=== PATIENT | male | born 1955 | race Caucasian/White ===

== ENCOUNTER → 2017-09-13 08:55 | Outpatient (CLI) | payer OTHER, SELFPAY ==
[2017-09-13 10:54] LABS: Absolute Lymphocyte Count 0.95 X10^3/ul (0.83-4.51); Absolute Neutrophil Count 5.3 X10^3/uL (2.0-7.7); Basophil# 0.06 X10^3/uL; Basophil% 0.8 % (0-1); Eosinophils% 5.2 % (0-5); Hematocrit 47.4 % (40-54); Hemoglobin 15.8 g/dl (13.0-16.5); Lymphocyte # 0.95 X10^3/ul (4.0); Lymphocyte % 12.4 % (19-41); Mean Corp Hgb Conc 33.3 g/gl (32-36); Mean Corpuscular Hgb 30.7 pg (27.0-32.0); Mean Platelet Vol. 11.2 fl (6.2-12.0); Neutrophil # 5.26 X10^3/uL (2.7-7.7); Neutrophil % 68.3 % (47-70); Platelet Count 168 K/mm3 (150-450); RBC Distribution Width CV 14.5 % (11.6-14.6); RBC Distribution Width SD 49.3 fl (35.1-43.9); Red Blood Count 5.15 M/mm3 (4.6-6.2); White Blood Count 7.7 K/mm3 (4.4-11.0)
[2017-09-13 10:56] LABS: POSITIVE COUNT NO; POSITIVE DIFFERENTIAL NO; POSITIVE MORPHOLOGY NO
[2017-09-13 11:13] LABS: ALB/GLOB Ratio 1.2 RATIO (0.9-2.4); AST(SGOT) 23 U/L (15-37); Alanine Aminotransfer ALT/SGPT 43 U/L (16-61); Alkaline Phosphatase 88 U/L (45-117); Anion Gap 7 (5-15); BUN 26 mg/dL (7-18); BUN/Creat Ratio 18.4 RATIO (10-20); Calcium,Total 8.7 mg/dL (8.5-10.1); Chloride 110 mmol/L (98-107); Creatinine, Serum 1.41 mg/dL (0.70-1.30); EST Glomerular Filtration Rate 54 mL/min (>60); Est Glom Filt Rate - Afr Amer 66 mL/min (>60); Globulin 3.3 g/dL (2.2-4.2); Glucose 110 mg/dL (74-106); Protein, Total 7.3 g/dL (6.4-8.2); Sodium Level 140 mmol/L (136-145); Uric Acid 7.2 mg/dL (3.5-7.2)
== END ==
PROVIDERS: Family Provider Family Medicine; PCP Family Medicine; Visit Provider Internal Medicine Rheumatology
DX: M06.4 Inflammatory polyarthropathy (principal); M35.00 Sjogren syndrome, unspecified; M10.00 Idiopathic gout, unspecified site; J45.909 Unspecified asthma, uncomplicated; G47.33 Obstructive sleep apnea (adult) (pediatric); E03.9 Hypothyroidism, unspecified; E78.5 Hyperlipidemia, unspecified
CPT/HCPCS: 36415; 80053; 84550; 85025

== ENCOUNTER 2017-10-19 19:12 | Observation (INO) | payer OTHER, SELFPAY ==
[2017-10-19] VITALS (9 sets, daily range): BP systolic 98–157; BP diastolic 59–99; PULSE 74–88; RESP 16–22; TEMP 36.8–37.1; O2SAT 95–100; BMI 35.2; BMI 35.1
--- NOTE | 2017-10-19 19:45 | EKG12_ITS ---
Test Reason : CP Blood Pressure : / mmHG Vent. Rate : 077 BPM Atrial Rate : 077 BPM P-R Int : 140 ms QRS Dur : 094 ms QT Int : 410 ms P-R-T Axes : 063 056 071 degrees QTc Int : 463 ms Normal sinus rhythm Normal ECG Confirmed by DANA LANDON, SANCHO ([id number]), publishing editor OLIVIER WAITE ([id number]) on 10/22/2017 2:17:56 PM Referred By: DONA Confirmed By:SANCHO CORTEZ MD
[2017-10-19] MEDS: Aspirin 81 MG TAB.CHEW 324 MG PO (19:55)
[2017-10-19 19:58] LABS: Absolute Lymphocyte Count 0.84 X10^3/ul (0.83-4.51); Absolute Neutrophil Count 9.4 X10^3/uL (2.0-7.7); Basophil# 0.06 X10^3/uL; Basophil% 0.5 % (0-1); Eosinophil# 0.27 X10^3/uL; Eosinophils% 2.4 % (0-5); Hematocrit 47.5 % (40-54); Hemoglobin 16.5 g/dl (13.0-16.5); Lymphocyte # 0.84 X10^3/ul (4.0); Lymphocyte % 7.5 % (19-41); Mean Corp Hgb Conc 34.7 g/gl (32-36); Mean Corpuscular Hgb 31.5 pg (27.0-32.0); Mean Corpuscular Volume 90.8 fL (80-94); Mean Platelet Vol. 10.4 fl (6.2-12.0); Monocyte% 5.3 % (0-10); Neutrophil # 9.42 X10^3/uL (2.7-7.7); Neutrophil % 83.9 % (47-70); Platelet Count 182 K/mm3 (150-450); RBC Distribution Width CV 14.3 % (11.6-14.6); RBC Distribution Width SD 46.9 fl (35.1-43.9); Red Blood Count 5.23 M/mm3 (4.6-6.2); White Blood Count 11.2 K/mm3 (4.4-11.0)
[2017-10-19 19:59] LABS: POSITIVE COUNT NO; POSITIVE DIFFERENTIAL NO; POSITIVE MORPHOLOGY NO
--- NOTE | 2017-10-19 20:00 | RAD_ITS ---
STUDY: X-RAY CHEST REASON FOR EXAM: Male, 62 years old. Chest pain TECHNIQUE: Frontal view of the chest COMPARISON: 01/18/2015 FINDINGS: The lungs are clear. There are no pleural effusions. There is no pneumothorax. The heart is normal in size. The visualized osseous structures are within normal limits. RAD/Chest 1 View (Portable) IMPRESSION: No acute thoracic pathology. Electronically Signed: Gonzalez Cunningham, at 20:19 EDT Tel , Service support ,
[2017-10-19 20:16] LABS: Anion Gap 9 (5-15); BUN 18 mg/dL (7-18); BUN/Creat Ratio 15.5 RATIO (10-20); Calcium,Total 8.7 mg/dL (8.5-10.1); Chloride 105 mmol/L (98-107); Creatinine, Serum 1.16 mg/dL (0.70-1.30); EST Glomerular Filtration Rate 68 mL/min (>60); Est Glom Filt Rate - Afr Amer 82 mL/min (>60); Estimated Creatinine Clearance 66.87 ml/min; Glucose 81 mg/dL (74-106); Potassium 3.9 mmol/L (3.5-5.1); Sodium Level 141 mmol/L (136-145)
--- NOTE | 2017-10-19 22:10 | ED.DCSUM_ITS ---
- ER Visit Summary Date of Service: 10/19/17 Chief Complaint: Indigestion History of Present Illness: The patient is a 62 M with substernal indigestion radiating to the back. This is intermittent today. Nothing seemed to bring it on or make it worse. Nothing seems to make it better. Associated with chills. No history of heart disease, PE, or dissection. He did have a stress test in February 2017 which was unremarkable. He has a history of hypertension and high cholesterol. Physical Examination: Vital signs are unremarkable except for a blood pressure of 157/87. Afebrile. Appears uncomfortable but not toxic or in distress. Heart regular. Lungs clear. Abdomen soft. Pulses strong and equal. Calves soft and supple. Skin normal in color without diaphoresis or pallor. Test Results: EKG showed sinus rhythm at a rate of 77. No sign of acute ischemia or infarction pattern. White count 11.2. BMP normal. Troponin normal. Chest x-ray unremarkable. Emergency Department Course and Treatment: Patient was placed on a monitor. Treated with aspirin and nitroglycerin. He had minimal improvement. I had a discussion with the patient. Given his risk factors and symptoms, we will observe him in the hospital. I spoke with the hospitalist who will admit. Treatment Plan: As above Disposition: Admission Impression: 1. Chest pain This note was generated with [employer] dictation software. It may contain incorrect words, spelling, and punctuation that were not noted in review of the chart prior to signing ED Disposition - Plan for ED Patient: Chief Complaint: Chest Pain Referrals: Dayne Ortiz MD [Primary Care Provider] -
--- NOTE | 2017-10-19 22:50 | PCM.HP.STD ---
Problem List (1) Chest pain Status: Acute (2) History of appendectomy Status: Resolved (3) Diastolic dysfunction Status: Chronic (4) Near syncope Status: Chronic (5) Diabetes mellitus Status: Chronic (6) BRENNON (obstructive sleep apnea) Status: Chronic Comment: CPAP 12 cm water History of Present Illness Date of Admission: 10/19/17 Chief Complaint: Chest pain The patient is a 62 year old male w/ h/o lipidemia and HTN admitted for chest pain. He has epigastric pain that started early in the evening and lasted for hours. Pain is intermittent and is burning. It also radiated to the back. Nothing makes it better or worse. He has upper back chill as well. The chill makes him diaphoretic. He recently had a negative stress test in February. He has GERD before but none similar to this episode. Past Medical History Past Medical History (Chronic Problems): Chronic Problems (Last Reviewed 10/04/17 @ 07:55 by Yesenia Sarabia [employer] GRAIN FARMWORKER-C) Moderate persistent asthma not dependent on systemic steroids (Chronic) 8 mm RLL pulmonary nodule (Chronic) Diastolic dysfunction (Chronic) Near syncope (Chronic) Diabetes mellitus (Chronic) BRENNON (obstructive sleep apnea) (Chronic) CPAP 12 cm water Obesity (Chronic) JACQUE positive (Chronic) History of chronic bronchitis (Chronic) Gout (Chronic) HLD (hyperlipidemia) (Chronic) HTN (hypertension) (Chronic) Medical History: Medical History (Last Reviewed 10/04/17 @ 07:55 by Yesenia Sarabia [employer] G[employer] FARMWORKER-C) 8 mm RLL pulmonary nodule (Chronic) Diastolic dysfunction (Chronic) I51.9 Near syncope (Chronic) R55 Diabetes mellitus (Chronic) E11.9 BRENNON (obstructive sleep apnea) (Chronic) G47.33 CPAP 12 cm water Obesity (Chronic) E66.9 Dyspnea (Acute) R06.00 JACQUE positive (Chronic) R76.8 Edema (Acute) R60.9 History of chronic bronchitis (Chronic) Z87.09 Gout (Chronic) M10.9 HLD (hyperlipidemia) (Chronic) E78.5 Acute asthma exacerbation (Acute) J45.901 HTN (hypertension) (Chronic) I10 Allergies amoxicillin trihydrate [From Augmentin] Allergy (Verified 10/04/17 07:47) Unknown potassium clavulanate [From Augmentin] Allergy (Verified 10/04/17 07:47) Unknown Home Medications: Ambulatory Orders Medication Instructions Recorded Albuterol IH (ProAir) [Proair Hfa] 2 puff INHALATION Q4H PRN PRN 09/11/14 Allopurinol [Zyloprim] 300 mg PO DAILY 09/11/14 Amlodipine [Norvasc] 5 mg PO DAILY 09/11/14 Aspirin [Aspirin, Baby] 81 mg PO DAILY@0800 09/11/14 Colchicine 0.6 mg PO 4X/DAY PRN PRN 09/11/14 Montelukast [Singulair] 10 mg PO DAILY 09/11/14 Simvastatin [Zocor] 40 mg PO QHS 09/11/14 albuterol sulfate 2.5 mg/3 mL 2.5 mg INHALATION Q4H PRN ml 04/03/17 (0.083 %) solution for nebulization budesonide-formoterol HFA 160 2 inh INHALATION Q12H 04/03/17 mcg-4.5 mcg/actuation aerosol inhaler hydroxychloroquine 200 mg tablet 200 mg PO BID tab 04/03/17 tramadol 50 mg tablet 50 mg PO Q8H PRN tab 04/03/17 azelastine 137 mcg (0.1 %) nasal 1 spray INTRANASAL BID #30 ml 07/05/17 spray aerosol furosemide 20 mg tablet 20 mg PO QDAY #90 tab 07/11/17 potassium chloride ER 10 mEq 20 meq PO QDAY #180 cap 07/11/17 capsule,extended release Cetirizine HCl [Zyrtec] 10 mg PO DAILY 10/19/17 Famotidine 20 mg PO BID 10/19/17 Fluticasone Propionate [Allergy 2 sprays NS BID 10/19/17 Relief] Surgical History: Surgical History (Last Reviewed 10/04/17 @ 07:55 by RICHA Long) History of appendectomy (Resolved) Z98.890, Z90.49 Surgical History: appendectomy Psychiatric History: No pertinent psych hx Smoking Status: Never smoker Alcohol: None Drugs: None - *Family History Maternal Family History: Family History (Last Reviewed 10/04/17 @ 07:55 by RICHA Long) Father Heart disease Sister Other medical problems History Items: - - mother of COPD ( but not his biological mother) and a maternal uncle in his 50's of CAD Paternal Family History: Family History (Last Reviewed 10/04/17 @ 07:55 by RICHA Long) Father Heart disease Sister Other medical problems History Items: Heart Disease - father of an PA at 83 Sibling Family History: Family History (Last Reviewed 10/04/17 @ 07:55 by RICHA Long) Father Heart disease Sister Other medical problems History Items: - - he has a sister who of unknown causes Review of Systems Constitutional: Denies: Chills, Fever, Weight Change HEENT: Denies: Head Aches, Sinus Congestion, Sinus Drainage Cardiovascular: Reports: Chest Pain. Denies: Palpitations Respiratory: Denies: Cough, Shortness of breath at rest, Sputum production Gastrointestinal: Denies: Abdominal Pain, Nausea, Vomiting Genitourinary: Denies: Dysuria Musculoskeletal: Denies: Joint Pain, Joint Tenderness Skin: Denies: Rash, Wounds Neurological: Denies: Numbness, Tingling, Focal weakness Psychiatric: Denies: Anxiety, Depression, Homicidal Ideations, Suicidal Ideations Hematologic/ Lymphatic: Denies: Easy Bruising, Easy Bleeding VTE Information - Inpt Only VTE Present on Admission: No VTE Mechan Device Prophylaxis: SCD's VTE Pharm Prophylaxis ordered?: Yes Patient Problems: Active and Suspected Problems (Last Reviewed 10/04/17 @ 07:55 by RICHA Long) Chest pain (Acute) - Physical Exam General: Alert, Oriented x3, Cooperative HEENT: Atraumatic, PERRLA, EOMI, Normocephalic Neck: Supple, No JVD, Negative Carotid Bruits Lungs: Clear to auscultation, Normal air movement Cardiovascular: Regular rate, No murmurs Abdomen: Bowel Sounds Present, Soft, Non Tender Extremities: No edema, Capillary Refill Less than 3 Seconds Skin: No rashes, No breakdown Musculoskeletal: No Tenderness to Palpation of Joints or Extremities Neurological: Cranial nerves II-XII grossly intact Psych/Mental Status: Normal Affect, Appropriate Vital Signs Temp Pulse Resp BP Pulse Ox 98.7 F 78 16 102/68 100 10/19/17 21:02 10/19/17 22:20 10/19/17 22:20 10/19/17 22:20 10/19/17 22:20 Oxygen Flow Rate (L/min) 2 Oxygen Delivery Method Nasal Cannula Weight: 108.409 kg Body Mass Index (BMI) 35.2 Laboratory Tests Past 24 Hrs 10/19/17 10/19/17 19:50 19:50 WBC 11.2 H RBC 5.23 Hgb 16.5 Hct 47.5 MCV 90.8 MCH 31.5 MCHC 34.7 RDW 14.3 RDW Differential 46.9 H Plt Count 182 MPV 10.4 Immature Gran % (Auto) 0.400 Neut % (Auto) 83.9 H Lymph % (Auto) 7.5 L [place] % (Auto) 5.3 Eos % (Auto) 2.4 Baso % (Auto) 0.5 Absolute Neuts (auto) 9.4 H Absolute Lymphs (auto) 0.84 Total Counted Not Reportable Sodium 141 Potassium 3.9 Chloride 105 Carbon Dioxide 27.0 Anion Gap 9 BUN 18 Creatinine 1.16 Estim Creat Clear Calc 66.87 Est GFR (MDRD) Af Amer 82 Est GFR (MDRD) Non-Af 68 BUN/Creatinine Ratio 15.5 Glucose 81 Calcium 8.7 Troponin I < 0.015 Assessment/Plan All Active Problems (Last Reviewed 10/04/17 @ 07:55 by Yesenia Sarabia, [employer] G[employer] FARMWORKER-C) Chest pain (Acute) PND (post-nasal drip) (Acute) History of appendectomy (Resolved) Dyspnea (Acute) Edema (Acute) Acute asthma exacerbation (Acute) 62 year old male w/ h/o lipidemia and HTN admitted for chest pain. 1) Chest pain: Heart score 5 Trop negative. Nondiagnostic EKG. Chest xray unremarkable. Pain does not appear typical. ECHO in AM. FLP and serial trops. Cards consult to determine if cath is indicated. 2) GERD: C/w home meds. 3) HTN: SBP 120s. C/w meds. Monitor.
--- NOTE | 2017-10-19 23:17 | NURSING ---
Called ED precision instrument maker and repairer at this time to inform that PCU is ready for patient to be transferred.
--- NOTE | 2017-10-19 23:45 | EKG12_ITS ---
Test Reason : CP REPEAT Blood Pressure : / mmHG Vent. Rate : 085 BPM Atrial Rate : 085 BPM P-R Int : 138 ms QRS Dur : 104 ms QT Int : 384 ms P-R-T Axes : 064 058 069 degrees QTc Int : 456 ms Normal sinus rhythm Normal ECG Confirmed by PATRICIA LANDON, DYLAN ([id number]), newspaper editor managing OLIVIER WAITE ([id number]) on 10/25/2017 2:11:09 PM Referred By: SANIYA Confirmed By:DYLAN GOMEZ MD
[2017-10-20] MEDS: Mag Hydrox/Al Hydrox/Simeth 30 ML UDC PO (00:49)
[2017-10-20] MEDS: Fluticasone 0.05% 1 SPRAY NASAL.SRY 2 SPRAY NASAL ×2 (00:51→10:34)
[2017-10-20] MEDS: Hydroxychloroquine 200 MG Tablet PO ×2 (00:52→10:32)
[2017-10-20 03:51] VITALS: PULSE 96
[2017-10-20 05:10] VITALS: BP 120/64; PULSE 78; RESP 16; TEMP 36.7; O2SAT 96
[2017-10-20] MEDS: Heparin Injection (Vial) 5,000 UNIT/ML VIAL 5000 UNIT SC (05:54)
--- NOTE | 2017-10-20 05:55 | ECHOD_ITS ---
Reason For Study: Chest Pain Procedure This was a 2D Doppler, Color Flow transthoracic echocardiogram. Exam performed portable in patient room. Left Ventricle Normal LV size. Left ventricular systolic function is normal. The estimated ejection fraction is 60 %. Transmitral diastolic flow velocities suggest mild (stage 1) diastolic dysfunction (reversed pattern). No regional wall motion abnormalities noted. Right Ventricle Normal RV size. Normal systolic function. Atria Normal left atrium. Normal right atrium. Mitral Valve Normal mitral valve. Tricuspid Valve Normal tricuspid valve. Mild (1+) tricuspid valve insufficiency. Pulmonary artery systolic pressure is 25 mmHg. Aortic Valve Normal aortic valve. Trisinus/trileaflet aortic valve. Pulmonic Valve Normal pulmonic valve. Great Vessels Mildly dilated aortic root. The pulmonary artery is normal size. Normal inferior vena cava. Pericardium/Pleural No pericardial effusion. MMode/2D Measurements & Calculations LVIDd: 5.1 cm IVSd: 1.1 cm Ao root diam: 4.0 cm LVIDs: 3.2 cm LVPWd: 1.5 cm LA dimension: 4.0 cm FS: 37.0 % LAV(MOD-bp): 39.3 ml LA A4 area: 19.5 cm2 LAV(MOD-bp) Indexed: 17.7 ml/m2 LAV(MOD-sp2): 24.6 ml LAV(MOD-sp4): 57.0 ml Time Measurements MV dec time: 0.22 sec Doppler Measurements & Calculations MV E max lavell: 55.5 cm/sec Lat Peak E' Lavell: 9.8 cm/sec Med Peak E' Lavell: 7.9 cm/sec MV A max lavell: 92.9 cm/sec E/E' lat: 5.7 E/E' med: 7.0 MV E/A: 0.60 MV V2 max: 108.7 cm/sec MV P1/2t max lavell: 60.8 cm/sec Ao V2 max: 136.8 cm/sec MV max P.7 mmHg MV P1/2t: 83.1 msec Ao max P.5 mmHg MV V2 mean: 47.5 cm/sec MV dec slope: 214.3 cm/sec2 Ao V2 mean: 89.4 cm/sec MV mean P.1 mmHg MVA(P1/2t): 2.6 cm2 Ao mean P.6 mmHg MV V2 VTI: 23.4 cm Ao V2 VTI: 24.5 cm LV V1 max: 101.5 cm/sec PA V2 max: 87.6 cm/sec TR max lavell: 236.4 cm/sec LV V1 max P.1 mmHg TR max P.3 mmHg LV V1 mean P.8 mmHg LV V1 mean: 62.6 cm/sec LV V1 VTI: 21.3 cm Interpretation Summary Normal LV size. Left ventricular systolic function is normal. The estimated ejection fraction is 60 %. No regional wall motion abnormalities noted. Transmitral diastolic flow velocities suggest mild (stage 1) diastolic dysfunction (reversed pattern). Mild (1+) tricuspid valve insufficiency. Pulmonary artery systolic pressure is 25 mmHg. Ordering Physician: Daniel Mace Referring Physician: Erum Hayes Performed By: Willian Nichols, DENG
[2017-10-20 06:34] LABS: Hematocrit 43.1 % (40-54); Hemoglobin 14.8 g/dl (13.0-16.5); Mean Corp Hgb Conc 34.3 g/gl (32-36); Mean Corpuscular Hgb 31.2 pg (27.0-32.0); Mean Corpuscular Volume 90.7 fL (80-94); Mean Platelet Vol. 10.6 fl (6.2-12.0); Platelet Count 158 K/mm3 (150-450); RBC Distribution Width CV 14.3 % (11.6-14.6); RBC Distribution Width SD 46.9 fl (35.1-43.9); Red Blood Count 4.75 M/mm3 (4.6-6.2); White Blood Count 8.7 K/mm3 (4.4-11.0)
[2017-10-20 06:38] LABS: Scan Indicated on CBC? Y/N NO
[2017-10-20 06:55] LABS: D-Dimer Quantitative (DVT/PE) 0.72 FEU/ug/m (0.27-0.49)
[2017-10-20 06:56] VITALS: PULSE 83
--- NOTE | 2017-10-20 07:05 | CT_ITS ---
STUDY: CTA CHEST REASON FOR EXAM: Male, 62 years old. Elevated d-dimer. Chest pain. Chronic colitis, asthma, hypertension and right lung nodule. RADIATION DOSAGE (If Supplied By Facility): CTDIvol = ( 15.04 ) mGy, DLP = ( 730.57 ) mGycm TECHNIQUE: The examination was performed with the intravenous administration of 100mL ml of Isovue 370 contrast material. Post-processing of the angiographic images was performed, with multiplanar reformation and MIP reconstruction. Individualized dose optimization techniques were used for this CT. COMPARISON: 02/02/2015. FINDINGS: Normal enhancement of the main pulmonary artery and right and left pulmonary arteries. Less than optimal contrast enhancement of the bilateral peripheral pulmonary arteries. There is no demonstrated pulmonary embolism. Normal thoracic aorta and visualized great vessels. There is no demonstrated aortic dissection. Normal heart and pericardium. Normal mediastinum. Normal hilar regions. Normal visualized trachea and bronchi. Mild pulmonary hypoinflation. Follow-up horizontal linear subsegmental atelectasis in the right posterior lung base. No suspicious pulmonary nodules or mass. Normal pleura. Normal chest wall structures. No acute osseous abnormality. Mild diffuse fatty infiltration. CT/CTA Chest W/WO Contrast IMPRESSION: 1. Less than optimal contrast opacification of the peripheral pulmonary arteries. No suspicious pulmonary thromboemboli. 2. Normal thoracic aorta without thoracic aortic dissection. 3. Long horizontal linear subsegmental atelectasis in the right posterior lung base. 4. No suspicious pulmonary nodule or mass in the chest. 5. Hepatic steatosis. 6. No significant interval changes when compared to 02/02/2015. Electronically Signed: Lorenzo George MD at 10:05 EDT , Service support ,
[2017-10-20 07:16] LABS: AST(SGOT) 18 U/L (15-37); Alanine Aminotransfer ALT/SGPT 38 U/L (16-61); Albumin, Serum 3.2 g/dL (3.2-5.0); Alkaline Phosphatase 75 U/L (45-117); Anion Gap 10 (5-15); BUN 15 mg/dL (7-18); Chloride 108 mmol/L (98-107); Cholesterol 143 mg/dL (200); Creatinine, Serum 1.15 mg/dL (0.70-1.30); EST Glomerular Filtration Rate 69 mL/min (>60); Est Glom Filt Rate - Afr Amer 83 mL/min (>60); Estimated Creatinine Clearance 67.46 ml/min; Globulin 3.2 g/dL (2.2-4.2); Glucose 112 mg/dL (74-106); High Density Lipoprotein 51 mg/dL; Potassium 3.6 mmol/L (3.5-5.1); Protein, Total 6.4 g/dL (6.4-8.2); Sodium Level 142 mmol/L (136-145); Thyroid Stim Hormone (TSH) 2.06 uIU/mL (0.358-3.74); Triglycerides 207 mg/dL; Very Low Density Lipoprotein 41 mg/dL (5-40)
[2017-10-20 08:34] LABS: BNP,B-Type NATRIURETIC PEPTIDE 27.5 pg/mL (0-100)
[2017-10-20 10:20] VITALS: BP 123/84; PULSE 71; RESP 16; TEMP 36.8; O2SAT 93
[2017-10-20] MEDS: Aspirin 81 MG TAB.CHEW PO (10:32)
[2017-10-20] MEDS: Loratadine 10 MG Tablet PO (10:32)
[2017-10-20] MEDS: Montelukast 10 MG Tablet PO (10:32)
[2017-10-20] MEDS: Carvedilol 3.125 MG TABLET PO (10:32)
[2017-10-20] MEDS: Famotidine 20 MG Tablet PO (10:32)
[2017-10-20] MEDS: Furosemide 20 MG Tablet PO (10:32)
[2017-10-20] MEDS: amLODIPine 5 MG Tablet PO (10:33)
[2017-10-20] MEDS: Allopurinol 300 MG Tablet PO (10:46)
[2017-10-20 11:04] VITALS: PULSE 73
[2017-10-20 11:09] VITALS: O2SAT 93
--- NOTE | 2017-10-20 12:00 | CON.PCM_ITS ---
Problem List (1) Chest pain Status: Acute Reason for Consult Date of Consultation: 10/20/17 History of Present Illness: The patient is a 62 year old M with past medical history significant for hypertension and diastolic dysfunction. He also has a recent history of gastroesophageal reflux disease. According to the patient, he started having epigastric/chest discomfort yesterday in the afternoon. There was no radiation to the arm neck or jaw. The discomfort was intermittent lasting a few minutes at a time and relieving on its own. No relationship to activity. No exacerbation with exertion. No associated shortness of breath. Patient is confident that he was not diaphoretic. However he did have chilled back. He describes it as feeling cold in his back. Positive associated bitter taste in the mouth. Positive nausea. No emesis. Patient continued to have these feelings yesterday. Last night it was worse. However he asked for some Mylanta and after taking it, his discomfort was was improved. Per patient, he has had cardiac catheterization many years ago by Dr. Ross. He was told that he did not have any significant coronary artery disease. Last stress test was in February of last year. No inducible ischemia was noted. Patient denies any exertional chest pain. No exertional shortness of breath. [ ] Past Medical History Allergies/Adverse Reactions: Allergies amoxicillin trihydrate [From Augmentin] Allergy (Verified 10/04/17 07:47) Unknown potassium clavulanate [From Augmentin] Allergy (Verified 10/04/17 07:47) Unknown Home Medications: Ambulatory Orders Medication Instructions Recorded Albuterol IH (ProAir) [Proair Hfa] 2 puff INHALATION Q4H PRN PRN 09/11/14 Allopurinol [Zyloprim] 300 mg PO DAILY 09/11/14 Amlodipine [Norvasc] 5 mg PO DAILY 09/11/14 Aspirin [Aspirin, Baby] 81 mg PO DAILY@0800 09/11/14 Colchicine 0.6 mg PO 4X/DAY PRN PRN 09/11/14 Montelukast [Singulair] 10 mg PO DAILY 09/11/14 Simvastatin [Zocor] 40 mg PO QHS 09/11/14 albuterol sulfate 2.5 mg/3 mL 2.5 mg INHALATION Q4H PRN ml 04/03/17 (0.083 %) solution for nebulization budesonide-formoterol HFA 160 2 inh INHALATION Q12H 04/03/17 mcg-4.5 mcg/actuation aerosol inhaler hydroxychloroquine 200 mg tablet 200 mg PO BID tab 04/03/17 tramadol 50 mg tablet 50 mg PO Q8H PRN tab 04/03/17 azelastine 137 mcg (0.1 %) nasal 1 spray INTRANASAL BID #30 ml 07/05/17 spray aerosol furosemide 20 mg tablet 20 mg PO QDAY #90 tab 07/11/17 potassium chloride ER 10 mEq 20 meq PO QDAY #180 cap 07/11/17 capsule,extended release Cetirizine HCl [Zyrtec] 10 mg PO DAILY 10/19/17 Famotidine 20 mg PO BID 10/19/17 Fluticasone Propionate [Allergy 2 sprays NS BID 10/19/17 Relief] Past Medical History (Chronic Problems): Chronic Problems (Last Reviewed 10/04/17 @ 07:55 by RICHA Long) Moderate persistent asthma not dependent on systemic steroids (Chronic) 8 mm RLL pulmonary nodule (Chronic) Diastolic dysfunction (Chronic) Near syncope (Chronic) Diabetes mellitus (Chronic) BRENNON (obstructive sleep apnea) (Chronic) CPAP 12 cm water Obesity (Chronic) JACQUE positive (Chronic) History of chronic bronchitis (Chronic) Gout (Chronic) HLD (hyperlipidemia) (Chronic) HTN (hypertension) (Chronic) Surgical History: appendectomy Psychiatric History: No pertinent psych hx - *Family History Maternal Family History: Family History (Last Reviewed 10/04/17 @ 07:55 by RICHA Long) Father Heart disease Sister Other medical problems History Items: - - mother of COPD ( but not his biological mother) and a maternal uncle in his 50's of CAD Paternal Family History: Family History (Last Reviewed 10/04/17 @ 07:55 by RICHA Long) Father Heart disease Sister Other medical problems History Items: Heart Disease - father of an PR at 83 Sibling Family History: Family History (Last Reviewed 10/04/17 @ 07:55 by RICHA Long) Father Heart disease Sister Other medical problems History Items: - - he has a sister who of unknown causes Smoking Status: Never smoker Alcohol: None Drugs: None Review of Systems - Review of Systems General: Denies: Fever, Anorexia, Weight Loss HEENT: Denies: Head Aches Cardiovascular: Denies: Chest Discomfort with Exertion, Shortness of Breath with Exertion, Orthopnea, PND, Peripheral Edema Respiratory: Denies: Cough Gastrointestinal: Reports: Heart Burn, Epigastric Discomfort, Nausea. Denies: Emesis Neurological: Denies: History of TIA, History of CVA Hematologic/ Lymphatic: Denies: Easy Brusing, Easy Bleeding Subjectve: Comfortable. No apparent distress Objective: Vital Signs Temp Pulse Resp BP Pulse Ox 98.3 F 73 16 123/84 H 93 10/20/17 10:20 10/20/17 11:04 10/20/17 10:20 10/20/17 10:20 10/20/17 11:09 Oxygen Delivery Method Room Air Weight: 107.9 kg Body Mass Index (BMI) 35.1 Intake and Output for Last 24 Hours 10/18/17 10/19/17 10/20/17 23:59 23:59 23:59 Intake Total 120 / 120 Balance 120 / 120 General: Healthy Appearing, Awake, Alert, Oriented x 3, No Acute Distress HEENT: Atraumatic, Normocephalic Oral: Moist Mucosa Neck: No JVD Lungs: Clear to auscultation Cardiovascular: Regular Rhythm, Normal S1, Normal S2 Vascular: No Carotid Bruits Abdomen: Bowel Sounds Present, Soft, - - Mildly tender in epigastrium upon palpation. According to patient, this is a similar discomfort that he has been having Neurological: No Focal Motor or Sensory Deficit Psych/Mental Status: Appropriate 10/20/17 00:01: Troponin I < 0.015 10/20/17 03:06: Troponin I < 0.015 10/20/17 05:48: Sodium 142, Potassium 3.6, Chloride 108 H, Carbon Dioxide 24.0, Anion Gap 10, BUN 15, Creatinine 1.15, Est GFR (MDRD) Af Amer 83, Est GFR (MDRD ) Non-Af 69, BUN/Creatinine Ratio 13.0, Glucose 112 H, Calcium 8.0 L, Total Bilirubin 0.40, Troponin I < 0.015, Triglycerides 207 H, Cholesterol 143, LDL Cholesterol 51, VLDL Cholesterol 41 H, HDL Cholesterol 51 10/20/17 05:48: WBC 8.7, RBC 4.75, Hgb 14.8, Hct 43.1, MCV 90.7, MCH 31.2, MCHC 34.3, RDW 14.3, RDW Differential 46.9 H, Plt Count 158, MPV 10.6 10/20/17 05:48: B-Natriuretic Peptide 27.5 10/20/17 05:48: D-Dimer Quant (PE/DVT) 0.72 H* Rhythm: Normal sinus rhythm EKG: Normal sinus rhythm. Early repolarization check ECHO: Normal LV systolic function. Stage I diastolic dysfunction Stress Test: Cardiac Cath: PCI: CT Surgery: Holter monitor: EPS: PPM: CXR: Chest CT Scan: Assessment/Plan 1. Epigastric/chest discomfort with mildly tender epigastrium. Bitter taste in the mouth. Help with Mylanta. Consider gastroesophageal reflux disease/ peptic ulcer disease. Recommend GI consultation. Consider starting on proton pump inhibitor 2. Ambulate patient. See if symptoms worsen with exertion 3. History of hypertension 4. Stage I diastolic dysfunction
--- NOTE | 2017-10-20 12:56 | PCM.DC ---
- Discharge Diagnoses Current Active Problems: Current Active and Chronic Problems (Last Reviewed 10/04/17 @ 07:55 by RICHA Long) Chest pain (Acute) You will use the following diet at home:: Cardiac Call your doctor if you observe: Uncontrolled pain Allergies/Adverse Reactions: Allergies amoxicillin trihydrate [From Augmentin] Allergy (Verified 10/04/17 07:47) Unknown potassium clavulanate [From Augmentin] Allergy (Verified 10/04/17 07:47) Unknown Medications to take at Discharge Albuterol IH (ProAir) [Proair Hfa] 2 puff INHALATION Q4H PRN PRN 09/11/14 Allopurinol [Zyloprim] 300 mg PO DAILY 09/11/14 Amlodipine [Norvasc] 5 mg PO DAILY 09/11/14 Aspirin [Aspirin, Baby] 81 mg PO DAILY@0800 09/11/14 Colchicine 0.6 mg PO 4X/DAY PRN PRN 09/11/14 Montelukast [Singulair] 10 mg PO DAILY 09/11/14 Simvastatin [Zocor] 40 mg PO QHS 09/11/14 albuterol sulfate 2.5 mg/3 mL (0.083 %) solution for nebulization 2.5 mg INHALATION Q4H PRN ml 04/03/17 budesonide-formoterol HFA 160 mcg-4.5 mcg/actuation aerosol inhaler 2 inh INHALATION Q12H 04/03/17 hydroxychloroquine 200 mg tablet 200 mg PO BID tab 04/03/17 tramadol 50 mg tablet 50 mg PO Q8H PRN tab 04/03/17 azelastine 137 mcg (0.1 %) nasal spray aerosol 1 spray INTRANASAL BID #30 ml 07/05/17 furosemide 20 mg tablet 20 mg PO QDAY #90 tab 07/11/17 potassium chloride ER 10 mEq capsule,extended release 20 meq PO QDAY #180 cap 07/11/17 Cetirizine HCl [Zyrtec] 10 mg PO DAILY 10/19/17 Fluticasone Propionate [Allergy Relief] 2 sprays NS BID 10/19/17 Pantoprazole Sodium [Protonix] 40 mg PO BID #60 tab 10/20/17 The following prescriptions were given: Pantoprazole Sodium [Protonix] 40 mg PO BID #60 tab Primary Care Physician: Dayne Ortiz MD [Primary Care Provider] - Please follow up with your Primary Care Physician in: 5-10 days Test Results: Test results from this visit will be discussed in further detail at your follow-up appointment, if applicable. Proposed Discharge Date: 10/20/17
--- NOTE | 2017-10-20 12:59 | DCINST_ITS ---
- Discharge Diagnoses Current Active Problems: Current Active and Chronic Problems (Last Reviewed 10/04/17 @ 07:55 by RICHA Long) Chest pain (Acute) You will use the following diet at home:: Cardiac Call your doctor if you observe: Uncontrolled pain Allergies/Adverse Reactions: Allergies amoxicillin trihydrate [From Augmentin] Allergy (Verified 10/04/17 07:47) Unknown potassium clavulanate [From Augmentin] Allergy (Verified 10/04/17 07:47) Unknown Medications to take at Discharge Albuterol IH (ProAir) [Proair Hfa] 2 puff INHALATION Q4H PRN PRN 09/11/14 Allopurinol [Zyloprim] 300 mg PO DAILY 09/11/14 Amlodipine [Norvasc] 5 mg PO DAILY 09/11/14 Aspirin [Aspirin, Baby] 81 mg PO DAILY@0800 09/11/14 Colchicine 0.6 mg PO 4X/DAY PRN PRN 09/11/14 Montelukast [Singulair] 10 mg PO DAILY 09/11/14 Simvastatin [Zocor] 40 mg PO QHS 09/11/14 albuterol sulfate 2.5 mg/3 mL (0.083 %) solution for nebulization 2.5 mg INHALATION Q4H PRN ml 04/03/17 budesonide-formoterol HFA 160 mcg-4.5 mcg/actuation aerosol inhaler 2 inh INHALATION Q12H 04/03/17 hydroxychloroquine 200 mg tablet 200 mg PO BID tab 04/03/17 tramadol 50 mg tablet 50 mg PO Q8H PRN tab 04/03/17 azelastine 137 mcg (0.1 %) nasal spray aerosol 1 spray INTRANASAL BID #30 ml furosemide 20 mg tablet 20 mg PO QDAY #90 tab 07/11/17 potassium chloride ER 10 mEq capsule,extended release 20 meq PO QDAY #180 cap Cetirizine HCl [Zyrtec] 10 mg PO DAILY 10/19/17 Fluticasone Propionate [Allergy Relief] 2 sprays NS BID 10/19/17 Pantoprazole Sodium [Protonix] 40 mg PO BID #60 tab 10/20/17 The following prescriptions were given: Pantoprazole Sodium [Protonix] 40 mg PO BID #60 tab Primary Care Physician: Dayne Ortiz MD [Primary Care Provider] - Please follow up with your Primary Care Physician in: 5-10 days Test Results: Test results from this visit will be discussed in further detail at your follow- up appointment, if applicable. Proposed Discharge Date: 10/20/17
--- NOTE | 2017-10-20 13:00 | PCM.DC.SUM ---
Discharge Date and Diagnosis Date of Admission: 10/19/17 Date of Discharge: 10/20/17 - Primary Discharge Diagnosis Active and Suspected Problems (Last Reviewed 10/04/17 @ 07:55 by RICHA Long) Epigastric Pain Chest pain (Acute) - Secondary Discharge Diagnosis Chronic Problems (Last Reviewed 10/04/17 @ 07:55 by RICHA Long) Moderate persistent asthma not dependent on systemic steroids (Chronic) 8 mm RLL pulmonary nodule (Chronic) Diastolic dysfunction (Chronic) Near syncope (Chronic) Diabetes mellitus (Chronic) BRENNON (obstructive sleep apnea) (Chronic) CPAP 12 cm water Obesity (Chronic) JACQUE positive (Chronic) History of chronic bronchitis (Chronic) Gout (Chronic) HLD (hyperlipidemia) (Chronic) HTN (hypertension) (Chronic) Hospital Course and Treatment Imaging Results: 10/20/17 05:55 Echo Complete [ECHO] AM (NON MEDS) 10/20/17 07:05 CTA Chest W/WO Contrast [CT] Routine Cardiology Summary of Care Provided: The patient is a 62 year old male w/ h/o lipidemia and HTN admitted for chest pain. His chest pain was associated with upper back pain and chills. His EKG was nondiagnostic and chest x-ray was unremarkable. Echocardiogram and CTA of his chest was unremarkable. The patient noted an improvement in his symptoms. Patient was assessed by cardiology and it appeared that his pain is likely GI related. Indeed patient stated that his chest pain radiates into his throat. At home patient was on Pepcid. A shared decision was made to discharge patient home and to follow up with his PCP for a referral to gastroenterology. Protonix was prescribed for patient before discharge. On the day of examination patient was seen and a brief physical examination is as follows: General: Alert, Oriented x3, Cooperative HEENT: Atraumatic, PERRLA, EOMI, Normocephalic Neck: Supple, No JVD, Negative Carotid Bruits Lungs: Clear to auscultation, Normal air movement Cardiovascular: Mild tenderness of his chest. Regular rate, No murmurs Abdomen: Bowel Sounds Present, Soft, Non Tender Extremities: No edema, Capillary Refill Less than 3 Seconds Skin: No rashes, No breakdown Musculoskeletal: No Tenderness to Palpation of Joints or Extremities Neurological: Cranial nerves II-XII grossly intact Psych/Mental Status: Normal Affect, Appropriate Patient was instructed to come to the emergency department if his symptoms worsens. Call your doctor if you observe: Uncontrolled pain Home Medications: Medications to take at Discharge Albuterol IH (ProAir) [Proair Hfa] 2 puff INHALATION Q4H PRN PRN 09/11/14 Allopurinol [Zyloprim] 300 mg PO DAILY 09/11/14 Amlodipine [Norvasc] 5 mg PO DAILY 09/11/14 Aspirin [Aspirin, Baby] 81 mg PO DAILY@0800 09/11/14 Colchicine 0.6 mg PO 4X/DAY PRN PRN 09/11/14 Montelukast [Singulair] 10 mg PO DAILY 09/11/14 Simvastatin [Zocor] 40 mg PO QHS 09/11/14 albuterol sulfate 2.5 mg/3 mL (0.083 %) solution for nebulization 2.5 mg INHALATION Q4H PRN ml 04/03/17 budesonide-formoterol HFA 160 mcg-4.5 mcg/actuation aerosol inhaler 2 inh INHALATION Q12H 04/03/17 hydroxychloroquine 200 mg tablet 200 mg PO BID tab 04/03/17 tramadol 50 mg tablet 50 mg PO Q8H PRN tab 04/03/17 azelastine 137 mcg (0.1 %) nasal spray aerosol 1 spray INTRANASAL BID #30 ml 07/05/17 furosemide 20 mg tablet 20 mg PO QDAY #90 tab 07/11/17 potassium chloride ER 10 mEq capsule,extended release 20 meq PO QDAY #180 cap 07/11/17 Cetirizine HCl [Zyrtec] 10 mg PO DAILY 10/19/17 Fluticasone Propionate [Allergy Relief] 2 sprays NS BID 10/19/17 Pantoprazole Sodium [Protonix] 40 mg PO BID #60 tab 10/20/17 Following Prescrptions Were Given to Patient: Pantoprazole Sodium [Protonix] 40 mg PO BID #60 tab Primary Care Physician: Dayne Ortiz MD [Primary Care Provider] - Please follow up with your Primary Care Physician in: 5-10 days Minutes spent on discharge:: 25 Medical Necessity - Tobacco Use Smoking Status: Never smoker Meaningful Use Info Meaningful Use Diagnoses (Choose all that apply): None applicable
== END 2017-10-20 12:58 | disposition home or self-care (01) ==
LOC: ED 19:47 → PCU 23:07
PROVIDERS: Admitting Provider Internal Medicine; Emergency Provider Emergency Medicine; Family Provider Family Medicine; PCP Family Medicine; Visit Provider Hospitalist
DX: R07.89 Other chest pain (principal); R10.13 Epigastric pain; I10 Essential (primary) hypertension; G47.33 Obstructive sleep apnea (adult) (pediatric); R55 Syncope and collapse; E11.9 Type 2 diabetes mellitus without complications; K21.9 Gastro-esophageal reflux disease without esophagitis; J45.40 Moderate persistent asthma, uncomplicated; E66.9 Obesity, unspecified; Z68.35 Body mass index [BMI] 35.0-35.9, adult; Z71.3 Dietary counseling and surveillance; E78.5 Hyperlipidemia, unspecified; M10.9 Gout, unspecified; R91.1 Solitary pulmonary nodule; Z79.899 Other long term (current) drug therapy; Z79.51 Long term (current) use of inhaled steroids; Z79.82 Long term (current) use of aspirin; R06.00 Dyspnea, unspecified
CPT/HCPCS: 36415; 71045; 71275; 80048; 80053; 80061; 83880; 84443; 84484; 85025; 85027; 85379; 93005; 93306; 96372; 99218; 99283; Q9957; Q9967; A4216; G0378

== ENCOUNTER → 2017-11-09 07:53 | Outpatient (CLI) | payer OTHER, SELFPAY ==
--- NOTE | 2017-11-09 08:10 | RAD_ITS ---
STUDY: BARIUM ESOPHAGRAM REASON FOR EXAM: Male, 62 years old. Dyspepsia RADIATION DOSAGE (If Supplied By Facility): CTDIvol = ( ) mGy, DLP = ( ) mGycm. Individualized dose optimization techniques were used for this CT.? FLUOROSCOPY TIME (if supplied): (1:07) minutes/seconds TECHNIQUE: Air-contrast COMPARISON: None. FINDINGS: Swallowing was initiated normally. No nasopharyngeal reflux or aspiration. No Zenker's diverticulum noted on the lateral view. Normal peristaltic activity noted in the proximal and mid esophagus. No evidence of diverticulum or stricture. The distal esophagus however demonstrated tertiary contractions and there was some evidence of intraesophageal and GE reflux but no hiatal hernia. No mucosal irregularity noted in the esophagus. A 13 mm barium pill passed through the esophagus without difficulty. RAD/Esophagus Only IMPRESSION: Presbyesophagus with intraesophageal and GE reflux. Electronically Signed: Cash Mendez MD at 9:07 EDT , Service support ,
== END ==
PROVIDERS: Family Provider Family Medicine; PCP Family Medicine; Visit Provider Family Medicine
DX: R10.13 Epigastric pain (principal)
CPT/HCPCS: 74220

== ENCOUNTER → 2017-12-18 06:57 | Outpatient (CLI) | payer OTHER, SELFPAY ==
[2017-12-18 07:35] LABS: Absolute Lymphocyte Count 1.59 X10^3/ul (0.83-4.51); Absolute Neutrophil Count 4.8 X10^3/uL (2.0-7.7); Basophil# 0.06 X10^3/uL; Basophil% 0.8 % (0-1); Eosinophil# 0.53 X10^3/uL; Eosinophils% 6.7 % (0-5); Hematocrit 44.1 % (40-54); Hemoglobin 14.8 g/dl (13.0-16.5); Lymphocyte # 1.59 X10^3/ul (4.0); Mean Corp Hgb Conc 33.6 g/gl (32-36); Mean Corpuscular Hgb 30.6 pg (27.0-32.0); Mean Corpuscular Volume 91.1 fL (80-94); Mean Platelet Vol. 10.9 fl (6.2-12.0); Monocyte# 0.92 X10^3/uL; Monocyte% 11.6 % (0-10); Neutrophil # 4.83 X10^3/uL (2.7-7.7); Neutrophil % 60.5 % (47-70); Platelet Count 177 K/mm3 (150-450); RBC Distribution Width CV 15.1 % (11.6-14.6); RBC Distribution Width SD 49.8 fl (35.1-43.9); Red Blood Count 4.84 M/mm3 (4.6-6.2)
[2017-12-18 07:39] LABS: POSITIVE COUNT NO; POSITIVE DIFFERENTIAL NO; POSITIVE MORPHOLOGY NO
[2017-12-18 07:46] LABS: ALB/GLOB Ratio 1.2 RATIO (0.9-2.4); AST(SGOT) 25 U/L (15-37); Alanine Aminotransfer ALT/SGPT 41 U/L (16-61); Albumin, Serum 3.7 g/dL (3.2-5.0); Alkaline Phosphatase 82 U/L (45-117); Anion Gap 12 (5-15); BUN 22 mg/dL (7-18); BUN/Creat Ratio 17.3 RATIO (10-20); Calcium,Total 8.6 mg/dL (8.5-10.1); Chloride 111 mmol/L (98-107); Creatinine, Serum 1.27 mg/dL (0.70-1.30); EST Glomerular Filtration Rate 61 mL/min (>60); Est Glom Filt Rate - Afr Amer 74 mL/min (>60); Glucose 108 mg/dL (74-106); Potassium 3.8 mmol/L (3.5-5.1); Protein, Total 6.7 g/dL (6.4-8.2); Sodium Level 144 mmol/L (136-145)
== END ==
PROVIDERS: Family Provider Family Medicine; PCP Family Medicine; Visit Provider Internal Medicine Rheumatology
DX: M06.4 Inflammatory polyarthropathy (principal); M35.00 Sjogren syndrome, unspecified; M10.00 Idiopathic gout, unspecified site; J45.909 Unspecified asthma, uncomplicated; G47.33 Obstructive sleep apnea (adult) (pediatric); E03.9 Hypothyroidism, unspecified; E78.5 Hyperlipidemia, unspecified
CPT/HCPCS: 36415; 80053; 85025

== ENCOUNTER → 2018-04-19 06:30 | Outpatient (CLI) | payer OTHER, SELFPAY ==
--- NOTE | 2018-04-19 06:42 | RAD_ITS ---
STUDY: X-RAY - LEFT KNEE REASON FOR EXAM: Male, 63 years old. Inflammatory polyarthropathy TECHNIQUE: 4 view(s) of the knee. COMPARISON: None. FINDINGS: Normal visualized distal femur. Normal visualized proximal tibia and fibula. Normal proximal tibiofibular articulation. Normal medial femorotibial compartment. Normal lateral femorotibial compartment. Normal patellofemoral articulation. The soft tissue structures are unremarkable. RAD/Knee 4 or More Views IMPRESSION: Normal x-ray examination of the knee. Electronically Signed: Noam Estrada MD at 17:02 EST , Service support ,
--- NOTE | 2018-04-19 06:43 | RAD_ITS ---
STUDY: X-RAY - RIGHT KNEE REASON FOR EXAM: Male, 63 years old. Inflammatory polyarthropathy TECHNIQUE: 4 view(s) of the knee. COMPARISON: None. FINDINGS: Normal visualized distal femur. Normal visualized proximal tibia and fibula. Normal proximal tibiofibular articulation. There is mild degenerative arthrosis of the medial femorotibial compartment. Normal lateral femorotibial compartment. Normal patellofemoral articulation. The soft tissue structures are unremarkable. RAD/Knee 4 or More Views IMPRESSION: Mild arthritic changes of the medial knee compartment. Electronically Signed: Noam Estrada MD at 17:19 EST , Service support ,
[2018-04-19 07:54] LABS: Absolute Lymphocyte Count 1.61 X10^3/ul (0.83-4.51); Absolute Neutrophil Count 4.1 X10^3/uL (2.0-7.7); Basophil# 0.09 X10^3/uL; Basophil% 1.3 % (0-1); Eosinophil# 0.46 X10^3/uL; Eosinophils% 6.4 % (0-5); Hematocrit 46.9 % (40-54); Hemoglobin 15.8 g/dl (13.0-16.5); Lymphocyte # 1.61 X10^3/ul (4.0); Lymphocyte % 22.4 % (19-41); Mean Corp Hgb Conc 33.7 g/gl (32-36); Mean Corpuscular Hgb 30.4 pg (27.0-32.0); Mean Corpuscular Volume 90.4 fL (80-94); Mean Platelet Vol. 11.2 fl (6.2-12.0); Monocyte% 12.5 % (0-10); Neutrophil % 57.1 % (47-70); Platelet Count 180 K/mm3 (150-450); RBC Distribution Width CV 14.9 % (11.6-14.6); RBC Distribution Width SD 49.2 fl (35.1-43.9); Red Blood Count 5.19 M/mm3 (4.6-6.2); White Blood Count 7.2 K/mm3 (4.4-11.0)
[2018-04-19 07:57] LABS: POSITIVE COUNT NO; POSITIVE DIFFERENTIAL NO; POSITIVE MORPHOLOGY NO
[2018-04-19 08:17] LABS: ALB/GLOB Ratio 1.3 RATIO (0.9-2.4); AST(SGOT) 25 U/L (15-37); Alanine Aminotransfer ALT/SGPT 50 U/L (16-61); Albumin, Serum 3.8 g/dL (3.2-5.0); Alkaline Phosphatase 90 U/L (45-117); Anion Gap 11 (5-15); BUN 18 mg/dL (7-18); BUN/Creat Ratio 15.4 RATIO (10-20); Calcium,Total 8.8 mg/dL (8.5-10.1); Chloride 107 mmol/L (98-107); Creatinine, Serum 1.17 mg/dL (0.70-1.30); EST Glomerular Filtration Rate 67 mL/min (>60); Est Glom Filt Rate - Afr Amer 81 mL/min (>60); Glucose 106 mg/dL (74-106); Potassium 3.9 mmol/L (3.5-5.1); Protein, Total 6.8 g/dL (6.4-8.2); Sodium Level 142 mmol/L (136-145)
== END ==
PROVIDERS: Family Provider Family Medicine; PCP Family Medicine; Referring Provider Internal Medicine Rheumatology; Visit Provider Internal Medicine Rheumatology
DX: M06.4 Inflammatory polyarthropathy (principal); M35.00 Sjogren syndrome, unspecified; M10.00 Idiopathic gout, unspecified site
CPT/HCPCS: 36415; 73564; 80053; 85025

== ENCOUNTER → 2018-11-11 | Outpatient (CLI) | payer OTHER, SELFPAY ==
[2018-10-30 07:11] VITALS: BMI 35.1
[2018-11-11 07:53] LABS: Absolute Lymphocyte Count 1.44 X10^3/uL (0.83-4.51); Absolute Neutrophil Count 3.7 X10^3/uL (2.0-7.7); Basophil# 0.08 X10^3/uL; Basophil% 1.2 % (0-1); Eosinophil# 0.42 X10^3/uL; Eosinophils% 6.5 % (0-5); Hematocrit 45.4 % (40-54); Lymphocyte # 1.44 X10^3/ul (4.0); Lymphocyte % 22.1 % (19-41); Mean Corpuscular Hgb 30.2 pg (27.0-32.0); Mean Corpuscular Volume 91.5 fL (80-94); Mean Platelet Vol. 10.5 fl (6.2-12.0); Monocyte# 0.83 X10^3/uL; Monocyte% 12.7 % (0-10); NRBC Flagged by Analyzer 0 % (0-5); Neutrophil # 3.72 X10^3/uL (2.7-7.7); Neutrophil % 57.2 % (47-70); Platelet Count 168 K/mm3 (150-450); RBC Distribution Width CV 14.5 % (11.6-14.6); RBC Distribution Width SD 48.7 fl (35.1-43.9); Red Blood Count 4.96 M/mm3 (4.6-6.2); White Blood Count 6.5 K/mm3 (4.4-11.0)
[2018-11-11 08:09] LABS: ALB/GLOB Ratio 1.3 RATIO (0.9-2.4); AST(SGOT) 25 U/L (15-37); Alanine Aminotransfer ALT/SGPT 37 U/L (16-61); Albumin, Serum 3.7 g/dL (3.2-5.0); Alkaline Phosphatase 84 U/L (45-117); Anion Gap 11 (5-15); BUN 21 mg/dL (7-18); BUN/Creat Ratio 18.1 RATIO (10-20); Calcium,Total 8.5 mg/dL (8.5-10.1); Chloride 113 mmol/L (98-107); Creatinine, Serum 1.16 mg/dL (0.70-1.30); EST Glomerular Filtration Rate 68 mL/min (>60); Est Glom Filt Rate - Afr Amer 82 mL/min (>60); Globulin 2.8 g/dL (2.2-4.2); Glucose 112 mg/dL (74-106); Potassium 3.7 mmol/L (3.5-5.1); Protein, Total 6.5 g/dL (6.4-8.2); Sodium Level 144 mmol/L (136-145)
== END | disposition home or self-care (01) ==
LOC: LAB 06:52
PROVIDERS: Family Provider Family Medicine; PCP Family Medicine; Referring Provider Internal Medicine Rheumatology; Visit Provider Internal Medicine Rheumatology
DX: M06.4 Inflammatory polyarthropathy (principal); M35.00 Sjogren syndrome, unspecified; M10.00 Idiopathic gout, unspecified site; J45.909 Unspecified asthma, uncomplicated; G47.33 Obstructive sleep apnea (adult) (pediatric); E03.9 Hypothyroidism, unspecified; E78.5 Hyperlipidemia, unspecified
CPT/HCPCS: 36415; 80053; 85025

== ENCOUNTER → 2019-03-07 09:28 | Outpatient (CLI) | payer OTHER, SELFPAY ==
[2018-10-30 07:11] VITALS: BMI 35.1
[2019-03-07 09:55] LABS: Absolute Lymphocyte Count 1.14 X10^3/uL (0.83-4.51); Absolute Neutrophil Count 4.6 X10^3/uL (2.0-7.7); Basophil# 0.09 X10^3/uL; Basophil% 1.3 % (0-1); Eosinophil# 0.33 X10^3/uL; Eosinophils% 4.7 % (0-5); Hematocrit 48.9 % (40-54); Lymphocyte # 1.14 X10^3/ul (4.0); Lymphocyte % 16.3 % (19-41); Mean Corp Hgb Conc 32.7 g/dL (32-36); Mean Corpuscular Hgb 30.4 pg (27.0-32.0); Mean Corpuscular Volume 92.8 fL (80-94); Mean Platelet Vol. 10.3 fl (6.2-12.0); Monocyte# 0.76 X10^3/uL; Monocyte% 10.9 % (0-10); NRBC Flagged by Analyzer 0 % (0-5); Neutrophil # 4.63 X10^3/uL (2.7-7.7); Neutrophil % 66.2 % (47-70); Platelet Count 157 K/mm3 (150-450); RBC Distribution Width CV 14.6 % (11.6-14.6); RBC Distribution Width SD 49.7 fl (35.1-43.9); Red Blood Count 5.27 M/mm3 (4.6-6.2)
[2019-03-07 10:12] LABS: Microalbumin,Random Urine 5.8 mg/L (NO RANGE EST.); Microalbumin:Creatinine Ratio 11.7 mg/g CRE (<30 mg/g CRE)
[2019-03-07 10:23] LABS: ALB/GLOB Ratio 1.3 RATIO (0.9-2.4); AST(SGOT) 17 U/L (15-37); Alanine Aminotransfer ALT/SGPT 41 U/L (16-61); Albumin, Serum 3.9 g/dL (3.2-5.0); Alkaline Phosphatase 76 U/L (45-117); Anion Gap 6 (5-15); BUN 20 mg/dL (7-18); BUN/Creat Ratio 16.8 RATIO (10-20); Calcium,Total 9.2 mg/dL (8.5-10.1); Chloride 110 mmol/L (98-107); Cholesterol 170 mg/dL (200); Creatinine, Serum 1.19 mg/dL (0.70-1.30); EST Glomerular Filtration Rate 66 mL/min (>60); Est Glom Filt Rate - Afr Amer 79 mL/min (>60); Glucose 106 mg/dL (74-106); High Density Lipoprotein 62 mg/dL; Potassium 4.2 mmol/L (3.5-5.1); Protein, Total 6.9 g/dL (6.4-8.2); Sodium Level 145 mmol/L (136-145); Triglycerides 114 mg/dL; Very Low Density Lipoprotein 23 mg/dL (5-40)
[2019-03-07 10:27] LABS: Hemoglobin A1c 5.4 % (4.2-6.3)
== END ==
PROVIDERS: Family Provider Family Medicine; PCP Family Medicine; Referring Provider Family Medicine; Visit Provider Family Medicine
DX: E78.5 Hyperlipidemia, unspecified (principal); J45.30 Mild persistent asthma, uncomplicated; M35.00 Sjogren syndrome, unspecified; E66.9 Obesity, unspecified
CPT/HCPCS: 36415; 80053; 80061; 82043; 82570; 83036; 85025

== ENCOUNTER → 2019-03-21 07:51 | Outpatient (CLI) | payer OTHER, SELFPAY ==
[2018-10-30 07:11] VITALS: BMI 35.1
--- NOTE | 2019-03-21 07:55 | CT_ITS ---
STUDY: CT MAXILLOFACIAL SINUSES REASON FOR EXAM: Male, 63 years old. Loss of smell x 15 years. RADIATION DOSAGE (If Supplied By Facility): CTDIvol = ( 33.45 ) mGy, DLP = ( 503.71 ) mGycm TECHNIQUE: The patient was scanned in a multi detector CT scanner. High resolution axial imaging was performed without the administration of intravenous contrast material. Sagittal and coronal images were reconstructed. Individualized dose optimization techniques were used for this CT. COMPARISON: None. FINDINGS: FRONTAL SINUSES: Normal aeration, without mucosal inflammatory disease. ETHMOIDAL SINUSES: Normal aeration, without mucosal inflammatory disease. MAXILLARY SINUSES: Normal aeration, without mucosal inflammatory disease. SPHENOIDAL SINUSES: Normal aeration, without mucosal inflammatory disease. There is patency of the bilateral maxillary infundibuli with normal uncinate processes, ethmoid bullae, and hiatus semilunaris. Normal bilateral middle turbinates. Normal bilateral inferior turbinates. Normal midline nasal septum. There is patency of the bilateral nasal airways. The visualized osseous structures are normal. The visualized bilateral orbital contents are normal. CT/Sinus/Facial Bone IMPRESSION: Normal CT examination of the maxillofacial sinuses. Electronically Signed: Tal Grey MD at 21:41 EST , Service support ,
== END ==
PROVIDERS: Family Provider Family Medicine; PCP Family Medicine; Referring Provider Otolaryngology Otolaryngology/Facial Plastic Surgery; Visit Provider Otolaryngology Otolaryngology/Facial Plastic Surgery
DX: R05 Cough (principal); J32.9 Chronic sinusitis, unspecified; R09.82 Postnasal drip
CPT/HCPCS: 70486

== ENCOUNTER → 2019-05-14 06:37 | Outpatient (CLI) | payer OTHER, SELFPAY ==
[2019-04-30 06:01] VITALS: BMI 36.3
[2019-05-14 07:05] LABS: Absolute Lymphocyte Count 1.39 X10^3/uL (0.83-4.51); Absolute Neutrophil Count 2.8 X10^3/uL (2.0-7.7); Basophil# 0.04 X10^3/uL; Basophil% 0.8 % (0-1); Eosinophil# 0.42 X10^3/uL; Hematocrit 44.7 % (40-54); Lymphocyte # 1.39 X10^3/ul (4.0); Lymphocyte % 26.5 % (19-41); Mean Corp Hgb Conc 33.6 g/dL (32-36); Mean Corpuscular Hgb 30.2 pg (27.0-32.0); Mean Corpuscular Volume 89.9 fL (80-94); Monocyte# 0.59 X10^3/uL; Monocyte% 11.2 % (0-10); NRBC Flagged by Analyzer 0 % (0-5); Neutrophil # 2.79 X10^3/uL (2.7-7.7); Neutrophil % 53.1 % (47-70); Platelet Count 145 K/mm3 (150-450); RBC Distribution Width SD 46.6 fl (35.1-43.9); Red Blood Count 4.97 M/mm3 (4.6-6.2); White Blood Count 5.3 K/mm3 (4.4-11.0)
[2019-05-14 07:57] LABS: ALB/GLOB Ratio 1.1 RATIO (0.9-2.4); AST(SGOT) 23 U/L (15-37); Alanine Aminotransfer ALT/SGPT 38 U/L (16-61); Albumin, Serum 3.5 g/dL (3.2-5.0); Alkaline Phosphatase 69 U/L (45-117); Anion Gap 8 (5-15); BUN 20 mg/dL (7-18); BUN/Creat Ratio 17.1 RATIO (10-20); Calcium,Total 8.7 mg/dL (8.5-10.1); Chloride 114 mmol/L (98-107); Creatinine, Serum 1.17 mg/dL (0.70-1.30); EST Glomerular Filtration Rate 67 mL/min (>60); Est Glom Filt Rate - Afr Amer 81 mL/min (>60); Globulin 3.2 g/dL (2.2-4.2); Glucose 109 mg/dL (74-106); Potassium 3.7 mmol/L (3.5-5.1); Protein, Total 6.7 g/dL (6.4-8.2); Sodium Level 143 mmol/L (136-145)
== END ==
PROVIDERS: PCP Family Medicine; Referring Provider Internal Medicine Rheumatology; Visit Provider Internal Medicine Rheumatology
DX: M06.4 Inflammatory polyarthropathy (principal); M35.00 Sjogren syndrome, unspecified; M10.00 Idiopathic gout, unspecified site
CPT/HCPCS: 36415; 80053; 85025

== ENCOUNTER 2019-06-20 05:49 | Day surgery (SDC) | payer OTHER, SELFPAY ==
[2019-06-16 16:06] VITALS: BMI 36.3
--- NOTE | 2019-06-19 08:30 | HP_ITS ---
I have re-examined the patient. There are no clinical changes since date of exam. Intake Intake Visit Reasons: LEFT KNEE Is patient in pain?: Yes Allergies amoxicillin trihydrate [From Augmentin] Allergy (Verified 06/19/19 08:17) Unknown potassium clavulanate [From Augmentin] Allergy (Verified 06/19/19 08:17) Unknown [facility] Social History (Updated 06/19/19 @ 09:[address] Yina Bailey, ) Smoking Status: Never smoker second hand exposure: No alcohol intake: current alcohol intake frequency: 3 or more drinks per day Alcohol type: beer substance use type: does not use HPI LEFT KNEE: Surgical H&P: Yes Details: Parts of this documentation were recorded by a scribe, this documentation accurately reflects the service provided and the decisions made by me, Dr. Yina Bailey, 06/19/19 0810. Wilver SARKAR is a 64 year old M here today for a followup on his left knee. He states that he is doing well and has minimal pain as long as he has the immobilzer on. He states that his swelling has decreased. Patient is using a walker to help ambulate. Patient had an MRI which he brought with him. Denies numbness, tingling or other associated symptoms. Patient has an extension lag at rest and has increased pain without the immobilizer. ROS Musc Reports joint pain, Reports joint swelling Skin/Breast Reports system reviewed and no additional complaints, except as docu Neuro Yes system reviewed and no additional complaints, except as docu Ortho Exam Left Knee Skin/Wound: Yes CDI, Yes swelling Patellar Tilt Normal: No KNEE: quad tendon defect proximally, no calf pain, inability to extend knee No rales rhonchi wheezing, no abdominal pain, no audible bruits Assessment & Plan Problems 1. Rupture of left quadriceps tendon, subsequent encounter S76.112D Plan Reviewed the surgical procedure and post op restrictions, explained that the meniscus tears can be addressed later if needed but cant be evaluated during the quad tendon surgery due to the field being disturbed. Reviewed the pre-operative plans with the patient. Risks and benefits of the procedure were fully explained, including but not limited to infection, neurovascular injury, continued pain, arthritis, stiffness, need for further surgery, re-injury, DVT, PE, general risks of anesthesia, and loss of limb or life. The patient understands all the risks and does wish to proceed with written consent. Follow up post op or sooner if pain, swelling, numbness or associated symptoms, or concerns develop. All questions answered. Patient in agreement of plan. Coding Level of Care Code Off vis,est,level 4 Diagnoses Rupture of left quadriceps tendon, subsequent encounter S76.112D ??Encounter type: subsequent encounter 06/19/19 0902 <Electronically signed by Yina andrews DO> Date _ Yina Bailey DO
[2019-06-20] VITALS (18 sets, daily range): BP systolic 98–143; BP diastolic 61–98; PULSE 73–100; RESP 16–22; TEMP 36.3–37.1; O2SAT 89–96; BMI 35.4
[2019-06-20] MEDS: Lactated Ringers 1,000 ML 100 ML IV ×2 (07:12→08:45)
[2019-06-20] MEDS: Mupirocin Ointment 22gm Tube 1 APPLIC (09:24)
[2019-06-20] MEDS: Bupivacaine Mpf 0.5% 30 ML VIAL (09:24)
--- NOTE | 2019-06-20 09:29 | PCM.DC.ORTHO ---
Discharge Diet: No Restrictions - brace locked in extension at all times, call office for appt with rohan wayt in 4-5 days for dressing change and brace adjustment, keep dressing clean, dry and intact, anklePumps, Ice, Elevate, call with concerns Discharge Activity: May Not Drive May shower in (days): 1 Ice area for (Minutes): 20 - Every hour while awake. Weight Bearing Status: Weight bearing as tolerated Keep extremity elevated above heart level: Operative Extremity Call your doctor if your incision/area has: Continuous Slow Oozing, Sudden Increased Bleeding, Increased Pain/ Swelling, Increased Redness, Foul Smelling Discharge Call your doctor if you observe: Fever of 101 or Higher, Coldness, Increased Pain, Numbness or Tingling, Change in Color, Calf discomfort Allergies/Adverse Reactions: Allergies amoxicillin trihydrate [From Augmentin] Allergy (Verified 06/20/19 06:26) Unknown potassium clavulanate [From Augmentin] Allergy (Verified 06/20/19 06:26) Unknown Medications to take at Discharge Allopurinol [Zyloprim] 300 mg PO DAILY 09/11/14 Amlodipine [Norvasc] 5 mg PO DAILY 09/11/14 Aspirin [Aspirin, Baby] 81 mg PO DAILY@0800 09/11/14 Colchicine 0.6 mg PO 4X/DAY PRN PRN 09/11/14 Montelukast [Singulair] 10 mg PO DAILY 09/11/14 Simvastatin [Zocor] 40 mg PO QHS 09/11/14 albuterol sulfate 2.5 mg INHALATION Q4H PRN ml 04/03/17 hydroxychloroquine 200 mg tablet 200 mg PO BID tab 04/03/17 tramadol 50 mg tablet 50 mg PO Q8H PRN tab 04/03/17 potassium chloride 10 mEq capsule,extended release 20 meq PO QDAY #180 cap 07/11/18 budesonide-formoterol HFA 160 mcg-4.5 mcg/actuation aerosol inhaler 2 inh INHALATION Q12H #10.2 g 02/03/19 azelastine 137 mcg (0.1 %) nasal spray aerosol 1 spray INTRANASAL BID #30 ml 05/05/19 fluticasone propionate 50 mcg/actuation nasal spray,suspension 2 spray INTRANASAL BID #18.2 g 05/05/19 furosemide 20 mg tablet 20 mg PO DAILY #90 tab 05/08/19 Oxycodone HCl/Acetaminophen [Percocet 5/325] 1 - 2 tablet PO Q6H PRN PRN 5 Days #28 tablet 06/20/19 The following prescriptions were given: Oxycodone HCl/Acetaminophen [Percocet 5/325] 1 - 2 tablet PO Q6H PRN PRN 5 Days #28 tablet PRN Reason: Pain Transmission Status: Sent to [facility] Primary Care Physician: Dayne Ortiz MD [Primary Care Provider] - Test Results: Test results from this visit will be discussed in further detail at your follow-up appointment, if applicable. Please Follow Up With: Yina Bailey, DO - [phone]
--- NOTE | 2019-06-20 09:30 | OP.PCM_ITS ---
Report of Operation Date of Procedure: 06/20/19 Pre-Operative Diagnosis: left quadriceps tendon tear Post-Operative Diagnosis: same Surgery/Procedure Performed:: left quadriceps tendon repair, med and lat retinacular repair Type of Anesthesia:: General Anesthesiologist: Dayne Ramos Fluids Replaced: 800ml lr Description of Procedure: Preop note Patient is a {}year-old {}male who fell slipped his left knee underneath him felt immediate pain at the insertion of his quadriceps on his patella. Went to the emergency room palpated defect and then seen in our offic. On physical exam, unable to extend his left knee palpable defect at the insertion of the quad on the patella. MRI confirms left quadriceps tendon rupture/complete. Risks benefits and alternatives surgery discussed with patient. Risks including but not limited to blood loss, blood clot, infection, neurovascular, failure of procedure, loss of life and loss of limb. Patient is aware like proceed with { left} quad tendon repair, repair as indicated. Operative note Patient seen and examined preoperative holding her. { Left} leg was marked. Patient brought to the operating room placed supine on the operating table. Signed, anesthesia, antibiotics were administered. The leg was prepped and draped in usual sterile fashion with a tourniquet around his upper thigh. All bony prominences well-padded SCDs placed on his contralateral limb. We then marked out our incision extending it in flexion from about the superior pole to about 4 to 5 cm proximally. Timeout was performed. We then used a 15 blade to cut through skin dissected down tenotomies to the the quad tendon tear and the hematoma. This was evacuated and a combination of irrigation and suction and expression. We then able to visualize the superior pole of the patella we cleaned off any disease tendon as well as clean off the bed with a rongeur after boating of the soft tissue out for our bony bed for placement of our anchors. We then drilled for our 4.75 swivel lock anchors and then tapped with a 4.75 tap. We then cut off the end and of the quad tendon back to a stable repair cutting off any kind unstable pieces or degenerative looking quad tendon. We then placed 2 screws suture tapes starting medially and a locking Krak?w stitch during about 4 5 proximally and then bring it back down distally and then the same on the lateral using another suture tape laterally we had then 4 and 3 placed 2 medial and 2 lateral through 2 swivel locks respectively. We brought the knee into next into extension and then brought the quad tendon back to bone through the anchor and then see the anchor into the bone in standard technique. We then cut off the suture tendons but use the suture that was in the anchor and use this as an epitendinous repair for further stability and strength. We then took another suture take and placed a cerclage type configuration around the kneecap for again further back up to our repair. The knee was then irrigated with copious amounts of sterile saline. We repaired the lateral retinaculum with a 0 Vicryl. The skin was then closed with 2-0 Vicryl and the skin with dilan. Sterile dressings were applied the knee was placed in a brace locked in extension. Patient taught procedure well no complication transfer recovery room in stable condition. Postoperative Hospital has prescriptions Follow-up in 4-5 days with [facility] for dressing change brace adjustment Call with increased pain numbness tingling or issues arise discussed to ice, elevate, ankle pumps and watch for calf pain ie/blood clots, family aware of signs/symptoms Brace at all times locked in extension Call with concerns Discussed with family This note was generated with [employer] dictation software. It may contain incorrect words, spelling, and punctuation that were not noted in checking the note before signing. Grafts/Implants Used: arthrex quad tendon repair system with suture tape and 4.75 swivelock ancho Preop note Patient is a {64}year-old male who fell slipped his left knee underneath him felt immediate pain at the insertion of his quadriceps on his patella. Went to the emergency room palpated defect and then seen in our offic. On physical exam, unable to extend his left knee palpable defect at the insertion of the quad on the patella. MRI confirms left quadriceps tendon rupture/complete. Risks benefits and alternatives surgery discussed with patient. Risks including but not limited to blood loss, blood clot, infection, neurovascular, failure of procedure, loss of life and loss of limb. Patient is aware like proceed with { left} quad tendon repair, repair as indicated. Operative note Patient seen and examined preoperative holding her. Left leg was marked. Patient brought to the operating room placed supine on the operating table. Signed, anesthesia, antibiotics were administered. The leg was prepped and draped in usual sterile fashion with a tourniquet around his upper thigh. All bony prominences well-padded SCDs placed on his contralateral limb. We then marked out our incision extending it in flexion from about the superior pole to about 4 to 5 cm proximally. Timeout was performed. We then used a 15 blade to cut through skin dissected down tenotomies to the the quad tendon tear and the hematoma. This was evacuated and a combination of irrigation and suction and expression. We then able to visualize the superior pole of the patella we cleaned off any disease tendon as well as clean off the bed with a rongeur after boating of the soft tissue out for our bony bed for placement of our anchors. We then drilled for our 4.75 swivel lock anchors and then tapped with a 4.75 tap. We then cut off the end and of the quad tendon back to a stable repair cutting off any kind unstable pieces or degenerative looking quad tendon. We then placed 2 screws suture tapes starting medially and a locking Krak?w stitch during about 4 5 proximally and then bring it back down distally and then the same on the lateral using another suture tape laterally we had then 4 and 3 placed 2 medial and 2 lateral through 2 swivel locks respectively. We brought the knee into next into extension and then brought the quad tendon back to bone through the anchor and then see the anchor into the bone in standard technique. We then cut off the suture tendons but use the suture that was in the anchor and use this as an epitendinous/paratenon repair for further stability and strength. We then repaired the medial and lateral retinaculum with the suture from the anchor as well as 0 vicryl medially as was more extensive tearing medially of retinaculum. The knee was irrigated with copious amounts of sterile saline throughout the case. The subcuticular layer was then closed with 2-0 Vicryl and the skin with dilan. Sterile dressings were applied the knee was placed in a brace locked in extension. Patient tolerated the procedure well no complication transfer recovery room in stable condition. Postoperative Hospital has prescriptions Follow-up in 4-5 days with [facility] for dressing change brace adjustment Call with increased pain numbness tingling or issues arise discussed to ice, elevate, ankle pumps and watch for calf pain ie/blood clots, family aware of signs/symptoms Brace at all times locked in extension Call with concerns Discussed with family This note was generated with [employer] dictation software. It may contain incorrect words, spelling, and punctuation that were not noted in checking the note before signing. Grafts/Implants Used: arthrex quad tendon repair system with suture tape and 4.75 swivelock ancho Grafts/Implants Used: arthrex quad tendon repair kit 4.75 anchors
[2019-06-20] MEDS: Ipratropium/Albuterol Sulfate 3 ML AMPUL.NEB INHALATION (10:50)
== END 2019-06-20 14:15 | disposition home or self-care (01) ==
LOC: SDC 05:50 → AC 05:51
PROVIDERS: PCP Family Medicine; Referring Provider Orthopaedic Surgery; Visit Provider Orthopaedic Surgery
PROC: (CPT 27664; principal; 2019-06-20 07:15)
DX: S76.112A Strain of left quadriceps muscle, fascia and tendon, initial encounter (principal); E78.00 Pure hypercholesterolemia, unspecified; I10 Essential (primary) hypertension; J45.909 Unspecified asthma, uncomplicated; G47.33 Obstructive sleep apnea (adult) (pediatric); Z79.82 Long term (current) use of aspirin; Z79.51 Long term (current) use of inhaled steroids; Z79.891 Long term (current) use of opiate analgesic; Z79.899 Other long term (current) drug therapy; W01.0XXA Fall on same level from slipping, tripping and stumbling without subsequent striking against object, initial encounter; Y93.89 Activity, other specified; Y92.89 Other specified places as the place of occurrence of the external cause; Y99.8 Other external cause status
CPT/HCPCS: 01470; 27664; 94640; C1713; J7120; J2405

== ENCOUNTER 2019-06-20 17:10 | Emergency (ER) | payer OTHER, SELFPAY ==
[2019-06-20 06:28] VITALS: BMI 35.4
[2019-06-20 17:10] VITALS: BP 136/71; PULSE 99; RESP 24; TEMP 36.9; O2SAT 92; BMI 35.4
--- NOTE | 2019-06-20 18:09 | EKG12_ITS ---
Test Reason : SOB Blood Pressure : / mmHG Vent. Rate : 090 BPM Atrial Rate : 090 BPM P-R Int : 142 ms QRS Dur : 106 ms QT Int : 374 ms P-R-T Axes : 063 059 071 degrees QTc Int : 457 ms Sinus rhythm with occasional Premature ventricular complexes Otherwise normal ECG Confirmed by DANA LANDON, SANCHO ([id number]), desk editor OLIVIER WAITE ([id number]) on 06/23/2019 3:32:01 PM Referred By: JENNIFER Confirmed By:SANCHO CORTEZ MD
--- NOTE | 2019-06-20 18:10 | CT_ITS ---
STUDY: CTA CHEST REASON FOR EXAM: Male, 64 years old. HYPOXIA. O2 83%. RECENT SURGERY AND TRAVEL TO CHAMPLAIN RADIATION DOSAGE (If Supplied By Facility): CTDIvol = ( 15.04 ) mGy, DLP = ( 537.38 ) mGycm TECHNIQUE: The examination was performed with the intravenous administration of Isovue 300 100ml. Post-processing of the angiographic images was performed, with multiplanar reformation and 3D reconstruction. Individualized dose optimization techniques were used for this CT. COMPARISON: 10/20/2017. FINDINGS: Normal enhancement of the main pulmonary artery and right and left pulmonary arteries. Normal enhancement of the bilateral peripheral pulmonary arteries. There is no demonstrated pulmonary embolism. Normal thoracic aorta and visualized great vessels. There is no demonstrated aortic dissection. There is borderline cardiac cardiomegaly. Normal mediastinum. Normal hilar regions. Normal visualized trachea and bronchi. The lungs are under expanded. Airspace disease seen in both lung bases, most consistent with subsegmental atelectasis, right worse than left. Normal pleura. There are no pleural effusions. Normal chest wall structures. Normal osseous structures. Normal visualized upper abdomen. CT/CTA Chest W/WO Contrast IMPRESSION: Normal CTA chest examination, without a demonstrated pulmonary embolism or arterial dissection. Subsegmental atelectasis in both lower lobes. Electronically Signed: Tal Grey MD at 20:26 EST , Service support ,
[2019-06-20] MEDS: Ipratropium/Albuterol Sulfate 3 ML AMPUL.NEB INHALATION (18:39)
[2019-06-20 18:40] VITALS: PULSE 92; RESP 18
[2019-06-20 18:42] LABS: Absolute Lymphocyte Count 0.83 X10^3/uL (0.83-4.51); Absolute Neutrophil Count 9.8 X10^3/uL (2.0-7.7); Basophil# 0.06 X10^3/uL; Basophil% 0.5 % (0-1); Eosinophil# 0.06 X10^3/uL; Eosinophils% 0.5 % (0-5); Hematocrit 43.2 % (40-54); Hemoglobin 14.3 g/dL (13.0-16.5); Lymphocyte # 0.83 X10^3/ul (4.0); Lymphocyte % 6.7 % (19-41); Mean Corp Hgb Conc 33.1 g/dL (32-36); Mean Corpuscular Hgb 30.6 pg (27.0-32.0); Mean Corpuscular Volume 92.5 fL (80-94); Mean Platelet Vol. 10.1 fl (6.2-12.0); Monocyte% 12.9 % (0-10); NRBC Flagged by Analyzer 0 % (0-5); Neutrophil # 9.78 X10^3/uL (2.7-7.7); Neutrophil % 79.1 % (47-70); POSITIVE DIFFERENTIAL YES; Platelet Count 180 K/mm3 (150-450); RBC Distribution Width CV 14.6 % (11.6-14.6); RBC Distribution Width SD 49.1 fl (35.1-43.9); Red Blood Count 4.67 M/mm3 (4.6-6.2); White Blood Count 12.4 K/mm3 (4.4-11.0)
[2019-06-20 18:45] VITALS: O2SAT 95
[2019-06-20 18:45] LABS: Differential Indicated SCAN CRITERIA MET
[2019-06-20 18:48] VITALS: O2SAT 95
[2019-06-20 18:59] LABS: ALB/GLOB Ratio 1.1 RATIO (0.9-2.4); AST(SGOT) 21 U/L (15-37); Alanine Aminotransfer ALT/SGPT 34 U/L (16-61); Albumin, Serum 3.5 g/dL (3.2-5.0); Alkaline Phosphatase 70 U/L (45-117); Anion Gap 3 (5-15); BUN 21 mg/dL (7-18); BUN/Creat Ratio 16.2 RATIO (10-20); Calcium,Total 8.7 mg/dL (8.5-10.1); Chloride 108 mmol/L (98-107); EST Glomerular Filtration Rate 59 mL/min (>60); Est Glom Filt Rate - Afr Amer 72 mL/min (>60); Estimated Creatinine Clearance 58.16 ml/min; Globulin 3.2 g/dL (2.2-4.2); Glucose 116 mg/dL (74-106); Potassium 4.1 mmol/L (3.5-5.1); Protein, Total 6.7 g/dL (6.4-8.2); Sodium Level 141 mmol/L (136-145)
[2019-06-20 19:06] LABS: Anisocytosis RARE; Macrocytosis RARE; Platelet Estimate ADEQUATE (ADEQ); Red Cell Morphology N CHROM NORMAL (NORM C&C)
[2019-06-20] MEDS: Mag Hydrox/Al Hydrox/Simeth 30 ML UDC PO (20:34)
[2019-06-20 20:35] VITALS: BP 150/78; PULSE 103; RESP 25; O2SAT 90
[2019-06-20] MEDS: 0.9% Normal Saline 1,000 ML 1000 ML IV (21:00)
--- NOTE | 2019-06-20 21:09 | ED.VISSUMM ---
- ER Visit Summary Date of Service: 06/20/19 Chief Complaint: Shortness of breath History of Present Illness: The patient is a 64 M who presents with shortness of breath that began today. Patient had surgery today to repair a tendon in his knee. Patient states that after the surgery they had difficulty getting his oxygen level up to a normal range. Patient states that it got up to 94 and he was discharged home. Patient states that when he was at home he checked it and it was 85. Patient came to the emergency department after that. Patient denies any chest pain. Patient admits to a slight cough but thinks that is irritation from the endotracheal tube that was placed today during his surgery. Patient denies any nausea or vomiting. Patient denies any fevers or chills. Physical Examination: Vital signs are stable. Patient is afebrile. Patient is in no acute distress. Oral mucosa is pink and moist. Neck is supple. Trachea is midline. There is no JVD. Heart was regular rate and rhythm. Lungs showed some scattered wheezes. There is good respiratory effort noted. Abdomen is soft. Bowel sounds are normal. There is no tenderness. Cranial nerves II through XII are intact. There are no focal motor or sensory deficits noted. Test Results: EKG showed normal sinus rhythm with a rate of 90. There are occasional PVCs noted. There are no acute ST or T wave changes. CBC showed a mild leukocytosis of 12.4. Comprehensive metabolic profile and troponin were within normal limits. CTA of the chest was obtained. There is no evidence of pulmonary embolism or aortic dissection. This was interpreted by the radiologist and reviewed by myself. Emergency Department Course and Treatment: Patient was placed on oxygen here. Patient was given a DuoNeb aerosol. Patient was feeling better on reevaluation. Patient states he wants to go home. Patient states he will feel better if he lays in his own bed and uses his CPAP machine as needed. Patient was instructed to follow-up with his primary care physician in 5 to 7 days. Patient was instructed return if worse in any way. Patient understood and was agreeable with the plan. All questions were answered. Disposition: Discharge home Impression: Dyspnea This note was generated with [employer] dictation software. It may contain incorrect words, spelling, and punctuation that were not noted in review of the chart prior to signing ED Disposition - Plan for ED Patient: Disposition: Home or Assisted Living Diagnosis: Dyspnea Instructions: ED Dyspnea Referrals: Dayne Ortiz MD [Primary Care Provider] -
[2019-06-20 21:46] VITALS: BP 154/90; PULSE 90; RESP 16; O2SAT 94
[2019-06-24 10:09] LABS: Pathologist Review Reviewed
== END 2019-06-20 21:49 | disposition home or self-care (01) ==
PROVIDERS: Emergency Provider Emergency Medicine; PCP Family Medicine
DX: R06.00 Dyspnea, unspecified (principal); Z98.890 Other specified postprocedural states; I11.0 Hypertensive heart disease with heart failure; I50.9 Heart failure, unspecified; J45.909 Unspecified asthma, uncomplicated; Z79.51 Long term (current) use of inhaled steroids; Z79.82 Long term (current) use of aspirin; Z79.891 Long term (current) use of opiate analgesic; Z79.899 Other long term (current) drug therapy
CPT/HCPCS: 71275; 80053; 84484; 85025; 93005; 94640; 96360; 99285; J7030; Q9967; A4216

== ENCOUNTER 2019-06-26 15:59 | Observation (INO) | payer OTHER, SELFPAY ==
--- NOTE | 2019-06-19 08:30 | HP_ITS ---
I have re-examined the patient. There are no clinical changes since date of exam. Intake Intake Visit Reasons: LEFT KNEE Is patient in pain?: Yes Allergies amoxicillin trihydrate [From Augmentin] Allergy (Verified 06/19/19 08:17) Unknown potassium clavulanate [From Augmentin] Allergy (Verified 06/19/19 08:17) Unknown [facility] Social History (Updated 06/19/19 @ 09:[address] Yina Bailey, ) Smoking Status: Never smoker second hand exposure: No alcohol intake: current alcohol intake frequency: 3 or more drinks per day Alcohol type: beer substance use type: does not use HPI LEFT KNEE: Surgical H&P: Yes Details: Parts of this documentation were recorded by a scribe, this documentation accurately reflects the service provided and the decisions made by me, Dr. Yina Bailey, 06/19/19 0810. Wilver SARKAR is a 64 year old M here today for a followup on his left knee. He states that he is doing well and has minimal pain as long as he has the immobilzer on. He states that his swelling has decreased. Patient is using a walker to help ambulate. Patient had an MRI which he brought with him. Denies numbness, tingling or other associated symptoms. Patient has an extension lag at rest and has increased pain without the immobilizer. ROS Musc Reports joint pain, Reports joint swelling Skin/Breast Reports system reviewed and no additional complaints, except as docu Neuro Yes system reviewed and no additional complaints, except as docu Ortho Exam Left Knee Skin/Wound: Yes CDI, Yes swelling Patellar Tilt Normal: No KNEE: quad tendon defect proximally, no calf pain, inability to extend knee Assessment & Plan Problems 1. Rupture of left quadriceps tendon, subsequent encounter S76.112D Plan Reviewed the surgical procedure and post op restrictions, explained that the meniscus tears can be addressed later if needed but cant be evaluated during the quad tendon surgery due to the field being disturbed. Reviewed the pre-operative plans with the patient. Risks and benefits of the procedure were fully explained, including but not limited to infection, neurovascular injury, continued pain, arthritis, stiffness, need for further surgery, re-injury, DVT, PE, general risks of anesthesia, and loss of limb or life. The patient understands all the risks and does wish to proceed with written consent. Follow up post op or sooner if pain, swelling, numbness or associated symptoms, or concerns develop. All questions answered. Patient in agreement of plan. Patient has a postop hematoma of the left knee after quad tendon repair as risk for abscess formation and infection will take him to the OR to irrigate debridement as patient has suture for the quad tendon would prefer not to have to worry about getting an infection this was discussed with family we will do cultures to see if it is infected 6 days postop now from a left quad tendon repair and will irrigate debride and send cultures and place a VAC versus a drain. Coding Level of Care Code Off vis,est,level 4 Diagnoses Rupture of left quadriceps tendon, subsequent encounter S76.112D ??Encounter type: subsequent encounter 06/19/19 0902 <Electronically signed by Yina andrews DO> Date _ Yina Bailey DO
[2019-06-26] VITALS (9 sets, daily range): BP systolic 125–145; BP diastolic 75–89; PULSE 77–90; RESP 15–18; TEMP 36.5–36.9; O2SAT 92–96; BMI 35.4
[2019-06-26] MEDS: Lactated Ringers 1,000 ML 100 ML IV ×3 (13:32→20:34)
[2019-06-26 15:28] LABS: Absolute Lymphocyte Count 1.18 X10^3/uL (0.83-4.51); Absolute Neutrophil Count 5.1 X10^3/uL (2.0-7.7); Basophil# 0.08 X10^3/uL; Eosinophil# 0.39 X10^3/uL; Eosinophils% 5.1 % (0-5); Hematocrit 39.9 % (40-54); Hemoglobin 12.8 g/dL (13.0-16.5); Lymphocyte # 1.18 X10^3/ul (4.0); Lymphocyte % 15.4 % (19-41); Mean Corp Hgb Conc 32.1 g/dL (32-36); Mean Corpuscular Hgb 29.3 pg (27.0-32.0); Mean Corpuscular Volume 91.3 fL (80-94); Mean Platelet Vol. 9.6 fl (6.2-12.0); Monocyte# 0.89 X10^3/uL; Monocyte% 11.6 % (0-10); NRBC Flagged by Analyzer 0 % (0-5); Neutrophil # 5.06 X10^3/uL (2.7-7.7); Neutrophil % 66.4 % (47-70); Platelet Count 247 K/mm3 (150-450); RBC Distribution Width CV 14.4 % (11.6-14.6); RBC Distribution Width SD 48.4 fl (35.1-43.9); Red Blood Count 4.37 M/mm3 (4.6-6.2); White Blood Count 7.6 K/mm3 (4.4-11.0)
--- NOTE | 2019-06-26 16:03 | OP.PCM_ITS ---
Report of Operation Date of Procedure: 06/26/19 Pre-Operative Diagnosis: Left hematoma postop quad tendon repair Post-Operative Diagnosis: Same Surgery/Procedure Performed:: Left hematoma irrigation debridement and drain application/mar[employer] software licensing specialist: Jeb Swain Type of Anesthesia:: General Anesthesiologist: Aldo Forde Estimated Blood Loss (mL): 50cc Fluids Replaced: 1100cc lr Description of Procedure: Preop note Patient is 64-year-old male well-known to me as he had a quad tendon repair 6 days ago. Patient presented our office with enlarging hematoma of his left anterior incision. As there is suture fixing the quad tendon and risk for infection with hematomas decision was made to take him to the operating room for irrigation debridement of hematoma cultures and drain versus VAC application. Risk benefits and alternatives were discussed with family and patient. Risk include but not limited to blood loss, blood clot, infection, neurovascular, failure procedure, loss of life loss of limb. Patient is aware the proceed with left quad hematoma irrigation debridement repair as indicated Operative note Patient seen and examined preoperative holding area. Left knee was marked. Patient brought to the operating room placed supine on the operating table. Signed, anesthesia was administered remove the stitches from his prior previous incision and prepped the area with Betadine. The leg we then marked our incision extended the incision about a centimeter to 2 cm proximal and distal. We used we then performed a timeout. We used a 15 blade to make her incision dissect and dissected down to the subcutaneous tissue with tenotomy's and then took cultures and sent this to be for further evaluation. There was no purulence it was all bright red blood consistent with postop hematoma there is did not appear to be an abscess or any other necrotic tissue in the incision. We then used 3000 cc of irrigation to debride the area and then used coagulation and coagulated any and all bleeding he was kind of oozy throughout the case and this was all addressed with the coagulation and compression and at the end of the case he had much less ooziness of his entire and incision is including subcuticular. We irrigated multiple times throughout the entire case. We then closed the skin with two 3-0 nylon. Sterile dressings and a compressive dressing and thigh-high teds were applied to the left leg Ancef was given after cultures were taken. Patient taught procedure well no complications transferred recovery room in stable condition Patient received 24 hours of Ancef will await final culture results at this time and low likelihood however because there is concern we will still watch if there is anything on the Gram stain will most likely keep him over the weekend potentially send him and wait for sensitivities Postoperative note Weight-bear as tolerated with knee brace locked in extension Ancef 2 g for 24 hours Observation overnight for pain control and antibiotics We will hold off on anticoagulation as already had a hematoma discussed doing ankle pumps decreasing his risk for now standpoint however because of the risk for hematoma and infection and there is tendon healing necessary with that we have to remove all the stitches discussed this with family we will start aspirin 325 twice daily if he does not appear to be developing another hematoma and the drain output is decreasing This note was generated with [employer] dictation software. It may contain incorrect words, spelling, and punctuation that were not noted in checking the note before signing.
--- NOTE | 2019-06-26 16:03 | DCINST_ITS ---
Discharge Diet: No Restrictions - Follow-up on Sunday for dressing change and evaluation of incision, weight-bear as tolerated left lower extremity, ankle pumps as much as possible, ice elevate toes above nose, Discharge Activity: May Not Drive May shower in (days): 1 Ice area for (Minutes): 20 - Every hour while awake. Weight Bearing Status: Weight bearing as tolerated Keep extremity elevated above heart level: Operative Extremity Call your doctor if your incision/area has: Continuous Slow Oozing, Sudden Increased Bleeding, Increased Pain/ Swelling, Increased Redness, Foul Smelling Discharge Call your doctor if you observe: Fever of 101 or Higher, Coldness, Increased Pain, Numbness or Tingling, Change in Color, Calf discomfort Allergies/Adverse Reactions: Allergies amoxicillin trihydrate [From Augmentin] Allergy (Verified 06/26/19 13:09) Unknown potassium clavulanate [From Augmentin] Allergy (Verified 06/26/19 13:09) Unknown Medications to take at Discharge Allopurinol [Zyloprim] 300 mg PO DAILY 09/11/14 Amlodipine [Norvasc] 5 mg PO DAILY 09/11/14 Aspirin [Aspirin, Baby] 81 mg PO DAILY@0800 09/11/14 Colchicine 0.6 mg PO 4X/DAY PRN PRN 09/11/14 Montelukast [Singulair] 10 mg PO DAILY 09/11/14 Simvastatin [Zocor] 40 mg PO QHS 09/11/14 albuterol sulfate 2.5 mg INHALATION Q4H PRN ml 04/03/17 hydroxychloroquine 200 mg tablet 200 mg PO BID tab 04/03/17 tramadol 50 mg tablet 50 mg PO Q8H PRN tab 04/03/17 potassium chloride 10 mEq capsule,extended release 20 meq PO QDAY #180 cap 07/11/18 budesonide-formoterol HFA 160 mcg-4.5 mcg/actuation aerosol inhaler 2 inh INHALATION Q12H #10.2 g 02/03/19 azelastine 137 mcg (0.1 %) nasal spray aerosol 1 spray INTRANASAL BID #30 ml 05/05/19 fluticasone propionate 50 mcg/actuation nasal spray,suspension 2 spray INTRANASAL BID #18.2 g 05/05/19 furosemide 20 mg tablet 20 mg PO DAILY #90 tab 01/23/20 Oxycodone HCl/Acetaminophen [Percocet 5/325] 1 - 2 tab PO Q6H PRN PRN 5 Days #28 tab 06/25/19 Primary Care Physician: Dayne Ortiz MD [Primary Care Provider] - Test Results: Test results from this visit will be discussed in further detail at your follow- up appointment, if applicable. Please Follow Up With: Yina Bailey, - [phone]
[2019-06-26 16:08] LABS: International Normalized Ratio 1.1; Prothrombin Time (Protime)PT. 14.2 SECONDS (11.7-14.9)
[2019-06-26 16:28] LABS: Erythrocyte Sedimentation Rate 39 mm/hr (0-20)
[2019-06-26] MEDS: Cefazolin 1 GM/50 ML BAG IV (21:44)
[2019-06-27 02:15] VITALS: BP 130/84; PULSE 78; RESP 18; TEMP 36.8; O2SAT 94; BMI 35.4
[2019-06-27 05:40] VITALS: BMI 35.4
[2019-06-27] MEDS: Lactated Ringers 1,000 ML 100 ML IV (05:55)
[2019-06-27] MEDS: Cefazolin 1 GM/50 ML BAG IV (05:56)
[2019-06-27] MEDS: HYDROcodone Bitartrate/Apap 5/325 Tablet PO ×2 (06:02→12:01)
[2019-06-27 09:05] VITALS: BP 130/87; PULSE 89; RESP 18; TEMP 36.6; O2SAT 94
--- NOTE | 2019-06-27 12:18 | PCM.PN.ORT ---
Subjective: Patient seen and examined at bedside not taking much pain medication as not having much pain drain is still in place output in the last 24 hours of about 50 cc. Discussed Intra-Op findings with patient. Patient states no fevers chills constitutional symptoms no calf pain shortness of breath or other issues overnight. Pain controlled with p.o. pain medications but again is only taken once in surgery. - Physical Exam Vitals/I&O's: Vital Signs Temp Pulse Resp BP Pulse Ox 97.8 F 89 18 130/87 H 94 06/27/19 09:05 06/27/19 09:05 06/27/19 09:05 06/27/19 09:05 06/27/19 09:05 Oxygen Flow Rate (L/min) 3 Oxygen Delivery Method Room Air Weight: 240 lb Body Mass Index (BMI) 35.4 Intake and Output for Last 24 Hours 06/25/19 06/26/19 06/27/19 23:59 23:59 23:59 Intake Total 1706.67 / 1906.67 1785 / 1785 Output Total 620 / 620 Balance 1706.67 / 1616.67 1165 / 1165 General: Alert, Oriented x3, Cooperative HEENT: Atraumatic, PERRLA, EOMI, Normocephalic Neck: Supple, No JVD, Negative Carotid Bruits Lungs: Clear to auscultation, Normal air movement Cardiovascular: Regular rate, No murmurs Abdomen: Bowel Sounds Present, Soft, Non Tender Extremities: No edema, Capillary Refill Less than 3 Seconds Skin: No rashes, No breakdown Musculoskeletal: Tenderness - Anterior left knee, no calf pain, active range of motion passive range of motion ankle intact, sensation grossly intact, incision without erythema or drainage, drain pulled at bedside Neurological: Cranial nerves II-XII grossly intact Psych/Mental Status: Normal Affect, Appropriate Laboratory Results 06/26/19 15:05: WBC 7.6, RBC 4.37 L, Hgb 12.8 L, Hct 39.9 L, MCV 91.3, MCH 29.3, MCHC 32.1, RDW Std Deviation 48.4 H, RDW Coeff of Peggy 14.4, Plt Count 247, MPV 9.6, Immature Gran % (Auto) 0.500, Neut % (Auto) 66.4, Lymph % (Auto) 15.4 L, [place] % (Auto) 11.6 H, Eos % (Auto) 5.1 H, Baso % (Auto) 1.0, Absolute Neuts (auto) 5.1, Absolute Lymphs (auto) 1.18, Nucleated RBC % 0, ESR 39 H 06/26/19 15:05: C-React Prot Ext Range 20.70 H 06/26/19 15:43: PT 14.2, INR 1.1 Current Medications Hydrocodone Bitart/Acetaminophen ([place] 5mg-325mg) 1 - 2 tablet PO Q6H PRN PRN PRN Reason: Pain Score 1-01/23 Last Admin: 06/27/19 12:01 Dose: 2 tablet Documented by: Lactated Ringer's () 1,000 mls @ 100 mls/hr IV .Q10H NICOLÁS Last Admin: 06/27/19 05:55 Dose: 100 mls/hr Documented by: Sodium Chloride () 250 mls @ 15 mls/hr IV .[id number] PRN PRN Reason: Saline Flush Sodium Chloride () 250 mls @ 15 mls/hr IV .[id number] PRN PRN Reason: Additional IVPB Infusion Ondansetron HCl (Zofran) 4 mg IV Q8H PRN PRN PRN Reason: Nausea Sodium Chloride () 10 - 40 ml IV UD PRN PRN Reason: SALINE FLUSH Medical Necessity - Tobacco Use Smoking Status: Never smoker Tobacco Use: Non-smoker Assessment/Plan All Active Problems (Last Reviewed 04/30/19 @ 06:42 by Maricruz Oropeza) Chest pain (Acute) PND (post-nasal drip) (Acute) History of appendectomy (Resolved) Dyspnea (Acute) Edema (Acute) Acute asthma exacerbation (Acute) Postop day 1 status post hematoma evacuation left knee Cultures pending Bactrim 2 weeks pending culture results Call with increased pain numbness tingling or other issues arise Maintain compressive dressings, SCDs Most likely a hematoma however will follow the cultures until they come back as did not look murky or pus or infected moles let patient go home but did talk to patient if cultures come back positive we have to change him to a different antibiotic IV versus p.o. patient is aware. Discharge today after antibiotics complete Follow-up on Sunday with [facility] This note was generated with [employer] software. It may contain incorrect words, spelling, and punctuation that were not noted in checking the note before signing.
[2019-06-27 13:53] VITALS: BP 122/68; PULSE 76; RESP 18; TEMP 36.4; O2SAT 94
== END 2019-06-27 13:58 | disposition home or self-care (01) ==
LOC: SDC 16:07 → MS3 16:07
PROVIDERS: Admitting Provider Orthopaedic Surgery; PCP Family Medicine; Referring Provider Orthopaedic Surgery; Visit Provider Orthopaedic Surgery
PROC: (CPT 27301; principal; 2019-06-26 14:20)
DX: M96.840 Postprocedural hematoma of a musculoskeletal structure following a musculoskeletal system procedure (principal); Y83.8 Other surgical procedures as the cause of abnormal reaction of the patient, or of later complication, without mention of misadventure at the time of the procedure; S76.112D Strain of left quadriceps muscle, fascia and tendon, subsequent encounter; X58.XXXD Exposure to other specified factors, subsequent encounter; J45.909 Unspecified asthma, uncomplicated; E78.00 Pure hypercholesterolemia, unspecified; Z79.899 Other long term (current) drug therapy; Z79.82 Long term (current) use of aspirin; Z79.52 Long term (current) use of systemic steroids; I10 Essential (primary) hypertension; G47.30 Sleep apnea, unspecified
CPT/HCPCS: 27301; 85025; 85610; 85652; 86140; 87015; 87070; 87075; 87101; 87116; 87205; 87206; 96361; 96365; 96366; 97162; 97166; 99218; 99251; J7120; G0378; G0379; G0463; J2405

== ENCOUNTER → 2019-11-17 | Outpatient (CLI) | payer OTHER, SELFPAY ==
[2019-11-03 08:33] VITALS: BMI 36.3
[2019-11-17 07:14] LABS: Absolute Lymphocyte Count 1.66 X10^3/uL (0.83-4.51); Absolute Neutrophil Count 4.2 X10^3/uL (2.0-7.7); Basophil# 0.06 X10^3/uL; Basophil% 0.8 % (0-1); Eosinophil# 0.46 X10^3/uL; Eosinophils% 6.4 % (0-5); Hematocrit 45.5 % (40-54); Lymphocyte # 1.66 X10^3/ul (4.0); Lymphocyte % 23.1 % (19-41); Mean Corpuscular Hgb 30.8 pg (27.0-32.0); Mean Corpuscular Volume 93.4 fL (80-94); Mean Platelet Vol. 9.9 fl (6.2-12.0); Monocyte# 0.79 X10^3/uL; NRBC Flagged by Analyzer 0 % (0-5); Neutrophil % 58.4 % (47-70); Platelet Count 167 K/mm3 (150-450); RBC Distribution Width CV 14.7 % (11.6-14.6); RBC Distribution Width SD 50.3 fl (35.1-43.9); Red Blood Count 4.87 M/mm3 (4.6-6.2); White Blood Count 7.2 K/mm3 (4.4-11.0)
[2019-11-17 07:33] LABS: ALB/GLOB Ratio 1.3 RATIO (0.9-2.4); AST(SGOT) 23 U/L (15-37); Alanine Aminotransfer ALT/SGPT 43 U/L (16-61); Albumin, Serum 3.8 g/dL (3.2-5.0); Alkaline Phosphatase 83 U/L (45-117); Anion Gap 6 (5-15); BUN 22 mg/dL (7-18); BUN/Creat Ratio 19.6 RATIO (10-20); Calcium,Total 8.4 mg/dL (8.5-10.1); Chloride 110 mmol/L (98-107); Creatinine, Serum 1.12 mg/dL (0.70-1.30); EST Glomerular Filtration Rate 70 mL/min (>60); Est Glom Filt Rate - Afr Amer 85 mL/min (>60); Glucose 96 mg/dL (74-106); Potassium 3.9 mmol/L (3.5-5.1); Protein, Total 6.8 g/dL (6.4-8.2); Sodium Level 141 mmol/L (136-145)
== END | disposition home or self-care (01) ==
LOC: LAB 06:59
PROVIDERS: PCP Family Medicine; Referring Provider Internal Medicine Rheumatology; Visit Provider Internal Medicine Rheumatology
DX: M06.4 Inflammatory polyarthropathy (principal); M35.00 Sjogren syndrome, unspecified; M10.00 Idiopathic gout, unspecified site; J45.909 Unspecified asthma, uncomplicated; G47.33 Obstructive sleep apnea (adult) (pediatric); E03.9 Hypothyroidism, unspecified; E78.5 Hyperlipidemia, unspecified
CPT/HCPCS: 36415; 80053; 85025

== ENCOUNTER 2020-01-21 13:30 | Outpatient (RCR) | payer OTHER, SELFPAY ==
[2019-07-08 10:34] VITALS: BMI 35.4
--- NOTE | 2019-07-09 15:54 | HP.PTEVAL_ITS ---
Patient's Visit Information KAREY SARKAR III is a 64 year old M referred to Physical Therapy by Dr. Yina Bailey DO with a diagnosis of s/p L Quad Tendon Repair on 06-20-2019. I &D was 06-26-2019. Date of Evaluation: 07/09/19 Physical Therapist: HOUSTON Lakhani - Visit Plan Frequency: 2-3x /Week Duration: 2 Months Plan: +++FOLLOW PROTOCOL+++ ( in brown folder with summary below). Pt is PWB with a rollator and leg brace. Weeks 2-4: ( NOW till 07-18-2019) PROM L knee extension to 0 degrees and progress to sub max Quad sets per patient tolerance. PROM L knee flexion to 60 degrees (till 07-18-2019) with progressing to AA heel knee flexion ( heel slides). L calf, hamstring stretching with brace on and LOCKED into extension. May progress to 4 way hip extension with brace locked into extension ( standing). Weeks 4-6: (07-19-2019 to 08-01-2019). Continue with PWB until return to AQUILES Ramirez, AROM 0-90 degrees. GENTLE patellar mobs in all directions. SLR may be performed without brace in no extensor lag. Seated light HS curls progressing with a light band within ROM restrictions. May begin gentle core stability exercises as able. Continue to work on ambulation within WB restricitions - Subjective Subjective: He fell on a driveway on May and torn his L Quad tendon. He could tell that something was serious on his knee when he was lying there. He went to the ER and thinks that he knocked himself out. He fell again in the ER and ended up with catscans, x-rays etc. He was in [place]. He was put in a foam imobilizer with crutches and then went to see his PCP and then referred to Dr Velasco. First sugery was June 19 and then had to go back in again on June 25. took sutures out yesterday. He ended up with a hematoma and then had to have a second surgery. He is using a rollator with some weight through his L leg. He only has a couple steps in his house and uses the crutches if no railing. They just renivated there house to make it more accessible for when nilda grier get older but it was a good thing cause he can function in his house now. He showers sitting. He has driven a couple of times. He is off the pain meds. He is sleeping ok. Ex angulo he is trying to straighten his leg, and occ do some leg lifts (sitting) and standing hip abd. Dr gave no other restrictions/ He has a brace and supposed to wear it all the time and is unlocked to 60 degrees. - Objective -8 degrees from full extension on the L knee. PROM 60 degrees L knee - Goals Goal 1:: I HEP Goal Time Frame: 6-8 Weeks Goal 2:: Increase L knee PROM 0-60 degrees (by 07-18-2019) and AAROM 0-90 degrees (by 08-01-2019) Goal Time Frame: 6-8 Weeks Goal 3:: Be able to complete a SLR without extensor lag X 10 without brace. Goal Time Frame: 6-8 Weeks Goal 4:: Restore normal gait pattern once weight bearing restrictions are lifted. - Rehabilitation Potential Rehabilitation Potential: Good - Anticipated Interventions Patient/Client Instruction: Educate patient on: Condition, Plan of Care For the Purpose of:: To decrease pain, To decrease swelling/inflammation, To increase ROM, To improve muscle performance and motor function, To improve ability to perform ADL's, To increase tolerance to activity/condition/position, To improve performance and independence with ADL's, To decrease level of supervision to perform tasks, To improve ability of physical actions for home/community/work/leisure, To improve gait and locomotor functions, To improve health of tissue, To decrease soft tissue restriction, To increase flexibility/ROM, To improve safety with gait Therapeutic Exercise to Include: Strength training, Flexibilty training, Gait and locomotor training, Passive ROM, Active ROM, Dynamic Lumbar Stabilization For the Purpose of:: To decrease pain, To decrease swelling/inflammation, To increase ROM, To improve nutrient delivery to tissue, To improve muscle performance and motor function, To improve ability to perform ADL's, To increase tolerance to activity/condition/position, To improve gait and locomotor functio ns, To improve health of tissue, To decrease soft tissue restriction, To increase flexibility/ROM Functional Training to Include: Gait training For the Purpose of:: To improve gait and locomotor functions, To improve safety with gait Manual Therapy Techniques to Include: Passive ROM For the Purpose of:: To increase flexibility/ROM IF ES: Yes Cryotherapy (ice pack, ice massage): Yes For the Purpose of:: To decrease pain, To decrease swelling/inflammation, To improve nutrient delivery to tissue Thank you for the opportunity to evaluate your patient. For Medicare and Medicare HMO plans, please review the plan of care and approve it. It will need to be FAXED BACK to us at [phone] for Medicare purposes. For Medicare only, by signing this I certify the plan of care. Please let me know if there are questions or concerns regarding this plan of care. Physician Signature: Date:
--- NOTE | 2019-08-06 13:56 | HP.PTREVAL ---
Dr. Yina Bailey, DO, It has been my pleasure to treat KAREY VALEROBON III over the last 10 visits for s/p L Quad Tendon Repair on 06-20-2019. I &D was 06-26-2019. Please see the progress note below for an update on the physical therapy plan of care! Subjective: Pt reports that her visit with Dr Velasco went well. He is now able to use a cane and is FWB. He is able to have full ROM. No brace at night but still wear it locked into extension with WB. Objective/Function: 0-90 degrees ( AAROM flexion). Still very antalgic gait with brace locked into extension Plan Plan: Await new guidelines from surgeon.... +++FOLLOW PROTOCOL+++ ( in brown folder with summary below). Pt is FWB. Pt is able to use a straight cane with brace locked into extension with WB. Able to work on full ROM as tolerated. Goals Goal 1:: I HEP Goal Time Frame: 6-8 Weeks Goal Progress: Progressing Goal 2:: Increase L knee AROM 0-120 degrees by DC. Goal Time Frame: 6-8 Weeks Goal 3:: Be able to complete a SLR without extensor lag X 10 without brace. Goal Time Frame: 6-8 Weeks Goal 4:: Walk with no AD with SBA with brace locked in extension Goal Time Frame: 4-6 Weeks Goal 5:: Up and down stairs recip with a handrail. Goal Time Frame: 4-6 Weeks Anticipated Interventions Patient/Client Instruction: Educate patient on: Condition, Plan of Care For the Purpose of:: To decrease pain, To decrease swelling/inflammation, To increase ROM, To improve muscle performance and motor function, To improve ability to perform ADL's, To increase tolerance to activity/condition/position, To improve performance and independence with ADL's, To decrease level of supervision to perform tasks, To improve ability of physical actions for home/community/work/leisure, To improve gait and locomotor functions, To improve health of tissue, To decrease soft tissue restriction, To increase flexibility/ROM, To improve safety with gait Therapeutic Exercise to Include: Strength training, Flexibilty training, Gait and locomotor training, Passive ROM, Active ROM, Dynamic Lumbar Stabilization For the Purpose of:: To decrease pain, To decrease swelling/inflammation, To increase ROM, To improve nutrient delivery to tissue, To improve muscle performance and motor function, To improve ability to perform ADL's, To increase tolerance to activity/condition/position, To improve gait and locomotor functions, To improve health of tissue, To decrease soft tissue restriction, To increase flexibility/ROM Functional Training to Include: Gait training For the Purpose of:: To improve gait and locomotor functions, To improve safety with gait Manual Therapy Techniques to Include: Passive ROM For the Purpose of:: To increase flexibility/ROM IF ES: Yes Cryotherapy (ice pack, ice massage): Yes For the Purpose of:: To decrease pain, To decrease swelling/inflammation, To improve nutrient delivery to tissue Please do not hesitate to contact me at [phone] by phone or if you have questions or concerns regarding this new plan of care! Sincerely, Maricel Lopes MPT
--- NOTE | 2019-09-15 14:03 | HP.PTREVAL ---
Dr. Yina Bailey, DO, It has been my pleasure to treat KAREY SARKAR III over the last 20 visits for s/p L Quad Tendon Repair on 06-20-2019. I &D was 06-26-2019. Please see the progress note below for an update on the physical therapy plan of care! Subjective: Pt reports that he is doing good..... Objective/Function: Pt feels good with leg locked into extension... he will ne afraid to stand with his leg bent when he is able due to weakness. Plan Plan: +++FOLLOW PROTOCOL+++ ( in brown folder with summary below). Pt is FWB. Pt is able to use a straight cane with brace locked into extension with WB. Able to work on full ROM as tolerated. Goals Goal 1:: I HEP Goal Time Frame: 6-8 Weeks Goal Progress: Goal Met Goal 2:: Increase L knee AROM 0-120 degrees by DC. Goal Time Frame: 6-8 Weeks Goal Progress: Goal Met Goal 3:: Be able to complete a SLR without extensor lag X 10 without brace. Goal Time Frame: 6-8 Weeks Goal Progress: Goal Met Goal 4:: Walk without brace and AD when cleared by Dr without an antalgic gait Goal Time Frame: 4-6 Weeks Goal 5:: Up and down stairs recip with a handrail. Goal Time Frame: 4-6 Weeks Goal 6:: Be able to stand on L leg without the brace with good control Goal Time Frame: 6-8 Weeks Anticipated Interventions Patient/Client Instruction: Educate patient on: Condition, Plan of Care For the Purpose of:: To decrease pain, To decrease swelling/inflammation, To increase ROM, To improve muscle performance and motor function, To improve ability to perform ADL's, To increase tolerance to activity/condition/position, To improve performance and independence with ADL's, To decrease level of supervision to perform tasks, To improve ability of physical actions for home/community/work/leisure, To improve gait and locomotor functions, To improve health of tissue, To decrease soft tissue restriction, To increase flexibility/ROM, To improve safety with gait Therapeutic Exercise to Include: Strength training, Flexibilty training, Gait and locomotor training, Passive ROM, Active ROM, Dynamic Lumbar Stabilization For the Purpose of:: To decrease pain, To decrease swelling/inflammation, To increase ROM, To improve nutrient delivery to tissue, To improve muscle performance and motor function, To improve ability to perform ADL's, To increase tolerance to activity/condition/position, To improve gait and locomotor functions, To improve health of tissue, To decrease soft tissue restriction, To increase flexibility/ROM Functional Training to Include: Gait training For the Purpose of:: To improve gait and locomotor functions, To improve safety with gait Manual Therapy Techniques to Include: Passive ROM For the Purpose of:: To increase flexibility/ROM IF ES: Yes Cryotherapy (ice pack, ice massage): Yes For the Purpose of:: To decrease pain, To decrease swelling/inflammation, To improve nutrient delivery to tissue Please do not hesitate to contact me at [phone] by phone or if you have questions or concerns regarding this new plan of care! Sincerely, Maricel Lopes, MPT
--- NOTE | 2019-10-22 12:00 | HP.PTREVAL_ITS ---
Dr. Yina Bailey, DO, It has been my pleasure to treat KAREY VALEROBON III over the last 30 visits for s/p L Quad Tendon Repair on 06-20-2019. I &D was 06-26-2019. Please see the progress note below for an update on the physical therapy plan of care! Subjective: Pt feels that he is getting stronger and his knee is not snapping back as much. Objective/Function: Pt did well with SL supine leg press today...Pt really felt LAQ exercises today. 0-124 degrees L knee flexion. Gait: still walks with increase limp and decreased eccentric control. Wall slides... still favors R side.... weak on the L. Stairs: decrease eccentric control and tough to push through L leg on ascending steps. Decreased overall functional strength and control. Improvement seen almost daily but skilled PT still needed. Improved BW walking today.... still off balance and decrease control but better.... Plan Plan: Watch L knee snapping into extension. Continue wtih eccentric strength, gait training, SLB to trust his leg again Goals Goal 1:: I HEP Goal Time Frame: 6-8 Weeks Goal Progress: Goal Met Goal 2:: Increase L knee AROM 0-120 degrees by DC. Goal Time Frame: 6-8 Weeks Goal Progress: Goal Met Goal 3:: Be able to complete a SLR without extensor lag X 10 without brace. Goal Time Frame: 6-8 Weeks Goal Progress: Goal Met Goal 4:: Walk without brace and AD when cleared by Dr without an antalgic gait Goal Time Frame: 4-6 Weeks Goal 5:: Up and down stairs recip with a handrail. Goal Time Frame: 4-6 Weeks Goal 6:: Be able to stand on L leg without the brace with good control Goal Time Frame: 6-8 Weeks Anticipated Interventions Patient/Client Instruction: Educate patient on: Condition, Plan of Care For the Purpose of:: To decrease pain, To decrease swelling/inflammation, To increase ROM, To improve muscle performance and motor function, To improve ability to perform ADL's, To increase tolerance to activity/condition/position, To improve performance and independence with ADL's, To decrease level of supervision to perform tasks, To improve ability of physical actions for home/community/work/leisure, To improve gait and locomotor functions, To improve health of tissue, To decrease soft tissue restriction, To increase flex ibility/ROM, To improve safety with gait Therapeutic Exercise to Include: Strength training, Flexibilty training, Gait and locomotor training, Passive ROM, Active ROM, Dynamic Lumbar Stabilization For the Purpose of:: To decrease pain, To decrease swelling/inflammation, To increase ROM, To improve nutrient delivery to tissue, To improve muscle perf ormance and motor function, To improve ability to perform ADL's, To increase tolerance to activity/condition/position, To improve gait and locomotor functions, To improve health of tissue, To decrease soft tissue restriction, To increase flexibility/ROM Functional Training to Include: Gait training For the Purpose of:: To improve gait and locomotor functions, To improve safety with gait Manual Therapy Techniques to Include: Passive ROM For the Purpose of:: To increase flexibility/ROM IF ES: Yes Cryotherapy (ice pack, ice massage): Yes For the Purpose of:: To decrease pain, To decrease swelling/inflammation, To improve nutrient delivery to tissue Please do not hesitate to contact me at [phone] by phone or if you have questions or concerns regarding this new plan of care! Sincerely, Maricel Lopes, MPT
--- NOTE | 2020-01-21 14:00 | HP.PTDCSUM ---
It has been my pleasure to treat KAREY SARKAR III referred by Dr. Yina Bailey DO, with the diagnosis of s/p L Quad Tendon Repair on 06-20-2019. I &D was 06-26-2019 for a total of 55 visit(s). Discharge Date: 01/21/20 Please see the following information for a summary of their discharge status. Subjective: Pt woke up this morning and was able to do somethings he normally could not and did not hesitate. [place] went on 8 [address] [place] 6 times and it was [place] and he did fine... watched so he did not step on anything. Piriformis stretching did help him and he has no pain. L LE Pain Intensity (Out of 10): 0 % Improvement: 100 Objective/Function: SLS on L 30 seconds. SLS with knee bent on the L 10 seconds and then loses his balance. Gait: walks with occ foot slap... able to correct it but has always walked this way. Single leg L heel raises X 10... with no struggle. Stairs: up and down recip wti 1 hand rail with no signs of weakness. Able to walk up and down steep hill with no external support with good quad control and no signs of LOB or weakness. Goal 1:: I HEP including H&W routine Goal Progress: Goal Met Goal 2:: Pt to subjectivly report improvement in descending a hill with his L knee being able to control while in flexion Goal Progress: Goal Met Goal 3:: Be able to complete a SLR without extensor lag X 10 without brace. Goal Progress: Goal Met Goal 4:: Walk with proper eccentric control of L knee with gait. Goal Progress: Progressing Goal 5:: Up and down stairs recip with a handrail with good eccentric control Goal Progress: Goal Met Goal 6:: Be able to stand on L leg with knee bent for 40 seconds without signs of weakness Goal Progress: Goal Met Plan: DC PT to gym rountine and HEP. Working on gait mechanics with not walking with L knee so straight. Discharge Comments: DC PT to H&W program If there are questions or concerns regarding this patient's physical therapy, please feel free to call me at [phone]. Thank you for the referral of this patient. Sincerely, Maricel Lopes, MPT
== END 2020-01-21 19:00 | disposition home or self-care (01) ==
LOC: PT 13:30
PROVIDERS: PCP Family Medicine; Referring Provider Orthopaedic Surgery; Visit Provider Orthopaedic Surgery
DX: Z98.890 Other specified postprocedural states (principal)
CPT/HCPCS: 97110; 97140; 97161; 97530

== ENCOUNTER → 2020-05-17 07:25 | Outpatient (CLI) | payer OTHER, SELFPAY ==
[2020-03-17 10:44] VITALS: BMI 32.8
[2020-05-17 08:23] LABS: Absolute Lymphocyte Count 1.58 X10^3/uL (0.83-4.51); Absolute Neutrophil Count 3.5 X10^3/uL (2.0-7.7); Basophil# 0.09 X10^3/uL; Basophil% 1.4 % (0-1); Eosinophil# 0.38 X10^3/uL; Hematocrit 43.8 % (40-54); Hemoglobin 14.8 g/dL (13.0-16.5); Lymphocyte # 1.58 X10^3/ul (4.0); Lymphocyte % 24.9 % (19-41); Mean Corp Hgb Conc 33.8 g/dL (32-36); Mean Corpuscular Volume 91.6 fL (80-94); Mean Platelet Vol. 10.2 fl (6.2-12.0); Monocyte# 0.79 X10^3/uL; Monocyte% 12.4 % (0-10); NRBC Flagged by Analyzer 0 % (0-5); Neutrophil # 3.48 X10^3/uL (2.7-7.7); Neutrophil % 54.8 % (47-70); Platelet Count 181 K/mm3 (150-450); RBC Distribution Width CV 14.6 % (11.6-14.6); RBC Distribution Width SD 48.8 fl (35.1-43.9); Red Blood Count 4.78 M/mm3 (4.6-6.2); White Blood Count 6.4 K/mm3 (4.4-11.0)
[2020-05-17 09:03] LABS: Microalbumin,Random Urine 14.9 mg/L (NO RANGE EST.); Microalbumin:Creatinine Ratio 7.2 mg/g CRE (<30 mg/g CRE)
[2020-05-17 09:07] LABS: ALB/GLOB Ratio 1.3 RATIO (0.9-2.4); AST(SGOT) 34 U/L (15-37); Alanine Aminotransfer ALT/SGPT 56 U/L (16-61); Albumin, Serum 3.8 g/dL (3.2-5.0); Alkaline Phosphatase 88 U/L (45-117); Anion Gap 8 (5-15); BUN 21 mg/dL (7-18); BUN/Creat Ratio 15.6 RATIO (10-20); Calcium,Total 8.7 mg/dL (8.5-10.1); Chloride 111 mmol/L (98-107); Cholesterol 198 mg/dL (200); Creatinine, Serum 1.35 mg/dL (0.70-1.30); EST Glomerular Filtration Rate 57 mL/min (>60); Est Glom Filt Rate - Afr Amer 68 mL/min (>60); Globulin 2.9 g/dL (2.2-4.2); Glucose 105 mg/dL (74-106); High Density Lipoprotein 44 mg/dL; Potassium 3.9 mmol/L (3.5-5.1); Protein, Total 6.7 g/dL (6.4-8.2); Sodium Level 142 mmol/L (136-145); Triglycerides 311 mg/dL; Very Low Density Lipoprotein 62 mg/dL (5-40)
== END ==
PROVIDERS: PCP Family Medicine; Referring Provider Internal Medicine Rheumatology; Visit Provider Internal Medicine Rheumatology
DX: J45.40 Moderate persistent asthma, uncomplicated (principal); I10 Essential (primary) hypertension; M06.4 Inflammatory polyarthropathy; M35.00 Sjogren syndrome, unspecified; M10.00 Idiopathic gout, unspecified site; J45.909 Unspecified asthma, uncomplicated; G47.33 Obstructive sleep apnea (adult) (pediatric); E03.9 Hypothyroidism, unspecified; E78.5 Hyperlipidemia, unspecified
CPT/HCPCS: 36415; 80053; 80061; 82043; 82570; 85025

== ENCOUNTER → 2020-05-20 09:00 | Outpatient (CLI) | payer OTHER, SELFPAY ==
[2020-03-17 10:44] VITALS: BMI 32.8
== END ==
PROVIDERS: PCP Family Medicine; Visit Provider Nurse Practitioner Acute Care
DX: Z46.89 Encounter for fitting and adjustment of other specified devices (principal)

== ENCOUNTER → 2020-11-29 08:34 | Outpatient (CLI) | payer OTHER, SELFPAY ==
[2020-03-17 10:44] VITALS: BMI 32.8
[2020-11-29 10:28] LABS: Absolute Lymphocyte Count 1.47 X10^3/uL (0.83-4.51); Absolute Neutrophil Count 3.6 X10^3/uL (2.0-7.7); Basophil# 0.09 X10^3/uL; Basophil% 1.4 % (0-1); Eosinophil# 0.39 X10^3/uL; Eosinophils% 6.1 % (0-5); Hematocrit 43.6 % (40-54); Hemoglobin 14.5 g/dL (13.0-16.5); Lymphocyte # 1.47 X10^3/ul (0.83-4.51); Lymphocyte % 22.9 % (19-41); Mean Corp Hgb Conc 33.3 g/dL (32-36); Mean Corpuscular Hgb 30.5 pg (27.0-32.0); Mean Corpuscular Volume 91.6 fL (80-94); Mean Platelet Vol. 10.9 fl (6.2-12.0); Monocyte# 0.89 X10^3/uL; Monocyte% 13.8 % (0-10); NRBC Flagged by Analyzer 0 % (0-5); Neutrophil # 3.56 X10^3/uL (2.7-7.7); Neutrophil % 55.3 % (47-70); Platelet Count 163 K/mm3 (150-450); RBC Distribution Width CV 14.6 % (11.6-14.6); RBC Distribution Width SD 49.1 fl (35.1-43.9); Red Blood Count 4.76 M/mm3 (4.6-6.2); White Blood Count 6.4 K/mm3 (4.4-11.0)
[2020-11-29 10:51] LABS: ALB/GLOB Ratio 1.3 RATIO (0.9-2.4); AST(SGOT) 27 U/L (15-37); Alanine Aminotransfer ALT/SGPT 46 U/L (16-61); Albumin, Serum 3.8 g/dL (3.2-5.0); Alkaline Phosphatase 82 U/L (45-117); Anion Gap 7 (5-15); BUN 22 mg/dL (7-18); BUN/Creat Ratio 22.8 RATIO (10-20); Calcium,Total 8.7 mg/dL (8.5-10.1); Chloride 113 mmol/L (98-107); Creatinine, Serum 0.96 mg/dL (0.70-1.30); EST Glomerular Filtration Rate 83 mL/min (>60); Est Glom Filt Rate - Afr Amer 101 mL/min (>60); Glucose 101 mg/dL (74-106); Potassium 3.9 mmol/L (3.5-5.1); Protein, Total 6.8 g/dL (6.4-8.2); Sodium Level 142 mmol/L (136-145)
== END ==
PROVIDERS: PCP Family Medicine; Visit Provider Internal Medicine Rheumatology
DX: M06.4 Inflammatory polyarthropathy (principal); M35.00 Sjogren syndrome, unspecified; M10.00 Idiopathic gout, unspecified site; J45.909 Unspecified asthma, uncomplicated; G47.33 Obstructive sleep apnea (adult) (pediatric); E03.9 Hypothyroidism, unspecified; E78.5 Hyperlipidemia, unspecified
CPT/HCPCS: 36415; 80053; 85025

== ENCOUNTER 2021-05-30 09:55 | Outpatient (CLI) | payer BC, SELFPAY ==
[2021-05-30 10:21] LABS: Absolute Lymphocyte Count 1.32 X10^3/uL (0.83-4.51); Absolute Neutrophil Count 3.4 X10^3/uL (2.0-7.7); Basophil# 0.09 X10^3/uL; Basophil% 1.5 % (0-1); Eosinophil# 0.33 X10^3/uL; Eosinophils% 5.6 % (0-5); Hematocrit 46.9 % (40-54); Hemoglobin 15.5 g/dL (13.0-16.5); Lymphocyte # 1.32 X10^3/ul (0.83-4.51); Lymphocyte % 22.4 % (19-41); Mean Corpuscular Hgb 30.9 pg (27.0-32.0); Mean Corpuscular Volume 93.4 fL (80-94); Mean Platelet Vol. 9.8 fl (6.2-12.0); Monocyte# 0.71 X10^3/uL; NRBC Flagged by Analyzer 0 % (0-5); Neutrophil % 57.7 % (47-70); Platelet Count 165 K/mm3 (150-450); RBC Distribution Width CV 14.6 % (11.6-14.6); RBC Distribution Width SD 49.4 fl (35.1-43.9); Red Blood Count 5.02 M/mm3 (4.6-6.2); White Blood Count 5.9 K/mm3 (4.4-11.0)
[2021-05-30 10:47] LABS: Microalbumin,Random Urine 8.6 mg/L (NO RANGE EST.); Microalbumin:Creatinine Ratio 16.6 mg/g CRE (<30 mg/g CRE)
[2021-05-30 11:10] LABS: ALB/GLOB Ratio 1.2 RATIO (0.9-2.4); AST(SGOT) 23 U/L (15-37); Alanine Aminotransfer ALT/SGPT 54 U/L (16-61); Albumin, Serum 3.7 g/dL (3.2-5.0); Alkaline Phosphatase 83 U/L (45-117); Anion Gap 5 (5-15); BUN 19 mg/dL (7-18); BUN/Creat Ratio 15.6 RATIO (10-20); Chloride 112 mmol/L (98-107); Cholesterol 198 mg/dL (200); Creatinine, Serum 1.22 mg/dL (0.70-1.30); EST Glomerular Filtration Rate 63 mL/min (>60); Est Glom Filt Rate - Afr Amer 77 mL/min (>60); Globulin 3.2 g/dL (2.2-4.2); Glucose 113 mg/dL (74-106); High Density Lipoprotein 63 mg/dL; Protein, Total 6.9 g/dL (6.4-8.2); Sodium Level 139 mmol/L (136-145); Thyroid Stim Hormone (TSH) 5.64 uIU/mL (0.358-3.74); Triglycerides 189 mg/dL; Uric Acid 5.7 mg/dL (3.5-7.2); Very Low Density Lipoprotein 38 mg/dL (5-40)
[2021-05-31 08:55] LABS: T4 Free Direct 0.83 ng/dL (0.76-1.46)
== END 2021-05-30 23:59 | disposition home or self-care (01) ==
LOC: LAB 09:56
PROVIDERS: PCP Family Medicine; Referring Provider Internal Medicine Rheumatology; Visit Provider Internal Medicine Rheumatology
DX: M06.4 Inflammatory polyarthropathy (principal); M35.00 Sjogren syndrome, unspecified; M10.00 Idiopathic gout, unspecified site; J45.909 Unspecified asthma, uncomplicated; G47.33 Obstructive sleep apnea (adult) (pediatric); E03.9 Hypothyroidism, unspecified; E78.5 Hyperlipidemia, unspecified
CPT/HCPCS: 36415; 80053; 80061; 82043; 82570; 84439; 84443; 84550; 85025

== ENCOUNTER → 2021-11-28 | Outpatient (CLI) | payer BC, SELFPAY ==
[2021-11-28 10:07] LABS: Absolute Lymphocyte Count 1.39 X10^3/uL (0.83-4.51); Absolute Neutrophil Count 5.2 X10^3/uL (2.0-7.7); Basophil# 0.08 X10^3/uL; Eosinophil# 0.21 X10^3/uL; Eosinophils% 2.7 % (0-5); Hematocrit 45.7 % (40-54); Hemoglobin 15.3 g/dL (13.0-16.5); Lymphocyte # 1.39 X10^3/ul (0.83-4.51); Lymphocyte % 17.8 % (19-41); Mean Corp Hgb Conc 33.5 g/dL (32-36); Mean Corpuscular Hgb 31.5 pg (27.0-32.0); Mean Platelet Vol. 10.4 fl (6.2-12.0); Monocyte# 0.89 X10^3/uL; Monocyte% 11.4 % (0-10); NRBC Flagged by Analyzer 0 % (0-5); Neutrophil # 5.17 X10^3/uL (2.7-7.7); Neutrophil % 66.3 % (47-70); Platelet Count 180 K/mm3 (150-450); RBC Distribution Width CV 14.6 % (11.6-14.6); RBC Distribution Width SD 50.6 fl (35.1-43.9); Red Blood Count 4.86 M/mm3 (4.6-6.2); White Blood Count 7.8 K/mm3 (4.4-11.0)
[2021-11-28 10:36] LABS: ALB/GLOB Ratio 1.1 RATIO (0.9-2.4); AST(SGOT) 30 U/L (15-37); Alanine Aminotransfer ALT/SGPT 53 U/L (16-61); Albumin, Serum 3.6 g/dL (3.2-5.0); Alkaline Phosphatase 76 U/L (45-117); Anion Gap 4 (5-15); BUN 23 mg/dL (7-18); BUN/Creat Ratio 20.4 RATIO (10-20); Calcium,Total 9.1 mg/dL (8.5-10.1); Chloride 111 mmol/L (98-107); Creatinine, Serum 1.13 mg/dL (0.70-1.30); EST Glomerular Filtration Rate 69 mL/min (>60); Est Glom Filt Rate - Afr Amer 84 mL/min (>60); Globulin 3.3 g/dL (2.2-4.2); Glucose 105 mg/dL (74-106); Potassium 4.3 mmol/L (3.5-5.1); Protein, Total 6.9 g/dL (6.4-8.2); Sodium Level 142 mmol/L (136-145)
== END | disposition home or self-care (01) ==
LOC: LAB 08:54
PROVIDERS: PCP Family Medicine; Referring Provider Internal Medicine Rheumatology; Visit Provider Internal Medicine Rheumatology
DX: M06.4 Inflammatory polyarthropathy (principal); M35.00 Sjogren syndrome, unspecified; M10.00 Idiopathic gout, unspecified site; J45.909 Unspecified asthma, uncomplicated; G47.33 Obstructive sleep apnea (adult) (pediatric); E03.9 Hypothyroidism, unspecified; E78.5 Hyperlipidemia, unspecified
CPT/HCPCS: 36415; 80053; 85025

== ENCOUNTER → 2022-02-03 | Outpatient (CLI) | payer BC, SELFPAY ==
[2022-02-03 08:49] LABS: Hematocrit 45.9 % (40-54); Hemoglobin 15.6 g/dL (13.0-16.5)
[2022-02-03 09:13] LABS: Microalbumin,Random Urine 13.3 mg/L (NO RANGE EST.); Microalbumin:Creatinine Ratio 16.3 mg/g CRE (<30 mg/g CRE)
[2022-02-03 09:22] LABS: Cholesterol 179 mg/dL (200); High Density Lipoprotein 64 mg/dL; PSA,Total - Annual Screen 0.88 ng/mL (0.00-4.00); T4 Free Direct 0.82 ng/dL (0.76-1.46); Thyroid Stim Hormone (TSH) 6.82 uIU/mL (0.358-3.74); Triglycerides 152 mg/dL; Very Low Density Lipoprotein 30 mg/dL (5-40)
== END | disposition home or self-care (01) ==
LOC: LAB 08:09
PROVIDERS: PCP Family Medicine; Referring Provider Family Medicine; Visit Provider Family Medicine
DX: Z00.00 Encounter for general adult medical examination without abnormal findings (principal); G47.33 Obstructive sleep apnea (adult) (pediatric); E78.5 Hyperlipidemia, unspecified; R79.89 Other specified abnormal findings of blood chemistry; Z12.5 Encounter for screening for malignant neoplasm of prostate
CPT/HCPCS: 36415; 80061; 82043; 82570; 84153; 84439; 84443; 85014; 85018; G0103

== ENCOUNTER → 2022-04-03 | Outpatient (CLI) | payer BC, SELFPAY ==
[2022-04-03 08:54] LABS: T4 Free Direct 0.83 ng/dL (0.76-1.46); Thyroid Stim Hormone (TSH) 8.83 uIU/mL (0.358-3.74)
== END | disposition home or self-care (01) ==
LOC: LAB 07:32
PROVIDERS: PCP Family Medicine; Referring Provider Family Medicine; Visit Provider Family Medicine
DX: R79.89 Other specified abnormal findings of blood chemistry (principal)
CPT/HCPCS: 36415; 84439; 84443

== ENCOUNTER → 2022-05-22 | Outpatient (CLI) | payer BC, SELFPAY ==
[2022-05-22 07:55] LABS: Absolute Lymphocyte Count 1.87 X10^3/uL (0.83-4.51); Absolute Neutrophil Count 3.6 X10^3/uL (2.0-7.7); Basophil% 1.5 % (0-1); Eosinophil# 0.54 X10^3/uL; Eosinophils% 7.9 % (0-5); Hematocrit 45.6 % (40-54); Hemoglobin 14.7 g/dL (13.0-16.5); Lymphocyte # 1.87 X10^3/ul (0.83-4.51); Lymphocyte % 27.5 % (19-41); Mean Corp Hgb Conc 32.2 g/dL (32-36); Mean Corpuscular Hgb 29.5 pg (27.0-32.0); Mean Corpuscular Volume 91.4 fL (80-94); Monocyte# 0.67 X10^3/uL; Monocyte% 9.9 % (0-10); NRBC Flagged by Analyzer 0 % (0-5); Neutrophil # 3.58 X10^3/uL (2.7-7.7); Neutrophil % 52.6 % (47-70); Platelet Count 199 K/mm3 (150-450); RBC Distribution Width CV 14.3 % (11.6-14.6); RBC Distribution Width SD 47.6 fl (35.1-43.9); Red Blood Count 4.99 M/mm3 (4.6-6.2); White Blood Count 6.8 K/mm3 (4.4-11.0)
[2022-05-22 08:22] LABS: ALB/GLOB Ratio 1.2 RATIO (0.9-2.4); AST(SGOT) 25 U/L (15-37); Alanine Aminotransfer ALT/SGPT 42 U/L (16-61); Albumin, Serum 3.6 g/dL (3.2-5.0); Alkaline Phosphatase 74 U/L (45-117); Anion Gap 7 (5-15); BUN 22 mg/dL (7-18); BUN/Creat Ratio 19.1 RATIO (10-20); Calcium,Total 8.5 mg/dL (8.5-10.1); Chloride 109 mmol/L (98-107); Creatinine, Serum 1.15 mg/dL (0.70-1.30); EST Glomerular Filtration Rate 68 mL/min (>60); Est Glom Filt Rate - Afr Amer 82 mL/min (>60); Glucose 110 mg/dL (74-106); Potassium 3.9 mmol/L (3.5-5.1); Protein, Total 6.6 g/dL (6.4-8.2); Sodium Level 140 mmol/L (136-145); T4 Free Direct 0.94 ng/dL (0.76-1.46); Thyroid Stim Hormone (TSH) 6.29 uIU/mL (0.358-3.74)
== END | disposition home or self-care (01) ==
LOC: LAB 07:29
PROVIDERS: PCP Family Medicine; Referring Provider Internal Medicine Rheumatology; Visit Provider Internal Medicine Rheumatology
DX: M06.4 Inflammatory polyarthropathy (principal); M35.00 Sjogren syndrome, unspecified; M10.00 Idiopathic gout, unspecified site; J45.909 Unspecified asthma, uncomplicated; G47.33 Obstructive sleep apnea (adult) (pediatric); E03.9 Hypothyroidism, unspecified; E78.5 Hyperlipidemia, unspecified
CPT/HCPCS: 36415; 80053; 84439; 84443; 85025

== ENCOUNTER → 2022-07-24 | Outpatient (CLI) | payer BC, SELFPAY ==
[2022-07-24 10:45] LABS: Thyroid Stim Hormone (TSH) 4.55 uIU/mL (0.358-3.74)
== END | disposition home or self-care (01) ==
LOC: LAB 08:30
PROVIDERS: PCP Family Medicine; Referring Provider Family Medicine; Visit Provider Family Medicine
DX: E03.9 Hypothyroidism, unspecified (principal)
CPT/HCPCS: 36415; 84439; 84443

== ENCOUNTER → 2022-11-13 | Outpatient (CLI) | payer BC, SELFPAY ==
--- NOTE | 2022-11-13 07:57 | ECHOCS_ITS ---
Reason For Study: HTN Procedure This was a 2D Doppler, Color Flow transthoracic echocardiogram. The study was technically difficult. Contrast injection was performed. Exam performed in department. Left Ventricle Normal LV size. Left ventricular systolic function is normal. The estimated ejection fraction is 60 %. Stage 1 diastolic dysfunction. No regional wall motion abnormalities noted. Right Ventricle Normal RV size. Normal systolic function. Atria The left atrium is mildly enlarged. Normal right atrium. Mitral Valve Normal mitral valve. Tricuspid Valve Normal tricuspid valve. Aortic Valve Trisinus/trileaflet aortic valve. Pulmonic Valve The pulmonic valve is not well visualized. Great Vessels Normal aortic root. The pulmonary artery is normal size. Normal inferior vena cava. Pericardium/Pleural No pericardial effusion. Medication 20 gauge I.V. with prn adaptor inserted into right arm. Diluted definity 9ml given slow IV push to enhance endocardial definition. MMode/2D Measurements & Calculations LVIDd: 5.2 cm IVSd: 1.1 cm Ao root diam: 3.9 cm LVIDs: 3.7 cm LVPWd: 1.5 cm LA dimension: 4.0 cm RVDd: 4.4 cm FS: 30.0 % LAV(MOD-bp): 62.1 ml LA A4 area: 23.0 cm2 RA A4 area: 18.4 cm2 LAV(MOD-bp) Indexed: 28.2 ml/m2 LAV(MOD-sp2): 50.2 ml LAV(MOD-sp4): 70.4 ml Time Measurements MV dec time: 0.22 sec Doppler Measurements & Calculations MV E max lavell: 76.2 cm/sec Lat Peak E' Lavell: 10.7 cm/sec Med Peak E' Lavell: 7.4 cm/sec MV A max lavell: 79.2 cm/sec E/E' lat: 7.1 E/E' med: 10.3 MV E/A: 0.96 MV V2 max: 92.3 cm/sec MV P1/2t max lavell: 85.2 cm/sec Ao V2 max: 130.6 cm/sec MV max P.4 mmHg MV P1/2t: 69.1 msec Ao max P.8 mmHg MV V2 mean: 48.0 cm/sec MV dec slope: 361.1 cm/sec2 Ao V2 mean: 88.3 cm/sec MV mean P.1 mmHg Ao mean P.6 mmHg MV V2 VTI: 28.2 cm MVA(P1/2t): 3.2 cm2 Ao V2 VTI: 32.4 cm AV (velocity ratio): 0.82 LV V1 max: 107.7 cm/sec PA V2 max: 79.0 cm/sec LV V1 max P.6 mmHg LV V1 mean P.1 mmHg LV V1 mean: 67.6 cm/sec LV V1 VTI: 26.4 cm ECHO/Echo Complete W/ Contrast Interpretation Summary Normal LV size. Left ventricular systolic function is normal. The estimated ejection fraction is 60 %. Stage 1 diastolic dysfunction. The left atrium is mildly enlarged. Contrast injection was performed. Ordering Physician: Yogi Warner Referring Physician: Yogi Warner Performed By: Willian Finn and Student
[2022-11-13 10:08] LABS: Absolute Lymphocyte Count 1.29 X10^3/uL (0.83-4.51); Absolute Neutrophil Count 5.6 X10^3/uL (2.0-7.7); Basophil# 0.09 X10^3/uL; Eosinophil# 0.39 X10^3/uL; Eosinophils% 4.5 % (0-5); Hematocrit 44.7 % (40-54); Lymphocyte # 1.29 X10^3/ul (0.83-4.51); Mean Corp Hgb Conc 33.6 g/dL (32-36); Mean Corpuscular Hgb 30.3 pg (27.0-32.0); Mean Corpuscular Volume 90.3 fL (80-94); Mean Platelet Vol. 10.3 fl (6.2-12.0); Monocyte# 1.18 X10^3/uL; Monocyte% 13.7 % (0-10); NRBC Flagged by Analyzer 0 % (0-5); Neutrophil # 5.58 X10^3/uL (2.7-7.7); Neutrophil % 64.9 % (47-70); Platelet Count 190 K/mm3 (150-450); RBC Distribution Width CV 14.6 % (11.6-14.6); RBC Distribution Width SD 48.2 fl (35.1-43.9); Red Blood Count 4.95 M/mm3 (4.6-6.2); White Blood Count 8.6 K/mm3 (4.4-11.0)
[2022-11-13 10:48] LABS: ALB/GLOB Ratio 1.2 RATIO (0.9-2.4); AST(SGOT) 24 U/L (15-37); Alanine Aminotransfer ALT/SGPT 47 U/L (16-61); Albumin, Serum 3.6 g/dL (3.2-5.0); Alkaline Phosphatase 94 U/L (45-117); Anion Gap 4 (5-15); BUN 21 mg/dL (7-18); BUN/Creat Ratio 17.8 RATIO (10-20); Chloride 110 mmol/L (98-107); Creatinine, Serum 1.18 mg/dL (0.70-1.30); EST Glomerular Filtration Rate 66 mL/min (>60); Est Glom Filt Rate - Afr Amer 79 mL/min (>60); Free T3 2.5 pg/mL (2.18-3.98); Globulin 3.1 g/dL (2.2-4.2); Glucose 108 mg/dL (74-106); Potassium 3.9 mmol/L (3.5-5.1); Protein, Total 6.7 g/dL (6.4-8.2); Sodium Level 140 mmol/L (136-145); T4 Free Direct 1.14 ng/dL (0.76-1.46)
== END | disposition home or self-care (01) ==
PROVIDERS: PCP Family Medicine; Referring Provider Internal Medicine Cardiovascular Disease; Visit Provider Internal Medicine Cardiovascular Disease
DX: M06.4 Inflammatory polyarthropathy (principal); Z79.899 Other long term (current) drug therapy; E03.9 Hypothyroidism, unspecified
CPT/HCPCS: 36415; 80053; 84439; 84481; 85025; 93306; Q9957; A4216; C8929

== ENCOUNTER → 2023-05-28 | Outpatient (CLI) | payer BC, SELFPAY ==
--- OUTSIDE RECORDS SUMMARY | 2023-05-28 09:35 | XMS RPT_ITS | CCD ---
Author Name Unknown Address [id number] [place] [address] Organization [facility] Care Team Providers Care Interrelated Special Education Teacher Name Role Phone Zhanna Lorenzo Unavailable Squires DEHAIRER, Maricruz Rhea Unavailable Unavaila ble Squires DEHAIRER, Maricruz Rhea Unavailable Unavaila ble Zeina CORNEJO, Deonna Laboy Unavailable [phone] Yovana Duran Unavailable Unavailable Yovana Duran Unavailable Unavailable Squires DEHAIRER, Maricruz Rhea Unavailable Unavaila Dom Krueger MD Unavailable EJANNINE MAYNARD Attending Unavailable QUINTEN ORTIZ Primary Care Unavailable Quinten Ortiz Primary Care Provider [phone] Quinten Ortiz Primary Care Provider Ambrose Jim Primary Care Provider Unavailmodesta Ortiz MD, Quinten Fountain Primary Care Provider [phone] Quinten Ortiz MD Primary Care Provider Radha Meadows Attending Unavailable QUINTEN ORTIZ Referring Unavailable QUINTEN ORTIZ Primary Care Unavailable JOSE OROZCO Attending Unavailable Radha Meadows Referring Unavailable QUINTEN ORTIZ Primary Care Unavailable Angel LANDON, Quinten Sims Primary Care Provider Allergies Allergy Classification Reported Allergen(s) Allergy Type Date of Onset Reaction(s) Facility (16 sources) amoxicillin / clavulanate drug allergy 5 Hives [facility] Work Phone: (8 sources) losartan drug allergy 5 severe cough [facility] Work Phone: (9 sources) AMOXICILLIN-POT CLAVULANATE; Translations: [Unknown] Propensity to adverse reactions to drug (disorder) 8 Rash [facility] Three Repository Medications Current Medications Medication Drug Class(es) Dates Sig (Normalized) Sig (Original) acetaminophen 500 mg oral tablet (1 source) Start: 06-14-2019 End: 06-24-2019 take 1 tablet by mouth every six hours as needed acetaminophen (Tylenol Extra Strength) 500 MG tablet Take 1 (one) tablet (500 mg total) by mouth every 6 (six) hours as needed . 30 tablet 0 06/14/2019 06/24/2019 Active albuterol 90 mcg/actuation inhaler (2 sources) take 2 puff(s) by inhalation every six hours as needed for wheezing albuterol 90 mcg/actuation inhaler Inhale 2 puffs every 6 (six) hours as needed for wheezing . 0 Active azelastine hydrochloride 0.137 mg/actuat metered dose nasal spray (2 sources) Histamine-1 Receptor Antagonist azelastine (ASTELIN) 137 mcg (0.1 %) nasal spray 1 spray by Each Nare route 2 (two) times a day . 0 Active polyethylene glycol 3350 914778 mg / potassium chloride 2970 mg / sodium bicarbonate 6740 mg / sodium chloride 5860 mg / sodium sulfate 76041 mg powder for oral solution (1 source) Osmotic Laxative Start: 02-20-2022 End: 02-20-2022 peg 3350-Electrolytes (GOLYTELY) 236-22.74-6.74 -5.86 gram suspension Take 4,000 mL by mouth one time only for 1 dose. 1 Each 0 02/20/2022 02/20/2022 Active Completed/Discontinued Medications Medication Drug Class(es) Dates Sig (Normalized) Sig (Original) 200 actuat albuterol 0.09 mg/actuat metered dose inhaler (20 sources) beta2-Adrenergic Agonist Start: 11-11-2014 take 2 puff(s) by inhalation every four hours as needed PROAIR HFA 108 (90 Base) MCG/ACT AERS 2 puffs inh q4h as needed ALBUTEROL SULFATE [id number] Yesenia Sarabia UNDERWRITING ASSISTANT Problems Active Problems Problem Classification Problem Date Documented Date Episodic/Chronic Asthma (8 sources) Asthma; Translations: [Unspecified asthma, uncomplicated] Onset: 03-09-2015 03-09-2015 Chronic Diabetes mellitus without complication (8 sources) Diabetes mellitus; Translations: [Type 2 diabetes mellitus without complications] Onset: 01-22-2015 01-22-2015 Chronic Disorders of lipid metabolism (13 sources) Hyperlipidemia; Translations: [Hyperlipidemia, unspecified] Onset: 01-22-2015 01-22-2015 Chronic Essential hypertension (8 sources) Hypertensive disorder; Translations: [Essential (primary) hypertension] Onset: 01-22-2015 01-22-2015 Chronic External cause codes: Fall (1 source) Fall; Translations: [Fall, initial encounter] Other and unspecified benign neoplasm (2 sources) History of polyp of colon; Translations: [Personal history of colonic polyps] Episodic Other and unspecified benign neoplasm (1 source) Personal history of colonic polyps; Translations: [History of colonic polyps] Onset: 05-09-2022 Episodic Other connective tissue disease (1 source) Rupture of quadriceps tendon; Translations: [Rupture of left quadriceps tendon, initial encounter] Episodic Other non-traumatic joint disorders (1 source) Knee pain; Translations: [Acute pain of left knee] Episodic Other nutritional; endocrine; and metabolic disorders (14 sources) Obesity; Translations: [Body mass index (BMI) 35.0-35.9, adult] Onset: 11-12-2014 11-12-2014 Chronic Other nutritional; endocrine; and metabolic disorders (4 sources) Body mass index (BMI) 35.0-35.9, adult; Translations: [Body mass index (BMI) 35.0-35.9, adult] Onset: 01-28-2015 08-27-2015 Chronic Other nutritional; endocrine; and metabolic disorders (4 sources) Body mass index (BMI) 33.0-33.9, adult; Translations: [Body mass index (BMI) 33.0-33.9, adult] Onset: 01-28-2015 01-28-2015 Chronic Residual codes; unclassified (10 sources) Obstructive sleep apnea syndrome; Translations: [Body mass index (BMI) 33.0-33.9, adult] Onset: 12-16-2014 12-16-2014 Chronic Spondylosis; intervertebral disc disorders; other back problems (1 source) Degeneration of cervical intervertebral disc; Translations: [DDD (degenerative disc disease), cervical] Chronic Past or Other Problems Problem Classification Problem Date Documented Da te Episodic/Chronic Acquired foot deformities (10 sources) Acquired cavus deformity of foot; Translations: [Other acquired deformities of unspecified foot] Onset: 02-24-2005 02-24-2005 Episodic Congestive heart failure; nonhypertensive (8 sources) Diastolic dysfunction; Translations: [Other ill-defined heart diseases] Onset: 01-28-2015 01-28-2015 Episodic Immunizations and screening for infectious disease (8 sources) Raised antinuclear antibody; Translations: [Other specified abnormal findings of blood chemistry] Onset: 05-07-2015 05-11-2015 Episodic Other lower respiratory disease (8 sources) Dyspnea; Translations: [Shortness of breath] Onset: 11-12-2014 11-12-2014 Episodic Other screening for suspected conditions (not mental disorders or infectious disease) (6 sources) Patient encounter status; Translations: [Encounter for screening for malignant neoplasm of colon] Onset: 11-09-2006 11-09-2006 Episodic Residual codes; unclassified (16 sources) Edema; Translations: [Hypersomnia] Onset: 11-12-2014 Resolved: 12-16-2014 06-04-2015 Episodic Residual codes; unclassified (8 sources) Hypersomnia; Translations: [Hypersomnia, unspecified] Onset: 11-12-2014 Resolved: 12-16-2014 12-16-2014 Episodic Syncope (8 sources) Near syncope; Translations: [Syncope and collapse] Onset: 01-28-2015 01-28-2015 Episodic Results Test Name Value Interpretation Reference Range Facil ity Vital Signs Date Time Vital Sign Value Performing Clinician Facility 05-09-2022 08:48-0500 Diastolic blood pressure 78 mm[Hg] Jose Orozco MD Work Phone: [facility] 05-09-2022 08:48-0500 Heart rate 74 /min Jose Orozco MD Work Phone: [facility] 05-09-2022 08:48-0500 Respiratory rate 16 /min Jose Orozco MD Work Phone: [facility] 05-09-2022 08:48-0500 SaO2% (BldA) [Mass fraction] 94 % Jose Orozco MD Work Phone: [facility] 05-09-2022 08:48-0500 Systolic blood pressure 127 mm[Hg] Jose Orozco MD Work Phone: [facility] 05-09-2022 07:09-0500 Body temperature 97.59 [degF] Jose Orozco MD Work Phone: [facility] 05-09-2022 07:09-0500 Body weight 106.3 kg Jose Orozco MD Work Phone: [facility] 02-20-2022 08:36-0500 Body height 175.3 cm Radha Abdiel PA-C Work Phone: [facility] 02-20-2022 08:36-0500 Body temperature 97.39 [degF] Radha Abdiel PA-C Work Phone: [facility] 02-20-2022 08:36-0500 Body weight 106.32 kg Radha Abdiel PA-C Work Phone: [facility] 02-20-2022 08:36-0500 Diastolic blood pressure 83 mm[Hg] Radha [place] PA-C Work Phone: [facility] 02-20-2022 08:36-0500 Heart rate 70 /min Radha [place] PA-C Work Phone: [facility] 02-20-2022 08:36-0500 SaO2% (BldA) [Mass fraction] 100 % Radha Adbiel PA-C Work Phone: [facility] 02-20-2022 08:36-0500 Systolic blood pressure 120 mm[Hg] Radha [place] PA-C Work Phone: [facility] 06-14-2019 19:30-0500 BP Diastolic 84 mm[Hg] [facility] 06-14-2019 19:30-0500 BP Systolic 136 mm[Hg] [facility] 06-14-2019 19:30-0500 Pulse (Heart Rate) 70 /min [facility] 06-14-2019 19:30-0500 Pulse Oximetry 97 % [facility] 06-14-2019 19:30-0500 Respiratory Rate 16 /min [facility] 06-14-2019 12:42-0500 Body Temperature 98.71 [degF] [facility] 06-14-2019 12:32-0500 BMI (Body Mass Index) 35 kg/m2 [facility] 06-14-2019 12:32-0500 Body weight 107.5 kg [facility] 06-14-2019 12:32-0500 Height 175.3 cm [facility] 02-02-2017 15:03-0400 BMI (Body Mass Index) 35.59 kg/m2 [facility] Work Phone: 02-02-2017 15:03-0400 BP Diastolic 90 mm[Hg] [facility] Work Phone: 02-02-2017 15:03-0400 BP Systolic 124 mm[Hg] [facility] Work Phone: 02-02-2017 15:03-0400 Height 175.26 cm [facility] Work Phone: 02-02-2017 15:03-0400 Pulse (Heart Rate) 68 /min [facility] Work Phone: 02-02-2017 15:03-0400 Respiratory Rate 20 /min [facility] Work Phone: 02-02-2017 15:03-0400 Weight 109.32 kg [facility] Work Phone: 10-02-2016 07:34-0400 BMI (Body Mass Index) 34.26 kg/m2 [facility] Work Phone: 10-02-2016 07:34-0400 Body Temperature 97.3 [degF] [facility] Work Phone: 10-02-2016 07:34-0400 BP Diastolic 82 mm[Hg] Dom Ross MD [facility] Work Phone: 10-02-2016 07:34-0400 BP Systolic 119 mm[Hg] Dom Ross MD [facility] Work Phone: 10-02-2016 07:34-0400 Height 175.26 cm Dom Ross MD [facility] Work Phone: 10-02-2016 07:34-0400 Pulse (Heart Rate) 69 /min [facility] Work Phone: 10-02-2016 07:34-0400 Pulse Oximetry 98 % Dom Ross MD [facility] Work Phone: 10-02-2016 07:34-0400 Respiratory Rate 18 /min Dom Ross MD [facility] Work Phone: 10-02-2016 07:34-0400 Weight 105.24 kg Dom Ross MD [facility] Work Phone: 05-10-2016 13:46-0500 BSA (Body Surface Area) 2.21 m2 Dom Ross MD [facility] Work Phone: 04-05-2016 06:53-0500 Body Temperature 97.34 [degF] Dom Ross MD [facility] Work Phone: 04-05-2016 06:53-0500 Height 175.26 cm Dom Ross MD [facility] Work Phone: 04-05-2016 06:53-0500 Weight 105.45 kg Dom [facility] Work Phone: 01-28-2015 15:10-0400 Heart rate 95 /min [facility] Work Phone: 01-28-2015 14:49-0400 Pulse Oximetry 95 % Dom [facility] Work Phone: Encounters Encounter Date Encounter Type Care Provider Facility Start: 05-23-2022 ambulatory Jose campbell MD Work Phone: General Surgery Procedures Date Procedure Procedure Detail Performing Clinician Start: 05-09-2022 Level iv surg pathol ogy gross&microscopic exam Jose Orozco MD Work Phone: Start: 05-09-2022 Colonoscopy flx dx w /collj spec when pfrmd Radha Meadows PA-C Work Phone: Start: 05-09-2022 Colonoscopy Jose grider MD Work Phone: Start: 06-14-2019 Mri any jt lower ext rem w/o contrast matrl Jeannine Barraganoh Work Phone: Start: 06-14-2019 MRI of cervical spin e without contrast Jeannine Migdalia Lernerlloh Work Phone: Start: 06-14-2019 Troponin measurement Ze na Migdalia Barraganoh Work Phone: Start: 06-14-2019 Drugs of abuse urine screening test [place] Migdalia Rocío Work Phone: Start: 06-14-2019 Ethanol [Mass/volume ] in Serum or Plasma Jeannine Migdalia Rocío Work Phone: Start: 06-14-2019 X-ray of left knee [place] Migdalia Rocío Work Phone: Start: 06-14-2019 Radiologic exam ches t single view [place] Migdalia Rocío Work Phone: Start: 06-14-2019 CT cervical spine wi thout contrast [place] Migdalia Rocío Work Phone: Start: 06-14-2019 CT of head without contrast Jeannine Lernerlloh Work Phone: Start: 06-14-2019 LIGHT GREEN TOP Jeannine Quick diolive LernerRocío Work Phone: Start: 06-14-2019 RAINBOW DRAW Jeannine Maynard Work Phone: Start: 06-14-2019 Basic metabolic 1998 panel - Serum or Plasma Jeannine Maynard Work Phone: Start: 06-14-2019 Complete blood count with white cell differential, automated Jeannine Maynard Work Phone: Start: 06-14-2019 Complete blood count with white cell differential, manual Jeannine Maynard Work Phone: Start: 06-14-2019 D-dimer assay, quantitative Jeannine Maynard Work Phone: Start: 06-14-2019 Hepatic function 200 0 panel - Serum or Plasma Jeannine Maynard Work Phone: Start: 06-14-2019 INR in Platelet poor plasma by Coagulation assay Jeannine Maynard Work Phone: Start: 06-14-2019 Lipase [Enzymatic activity/volume] in Serum or Plasma Jeannine Maynard Work Phone: Start: 06-14-2019 Troponin measurement Ze roby Maynard Work Phone: Start: 02-02-2017 End: 02-02-2017 Follow Up Appt 9 months Dom Ross MD Start: 02-02-2017 End: 02-02-2017 PFM Dom Ross MD Start: 11-10-2016 Tana alcocer Start: 10-02-2016 End: 10-02-2016 Dietary management education, guidance, and counseling Dom Ross MD Start: 05-10-2016 End: 05-10-2016 Follow Up Appt 9 months Dom Ross MD Start: 05-10-2016 End: 05-10-2016 PFM Dom Ross MD Start: 05-10-2016 End: 05-10-2016 Follow Up Appt 9 months Dom Ross MD Start: 05-10-2016 End: 05-10-2016 PFM Dom Ross MD Start: 02-28-2016 End: 03-01-2016 Pulmonary Function Test - complete Yesenia Sarabia UNDERWRITING ASSISTANT Work Phone: Start: 02-28-2016 End: 03-01-2016 Pulmonary Function Test - complete Yesenia Sarabia UNDERWRITING ASSISTANT Work Phone: Start: 01-06-2016 End: 03-01-2016 BWA Yesenia Victor Sarabia C [employer] Work Phone: Start: 01-06-2016 End: 03-01-2016 Follow Up Appt 3 months Yesenia hoyos UNDERWRITING ASSISTANT Work Phone: Start: 01-06-2016 End: 03-01-2016 BWA Yesenia Victor Sarabia C [employer] Work Phone: Start: 01-06-2016 End: 03-01-2016 Follow Up Appt 3 months Yesenia Morrisonl er UNDERWRITING ASSISTANT Work Phone: Start: 10-26-2015 End: 10-26-2015 SNOMED-CT: [id number] Report of clinical encounter Maricruz Patiño Start: 10-26-2015 End: 10-26-2015 SNOMED-CT: [id number] Report of clinical encounter Maricruz Larar Start: 09-16-2015 End: 03-01-2016 Follow Up Appt 3 months Yesenia Morrisonl er UNDERWRITING ASSISTANT Work Phone: Start: 09-16-2015 End: 03-01-2016 Follow Up Appt 3 months Yesenia S Graham er UNDERWRITING ASSISTANT Work Phone: Start: 08-27-2015 End: 08-27-2015 Follow Up Appt 6 months Dom Ross MD Start: 08-27-2015 End: 08-27-2015 PFM Dom Ross MD Start: 08-27-2015 End: 08-27-2015 Follow Up Appt 6 months Dom Ross MD Start: 08-27-2015 End: 08-27-2015 PFM Dom Ross MD Start: 06-22-2015 End: 04-05-2016 CSM Domingo Fountain Work Phone: Start: 06-22-2015 End: 01-03-2016 Follow Up Appt 3 months Domingo Fountain Work Phone: Start: 06-22-2015 End: 04-05-2016 CSM Domingo Fountain Work Phone: Start: 06-22-2015 End: 01-03-2016 Follow Up Appt 3 months Domingo Renee Александр Work Phone: Start: 06-04-2015 End: 06-14-2015 *BMP Dom Ross MD Start: 06-04-2015 End: 06-04-2015 Follow Up Appt 3 months Dom Ross MD Start: 06-04-2015 End: 06-04-2015 PFM Dom Ross MD Start: 06-04-2015 End: 06-14-2015 *BMP Dom Ross MD Start: 06-04-2015 End: 06-04-2015 Follow Up Appt 3 months Dom Ross MD Start: 06-04-2015 End: 06-04-2015 PFM Dom Ross MD Start: 05-12-2015 End: 10-26-2015 Rheumatology Referral Domingo Renee Александр Work Phone: Start: 05-12-2015 End: 10-26-2015 Rheumatology Referral Domingo Renee Александр Work Phone: Start: 03-24-2015 End: 04-23-2015 *JACQUE Fountain Work Phone: Start: 03-24-2015 End: 04-23-2015 *MERLYN Fountain Work Phone: Start: 03-24-2015 End: 03-24-2015 C reactive protein [Mass/volume] in Serum or Plasma by High sensitivity method Domingo Fountain Work Phone: Start: 03-24-2015 End: 01-03-2016 ENT referral Domingo Fountain Work Phone: Start: 03-24-2015 End: 03-24-2015 Erythrocyte sedimentation rate Domingo Fountain Work Phone: Start: 03-24-2015 End: 01-03-2016 Follow Up Appt 3 months Domingo Fountain Work Phone: Start: 03-24-2015 End: 04-23-2015 *JACQUE Domingo Fountain Work Phone: Start: 03-24-2015 End: 04-23-2015 *ANCA Domingo Fountain Work Phone: Start: 03-24-2015 End: 03-24-2015 C reactive protein (hsCRP) Domingo alan Work Phone: Start: 03-24-2015 End: 01-03-2016 ENT referral Domingo Fountain Work Phone: Start: 03-24-2015 End: 03-24-2015 Erythrocyte sedimentation rate Domingo Fountain Work Phone: Start: 03-24-2015 End: 01-03-2016 Follow Up Appt 3 months Domingo Fountain Work Phone: Start: 03-22-2015 End: 01-03-2016 *ASPAB Aspergillus Anti Bodies [id number] Yesenia Sarabia UNDERWRITING ASSISTANT Work Phone: Start: 03-22-2015 End: 01-03-2016 IgE [Mass/volume] in Serum Yesenia valerio UNDERWRITING ASSISTANT Work Phone: Start: 03-22-2015 End: 01-03-2016 *ASPAB Aspergillus Anti Bodies [id number] Yesenia Sarabia UNDERWRITING ASSISTANT Work Phone: Start: 03-22-2015 End: 01-03-2016 IgE [Mass/volume] in Serum Yesenia valerio UNDERWRITING ASSISTANT Work Phone: Start: 03-16-2015 End: 01-03-2016 Pulmonary Function Test - complete Domingo Fountain Work Phone: Start: 03-16-2015 End: 01-03-2016 Pulmonary Function Test - complete Domingo Fountain Work Phone: Start: 02-25-2015 End: 02-25-2015 Follow Up Appt 3 months Dom Ross MD Start: 02-25-2015 End: 02-25-2015 PFM Dom Ross MD Start: 02-25-2015 End: 02-25-2015 Follow Up Appt 3 months Dom Ross MD Start: 02-25-2015 End: 02-25-2015 PFM Dom Ross MD Start: 01-28-2015 End: 02-05-2015 *BMP Dom Ross MD Start: 01-28-2015 End: 02-05-2015 Ecg routine ecg w/least 12 lds w/i&r Dom Ross MD Start: 01-28-2015 End: 01-28-2015 Follow Up Appt 1 month Dom Ross MD Start: 01-28-2015 End: 01-28-2015 PFM Dom Ross MD Start: 01-28-2015 End: 02-05-2015 *BMP Dom Ross MD Start: 01-28-2015 End: 02-05-2015 Electrocardiogram, complete Dom hilliard MD Start: 01-28-2015 End: 01-28-2015 Follow Up Appt 1 month Dom Ross MD Start: 01-28-2015 End: 01-28-2015 PFM Dom Ross MD Start: 01-21-2015 End: 01-21-2015 Natriuretic peptide B [Mass/volume] in Blood Domingo Fountain Work Phone: Start: 01-21-2015 End: 01-21-2015 BNP Domingo Fountain Work Phone: Start: 12-16-2014 End: 12-16-2014 Documentation of current medications Domingo Fountain Work Phone: Start: 12-16-2014 End: 01-03-2016 Follow Up Appt 3 months Domingo Fountain Work Phone: Start: 12-16-2014 End: 01-03-2016 Titration with Follow up (pt not on cpap) Domingo Fountain [employer] Phone: Start: 12-16-2014 End: 12-16-2014 Documentation of current medications Domingo Fountain [facility] Phone: Start: 12-16-2014 End: 01-03-2016 Follow Up Appt 3 months Domingo Fountain Work Phone: Start: 12-16-2014 End: 01-03-2016 Titration with Follow up (pt not on cpap) Domingo Fountain [facility] Phone: Start: 11-12-2014 End: 11-17-2014 *MISC - Miscellaneous Lab Test #1 Domingo Fountain [facility] Phone: Start: 11-12-2014 End: 01-03-2016 Complete sleep workup (PSG,CPAP as indicated) & Follow up Domingo Fountain Work Phone: Start: 11-12-2014 End: 11-13-2014 Documentation of current medications Domingo Fountain [facility] Phone: Start: 11-12-2014 End: 01-03-2016 Echo tthrc r-t 2d w/wom-mode compl spec&colr d Domingo Fountain Work Phone: Start: 11-12-2014 End: 01-03-2016 Follow Up Appt 1 month Domingo Fountain [facility] Phone: Start: 11-12-2014 End: 11-17-2014 *MISC - Miscellaneous Lab Test #1 Domingo Renee Александр Work Phone: Start: 11-12-2014 End: 01-03-2016 Complete sleep workup (PSG,CPAP as indicated) & Follow up Domingo Fountain Work Phone: Start: 11-12-2014 End: 11-13-2014 Documentation of current medications Domingo Fountain Work Phone: Start: 11-12-2014 End: 01-03-2016 Follow Up Appt 1 month Domingo Fountain Work Phone: Start: 11-12-2014 End: 01-03-2016 Tte w/doppler, complete Domingo Duran Александр Work Phone: Plan of Treatment Date Care Activity Detail Author Start: 09-14-2027 Urine microalbumin profile DTaP,Tdap,Td Vaccine (2 - Td or Tdap) [facility] Start: 05-09-2027 Colonoscopy COLONOSCOPY [facility] Start: 05-09-2027 COLORECTAL CANCER SCREENING COLORECTAL CANCER SCREENING [facility] Start: 11-10-2026 Screening for malignant neoplasm of colon [facility] Start: 12-15-2022 Covid-19 Vaccine ( season) Covid-19 Vaccine ( season) [facility] Start: 12-15-2022 Influenza vaccination Influenza Vaccine (#1) [facility] Start: 04-16-2022 ADVANCE DIRECTIVE DISCUSSION ADVANCE DIRECTIVE DISCUSSION [facility] Start: 04-16-2022 DEPRESSION ASSESSMENT DEPRESSION ASSESSMENT [facility] Start: 12-15-2021 Influenza vaccination INFLUENZA (#1) [facility] Start: 11-10-2021 Colonoscopy COLONOSCOPY [facility] Start: 11-10-2021 COLORECTAL CANCER SCREENING COLORECTAL CANCER SCREENING [facility] Start: 04-16-2021 ADVANCE DIRECTIVE DISCUSSION ADVANCE DIRECTIVE DISCUSSION [facility] Start: 04-16-2021 DEPRESSION ASSESSMENT DEPRESSION ASSESSMENT [facility] Start: 2021 Pneumococcal Vaccine: 65+ (2 - PCV) Pneumococcal Vaccine: 65+ (2 - PCV) [facility] Start: 2021 PNEUMOCOCCAL: 65+ (1 - PCV) PNEUMOCOCCAL: 65+ (1 - PCV) [facility] Start: 12-16-2019 Influenza vaccination given Sequential Influenza Vaccine (#1) [facility] Start: 12-15-2018 Influenza vaccination given SEQUENTIAL INFLUENZA VACCINE (#1) [facility] Start: 11-05-2017 End: 11-05-2017 Appointment Appointment [facility] Work Phone: Start: 04-03-2017 End: 04-03-2017 Appointment Appointment [facility] Work Phone: Start: 03-16-2017 End: 02-02-2017 Pulmonary Function Test - complete Pulmonary Function Test - complete [facility] Work Phone: Start: 03-16-2017 End: 10-02-2016 Pulmonary Function Test - complete Pulmonary Function Test - complete [facility] Work Phone: Start: 02-02-2017 End: 02-02-2017 Appointment Appointment [facility] Work Phone: Start: 02-02-2017 End: 02-02-2017 Follow Up Appt 9 months Follow Up Appt 9 months [facility] Work Phone: Start: 02-02-2017 End: 02-02-2017 Nuclear stress test -exercise Nuclear stress test -exercise [facility] Work Phone: Start: 02-02-2017 End: 02-02-2017 PFM PFM [facility] Work Phone: Start: 10-02-2016 End: 10-02-2016 Follow Up Appt 6 months Follow Up Appt 6 months [facility] Work Phone: Start: 10-02-2016 End: 10-02-2016 Appointment Appointment [facility] Work Phone: Start: 10-02-2016 End: 10-02-2016 Follow Up Appt 6 months Follow Up Appt 6 months [facility] Work Phone: Start: 05-10-2016 End: 05-10-2016 Follow Up Appt 9 months Follow Up Appt 9 months [facility] Work Phone: Start: 05-10-2016 End: 05-10-2016 PFM PFM [facility] Work Phone: Start: 05-10-2016 End: 05-10-2016 Follow Up Appt 9 months Follow Up Appt 9 months [facility] Work Phone: Start: 05-10-2016 End: 05-10-2016 PFM PFM [facility] Work Phone: Start: 04-05-2016 End: 04-05-2016 Follow Up Appt 6 months Follow Up Appt 6 months [facility] Work Phone: Start: 04-05-2016 End: 04-05-2016 Follow Up Appt 6 months Follow Up Appt 6 months [facility] Work Phone: Start: 2016 RSV Vaccine (1 - 1-dose 60+ series) RSV Vaccine (1 - 1-dose 60+ series) [facility] Start: 02-28-2016 End: 03-01-2016 Pulmonary Function Test - complete Pulmonary Function Test - complete [facility] Work Phone: Start: 02-28-2016 End: 03-01-2016 Pulmonary Function Test - complete Pulmonary Function Test - complete [facility] Work Phone: Start: 01-06-2016 End: 03-01-2016 BWA BWA [facility] Work Phone: Start: 01-06-2016 End: 03-01-2016 Follow Up Appt 3 months Follow Up Appt 3 months [facility] Work Phone: Start: 01-06-2016 End: 03-01-2016 BWA BWA [facility] Work Phone: Start: 01-06-2016 End: 03-01-2016 Follow Up Appt 3 months Follow Up Appt 3 months [facility] Work Phone: Start: 09-16-2015 End: 03-01-2016 Follow Up Appt 3 months Follow Up Appt 3 months [facility] Work Phone: Start: 09-16-2015 End: 03-01-2016 Follow Up Appt 3 months Follow Up Appt 3 months [facility] Work Phone: Start: 08-27-2015 End: 08-27-2015 Follow Up Appt 6 months Follow Up Appt 6 months [facility] Work Phone: Start: 08-27-2015 End: 08-27-2015 PFM PFM [facility] Work Phone: Start: 08-27-2015 End: 08-27-2015 Follow Up Appt 6 months Follow Up Appt 6 months [facility] Work Phone: Start: 08-27-2015 End: 08-27-2015 PF PFM [facility] Work Phone: Start: 06-22-2015 End: 04-05-2016 [facility] Work Phone: Start: 06-22-2015 End: 01-03-2016 Follow Up Appt 3 months Follow Up Appt 3 months [facility] Work Phone: Start: 06-22-2015 End: 04-05-2016 [facility] Work Phone: Start: 06-22-2015 End: 01-03-2016 Follow Up Appt 3 months Follow Up Appt 3 months [facility] Work Phone: Start: 06-04-2015 End: 06-14-2015 *BMP *BMP [facility] Work Phone: Start: 06-04-2015 End: 06-04-2015 Follow Up Appt 3 months Follow Up Appt 3 months [facility] Work Phone: Start: 06-04-2015 End: 06-04-2015 PFM PFM [facility] Work Phone: Start: 06-04-2015 End: 06-14-2015 *BMP *BMP [facility] Work Phone: Start: 06-04-2015 End: 06-04-2015 Follow Up Appt 3 months Follow Up Appt 3 months [facility] Work Phone: Start: 06-04-2015 End: 06-04-2015 PFM PFM [facility] Work Phone: Start: 05-12-2015 End: 05-12-2015 Rheumatology Referral Rheumatology Referral Erum Hayes MD, [address], [address], [place], [address] [facility] Work Phone: Start: 05-12-2015 End: 05-12-2015 Rheumatology Referral Rheumatology Referral Erum Hayes MD, [address], [address], [place], [address] [facility] Work Phone: Start: 03-24-2015 End: 04-23-2015 *JACQUE *JACQUE [facility] Work Phone: Start: 03-24-2015 End: 04-23-2015 *ANCA *ANCA [facility] Work Phone: Start: 03-24-2015 End: 03-24-2015 C reactive protein (hsCRP) *CRP - C-Reative Protein [facility] Work Phone: Start: 03-24-2015 End: 03-24-2015 ENT referral ENT referral Ambrose Pike, [address] [facility], [place], [address] [facility] Work Phone: Start: 03-24-2015 End: 03-24-2015 Erythrocyte sedimentation rate *Sedimentation Rate (ESR) [facility] Work Phone: Start: 03-24-2015 End: 01-03-2016 Follow Up Appt 3 months Follow Up Appt 3 months [facility] Work Phone: Start: 03-24-2015 End: 04-23-2015 *JACQUE *JACQUE [facility] Work Phone: Start: 03-24-2015 End: 04-23-2015 *ANCA *ANCA [facility] Work Phone: Start: 03-24-2015 End: 03-24-2015 C reactive protein (hsCRP) *CRP - C-Reative Protein [facility] Work Phone: Start: 03-24-2015 End: 03-24-2015 ENT referral ENT referral Ambrose Pike, [address] [facility], [place], [address] [facility] Work Phone: Start: 03-24-2015 End: 03-24-2015 Erythrocyte sedimentation rate *Sedimentation Rate (ESR) [facility] Work Phone: Start: 03-24-2015 End: 01-03-2016 Follow Up Appt 3 months Follow Up Appt 3 months [facility] Work Phone: Start: 03-22-2015 End: 01-03-2016 *ASPAB Aspergillus Anti Bodies [id number] *ASPAB Aspergillus Anti Bodies [id number] [facility] Work Phone: Start: 03-22-2015 End: 01-03-2016 Globulin *JOSEFA Immunoglobulin E (IgE) [facility] Work Phone: Start: 03-22-2015 End: 01-03-2016 IgE mass conc (S) *JOSEFA Immunoglobulin E (IgE) [facility] Work Phone: Start: 03-22-2015 End: 01-03-2016 *ASPAB Aspergillus Anti Bodies [id number] *ASPAB Aspergillus Anti Bodies [id number] [facility] Work Phone: Start: 03-22-2015 End: 01-03-2016 Globulin *JOSEFA Immunoglobulin E (IgE) [facility] Work Phone: Start: 03-22-2015 End: 01-03-2016 IgE mass conc (S) *JOSEFA Immunoglobulin E (IgE) [facility] Work Phone: Start: 03-16-2015 End: 01-03-2016 Pulmonary Function Test - complete Pulmonary Function Test - complete [facility] Work Phone: Start: 03-16-2015 End: 01-03-2016 Pulmonary Function Test - complete Pulmonary Function Test - complete [facility] Work Phone: Start: 02-25-2015 End: 02-25-2015 Follow Up Appt 3 months Follow Up Appt 3 months [facility] Work Phone: Start: 02-25-2015 End: 02-25-2015 PFM PFM [facility] Work Phone: Start: 02-25-2015 End: 02-25-2015 Follow Up Appt 3 months Follow Up Appt 3 months [facility] Work Phone: Start: 02-25-2015 End: 02-25-2015 PFM PFM [facility] Work Phone: Start: 01-28-2015 End: 02-05-2015 *BMP *BMP [facility] Work Phone: Start: 01-28-2015 End: 01-28-2015 Ct thorax w/contrast material CT Chest with Contrast [facility] Work Phone: Start: 01-28-2015 End: 01-28-2015 Ecg routine ecg w/least 12 lds w/i&r EKG (In office) [facility] Work Phone: Start: 01-28-2015 End: 01-28-2015 Echocardiography Echocardiogram (limited) [facility] Work Phone: Start: 01-28-2015 End: 01-28-2015 Follow Up Appt 1 month Follow Up Appt 1 month [facility] Work Phone: Start: 01-28-2015 End: 01-28-2015 PFM PFM [facility] Work Phone: Start: 01-28-2015 End: 02-05-2015 *BMP *BMP [facility] Work Phone: Start: 01-28-2015 End: 01-28-2015 Ct thorax w/dye CT Chest with Contrast [facility] Work Phone: Start: 01-28-2015 End: 01-28-2015 Echocardiography Echocardiogram (limited) [facility] Work Phone: Start: 01-28-2015 End: 01-28-2015 Electrocardiogram, complete EKG (In office) [facility] Phone: Start: 01-28-2015 End: 01-28-2015 Follow Up Appt 1 month Follow Up Appt 1 month [facility] Phone: Start: 01-28-2015 End: 01-28-2015 PFM PFM [facility] Work Phone: Start: 01-21-2015 End: 01-21-2015 BNP *Brain Natriuretic Peptide BNP [facility] Work Phone: Start: 01-21-2015 End: 01-21-2015 BNP *Brain Natriuretic Peptide BNP [facility] Phone: Start: 12-16-2014 End: 01-03-2016 Follow Up Appt 3 months Follow Up Appt 3 months [facility] Phone: Start: 12-16-2014 End: 01-03-2016 Titration with Follow up (pt not on cpap) Titration with Follow up (pt not on cpap) [facility] Phone: Start: 12-16-2014 End: 01-03-2016 Follow Up Appt 3 months Follow Up Appt 3 months [facility] Phone: Start: 12-16-2014 End: 01-03-2016 Titration with Follow up (pt not on cpap) Titration with Follow up (pt not on cpap) [facility] Phone: Start: 11-12-2014 End: 11-17-2014 *MISC - Miscellaneous Lab Test #1 *MISC - Miscellaneous Lab Test #1 [facility] Phone: Start: 11-12-2014 End: 01-03-2016 Complete sleep workup (PSG,CPAP as indicated) & Follow up Complete sleep workup (PSG,CPAP as indicated) & Follow up [facility] Phone: Start: 11-12-2014 End: 01-03-2016 Documentation of current medications SNOMED-CT: [id number] Current Medications Documented [facility] Work Phone: Start: 11-12-2014 End: 01-03-2016 Echo tthrc r-t 2d w/wom-mode compl spec&colr d Echo Complete with Color Flow [facility] Work Phone: Start: 11-12-2014 End: 01-03-2016 Follow Up Appt 1 month Follow Up Appt 1 month [facility] Work Phone: Start: 11-12-2014 End: 11-17-2014 *MISC - Miscellaneous Lab Test #1 *MISC - Miscellaneous Lab Test #1 [facility] Work Phone: Start: 11-12-2014 End: 01-03-2016 Complete sleep workup (PSG,CPAP as indicated) & Follow up Complete sleep workup (PSG,CPAP as indicated) & Follow up [facility] Work Phone: Start: 11-12-2014 End: 01-03-2016 Documentation of current medications SNOMED-CT: [id number] Current Medications Documented [facility] Work Phone: Start: 11-12-2014 End: 01-03-2016 Follow Up Appt 1 month Follow Up Appt 1 month [facility] Work Phone: Start: 11-12-2014 End: 01-03-2016 Tte w/doppler, complete Echo Complete with Color Flow [facility] Work Phone: Start: 2011 PROSTATE CANCER SCREENING DISCUSSION PROSTATE CANCER SCREENING DISCUSSION [facility] Start: 2006 Administration of herpes zoster vaccine Zoster Vaccines (1 of 2) [facility] Start: 2006 Screening for malignant neoplasm of colon [facility] Start: 2006 SHINGRIX VACCINE (1 of 2) SHINGRIX VACCINE (1 of 2) [facility] Start: 2001 COLOGUARD (FIT-DNA) COLOGUARD (FIT-DNA) [facility] Start: [address] COLONOGRAPHY [facility] Start: 2001 DIABETES SCREEN DIABETES SCREEN [facility] Start: 2001 Diabetes Screening Diabetes Screening [facility] Start: 2001 FECAL OCCULT BLOOD FECAL OCCULT BLOOD [facility] Start: 2001 SIGMOIDOSCOPY SIGMOIDOSCOPY [facility] Start: 1991 Lipid 1996 panel - Serum or Plasma Lipid Screening [facility] Start: 1991 LIPID SCREEN LIPID SCREEN [facility] Start: 1975 SHINGRIX VACCINE (1 of 2) SHINGRIX VACCINE (1 of 2) [facility] Start: 1975 Urine microalbumin profile DTAP,TDAP,TD (1 - Tdap) [facility] Start: 1974 Hepatitis C antibody, confirmatory test Hepatitis C Screening [facility] Start: 1974 HEPATITIS C SCREENING HEPATITIS C SCREENING [facility] Start: 1974 HIV SCREENING HIV SCREENING [facility] Start: 1972 COVID-19 Vaccine (1 of 2) COVID-19 Vaccine (1 of 2) [facility] Start: 1971 HIV screening HIV Screening [facility] Start: 1968 Adolescent depression screening assessment Depression Screening (PHQ9) [facility] Start: 1962 PNEUMOCOCCAL: 65+ (1 - PCV) PNEUMOCOCCAL: 65+ (1 - PCV) [facility] Start: 1959 History and physical examination, annual for health maintenance Wellness Visit [facility] Start: 1956 COVID-19 VACCINE (#1) COVID-19 VACCINE (#1) [facility] Start: 1956 Hepatitis C antibody, confirmatory test HEPATITIS C SCREENING [facility] Start: 1956 Prostate specific antigen measurement PSA Level [facility] Start: 1956 Screening for malignant neoplasm of colon Colorectal Cancer Screening: Colonoscopy [facility] Start: 1956 Tetanus vaccination [facility] MR Knee Left Without Contrast MR Knee Left Without Contrast Imaging STAT 06/14/2019 6:24 PM EST [facility] Immunizations Immunization Date Immunization Notes Care Provider [place] 01-06-2022 influenza virus vacc ine, unspecified formulation Jose Orozco MD Work Phone: [facility] Payers Date Payer Category Payer Unknown ANNALISA HUYNH PPO [id number] 2021-Present [phone] [address] [place] [address] PPO [id number] 2021 Unknown [id number] 2020 Private Health Insurance YOUSIF SANCHES OAP [id number] 2020-Present [phone] [facility] [id number] [place] [address] Open Access [id number] 2011 Private Health Insurance [id number] 2011 Private Health Insurance [employer] Christy IGNA HMO/NTWK/OACCESS/OA+/POS xxxxxxxxxxx 2011-Present xxxxxxxxxxx [id number] 2011 Private Health Insurance [employer] Christy IGNA HMO/NTWK/OACCESS/OA+/POS [id number] 2011-Present [id number] 1956 Unknown [id number] Social History Date Type Detail Facility Start: [facility]14-[facility] Start: 1955 Sex Assigned At Not on file [facility] Start: 02-09-2017 End: 02-20-2022 Tobacco smoking status NHIS Never smoked tobacco [facility] Start: 02-09-2017 End: 02-20-2022 Tobacco use and exposure Smokeless tobacco non-user [facility] Start: 11-30-2021 End: 05-22-2022 Alcohol intake Current drinker of alcohol (finding) [facility] Start: 02-10-2022 End: 02-20-2022 Exposure to SARS-CoV-2 (event) Not sure [facility] Start: 05-01-2022 End: 05-09-2022 History of Social function [facility] Start: 05-01-2022 End: 05-09-2022 Tobacco use panel [facility] National Score (1-10 0), lower number is lower risk 50 [facility] Clinical Notes 02-03-2022 to 05-23-2022 Telephone Encounter - Shirley Sarmiento RN - 05/23/2022 8:32 AM ESTTelephone Encounter - Radha Meadows PA-C - 05/22/2022 9:59 PM ESTTelephone Encounter - Shirley Sarmiento RN - 05/22/2022 10:50 AM EST Note Date & Type Note Facility 05-23-2022 Miscellaneous Notes My Chart message sent to patient. Health maintenance and surgical history updated, recall letter placed. Shirley Sarmiento RN Please let patient know pathology demonstrated a tubular adenoma. Recommend repeat colonoscopy in 5 years, please update HM and surg history and generate recall letter Rasheed had a colonoscopy with Dr. Orozco on 05/09/2022 and biopsies were taken. The patient was scheduled for a follow up visit on 05/16/22, but cancelled and did not reschedule. Could you please review the pathology and advise regarding a necessary follow up? Shirley Sarmiento RN documented in this encounter [facility] 05-09-2022 Nurse Note Arrived in phase II via cart left lateral position, eyes open, skin warm and dry, respirations regular and unlabored, abdomen rounded and softly distended, denies pain or nausea. Resting comfortably on left side. documented in this encounter [facility] 05-09-2022 History and physical note UPDATED PROCEDURAL SEDATION HISTORY AND PHYSICAL EXAMINATION SERVICE DATE: 05/09/2022 SERVICE TIME: 7:41 AM PHYSICAL EXAM MUST BE COMPLETED ON ADMISSION PROCEDURE: Procedure Indications: The History and Physical (completed in the past 30 days) has been reviewed and the patient has been examined. The contents accurately reflect the patient's condition with the following additions or revisions since the H&P was completed. ASA Class: ASA Class:: Patient with mild systemic disease Examination indicates no changes. AIRWAY: Airway Visualization of Uvula: Yes Mouth opening greater than 2 fingerbreadths: Yes Neck Full Range of Motion: Yes LUNGS: Lungs clear to auscultation CARDIAC: Regular rhythm,Regular rate Provisional Diagnosis/Treatment Plan: personal history of colon polyps - colonoscopy SEDATION GOAL: Moderate This H&P can be found in the attached. SIGNATURE: Jose Orozco MD PATIENT NAME: Rasheed Dickerson DATE: May 09, 2022 TIME: 7:40 AM Source Note - Jose Orozco MD - 05/09/2022 7:30 AM EST Images from the original note were not included. HISTORY AND PHYSICAL Rasheed Dickerson 1955 REFERRING PHYSICIAN: Quinten Ortiz MD CHIEF COMPLAINT: Consult (Colonoscopy consult) HPI: The patient is a 66 year old male referred for endoscopy. Rasheed notes no colon complaints. Patient denies any change in bowel habits, weight changes, blood in stools, black tarry stools or abdominal pain. Denies family history of colon issues. The patient notes no upper GI complaints. Rasheed has undergone prior endoscopy. Last colonoscopy 11/10/[address] Orozco under conscious sedation with removal of adenomatous polyps, 5 year follow-up recommended. Patient denies chest pain, shortness of breath or recent hospitalizations. Denies problems with sedation in the past. PAST MEDICAL HISTORY PAST MEDICAL HISTORY Diagnosis Date Asthma Dysthymic disorder Depression (non-psychotic) Hypertension Other and unspecified hyperlipidemia Snoring PAST SURGICAL HISTORY PAST SURGICAL HISTORY Procedure Laterality Date APPENDECTOMY 1979 COLONOSCOPY FLX DX W/COLLJ SPEC WHEN PFRMD 12/07/2006 normal colonoscopy COLSC FLX W/RMVL OF TUMOR POLYP LESION SNARE TQ 11/10/2016 polyps - 5 year follow up LEFT HEART CATH,PERCUTANEOUS 2004 [place] CURRENT MEDICATIONS Current Outpatient Medications Medication Sig cetirizine (ZYRTEC) 10 mg tablet Take 10 mg by mouth. chlorpheniramine (CHLORTRIMETON) 4 mg tablet Take 4 mg by mouth. famotidine (PEPCID) 10 mg tablet Take 10 mg by mouth. fluticasone (FLONASE) 50 mcg/actuation nasal spray Use 2 Sprays in the nose. latanoprost (XALATAN) 0.005 % ophthalmic solution Use in eyes. simvastatin (ZOCOR) 40 mg tablet Take 40 mg by mouth. MULTIVITAMIN ORAL Take by mouth once daily. SYMBICORT 160-4.5 mcg/actuation inhaler furosemide (LASIX) 20 mg tablet amLODIPine (NORVASC) 5 mg tablet Take 5 mg by mouth once daily. allopurinol (ZYLOPRIM) 300 mg tablet Take 300 mg by mouth once daily. colchicine 0.6 mg capsule Take 0.6 mg by mouth once daily. hydroxychloroquine (PLAQUENIL) 200 mg tablet Take by mouth twice daily. KLOR-CON SPRINKLE 10 mEq CR capsule traMADol (ULTRAM) 50 mg tablet ASPIRIN 81 MG TAB Take one (1) tablet daily . GUAIFENESIN (MUCINEX ORAL) Take by mouth. No current facility-administered medications for this visit. ALLERGIES: Augmentin [Amoxicillin-Pot Clavulanate] PERSONAL HISTORY: SOCIAL HISTORY Social History Tobacco Use Smoking status: Never Smokeless tobacco: Never Vaping Use Vaping Use: Never used Substance Use Topics Alcohol use: Yes Comment: OCCASSIONAL Drug use: No FAMILY HISTORY: FAMILY HISTORY FAMILY HISTORY Problem Relation Age of Onset Heart Father [place] REVIEW OF SYMPTOMS: The review of systems data was entered by the nurse and reviewed by wa Nursing Notes: Anay Anderson LPN 02/20/2022 9:45 AM Signed REVIEW OF SYSTEMS: General: The patient denies fatigue, denies weight loss, denies weight gain, denies feeling hot, and denies feelings of cold. Eyes: The patient denies glaucoma, denies eye injury/surgery, wears glasses or contacts. Ear/Nose/Throat: The patient notes allergies, denies hayfever, denies ear infections, and denies bloody noses. Cardiovascular: The patient denies chest pain, denies heart disease, denies high blood pressure,denies cardiac stent, denies prior heart attack, denies irregular heart beat, notes high cholesterol, denies poor circulation, denies heart failure, other cardiac issues, denies claudication, denies cold feet, denies peripheral arterial stent. Respiratory: The patient denies tuberculosis, denies pneumonia, denies frequent cough, denies pulmonary embolism, denies shortness of breath, and denies coughing up blood, note other lung problems. Gastrointestinal: The patient denies difficulty swallowing, notes acid reflux, denies ulcers, denies vomiting, denies jaundice/hepatitis, denies gallbladder problems, denies black or tarry stools, denies hemorrhoids, denies bleeding from rectum, denies diverticulitis, denies constipation, denies diarrhea, denies loss of stool control, and denies hernias. Kidney/Bladder: The patient denies kidney stones, denies urine infections, and denies bloody urine. Skin: The patient denies a history of skin cancer, denies bleeding/changing moles, and denies a history of skin rash. Neurologic: The patient denies a history of epilepsy/convulsions, denies headaches, denies head/spinal injuries, and denies stroke/TIA. Psychiatric: The patient denies psychiatric medications, denies depression, and denies voices, denies substance abuse. Endocrine: The patient denies thyroid disorders, denies diabetes, and denies hormonal problems. Hematologic: The patient denies a history of bruising, denies bleeding, and denies anemia, denies blood clots. Infections: The patient denies a history of measles and mumps, denies rheumatic fever, and denies sexually transmitted diseases. Musculoskeletal: The patient denies back pain/injury, denies back problems, denies sciatica, denies knee/foot trouble, denies arthritis, or denies gout. When was patient's last Mammogram screening? N/A Last Colonoscopy: 2016 Anay Anderson LPN I have confirmed and edited as necessary, the PFSH and ROS obtained by others. Radha Meadows PA-C PHYSICAL EXAMINATION: General: The patient is 66 year old male, well nourished, well hydrated in no acute distress. The patient is oriented to time, place, and person. VITALS: Blood pressure 120/83, pulse 70, temperature 36.3 C (97.4 F), height 175.3 cm (5' 9 ), weight 106.3 kg (234 lb 6.4 oz), SpO2 100 %. Body mass index is 34.61 kg/m . HEENT: Normal cephalic, ataumatic, pupils are equally round, sclera are anicteric, mucous membranes are moist, oropharynx is clear. Neck has no masses, asymmetry or lymphadenopathy. Respiratory: Clear to auscultation and percussion. Normal respiratory excursion and pattern. Cardiac: Examination is regular rate and rhythm. Normal S1/S2 Abdominal exam: Soft, nontender, with no palpable masses. No hepatosplenomegaly. No palpable hernias. Extremities: no clubbing, cyanosis or edema. No adenopathy. LABORATORY VALUES: As Noted RADIOLOGIC STUDIES: As Noted Assessment IMPRESSION: encounter for surveillance colonoscopy due to history of colon polyps PLAN: I have reviewed my findings with the surgeon. Will plan for lower endoscopy. We discussed the risks and benefits of the planned endoscopy. I have informed the patient that complications can occur including failure to complete the endoscopy and perforation. The patient had the opportunity to ask questions concerning the planned endoscopy. My staff has also explained the procedure to the patient in understandable terms and has given the patient printed material concerning the procedure. The patient freely consents to surgery. The patient was offered a surgery/procedure at a [facility] facility. I have counseled the patient regarding the risk of exposure to and/or potential harm posed by the COVID-19 virus with having a surgery/procedure at this time versus the risk of delaying the surgery/procedure. It is not possible to know either the risk of delaying the surgery or procedure or chance of getting an infection with perfect accuracy, but a joint decision was made between the patient and myself to proceed at this time with endoscopy. I plan to use Golytely bowel preparation I have explained to the patient the difference between IV conscious sedation and MAC anesthesia - and I have offered either, according to the patient's wishes. I have explained that with IV conscious sedation there is no anesthesia provider available and therefore there is a limitation of the amount of IV medications that can be given and that the patient may wake up in the middle of the procedure and/or experience pain/discomfort during the procedure. Further discussion was done and the patient was given the opportunity to ask questions and all questions were answered. The patient chooses IV conscious sedation, tolerated well previously Diagnoses: (Z12.11) Encounter for screening for malignant neoplasm of colon (primary encounter diagnosis) (Z86.010) History of colonic polyps Consultation requested by Dr. Quinten Ortiz for an opinion regarding screening colonoscopy. My final recommendations will be communicated back to the requesting physician by way of shared Medical record or letter to requesting physician via US mail. Radha Meadows PA-C Images from the original note were not included. HISTORY AND PHYSICAL Rasheed Hung Jayla 1955 REFERRING PHYSICIAN: Quinten Ortiz MD CHIEF COMPLAINT: Consult (Colonoscopy consult) HPI: The patient is a 66 year old male referred for endoscopy. Rasheed notes no colon complaints. Patient denies any change in bowel habits, weight changes, blood in stools, black tarry stools or abdominal pain. Denies family history of colon issues. The patient notes no upper GI complaints. Rasheed has undergone prior endoscopy. Last colonoscopy 11/10/[address] Orozco under conscious sedation with removal of adenomatous polyps, 5 year follow-up recommended. Patient denies chest pain, shortness of breath or recent hospitalizations. Denies problems with sedation in the past. PAST MEDICAL HISTORY PAST MEDICAL HISTORY Diagnosis Date Asthma Dysthymic disorder Depression (non-psychotic) Hypertension Other and unspecified hyperlipidemia Snoring PAST SURGICAL HISTORY PAST SURGICAL HISTORY Procedure Laterality Date APPENDECTOMY 1979 COLONOSCOPY FLX DX W/COLLJ SPEC WHEN PFRMD 12/07/2006 normal colonoscopy COLSC FLX W/RMVL OF TUMOR POLYP LESION SNARE TQ 11/10/2016 polyps - 5 year follow up LEFT HEART CATH,PERCUTANEOUS 2004 [place] CURRENT MEDICATIONS Current Outpatient Medications Medication Sig cetirizine (ZYRTEC) 10 mg tablet Take 10 mg by mouth. chlorpheniramine (CHLORTRIMETON) 4 mg tablet Take 4 mg by mouth. famotidine (PEPCID) 10 mg tablet Take 10 mg by mouth. fluticasone (FLONASE) 50 mcg/actuation nasal spray Use 2 Sprays in the nose. latanoprost (XALATAN) 0.005 % ophthalmic solution Use in eyes. simvastatin (ZOCOR) 40 mg tablet Take 40 mg by mouth. MULTIVITAMIN ORAL Take by mouth once daily. SYMBICORT 160-4.5 mcg/actuation inhaler furosemide (LASIX) 20 mg tablet amLODIPine (NORVASC) 5 mg tablet Take 5 mg by mouth once daily. allopurinol (ZYLOPRIM) 300 mg tablet Take 300 mg by mouth once daily. colchicine 0.6 mg capsule Take 0.6 mg by mouth once daily. hydroxychloroquine (PLAQUENIL) 200 mg tablet Take by mouth twice daily. KLOR-CON SPRINKLE 10 mEq CR capsule traMADol (ULTRAM) 50 mg tablet ASPIRIN 81 MG TAB Take one (1) tablet daily . GUAIFENESIN (MUCINEX ORAL) Take by mouth. No current facility-administered medications for this visit. ALLERGIES: Augmentin [Amoxicillin-Pot Clavulanate] PERSONAL HISTORY: SOCIAL HISTORY Social History Tobacco Use Smoking status: Never Smokeless tobacco: Never Vaping Use Vaping Use: Never used Substance Use Topics Alcohol use: Yes Comment: OCCASSIONAL Drug use: No FAMILY HISTORY: FAMILY HISTORY FAMILY HISTORY Problem Relation Age of Onset Heart Father [place] REVIEW OF SYMPTOMS: The review of systems data was entered by the nurse and reviewed by wa Nursing Notes: Anay Anderson LPN 02/20/2022 9:45 AM Signed REVIEW OF SYSTEMS: General: The patient denies fatigue, denies weight loss, denies weight gain, denies feeling hot, and denies feelings of cold. Eyes: The patient denies glaucoma, denies eye injury/surgery, wears glasses or contacts. Ear/Nose/Throat: The patient notes allergies, denies hayfever, denies ear infections, and denies bloody noses. Cardiovascular: The patient denies chest pain, denies heart disease, denies high blood pressure,denies cardiac stent, denies prior heart attack, denies irregular heart beat, notes high cholesterol, denies poor circulation, denies heart failure, other cardiac issues, denies claudication, denies cold feet, denies peripheral arterial stent. Respiratory: The patient denies tuberculosis, denies pneumonia, denies frequent cough, denies pulmonary embolism, denies shortness of breath, and denies coughing up blood, note other lung problems. Gastrointestinal: The patient denies difficulty swallowing, notes acid reflux, denies ulcers, denies vomiting, denies jaundice/hepatitis, denies gallbladder problems, denies black or tarry stools, denies hemorrhoids, denies bleeding from rectum, denies diverticulitis, denies constipation, denies diarrhea, denies loss of stool control, and denies hernias. Kidney/Bladder: The patient denies kidney stones, denies urine infections, and denies bloody urine. Skin: The patient denies a history of skin cancer, denies bleeding/changing moles, and denies a history of skin rash. Neurologic: The patient denies a history of epilepsy/convulsions, denies headaches, denies head/spinal injuries, and denies stroke/TIA. Psychiatric: The patient denies psychiatric medications, denies depression, and denies voices, denies substance abuse. Endocrine: The patient denies thyroid disorders, denies diabetes, and denies hormonal problems. Hematologic: The patient denies a history of bruising, denies bleeding, and denies anemia, denies blood clots. Infections: The patient denies a history of measles and mumps, denies rheumatic fever, and denies sexually transmitted diseases. Musculoskeletal: The patient denies back pain/injury, denies back problems, denies sciatica, denies knee/foot trouble, denies arthritis, or denies gout. When was patient's last Mammogram screening? N/A Last Colonoscopy: 2017 Anay Anderson LPN I have confirmed and edited as necessary, the PFSH and ROS obtained by others. Radha Meadows PA-C PHYSICAL EXAMINATION: General: The patient is 66 year old male, well nourished, well hydrated in no acute distress. The patient is oriented to time, place, and person. VITALS: Blood pressure 120/83, pulse 70, temperature 36.3 C (97.4 F), height 175.3 cm (5' 9 ), weight 106.3 kg (234 lb 6.4 oz), SpO2 100 %. Body mass index is 34.61 kg/m . HEENT: Normal cephalic, ataumatic, pupils are equally round, sclera are anicteric, mucous membranes are moist, oropharynx is clear. Neck has no masses, asymmetry or lymphadenopathy. Respiratory: Clear to auscultation and percussion. Normal respiratory excursion and pattern. Cardiac: Examination is regular rate and rhythm. Normal S1/S2 Abdominal exam: Soft, nontender, with no palpable masses. No hepatosplenomegaly. No palpable hernias. Extremities: no clubbing, cyanosis or edema. No adenopathy. LABORATORY VALUES: As Noted RADIOLOGIC STUDIES: As Noted Assessment IMPRESSION: encounter for surveillance colonoscopy due to history of colon polyps PLAN: I have reviewed my findings with the surgeon. Will plan for lower endoscopy. We discussed the risks and benefits of the planned endoscopy. I have informed the patient that complications can occur including failure to complete the endoscopy and perforation. The patient had the opportunity to ask questions concerning the planned endoscopy. My staff has also explained the procedure to the patient in understandable terms and has given the patient printed material concerning the procedure. The patient freely consents to surgery. The patient was offered a surgery/procedure at a [facility] facility. I have counseled the patient regarding the risk of exposure to and/or potential harm posed by the COVID-19 virus with having a surgery/procedure at this time versus the risk of delaying the surgery/procedure. It is not possible to know either the risk of delaying the surgery or procedure or chance of getting an infection with perfect accuracy, but a joint decision was made between the patient and myself to proceed at this time with endoscopy. I plan to use Golytely bowel preparation I have explained to the patient the difference between IV conscious sedation and MAC anesthesia - and I have offered either, according to the patient's wishes. I have explained that with IV conscious sedation there is no anesthesia provider available and therefore there is a limitation of the amount of IV medications that can be given and that the patient may wake up in the middle of the procedure and/or experience pain/discomfort during the procedure. Further discussion was done and the patient was given the opportunity to ask questions and all questions were answered. The patient chooses IV conscious sedation, tolerated well previously Diagnoses: (Z12.11) Encounter for screening for malignant neoplasm of colon (primary encounter diagnosis) (Z86.010) History of colonic polyps Consultation requested by Dr. Quinten Ortiz for an opinion regarding screening colonoscopy. My final recommendations will be communicated back to the requesting physician by way of shared Medical record or letter to requesting physician via US mail. Radha Meadows PA-C documented in this encounter [facility] 02-20-2022 Note HNO ID: [id number] Author: Radha Meadows PA-C Service: ? Author Type: Physician Shake Feeder Type: Progress Notes Filed: 02/20/2022 4:34 PM Note Text: HISTORY AND PHYSICAL Rasheed Dickerson 1955 REFERRING PHYSICIAN: Quinten Ortiz MD CHIEF COMPLAINT: Consult (Colonoscopy consult) HPI: The patient is a 66 year old male referred for endoscopy. Rasheed notes no colon complaints. Patient denies any change in bowel habits, weight changes, blood in stools, black tarry stools or abdominal pain. Denies family history of colon issues. The patient notes no upper GI complaints. Rasheed has undergone prior endoscopy. Last colonoscopy 11/10/[address] Orozco under conscious sedation with removal of adenomatous polyps, 5 year follow-up recommended. Patient denies chest pain, shortness of breath or recent hospitalizations. Denies problems with sedation in the past. PAST MEDICAL HISTORY Diagnosis Date Asthma Dysthymic disorder Depression (non-psychotic) Hypertension Other and unspecified hyperlipidemia [place] PAST SURGICAL HISTORY Procedure Laterality Date APPENDECTOMY 1979 COLONOSCOPY FLX DX W/COLLJ SPEC WHEN PFRMD 12/07/2006 normal colonoscopy COLSC FLX W/RMVL OF TUMOR POLYP LESION SNARE TQ 11/10/2016 polyps - 5 year follow up LEFT HEART CATH,PERCUTANEOUS 2004 [place] Current Outpatient Medications Medication Sig cetirizine (ZYRTEC) 10 mg tablet Take 10 mg by mouth. chlorpheniramine (CHLORTRIMETON) 4 mg tablet Take 4 mg by mouth. famotidine (PEPCID) 10 mg tablet Take 10 mg by mouth. fluticasone (FLONASE) 50 mcg/actuation nasal spray Use 2 Sprays in the nose. latanoprost (XALATAN) 0.005 % ophthalmic solution Use in eyes. simvastatin (ZOCOR) 40 mg tablet Take 40 mg by mouth. MULTIVITAMIN ORAL Take by mouth once daily. SYMBICORT 160-4.5 mcg/actuation inhaler furosemide (LASIX) 20 mg tablet amLODIPine (NORVASC) 5 mg tablet Take 5 mg by mouth once daily. allopurinol (ZYLOPRIM) 300 mg tablet Take 300 mg by mouth once daily. colchicine 0.6 mg capsule Take 0.6 mg by mouth once daily. hydroxychloroquine (PLAQUENIL) 200 mg tablet Take by mouth twice daily. KLOR-CON SPRINKLE 10 mEq CR capsule traMADol (ULTRAM) 50 mg tablet ASPIRIN 81 MG TAB Take one (1) tablet daily . GUAIFENESIN (MUCINEX ORAL) Take by mouth. No current facility-administered medications for this visit. ALLERGIES: Augmentin [Amoxicillin-Pot Clavulanate] PERSONAL HISTORY: Social History Tobacco Use Smoking status: Never Smokeless tobacco: Never Vaping Use Vaping Use: Never used Substance Use Topics Alcohol use: Yes Comment: OCCASSIONAL Drug use: No FAMILY HISTORY: FAMILY HISTORY Problem Relation Age of Onset Heart Father [place] REVIEW OF SYMPTOMS: The review of systems data was entered by the nurse and reviewed by wa Nursing Notes: Anay Anderson LPN 02/20/2022 9:45 AM Signed REVIEW OF SYSTEMS: General: The patient denies fatigue, denies weight loss, denies weight gain, denies feeling hot, and denies feelings of cold. Eyes: The patient denies glaucoma, denies eye injury/surgery, wears glasses or contacts. Ear/Nose/Throat: The patient notes allergies, denies hayfever, denies ear infections, and denies bloody noses. Cardiovascular: The patient denies chest pain, denies heart disease, denies high blood pressure,denies cardiac stent, denies prior heart attack, denies irregular heart beat, notes high cholesterol, denies poor circulation, denies heart failure, other cardiac issues, denies claudication, denies cold feet, denies peripheral arterial stent. Respiratory: The patient denies tuberculosis, denies pneumonia, denies frequent cough, denies pulmonary embolism, denies shortness of breath, and denies coughing up blood, note other lung problems. Gastrointestinal: The patient denies difficulty swallowing, notes acid reflux, denies ulcers, denies vomiting, denies jaundice/hepatitis, denies gallbladder problems, denies black or tarry stools, denies hemorrhoids, denies bleeding from rectum, denies diverticulitis, denies constipation, denies diarrhea, denies loss of stool control, and denies hernias. Kidney/Bladder: The patient denies kidney stones, denies urine infections, and denies bloody urine. Skin: The patient denies a history of skin cancer, denies bleeding/changing moles, and denies a history of skin rash. Neurologic: The patient denies a history of epilepsy/convulsions, denies headaches, denies head/spinal injuries, and denies stroke/TIA. Psychiatric: The patient denies psychiatric medications, denies depression, and denies voices, denies substance abuse. Endocrine: The patient denies thyroid disorders, denies diabetes, and denies hormonal problems. Hematologic: The patient denies a history of bruising, denies bleeding, and denies anemia, denies blood clots. Infections: The patient denies a history of measles and mumps, denies rheuma (more content not included)... [facility] 02-20-2022 Nurse Note REVIEW OF SYSTEMS: General: The patient denies fatigue, denies weight loss, denies weight gain, denies feeling hot, and denies feelings of cold. Eyes: The patient denies glaucoma, denies eye injury/surgery, wears glasses or contacts. Ear/Nose/Throat: The patient notes allergies, denies hayfever, denies ear infections, and denies bloody noses. Cardiovascular: The patient denies chest pain, denies heart disease, denies high blood pressure,denies cardiac stent, denies prior heart attack, denies irregular heart beat, notes high cholesterol, denies poor circulation, denies heart failure, other cardiac issues, denies claudication, denies cold feet, denies peripheral arterial stent. Respiratory: The patient denies tuberculosis, denies pneumonia, denies frequent cough, denies pulmonary embolism, denies shortness of breath, and denies coughing up blood, note other lung problems. Gastrointestinal: The patient denies difficulty swallowing, notes acid reflux, denies ulcers, denies vomiting, denies jaundice/hepatitis, denies gallbladder problems, denies black or tarry stools, denies hemorrhoids, denies bleeding from rectum, denies diverticulitis, denies constipation, denies diarrhea, denies loss of stool control, and denies hernias. Kidney/Bladder: The patient denies kidney stones, denies urine infections, and denies bloody urine. Skin: The patient denies a history of skin cancer, denies bleeding/changing moles, and denies a history of skin rash. Neurologic: The patient denies a history of epilepsy/convulsions, denies headaches, denies head/spinal injuries, and denies stroke/TIA. Psychiatric: The patient denies psychiatric medications, denies depression, and denies voices, denies substance abuse. Endocrine: The patient denies thyroid disorders, denies diabetes, and denies hormonal problems. Hematologic: The patient denies a history of bruising, denies bleeding, and denies anemia, denies blood clots. Infections: The patient denies a history of measles and mumps, denies rheumatic fever, and denies sexually transmitted diseases. Musculoskeletal: The patient denies back pain/injury, denies back problems, denies sciatica, denies knee/foot trouble, denies arthritis, or denies gout. When was patient's last Mammogram screening? N/A Last Colonoscopy: 2016 Anay Anderson LPN documented in this encounter [facility] 02-20-2022 History of Presen t illness Narrative HISTORY AND PHYSICAL Rasheed Hung Jayla 1955 REFERRING PHYSICIAN: Quinten Ortiz MD CHIEF COMPLAINT: Consult (Colonoscopy consult) HPI: The patient is a 66 year old male referred for endoscopy. Rasheed notes no colon complaints. Patient denies any change in bowel habits, weight changes, blood in stools, black tarry stools or abdominal pain. Denies family history of colon issues. The patient notes no upper GI complaints. Rasheed has undergone prior endoscopy. Last colonoscopy 11/10/[address] Orozco under conscious sedation with removal of adenomatous polyps, 5 year follow-up recommended. Patient denies chest pain, shortness of breath or recent hospitalizations. Denies problems with sedation in the past. PAST MEDICAL HISTORY Diagnosis Date Asthma Dysthymic disorder Depression (non-psychotic) Hypertension Other and unspecified hyperlipidemia [place] PAST SURGICAL HISTORY Procedure Laterality Date APPENDECTOMY 1979 COLONOSCOPY FLX DX W/COLLJ SPEC WHEN PFRMD 12/07/2006 normal colonoscopy COLSC FLX W/RMVL OF TUMOR POLYP LESION SNARE TQ 11/10/2016 polyps - 5 year follow up LEFT HEART CATH,PERCUTANEOUS 2004 [place] Current Outpatient Medications Medication Sig cetirizine (ZYRTEC) 10 mg tablet Take 10 mg by mouth. chlorpheniramine (CHLORTRIMETON) 4 mg tablet Take 4 mg by mouth. famotidine (PEPCID) 10 mg tablet Take 10 mg by mouth. fluticasone (FLONASE) 50 mcg/actuation nasal spray Use 2 Sprays in the nose. latanoprost (XALATAN) 0.005 % ophthalmic solution Use in eyes. simvastatin (ZOCOR) 40 mg tablet Take 40 mg by mouth. MULTIVITAMIN ORAL Take by mouth once daily. SYMBICORT 160-4.5 mcg/actuation inhaler furosemide (LASIX) 20 mg tablet amLODIPine (NORVASC) 5 mg tablet Take 5 mg by mouth once daily. allopurinol (ZYLOPRIM) 300 mg tablet Take 300 mg by mouth once daily. colchicine 0.6 mg capsule Take 0.6 mg by mouth once daily. hydroxychloroquine (PLAQUENIL) 200 mg tablet Take by mouth twice daily. KLOR-CON SPRINKLE 10 mEq CR capsule traMADol (ULTRAM) 50 mg tablet ASPIRIN 81 MG TAB Take one (1) tablet daily . GUAIFENESIN (MUCINEX ORAL) Take by mouth. No current facility-administered medications for this visit. ALLERGIES: Augmentin [Amoxicillin-Pot Clavulanate] PERSONAL HISTORY: Social History Tobacco Use Smoking status: Never Smokeless tobacco: Never Vaping Use Vaping Use: Never used Substance Use Topics Alcohol use: Yes Comment: OCCASSIONAL Drug use: No FAMILY HISTORY: FAMILY HISTORY Problem Relation Age of Onset Heart Father [place] REVIEW OF SYMPTOMS: The review of systems data was entered by the nurse and reviewed by wa Nursing Notes: Anay Anderson LPN 02/20/2022 9:45 AM Signed REVIEW OF SYSTEMS: General: The patient denies fatigue, denies weight loss, denies weight gain, denies feeling hot, and denies feelings of cold. Eyes: The patient denies glaucoma, denies eye injury/surgery, wears glasses or contacts. Ear/Nose/Throat: The patient notes allergies, denies hayfever, denies ear infections, and denies bloody noses. Cardiovascular: The patient denies chest pain, denies heart disease, denies high blood pressure,denies cardiac stent, denies prior heart attack, denies irregular heart beat, notes high cholesterol, denies poor circulation, denies heart failure, other cardiac issues, denies claudication, denies cold feet, denies peripheral arterial stent. Respiratory: The patient denies tuberculosis, denies pneumonia, denies frequent cough, denies pulmonary embolism, denies shortness of breath, and denies coughing up blood, note other lung problems. Gastrointestinal: The patient denies difficulty swallowing, notes acid reflux, denies ulcers, denies vomiting, denies jaundice/hepatitis, denies gallbladder problems, denies black or tarry stools, denies hemorrhoids, denies bleeding from rectum, denies diverticulitis, denies constipation, denies diarrhea, denies loss of stool control, and denies hernias. Kidney/Bladder: The patient denies kidney stones, denies urine infections, and denies bloody urine. Skin: The patient denies a history of skin cancer, denies bleeding/changing moles, and denies a history of skin rash. Neurologic: The patient denies a history of epilepsy/convulsions, denies headaches, denies head/spinal injuries, and denies stroke/TIA. Psychiatric: The patient denies psychiatric medications, denies depression, and denies voices, denies substance abuse. Endocrine: The patient denies thyroid disorders, denies diabetes, and denies hormonal problems. Hematologic: The patient denies a history of bruising, denies bleeding, and denies anemia, denies blood clots. Infections: The patient denies a history of measles and mumps, denies rheumatic fever, and denies sexually transmitted diseases. Musculoskeletal: The patient denies back pain/injury, denies back problems, denies sciatica, denies knee/foot trouble, denies arthritis, or denies gout. When was patient's last Mammogram screening? N/A Last Colonoscopy: 2017 Anay Anderson LPN I have confirmed and edited as necessary, the PFSH and ROS obtained by others. Radha Meadows PA-C PHYSICAL EXAMINATION: General: The patient is 66 year old male, well nourished, well hydrated in no acute distress. The patient is oriented to time, place, and person. VITALS: Blood pressure 120/83, pulse 70, temperature 36.3 C (97.4 F), height 175.3 cm (5' 9 ), weight 106.3 kg (234 lb 6.4 oz), SpO2 100 %. Body mass index is 34.61 kg/m . HEENT: Normal cephalic, ataumatic, pupils are equally round, sclera are anicteric, mucous membranes are moist, oropharynx is clear. Neck has no masses, asymmetry or lymphadenopathy. Respiratory: Clear to auscultation and percussion. Normal respiratory excursion and pattern. Cardiac: Examination is regular rate and rhythm. Normal S1/S2 Abdominal exam: Soft, nontender, with no palpable masses. No hepatosplenomegaly. No palpable hernias. Extremities: no clubbing, cyanosis or edema. No adenopathy. LABORATORY VALUES: As Noted RADIOLOGIC STUDIES: As Noted Assessment IMPRESSION: encounter for surveillance colonoscopy due to history of colon polyps PLAN: I have reviewed my findings with the surgeon. Will plan for lower endoscopy. We discussed the risks and benefits of the planned endoscopy. I have informed the patient that complications can occur including failure to complete the endoscopy and perforation. The patient had the opportunity to ask questions concerning the planned endoscopy. My staff has also explained the procedure to the patient in understandable terms and has given the patient printed material concerning the procedure. The patient freely consents to surgery. The patient was offered a surgery/procedure at a [facility] facility. I have counseled the patient regarding the risk of exposure to and/or potential harm posed by the COVID-19 virus with having a surgery/procedure at this time versus the risk of delaying the surgery/procedure. It is not possible to know either the risk of delaying the surgery or procedure or chance of getting an infection with perfect accuracy, but a joint decision was made between the patient and myself to proceed at this time with endoscopy. I plan to use Golytely bowel preparation I have explained to the patient the difference between IV conscious sedation and MAC anesthesia - and I have offered either, according to the patient's wishes. I have explained that with IV conscious sedation there is no anesthesia provider available and therefore there is a limitation of the amount of IV medications that can be given and that the patient may wake up in the middle of the procedure and/or experience pain/discomfort during the procedure. Further discussion was done and the patient was given the opportunity to ask questions and all questions were answered. The patient chooses IV conscious sedation, tolerated well previously Diagnoses: (Z12.11) Encounter for screening for malignant neoplasm of colon (primary encounter diagnosis) (Z86.010) History of colonic polyps Consultation requested by Dr. Quinten Ortiz for an opinion regarding screening colonoscopy. My final recommendations will be communicated back to the requesting physician by way of shared Medical record or letter to requesting physician via US mail. Radha Meadows PA-C documented in this encounter [facility] 02-03-2022 Miscellaneous Notes Returned patients call to schedule colonoscopy with Dr. Orozco documented in this encounter [facility] History of colonic polyps Personal history of colonic polyps [facility] Outpatient Procedure (Routine) - Closed Specialty Diagnoses / Procedures Referred By Terrance munguia Referred To Contact [facility] [place] Diagnoses History of colonic polyps Procedures COLONOSCOPY SCREENING COLONOSCOPY FLX DX W/COLLJ SPEC WHEN Radha Patterson PA-C [address] [place] [address] [place] [address] Referral ID Status Reason Start Date Expiration Date V isits Requested Visits Authorized [id number] Closed Auto-Generate d Referral 02/20/2022 02/20/2023 1 1 [facility] for visit Narrative* Outpatient Procedure (Routine) - Closed Specialty Diagnoses / Procedures Referred By Terrance munguia Referred To Contact [facility] Diagnoses History of colonic polyps Procedures COLONOSCOPY SCREENING COLONOSCOPY FLX DX W/COLLJ SPEC WHEN Radha Patterson PA-C [address] [place] [address] [facility] [place] [address] Referral ID Status Reason Start Date Expiration Date V isits Requested Visits Authorized [id number] Closed Auto-Generate d Referral 02/20/2022 02/20/2023 1 1 [facility] Summary Purpose Family History No Family History Records FoundNo Family History Records Found Advance Directives Documents on File Type Date Recorded Patient Drawing Hand Expl anation Advance Directives and Livin g Will 06/14/2019 12:40 PM Discharge Instructions * Instructions* Jeannine Maynard MD - 06/14/2019 All the above neurosurgeon to follow-up for your degenerative disc disease here for the evaluation.Also please call the orthopedics in follow-up for your knee pain * Attachments The following attachments cannot be sent through Care Everywhere. * Knee Pain or Injury (Bangladeshi) * Fall Prevention (Bangladeshi) documented in this encounter Assessments Diagnosis Acute pain of left knee Fall, initial encounter DDD (degenerative disc disease), cervical Degeneration of cervical intervertebral disc Rupture of left quadriceps tendon, initial encounter Medications Administered Section Inactive Administered Medications - up to 3 most recent administrations Medication Order MAR Action Action Date Dose Rate Site fentaNYL 50 mcg/mL 25-100 mcg injection (SUBLIMAZE) 25-100 mcg, INTRAVENOUS, DIRECTED, Starting on Sun05/09/22 at 0800, Until Sun05/09/22 at 1159, DOSING DIRECTED BY PHYSICIAN FOR PROCEDURAL SEDATION ONLY, Intraprocedure Given by LIP 05/09/2022 7:49 AM EST 50 mcg Additional Source Comments (unrecognized sect ion and content) No Status Records FoundNo Status Records Found INFORMATION SOURCE (unrecogn ized section and content) DATE CREATED AUTHOR AUTHOR'S ORGANIZ ATION 05/24/2022 [facility] Reason for Visit (unrecogniz ed section and content) Reason Comments Follow Up Phone Call Reason Comments Consult Colonoscopy consult Reason Comments Procedure Follow Up Colonoscopy 05/09/22 Darshan Vela, RN - 06/14/2019 6:11 PM Darshan Johnson RN - 06/14/2019 3:12 PM Jignesh Romeo LPN - 06/14/2019 3:02 PM Jeannine Schroeder MD - 06/14/2019 12:46 PM EST ED Notes (unrecognized secti on and content) In to check on pt, pt is still in mri, denies needs at this time LAB CARTSIDE Due to multiple unsuccessful attempts at drawing labs, phlebotomy contacted for collection. CHANTAL Hoskins notified. ED PROVIDER NOTE [facility] EM[facility] NAME: Rasheed Bowen AGE: 64 y.o. : 1955 VISIT DATE: 06/14/2019 CSN: [id number] PCP: Quinten Ortiz MD Chief Complaint Patient presents with Fall HPI Patient is a 64-year-old male presents to the ED with a complaint of mechanical falls with left knee pain. In the ED patient is awake alert is answering question appropriately speech is clear no facial droop is noted GCS is 15 initial vital blood pressure 151/110 his pulse is 80 pulse ox is 94% on room air he is afebrile 98.7 Fahrenheit. I was called into the room to help assist the patient after he fell( please see nurse's note for further details of the fall in patient room). Patient said earlier today he was walking on the ice he slipped he fell hit his head he had no loss of consciousness but immediately has severe pain in the occipital region of his head and left knee pain, he drove himself into the ED to be evaluated for the falls. Patient denied any symptoms prior to the falls with the exception that the last fall his knees gave out on him while he was trying to sit down, he denies any headache neck pain chest pain pressure palpitation shortness breath difficulty denies any previous history of strokes [place] PE pneumothorax. Patient is not on anticoagulants denies any recent travel hospitalization or sick contact and denies use of alcohol or illicit drug use. Past Medical History: Diagnosis Date Gout Hyperlipidemia Hypertension History reviewed. No pertinent surgical history. No family history on file. Social History Socioeconomic History Marital status: Spouse name: Not on file Number of children: Not on file Years of education: Not on file Highest education level: Not on file Occupational History Not on file Social Needs Financial resource strain: Not on file Food insecurity Worry: Not on file Inability: Not on file Transportation needs Medical: Not on file Non-medical: Not on file Tobacco Use Smoking status: Not on file Substance and Sexual Activity Alcohol use: Not on file Drug use: Not on file Sexual activity: Not on file Lifestyle Physical activity Days per week: Not on file Minutes per session: Not on file Stress: Not on file Relationships Social connections Talks on phone: Not on file Gets together: Not on file Attends voodoo service: Not on file Active member of club or organization: Not on file Attends meetings of clubs or organizations: Not on file Relationship status: Not on file Other Topics Concern Not on file Social History Narrative Not on file Previous Medications Medication Sig albuterol (PROVENTIL) 2.5 mg /3 mL (0.083 %) nebulizer solution Take 2.5 mg by nebulization every 6 (six) hours as needed for wheezing . albuterol 90 mcg/actuation inhaler Inhale 2 puffs every 6 (six) hours as needed for wheezing . allopurinoL (ZYLOPRIM) 300 MG tablet Take 300 mg by mouth daily . amLODIPine (NORVASC) 5 MG tablet Take 5 mg by mouth daily . aspirin 81 MG EC tablet Take 81 mg by mouth daily . azelastine (ASTELIN) 137 mcg (0.1 %) nasal spray 1 spray by Each Nare route 2 (two) times a day . budesonide-formoteroL (Symbicort) 160-4.5 mcg/actuation inhaler Inhale 2 puffs 2 (two) times a day . cetirizine (ZYRTEC) 10 MG tablet Take 10 mg by mouth daily . chlorpheniramine (CHLOR-TRIMETON) 4 mg tablet Take 4 mg by mouth 2 (two) times a day . colchicine 0.6 mg cap capsule Take 0.6 mg by mouth daily as needed . famotidine (PEPCID) 10 MG tablet Take 10 mg by mouth 2 (two) times a day . fluticasone propionate (FLONASE) 50 mcg/actuation nasal spray Instill 2 sprays into each nostril 2 (two) times a day . furosemide (LASIX) 20 MG tablet Take 20 mg by mouth daily . hydroxychloroquine (PLAQUENIL) 200 mg tablet Take by mouth 2 (two) times a day . latanoprost (XALATAN) 0.005 % ophthalmic solution Administer 1 drop to both eyes nightly . montelukast (Singulair) 10 mg tablet Take 10 mg by mouth daily . potassium chloride (K-DUR) 10 MEQ CR tablet Take 20 mEq by mouth daily . simvastatin (ZOCOR) 40 MG tablet Take 40 mg by mouth daily . traMADoL (ULTRAM) 50 mg tablet Take 50 mg by mouth every 8 (eight) hours as needed for pain . [DISCONTINUED] aspirin-calcium carbonate 81 mg-300 mg calcium(777 mg) Tab Take by mouth . [DISCONTINUED] atorvastatin (Lipitor) 20 MG tablet Take by mouth . [DISCONTINUED] betamethasone valerate (VALISONE) 0.1 % cream Apply topically 2 (two) times a day . [DISCONTINUED] budesonide (PULMICORT) 90 mcg/actuation inhaler Inhale . [DISCONTINUED] lansoprazole (PREVACID) 30 MG capsule Take 30 mg by mouth daily . [DISCONTINUED] loratadine (CLARITIN) 10 mg tablet Take 10 mg by mouth daily . [DISCONTINUED] potassium chloride (Klor-Con Sprinkle) 10 MEQ CR capsule [DISCONTINUED] predniSONE (DELTASONE) 50 MG tablet Take 50 mg by mouth daily . Allergies Allergen Reactions Augmentin [Amoxicillin-Pot Clavulanate] Rash Review of Systems All other systems reviewed and are negative. Patient Vitals for the past 24 hrs: BP Temp Temp src Pulse Resp SpO2 Height Weight 06/14/19 1700 (!) 144/99 90 95 % 06/14/19 1630 (!) 138/99 90 95 % 06/14/19 1602 104/70 91 95 % 06/14/19 1502 148/85 81 18 95 % 06/14/19 1242 (!) 151/110 98.7 F (37.1 C) Oral 80 16 94 % 06/14/19 1232 5' 9 107.5 kg (237 lb) Physical Exam Vitals signs and nursing note reviewed. Constitutional: General: He is not in acute distress. Appearance: Normal appearance. He is not ill-appearing, toxic-appearing or diaphoretic. HENT: Head: Comments: Mild occipital hematoma no active bleeding noted Nose: No congestion or rhinorrhea. Mouth/Throat: Pharynx: No oropharyngeal exudate or posterior oropharyngeal erythema. Eyes: General: No scleral icterus. Right eye: No discharge. Left eye: No discharge. Extraocular Movements: Extraocular movements intact. Conjunctiva/sclera: Conjunctivae normal. Pupils: Pupils are equal, round, and reactive to light. Neck: Musculoskeletal: Normal range of motion. Muscular tenderness present. No neck rigidity. Comments: C-collar in place Cardiovascular: Rate and Rhythm: Normal rate and regular rhythm. Pulses: Normal pulses. Heart sounds: Normal heart sounds. Pulmonary: Effort: Pulmonary effort is normal. No respiratory distress. Breath sounds: Normal breath sounds. No stridor. No wheezing, rhonchi or rales. Chest: Chest wall: No tenderness. Abdominal: General: Abdomen is flat. Bowel sounds are normal. There is no distension. Palpations: Abdomen is soft. There is no mass. Tenderness: There is no abdominal tenderness. There is no right CVA tenderness, left CVA tenderness, guarding or rebound. Hernia: No hernia is present. Musculoskeletal: Normal range of motion. General: Swelling, tenderness and signs of injury present. No deformity. Right lower leg: No edema. Left lower leg: No edema. Comments: Mild tenderness to left knee no bruising no hematoma noted minimal range of motion due to pain neurovascular intact Lymphadenopathy: Cervical: No cervical adenopathy. Skin: General: Skin is warm. Neurological: General: No focal deficit present. Mental Status: He is alert and oriented to person, place, and time. Cranial Nerves: No cranial nerve deficit. Sensory: No sensory deficit. Motor: No weakness. Coordination: Coordination normal. Psychiatric: Mood and Affect: Mood normal. Laboratory & Radiographic Imaging (if done): Results for orders placed or performed during the hospital encounter of 06/14/19 Chem 7 Result Value Ref Range Sodium 140 135 - 145 mmol/L Potassium 4.1 3.5 - 5.1 mmol/L Chloride 110 (H) 98 - 108 mmol/L Bicarbonate 22 21 - 32 mmol/L Creatinine 1.24 0.80 - 1.30 mg/dL Glucose 109 (H) 65 - 99 mg/dL BUN 26 (H) 8 - 25 mg/dL eGFR 61 >=60 mL/min/1.73 m2 BUN/Creatinine Ratio 21.0 (H) 10.0 - 20.0 Anion Gap 12 10 - 20 mmol/L D-Dimer, Quantitative Result Value Ref Range D-Dimer 0.35 0.27 - 0.49 mcg/mL FEU Hepatic Function Panel (LFT) Result Value Ref Range Total Protein 7.0 6.0 - 8.0 g/dL Albumin 4.1 3.2 - 5.2 g/dL Total Bilirubin 0.4 0.0 - 1.3 mg/dL Bilirubin, Direct 0.1 0.0 - 0.4 mg/dL Alkaline Phosphatase 86 40 - 150 U/L AST 21 0 - 45 U/L ALT 38 14 - 65 U/L Lipase Result Value Ref Range Lipase 156 73 - 393 U/L Troponin x 2 (Now and Repeat in 3 hours) Result Value Ref Range Troponin I <15 <=45 ng/L Troponin I Interpretation Normal Troponin x 2 (Now and Repeat in 3 hours) Result Value Ref Range Troponin I <15 <=45 ng/L Interp Troponin I Delta Change No biomarker evidence of cardiac injury. PT/INR Result Value Ref Range Protime (PT) 13.0 11.8 - 14.3 seconds INR 1.0 0.8 - 1.1 Urine Drug Screen Result Value Ref Range Amphetamine Screen, Urine None Detected None Detected Barbiturate Screen, Urine None Detected None Detected Benzodiazepine Screen, Urine None Detected None Detected Cannabinoid Screen, Urine None Detected None Detected Cocaine, Screen Urine None Detected None Detected Methadone Screen, Urine None Detected None Detected Opiate Screen, Urine None Detected None Detected Oxycodone Screen, Urine None Detected None Detected Alcohol, Medical Result Value Ref Range Alcohol (Medical) <10.00 <10.00 mg/dL Gold Top Result Value Ref Range Extra Tube Hold for add-ons. CBC Auto Differential Result Value Ref Range WBC 8.99 4.50 - 11.00 K/mcL RBC 5.14 4.50 - 5.90 M/mcL Hemoglobin 15.5 13.5 - 17.5 g/dL Hematocrit 46.3 41.0 - 53.0 % MCV 90.1 80.0 - 100.0 fL MCH 30.2 26.0 - 34.0 pg MCHC 33.5 31.0 - 37.0 g/dL Platelets 159 150 - 400 K/mcL RDW - CV 14.6 11.6 - 14.8 % MPV 10.2 9.0 - 15.5 fL Neutrophils 74.7 % Lymphocytes 10.8 % Monocytes 9.8 % Eosinophils 3.2 % Basophils 1.1 % IG Percent 0.40 % Neutrophils Abs 6.71 1.70 - 7.00 K/mcL Lymphocytes Abs 0.97 0.90 - 4.00 K/mcL Monocytes Abs 0.88 0.30 - 0.90 K/mcL Eosinophils Abs 0.29 0.00 - 0.50 K/mcL Basophils Abs 0.10 0.00 - 0.30 K/mcL IG Absolute 0.04 0.00 - 0.30 K/mcL Nucleated RBC 0.0 % Nucleated RBC Abs 0.00 0.00 - 0.00 K/mcL MR Cervical Spine Without Contrast Preliminary Result 1. Normal alignment. No subluxation. No evidence of acute traumatic injury to the cervical spine. No paraspinal soft tissue swelling. 2. Mild multilevel degenerative disc disease. Severe facet arthropathy on the left at C3-4. Severe facet arthropathy on the right at C4-5. 3. Facet hypertrophy results in moderate left foraminal narrowing at C3-4 and moderate right foraminal narrowing at C4-5. 4. There is no spinal canal stenosis. No spinal cord compression. No abnormal signal in the cervical spinal cord. [facility] Workstation ID: [id number] XR Knee Left 2 Views (Standard) Final Result 1. The soft tissues in the region of the distal quadriceps tendon appears thickened which suggests the possibility of an injury of the quadriceps tendon in this region. If there is clinical concern for a possible injury of the quadriceps tendon then an MRI of the knee (not a CT scan) could be obtained in further evaluation of the tendon. 2. No acute fracture or dislocation is seen. 3. There is moderate soft tissue swelling along the anterior aspect of the knee which may be due to a soft tissue contusion or prepatellar bursitis. [facility]/jdw Workstation ID: [id number] XR Chest 1 View Final Result No radiographic evidence of active cardiopulmonary disease is seen. [facility]/ads Workstation ID: [id number] CT Cervical Spine Without Contrast Final Result 1. There is a linear lucency with mild adjacent sclerosis involving the lateral aspect of the left C7 transverse process. This may represent a developmental variant or a nondisplaced fracture of indeterminate age. Correlation as to pain localized to this region is recommended. If the patient is having no pain localized to this region, then this would be compatible with a developmental variant or remote fracture. No other fracture of the cervical spine is suspected. 2. There is multilevel discogenic disease, without evidence of spinal canal stenosis. 3. There is multilevel foraminal narrowing secondary to uncovertebral and/or facet joint arthropathy. [facility]/ads Workstation ID: [id number] CT Head Or Brain Without Contrast Final Result 1. No posttraumatic or acute intracranial abnormality is seen. 2. Moderately advanced symmetrical cerebral cortical atrophy. [facility]/ads Workstation ID: [id number] MR Knee Left Without Contrast (Results Pending) Procedures MDM Patient is a 64-year-old male presents to the ED with complaints of mechanical fall earlier today while working on ice he slipped fell hit his head no loss of consciousness but his left knee has been giving out since the fall. In the ED patient was about to sit in a chair he said his knee gave out he fell he was helped on the floor c-collar was placed awake alert answering questions appropriately no focal deficit was noted further work-up has been initiated. Reviewed blood work discussed with patient unremarkable MRI cervical spine is unremarkable for any acute abnormality will be placed in a knee immobilizer outpatient orthopedic follow-up also recommend outpatient neurosurgical consult for findings on cervical spine in a nonemergent basis. . Clinical Impression: No diagnosis found. ED Disposition None Follow-up Information Follow-up information has not been specified. Contact information for after-discharge care Follow-up information has not been specified. Discontinued Medications Disp Refills Start End aspirin-calcium carbonate 81 mg-300 mg calcium(777 mg) Tab 01/23/2005 06/14/2019 Class: Historical Med Reason for Discontinue: Error atorvastatin (Lipitor) 20 MG tablet 01/23/2005 06/14/2019 Class: Historical Med Reason for Discontinue: Error betamethasone valerate (VALISONE) 0.1 % cream 06/14/2019 Class: Historical Med Reason for Discontinue: Error budesonide (PULMICORT) 90 mcg/actuation inhaler 08/11/2007 06/14/2019 Class: Historical Med Reason for Discontinue: Error lansoprazole (PREVACID) 30 MG capsule 06/14/2019 Class: Historical Med Reason for Discontinue: Error loratadine (CLARITIN) 10 mg tablet 06/14/2019 Class: Historical Med Reason for Discontinue: Error potassium chloride (Klor-Con Sprinkle) 10 MEQ CR capsule 08/28/2016 06/14/2019 Class: Historical Med Reason for Discontinue: Error predniSONE (DELTASONE) 50 MG tablet 02/16/2017 06/14/2019 Class: Historical Med Reason for Discontinue: Error Jeannine Maynard MD 06/14/19 1704 Jeannine Maynard MD 06/14/19 1854 THIS RN RESPONDS TO ROOM AFTER STAFF CALLS FOR HELP, WHEN THIS RN ENTERS ROOM PT IS ON THE FLOOR WITH C SPINE BEING HELD BY DR MAYNARD AND FRANCIA CORNEJO AND JANICE CORNEJO STANDING OVER PT ASSISTING HIM TO THE BED, PT IS ALERT AND ORIENTED FOR ENTIRE EVENT AND DID NOT LOSE CONSCIOUSNESS THAT THIS RN WITNESSED PT HAD MECHANICAL FALL AT HOME TODAY, STATES HE FELL ON THE ICE AND HIT HIS LEFT KNEE AND HEAD, NOW IS HAVING PAIN 2/2 IN HIS LEFT LEG, DENIES OTHER SYMPTOM PRIOR TO TRIAGING. PT WAS PLACED IN ROOM 9 VIA WC. PT WAS TOLD HANG ON ILL GET ANOTHER STAFF PERSON TO ASSIST WITH GETTING PATIENT IN GOWN AND TO THE BED. THIS STAFF MEMBER CALLED FOR OTHER STAFF TO ASSIST WITH UNDRESSING PT. PT PIVOTED FROM WC TO BED, STOOD UP AND PULLED HIS PANTS DOWN. WHILE PT WAS UNBUTTONING HIS SHIRT HIS LEFT LEG GAVE OUT AND HE SLIPPED LANDING ON BUTTOCKS. DENIES HITTING HEAD. DR MAYNARD, JANICE HOSKINS, AND FRANCIA INTO ROOM. C COLLAR IN PLACE. PT ALERT AND ORIENTED. NO NEW COMPLAINTS OF INJURIES. FRANCIA MARLOW, AND AURELIA CORNEJO ASSISTED PT BACK TO BED AFTER DR MAYNARD ASSESSED PT. HE THEN NOTIFIED HIS LEFT LEG HAS BEEN GIVING OUT AND THIS IS WHAT CAUSED HIM TO FALL EARLIER TODAY. WITH THIS NEW INFORMATION YELLOW NON SLIP SOCKS APPLIED, SR UP X2, FALL RISK ARM BAND PLACED. CALL LIGHT GIVEN. PT EDUCATED ON ASKING FOR HELP IF HE NEEDS UP. VERBALLY UNDERSTANDS. documented in this encounter Source Comments (unrecognize d section and content) In the event this informatio n is protected by the Federal Confidentiality of Alcohol and Drug Abuse Patient Records regulations: The Federal rules restrict any use of the information to criminally investigate or prosecute any alcohol or drug abuse patient.[facility] the event this information is protected by the Federal Confidentiality of Alcohol and Drug Abuse Patient Records regulations: The Federal rules restrict any use of the information to criminally investigate or prosecute any alcohol or drug abuse patient.[facility] the event this information is protected by the Federal Confidentiality of Alcohol and Drug Abuse Patient Records regulations: The Federal rules restrict any use of the information to criminally investigate or prosecute any alcohol or drug abuse patient.[facility] the event this information is protected by the Federal Confidentiality of Alcohol and Drug Abuse Patient Records regulations: The Federal rules restrict any use of the information to criminally investigate or prosecute any alcohol or drug abuse patient.[facility] the event this information is protected by the Federal Confidentiality of Alcohol and Drug Abuse Patient Records regulations: The Federal rules restrict any use of the information to criminally investigate or prosecute any alcohol or drug abuse patient.[facility] Care Teams (unrecognized sec tion and content) Interrelated Special Education Teacher Relationship Specialty Start Date End Date Quinten Ortiz MD [address], [place] [id number] PCP - General Family Medicine 02/06/22 Interrelated Special Education Teacher Relationship Specialty Start Date End Date Quinten Ortiz MD [address], [place] [id number] PCP - General Family Medicine 02/06/22 Interrelated Special Education Teacher Relationship Specialty Start Date End Date Quinten Ortiz MD [address], [place] [id number] PCP - General Family Medicine 02/06/22 Interrelated Special Education Teacher Relationship Specialty Start Date End Date Quinten Ortiz MD [address], [place] [id number] PCP - General Family Medicine 02/06/22 FOR RECORDS PERTAINING TO PATIENTS WHO ARE OR HAVE BEEN ENROLLED IN A CHEMICAL DEPENDENCY/SUBSTANCEABUSE PROGRAM, SOME INFORMATION MAY BE OMITTED. This clinical summary was aggregated from multiple sources. Caution should be exercised in using it in the provision of clinical care. This summary normalizes information from multiple sources, and as a consequence, information in this document may materially change the coding, format and clinical context of patient data. In addition, data may be omitted in some cases. CLINICAL DECISIONS SHOULD BE BASED ON THE PRIMARY CLINICAL RECORDS. [facility]. provides no warranty or guarantee of the accuracy or completeness of information in this document.
[2023-05-28 10:10] LABS: Absolute Lymphocyte Count 1.53 X10^3/uL (0.83-4.51); Absolute Neutrophil Count 4.8 X10^3/uL (2.0-7.7); Basophil# 0.08 X10^3/uL; Eosinophil# 0.42 X10^3/uL; Eosinophils% 5.3 % (0-5); Hematocrit 44.2 % (40-54); Hemoglobin 14.6 g/dL (13.0-16.5); Lymphocyte # 1.53 X10^3/ul (0.83-4.51); Lymphocyte % 19.3 % (19-41); Mean Corpuscular Hgb 30.7 pg (27.0-32.0); Mean Corpuscular Volume 92.9 fL (80-94); Mean Platelet Vol. 10.7 fl (6.2-12.0); Monocyte# 1.01 X10^3/uL; Monocyte% 12.8 % (0-10); NRBC Flagged by Analyzer 0 % (0-5); Neutrophil # 4.84 X10^3/uL (2.7-7.7); Neutrophil % 61.1 % (47-70); Platelet Count 185 K/mm3 (150-450); RBC Distribution Width CV 14.4 % (11.6-14.6); RBC Distribution Width SD 49.4 fl (35.1-43.9); Red Blood Count 4.76 M/mm3 (4.6-6.2); White Blood Count 7.9 K/mm3 (4.4-11.0)
[2023-05-28 12:03] LABS: ALB/GLOB Ratio 1.2 RATIO (0.9-2.4); AST(SGOT) 21 U/L (15-37); Alanine Aminotransfer ALT/SGPT 48 U/L (16-61); Albumin, Serum 3.7 g/dL (3.2-5.0); Alkaline Phosphatase 85 U/L (45-117); Anion Gap 7 (5-15); BUN 21 mg/dL (7-18); BUN/Creat Ratio 18.4 RATIO (10-20); Chloride 115 mmol/L (98-107); Creatinine, Serum 1.14 mg/dL (0.70-1.30); EST Glomerular Filtration Rate 68 mL/min (>60); Est Glom Filt Rate - Afr Amer 82 mL/min (>60); Glucose 106 mg/dL (74-106); Protein, Total 6.7 g/dL (6.4-8.2); Sodium Level 143 mmol/L (136-145)
== END | disposition home or self-care (01) ==
PROVIDERS: PCP Family Medicine; Referring Provider Internal Medicine Rheumatology; Visit Provider Internal Medicine Rheumatology
DX: M06.4 Inflammatory polyarthropathy (principal); Z79.899 Other long term (current) drug therapy
CPT/HCPCS: 36415; 80053; 85025

== ENCOUNTER → 2023-11-19 | Outpatient (CLI) | payer BC, SELFPAY ==
[2023-11-19 09:36] LABS: Absolute Lymphocyte Count 1.65 X10^3/uL (0.83-4.51); Absolute Neutrophil Count 4.2 X10^3/uL (2.0-7.7); Basophil% 1.4 % (0-1); Eosinophil# 0.43 X10^3/uL; Eosinophils% 5.9 % (0-5); Hematocrit 42.7 % (40-54); Hemoglobin 13.9 g/dL (13.0-16.5); Lymphocyte # 1.65 X10^3/ul (0.83-4.51); Lymphocyte % 22.6 % (19-41); Mean Corp Hgb Conc 32.6 g/dL (32-36); Mean Corpuscular Hgb 29.7 pg (27.0-32.0); Mean Corpuscular Volume 91.2 fL (80-94); Mean Platelet Vol. 10.4 fl (6.2-12.0); Monocyte# 0.92 X10^3/uL; Monocyte% 12.6 % (0-10); NRBC Flagged by Analyzer 0 % (0-5); Neutrophil # 4.18 X10^3/uL (2.7-7.7); Neutrophil % 57.1 % (47-70); Platelet Count 179 K/mm3 (150-450); RBC Distribution Width CV 14.7 % (11.6-14.6); RBC Distribution Width SD 49.4 fl (35.1-43.9); Red Blood Count 4.68 M/mm3 (4.6-6.2); White Blood Count 7.3 K/mm3 (4.4-11.0)
[2023-11-19 10:06] LABS: ALB/GLOB Ratio 1.1 RATIO (0.9-2.4); AST(SGOT) 30 U/L (15-37); Alanine Aminotransfer ALT/SGPT 51 U/L (16-61); Albumin, Serum 3.5 g/dL (3.2-5.0); Alkaline Phosphatase 86 U/L (45-117); Anion Gap 6 (5-15); BUN 21 mg/dL (7-18); BUN/Creat Ratio 21.2 RATIO (10-20); Calcium,Total 8.6 mg/dL (8.5-10.1); Chloride 114 mmol/L (98-107); Creatinine, Serum 0.99 mg/dL (0.70-1.30); EST Glomerular Filtration Rate 80 mL/min (>60); Est Glom Filt Rate - Afr Amer 97 mL/min (>60); Globulin 3.1 g/dL (2.2-4.2); Glucose 105 mg/dL (74-106); Potassium 3.8 mmol/L (3.5-5.1); Protein, Total 6.6 g/dL (6.4-8.2); Sodium Level 144 mmol/L (136-145)
== END | disposition home or self-care (01) ==
LOC: LAB 08:56
PROVIDERS: PCP Family Medicine; Referring Provider Internal Medicine Rheumatology; Visit Provider Internal Medicine Rheumatology
DX: M06.4 Inflammatory polyarthropathy (principal); Z79.899 Other long term (current) drug therapy
CPT/HCPCS: 36415; 80053; 85025

== ENCOUNTER → 2023-11-26 | Outpatient (CLI) | payer BC, SELFPAY ==
--- NOTE | 2023-11-26 14:16 | RAD_ITS ---
EXAM: XR LEFT KNEE COMPLETE, 4 OR MORE VIEWS CLINICAL INDICATION: Inflammatory polyarthropathy TECHNIQUE: Four or more views of the left knee. COMPARISON: No relevant prior studies available. FINDINGS: BONES/JOINTS: Articular marginal osteophytes are present particularly at the patellofemoral joint. Patellar enthesophyte. No acute fracture. No subluxation. Normal alignment. No sclerotic or destructive changes observed. SOFT TISSUES: Anterior soft tissue swelling. Calcifications within the distal quadriceps tendon. No radiopaque foreign body. VASCULATURE: Vascular calcifications. RAD/Knee 4 or More Views IMPRESSION: Anterior soft tissue swelling. Degenerative changes. No erosive abnormality. Chronic quadriceps tendinopathy or sequela remote injury. Electronically Signed: Juice Roper DO at 23:58 EDT ,
--- NOTE | 2023-11-26 14:16 | RAD_ITS ---
INDICATION: Inflammatory polyarthropathy EXAMINATION/TECHNIQUE: X-RAY - RIGHT XR Knee Complete 4 Views or More 4 VIEWS COMPARISON: Prior study dated: 04/19/2018. FINDINGS: SOFT TISSUES: No soft tissue swelling or gas. No radiopaque foreign body. BONES/JOINTS: No acute fracture or subluxation.. Normal alignment. Mild narrowing of the lateral patellofemoral joint. The remainder of the joint spaces are within normal limits. No sclerotic or destructive changes observed. RAD/Knee 4 or More Views IMPRESSION: Mild narrowing of the patellofemoral joint. Electronically Signed: Kirill Bellamy MD at 14:41 EDT ,
== END | disposition home or self-care (01) ==
LOC: MTLAB 14:15 → MTRAD 14:15
PROVIDERS: PCP Family Medicine; Referring Provider Internal Medicine Rheumatology; Visit Provider Internal Medicine Rheumatology
DX: M06.4 Inflammatory polyarthropathy (principal); Z79.899 Other long term (current) drug therapy
CPT/HCPCS: 73564

== ENCOUNTER → 2023-12-28 | Outpatient (CLI) | payer BC, SELFPAY ==
[2023-12-28 09:30] LABS: Absolute Lymphocyte Count 1.56 X10^3/uL (0.83-4.51); Absolute Neutrophil Count 4.9 X10^3/uL (2.0-7.7); Basophil# 0.09 X10^3/uL; Basophil% 1.1 % (0-1); Eosinophil# 0.52 X10^3/uL; Eosinophils% 6.5 % (0-5); Hematocrit 43.9 % (40-54); Hemoglobin 14.6 g/dL (13.0-16.5); Lymphocyte # 1.56 X10^3/ul (0.83-4.51); Lymphocyte % 19.5 % (19-41); Mean Corp Hgb Conc 33.3 g/dL (32-36); Mean Corpuscular Hgb 30.3 pg (27.0-32.0); Mean Corpuscular Volume 91.1 fL (80-94); Mean Platelet Vol. 9.7 fl (6.2-12.0); Monocyte% 11.2 % (0-10); NRBC Flagged by Analyzer 0 % (0-5); Neutrophil # 4.91 X10^3/uL (2.7-7.7); Neutrophil % 61.2 % (47-70); Platelet Count 180 K/mm3 (150-450); RBC Distribution Width CV 14.9 % (11.6-14.6); RBC Distribution Width SD 49.1 fl (35.1-43.9); Red Blood Count 4.82 M/mm3 (4.6-6.2)
[2023-12-28 09:52] LABS: ALB/GLOB Ratio 1.2 RATIO (0.9-2.4); AST(SGOT) 25 U/L (15-37); Alanine Aminotransfer ALT/SGPT 51 U/L (16-61); Albumin, Serum 3.7 g/dL (3.2-5.0); Alkaline Phosphatase 93 U/L (45-117); Anion Gap 8 (5-15); BUN 17 mg/dL (7-18); BUN/Creat Ratio 16.3 RATIO (10-20); Calcium,Total 9.1 mg/dL (8.5-10.1); Chloride 111 mmol/L (98-107); Creatinine, Serum 1.04 mg/dL (0.70-1.30); EST Glomerular Filtration Rate 76 mL/min (>60); Est Glom Filt Rate - Afr Amer 91 mL/min (>60); Globulin 3.2 g/dL (2.2-4.2); Glucose 105 mg/dL (74-106); Potassium 3.9 mmol/L (3.5-5.1); Protein, Total 6.9 g/dL (6.4-8.2); Sodium Level 141 mmol/L (136-145)
== END | disposition home or self-care (01) ==
LOC: LAB 08:59
PROVIDERS: PCP Family Medicine; Referring Provider Internal Medicine Rheumatology; Visit Provider Internal Medicine Rheumatology
DX: M06.4 Inflammatory polyarthropathy (principal); Z79.899 Other long term (current) drug therapy
CPT/HCPCS: 36415; 80053; 85025

== ENCOUNTER → 2024-02-22 | Outpatient (CLI) | payer BC, SELFPAY ==
[2024-02-22 09:58] LABS: Absolute Neutrophil Count 4.4 X10^3/uL (2.0-7.7); Basophil# 0.11 X10^3/uL; Basophil% 1.5 % (0-1); Eosinophil# 0.54 X10^3/uL; Eosinophils% 7.3 % (0-5); Hemoglobin 15.1 g/dL (13.0-16.5); Mean Corp Hgb Conc 33.6 g/dL (32-36); Mean Corpuscular Hgb 31.3 pg (27.0-32.0); Mean Corpuscular Volume 93.2 fL (80-94); Mean Platelet Vol. 10.6 fl (6.2-12.0); Monocyte# 0.86 X10^3/uL; Monocyte% 11.7 % (0-10); NRBC Flagged by Analyzer 0 % (0-5); Neutrophil # 4.42 X10^3/uL (2.7-7.7); Neutrophil % 60.2 % (47-70); Platelet Count 174 K/mm3 (150-450); RBC Distribution Width CV 15.1 % (11.6-14.6); RBC Distribution Width SD 51.7 fl (35.1-43.9); Red Blood Count 4.83 M/mm3 (4.6-6.2); White Blood Count 7.4 K/mm3 (4.4-11.0)
[2024-02-22 11:15] LABS: ALB/GLOB Ratio 1.3 RATIO (0.9-2.4); AST(SGOT) 26 U/L (15-37); Alanine Aminotransfer ALT/SGPT 48 U/L (16-61); Albumin, Serum 3.9 g/dL (3.2-5.0); Alkaline Phosphatase 91 U/L (45-117); Anion Gap 6 (5-15); BUN 17 mg/dL (7-18); BUN/Creat Ratio 18.3 RATIO (10-20); Chloride 110 mmol/L (98-107); Creatinine, Serum 0.93 mg/dL (0.70-1.30); EST Glomerular Filtration Rate 86 mL/min (>60); Est Glom Filt Rate - Afr Amer 104 mL/min (>60); Globulin 3.1 g/dL (2.2-4.2); Glucose 91 mg/dL (74-106); Potassium 3.8 mmol/L (3.5-5.1); Sodium Level 140 mmol/L (136-145)
== END | disposition home or self-care (01) ==
LOC: LAB 08:40
PROVIDERS: PCP Family Medicine; Referring Provider Internal Medicine Rheumatology; Visit Provider Internal Medicine Rheumatology
DX: M06.4 Inflammatory polyarthropathy (principal); Z79.899 Other long term (current) drug therapy
CPT/HCPCS: 36415; 80053; 85025

== ENCOUNTER → 2024-02-25 | Outpatient (CLI) | payer BC, SELFPAY ==
[2024-02-25 15:25] LABS: PTHIN 43.8 pg/mL (18.4-80.1); Vitamin B12 689 pg/mL (211-911); Vitamin D,25 Hydroxy 27.6 ng/mL
[2024-02-25 15:41] LABS: PSA,Total - Annual Screen 2.05 ng/mL (0.00-4.00); T4 Free Direct 1.01 ng/dL (0.76-1.46)
[2024-02-29 21:07] LABS: PROEL- A/G Ratio 1.5 (0.7-1.7); PROEL- Albumin 3.7 g/dL (2.9-4.4); PROEL- Alpha-1 Globulin 0.2 g/dL (0.0-0.4); PROEL- Alpha-2 Globulin 0.6 g/dL (0.4-1.0); PROEL- Beta Globulin 0.9 g/dL (0.7-1.3); PROEL- Gamma Globulin 0.7 g/dL (0.4-1.8); PROEL- Globulin, Total 2.5 g/dL (2.2-3.9); PROEL- TOTAL PROTEIN 6.2 g/dL (6.0-8.5); PROEL-M-Spike Not Observed g/dL (Not Observed); Vitamin B1, Thiamine 189.8 nmol/L (66.5-200.0)
== END | disposition home or self-care (01) ==
LOC: MTLAB 11:10
PROVIDERS: PCP Family Medicine; Referring Provider Family Medicine; Visit Provider Family Medicine
DX: Z12.5 Encounter for screening for malignant neoplasm of prostate (principal); M06.4 Inflammatory polyarthropathy; R20.2 Paresthesia of skin; E03.9 Hypothyroidism, unspecified
CPT/HCPCS: 36415; 82306; 82607; 83970; 84153; 84165; 84425; 84439; 84443; G0103

== ENCOUNTER → 2024-04-22 | Outpatient (CLI) | payer BC, SELFPAY ==
[2024-04-22 08:06] LABS: Absolute Lymphocyte Count 1.82 X10^3/uL (0.83-4.51); Absolute Neutrophil Count 4.5 X10^3/uL (2.0-7.7); Basophil% 1.3 % (0-1); Eosinophil# 0.47 X10^3/uL; Eosinophils% 5.9 % (0-5); Hematocrit 45.4 % (40-54); Hemoglobin 15.1 g/dL (13.0-16.5); Lymphocyte # 1.82 X10^3/ul (0.83-4.51); Lymphocyte % 22.9 % (19-41); Mean Corp Hgb Conc 33.3 g/dL (32-36); Mean Corpuscular Hgb 31.3 pg (27.0-32.0); Mean Platelet Vol. 9.6 fl (6.2-12.0); Monocyte# 1.01 X10^3/uL; Monocyte% 12.7 % (0-10); NRBC Flagged by Analyzer 0 % (0-5); Neutrophil # 4.48 X10^3/uL (2.7-7.7); Neutrophil % 56.4 % (47-70); Platelet Count 191 K/mm3 (150-450); RBC Distribution Width CV 14.8 % (11.6-14.6); Red Blood Count 4.83 M/mm3 (4.6-6.2); White Blood Count 7.9 K/mm3 (4.4-11.0)
[2024-04-22 08:42] LABS: ALB/GLOB Ratio 1.2 RATIO (0.9-2.4); AST(SGOT) 23 U/L (15-37); Alanine Aminotransfer ALT/SGPT 48 U/L (16-61); Albumin, Serum 3.7 g/dL (3.2-5.0); Alkaline Phosphatase 85 U/L (45-117); Anion Gap 6 (5-15); BUN 20 mg/dL (7-18); BUN/Creat Ratio 16.4 RATIO (10-20); Calcium,Total 8.8 mg/dL (8.5-10.1); Chloride 110 mmol/L (98-107); Creatinine, Serum 1.22 mg/dL (0.70-1.30); EST Glomerular Filtration Rate 63 mL/min (>60); Est Glom Filt Rate - Afr Amer 76 mL/min (>60); Globulin 3.1 g/dL (2.2-4.2); Glucose 105 mg/dL (74-106); Potassium 3.8 mmol/L (3.5-5.1); Protein, Total 6.8 g/dL (6.4-8.2); Sodium Level 140 mmol/L (136-145)
== END | disposition home or self-care (01) ==
LOC: LAB 07:49
PROVIDERS: PCP Family Medicine; Referring Provider Internal Medicine Rheumatology; Visit Provider Internal Medicine Rheumatology
DX: M06.4 Inflammatory polyarthropathy (principal); M35.00 Sjogren syndrome, unspecified; M10.00 Idiopathic gout, unspecified site; Z79.899 Other long term (current) drug therapy
CPT/HCPCS: 36415; 80053; 85025

== ENCOUNTER → 2024-07-07 | Outpatient (CLI) | payer BC, SELFPAY ==
[2024-07-07 08:33] LABS: Absolute Lymphocyte Count 1.64 X10^3/uL (0.83-4.51); Absolute Neutrophil Count 5.2 X10^3/uL (2.0-7.7); Basophil% 1.2 % (0-1); Eosinophil# 0.35 X10^3/uL; Eosinophils% 4.3 % (0-5); Hemoglobin 14.2 g/dL (13.0-16.5); Lymphocyte # 1.64 X10^3/ul (0.83-4.51); Lymphocyte % 20.2 % (19-41); Mean Corpuscular Hgb 31.6 pg (27.0-32.0); Mean Corpuscular Volume 95.8 fL (80-94); Mean Platelet Vol. 10.3 fl (6.2-12.0); Monocyte# 0.82 X10^3/uL; Monocyte% 10.1 % (0-10); NRBC Flagged by Analyzer 0 % (0-5); Neutrophil # 5.16 X10^3/uL (2.7-7.7); Neutrophil % 63.5 % (47-70); Platelet Count 177 K/mm3 (150-450); RBC Distribution Width CV 15.3 % (11.6-14.6); RBC Distribution Width SD 52.9 fl (35.1-43.9); Red Blood Count 4.49 M/mm3 (4.6-6.2); White Blood Count 8.1 K/mm3 (4.4-11.0)
[2024-07-07 23:36] LABS: Ferritin 173 ng/mL (37-417); Vitamin B12 699 pg/mL (180-914)
[2024-07-07 23:43] LABS: ALB/GLOB Ratio 1.8 RATIO (0.9-2.4); AST(SGOT) 27 U/L (<=37); Alanine Aminotransfer ALT/SGPT 41 U/L (<=46); Albumin, Serum 4.2 g/dL (3.4-4.8); Alkaline Phosphatase 79 U/L (40-129); Anion Gap 11 (5-15); BUN 21 mg/dL (4-19); BUN/Creat Ratio 18.5 RATIO (10-20); Calcium,Total 9.3 mg/dL (7.6-11.0); Carbon Dioxide 21.1 mmol/L (21.0-32.0); Chloride 108 mmol/L (98-108); Creatinine, Serum 1.12 mg/dL (0.70-1.20); EST Glomerular Filtration Rate 72 (>60); Globulin 2.3 g/dL (2.2-4.2); Glucose 100 mg/dL (70-99); Potassium 4.1 mmol/L (3.3-5.1); Protein, Total 6.5 g/dL (5.9-8.4); Sodium Level 140 mmol/L (133-145); Total Bilirubin 0.35 mg/dL (0.00-1.30)
[2024-07-08 17:08] LABS: PROEL- A/G Ratio 1.4 (0.7-1.7); PROEL- Albumin 3.5 g/dL (2.9-4.4); PROEL- Alpha-1 Globulin 0.2 g/dL (0.0-0.4); PROEL- Alpha-2 Globulin 0.7 g/dL (0.4-1.0); PROEL- Beta Globulin 0.9 g/dL (0.7-1.3); PROEL- Gamma Globulin 0.7 g/dL (0.4-1.8); PROEL- Globulin, Total 2.5 g/dL (2.2-3.9); PROEL-M-Spike Not Observed g/dL (Not Observed)
[2024-07-09 20:46] LABS: Hemoglobin A1c 5.3 % (<=5.6)
== END | disposition home or self-care (01) ==
LOC: LAB 07:59
PROVIDERS: PCP Family Medicine; Referring Provider Family Medicine; Visit Provider Family Medicine
DX: M06.4 Inflammatory polyarthropathy (principal); R20.2 Paresthesia of skin; R73.09 Other abnormal glucose; Z79.899 Other long term (current) drug therapy
CPT/HCPCS: 80053; 82607; 82728; 82746; 83036; 84165; 85025

== ENCOUNTER → 2024-10-01 | Outpatient (CLI) | payer BC, SELFPAY ==
--- OUTSIDE RECORDS SUMMARY | 2024-10-01 08:07 | XMS RPT_ITS | CCD ---
Author Organization [facility] Care Team Providers Care Commercial Estimator Name Role Phone Zhanna Lorenzo Unavailable Squires INSURANCE CLAIM AUDITOR, Maricruz Rhea Unavailable Unavaila ble Squires INSURANCE CLAIM AUDITOR, Maricruz Rhea Unavailable Unavaila ble Zeina CORNEJO, Patricia Laboy Unavailable Yovana Duran Unavailable Unavailable Yovana Duran Unavailable Unavailable Squires INSURANCE CLAIM AUDITOR, Maricruz Coelhoin Unavailable Unavaila radha Ross MD, Dom Loay Unavailable JEANNINE MAYNARD Attending Unavailable QUINTEN ORTIZ Primary Care Unavailable Quinten Ortiz Primary Care Provider Quinten Ortiz Primary Care Provider Dr. Quinten Ortiz Primary Care Provider Dr. Quinten Ortiz Referring Provider SAMY Reid Attending Provider Ambrose Jim Primary Care Provider UnavailQuinten Yoo MD Primary Care Provider Quinten Ortiz MD Primary Care Provider [phone] Radha Gaspar Attending Unavailable QUINTEN ORTIZ Referring Unavailable QUINTEN ORTIZ Primary Care Unavailable ZHANE KEE Attending Unavailable Radha Gaspar Referring Unavailable QUINTEN ORTIZ Primary Care Unavailable Dr. Quinten Ortiz Primary Care Provider Dr. Quinten Ortiz Referring Provider [phone] Domingo Fountain Attending Provider Dr. Quinten Ortiz Primary Care Provider Dr. Domingo Fountain Attending Provider Dr. Domingo Fountain Referring Provider Dr. Quinten Ortiz Primary Care Provider [phone] Quinten Ortiz Referring Provider [phone] Dr. Yogi Warner Attending Provider Dr. Nnamdi Rosen Attending Provider Angel LANDON, Quinten A Primary Care Provider Angel LANDON, Dr. Oscar Primary Care Provider Freddy LANDON, Dr. Danielson Attending Provider Freddy LANDON, Dr. Danielson Referring Provider Angel LANDON, Dr. Oscar Referring Provider Cornell PRUNE WASHER-C, Yesenia Attending Provider Angel LANDON, Dr. Oscar Attending Provider Freddy LANDON, Dr. Danielson Other Provider [phone] Yogi Warner Attending Unavailable Ortiz, Quinten Referring Unavailable Ortiz, Quinten Primary Care Unavailable Vellanki, Erum Attending Unavailable Vellanki, Erum Referring Unavailable Ortiz, Quinten Primary Care Unavailable Ortiz, Quinten Attending Unavailable Ortiz, Quinten Referring Unavailable Ortiz, Quinten Primary Care Unavailable Vellanki, Erum Consulting Unavailable Vellanki, Erum Attending Unavailable Vellanki, Erum Referring Unavailable Ortiz, Quinten Primary Care Unavailable Vellanki, Erum Attending Unavailable Vellanki, Erum Referring Unavailable Ortiz, Quinten Primary Care Unavailable Vellanki, Erum Attending Unavailable Vellanki, Reum Referring Unavailable Ortiz, Quinten Primary Care Unavailable Vellanki, Erum Attending Unavailable Vellanki, Erum Referring Unavailable Ortiz, Quinten Primary Care Unavailable Ortiz, Quinten Attending Unavailable Ortiz, Quinten Referring Unavailable Ortiz, Quinten Primary Care Unavailable Yesenia Sarabia NP Attending Unavailable Ortiz, Quinten Referring Unavailable Allergies Allergy Classification Reported Allergen(s) Allergy Type Date of Onset Reaction(s) Facility (16 sources) amoxicillin / clavulanate drug allergy 5 [facility] Work Phone: (12 sources) losartan; Translations: [losartan] drug allergy 5 severe cough, Other [facility] Work Phone: (9 sources) AMOXICILLIN-POT CLAVULANATE; Translations: [Unknown] Propensity to adverse reactions to drug (disorder) 8 [facility] (9 sources) Amoxicillin; Translations: [amoxicillin trihydrate] Drug Allergy 2 Unknown, Rash [facility] (9 sources) potassium clavulanate; Translations: [potassium clavulanate] Allergy to substance 2 Unknown, Rash [facility] Medications Current Medications Medication Drug Class(es) Dates [...] as needed for wheezing . 0 Active Albuterol-Budesonid e (Airsupra) 90-80 mcg/actuation HFA aerosol inhaler (1 source) Start: 06-23-2024 Albuterol-Budesoni de (Airsupra) 90-80 mcg/actuation HFA aerosol inhaler Active 2 NMA INHALATION TWICE A DAY as needed June 23, 2024 12:00am allopurinol 300 mg oral tablet (20 sources) Xanthine Oxidase Inhibitor Start: 09-11-2014 End: 01-22-2015 take 1 tablet by mouth once daily Allopurinol 300 MG tablet Active 300 mg PO DAILY September 11, 2014 12:00am Comment on above: Take 300 mg by mouth once daily. amLODIPine 5 mg oral tablet (20 sources) Dihydropyridine Calcium Channel Maikel Start: 09-11-2014 take 1 tablet by mouth once daily Amlodipine 5 MG tablet Active 5 mg PO DAILY September 11, 2014 12:00am Comment on above: Take 5 mg by mouth o nce daily. ascorbic acid 250 mg oral tablet (6 sources) Vitamin C Start: 11-01-2022 take 2 tablets by mouth twice daily Ascorbic Acid (Vitamin C) 250 mg tablet Active 500 mg PO TWICE A DAY November 01, 2022 10:35am Start: 11-01-2022 take 500 mg by mouth twice daily Ascorbic Acid (Vitamin C) Active 500 MG PO TWICE A DAY November 01, 2022 9:35am Start: 10-30-2022 End: 11-01-2022 take 1 tablet by mouth twice daily Ascorbic Acid (Vitamin C) 250 mg tablet Discontinued 250 mg PO TWICE A DAY October 30, 2022 12:00am November 01, 2022 10:37am Paotvhbicg-Hriyyppp-Hqohxned ol (1 source) Corticosteroid, beta2-Adrenergic Agonist Start: 12-25-2023 Nxumtvthrs-Gncjriut-Fajbkrvn ol (Breztri Aerosphere) 160-9-4.8 mcg/actuation HFA aerosol inhaler Active 2 NMA INHALATION every day in the morning and in the evening December 25, 2023 12:00am chlorpheniramine maleate 4 m g oral tablet (9 sources) Histamine-1 Receptor Antagonist Start: 11-01-2022 t a k e 2 t a b l e t s b y m o u t h e v e r y t w e n t y - f o u r h o u r s Chlorpheniramine Maleate (Allergy (Chlorpheniramine)) 4 mg tablet Active 4 mg PO DAILY November 01, 2022 12:00am do not exceed 2 doses per 24 hrs chlorpheniramine (CHLORTRIMETON) 4 mg tablet Take 4 mg by mouth. 0 Active Comment on above: Take 4 mg by mouth. diclofenac sodium 0.01 mg/mg topical gel (1 source) Nonsteroidal Anti-inflammatory Drug Start: 4 Diclofenac Sodium 1 % gel Active TOPICAL December 25, 2023 12:00am doxycycline hyclate 100 mg oral tablet (1 source) Tetracycline-class Drug Start: take 1 tablet by mouth twice daily Doxycycline Hyclate 100 mg tablet Active 100 mg PO TWICE A DAY June 23, 2024 12:00am famotidine 20 mg oral tablet (20 sources) Histamine-2 Receptor Antagonist Start: take 1 tablet by mouth once daily Famotidine 20 mg tablet Active 20 mg PO DAILY November 01, 2022 12:00am Start: 10-30-2022 End: 11-01-2022 take 1 tablet by mouth once daily Famotidine 10 mg tablet Discontinued 10 mg PO DAILY October 30, 2022 12:00am November 01, 2022 10:33am Start: 10-19-2017 End: 10-20-2017 Famotidine 40 MG tablet Disc ontinued 20 mg PO TWICE A DAY October 19, 2017 12:00am October 20, 2017 12:49pm Start: 10-19-2017 End: 10-20-2017 take 20 mg by mouth twice daily Famotidine Discontinue d 20 MG PO TWICE A DAY October 18, 2017 11:00pm October 20, 2017 11:49am famotidine (PEPC ID) 10 mg tablet Take 10 mg by mouth. 0 Active Comment on above: Take 10 mg by mouth. fluticasone propionate 0.05 mg/actuat metered dose nasal spray (20 sources) Corticosteroid Start: 10-30-2022 End: 08-23-2023 Fluticasone Propionate 50 mcg/actuation spray,suspension Active 2 NMA INTRANASAL DAILY August 23, 2023 1:55pm Start: 10-30-2022 End: 01-08-2023 Fluticasone Propionate Activ e 2 SPRAY INTRANASAL DAILY January 08, 2023 8:30am Start: 05-01-2018 End: 10-30-2022 Fluticasone Propionate 50 mcg/actuation spray,suspension Discontinued 2 NMA INTRANASAL TWICE A DAY 18.2 December 16, 2021 3:02pm October 30, 2022 1:47pm Start: 10-19-2017 End: 10-30-2022 Fluticasone Propionate 15.8 ML spray,suspension Discontinued 2 spry NS TWICE A DAY October 19, 2017 12:00am May 01, 2018 8:07am fluticasone (SNOW NASE) 50 mcg/actuation nasal spray Use 2 Sprays in the nose. 0 Active take 2 spray(s) nasa l route twice daily fluticasone propionate (FLONASE) 50 mcg/actuation nasal spray Instill 2 sprays into each nostril 2 (two) times a day . 0 Active Comment on above: Use 2 Sprays in the nose. folic acid 1 mg oral tablet (1 source) Start: 2023 take 1 tablet by mouth once daily Folic Acid 1 mg tablet Active 1 mg PO daily December 25, 2023 12:00am hydroxychloroquine sulfate 200 mg oral tablet (20 sources) Antimalarial, Antirheumatic Agent Start: 2015 take 1 tablet by mouth twice daily Hydroxychloroquine 200 mg tablet Active 200 mg PO TWICE A DAY April 03, 2017 1:00am Comment on above: Take by mouth twice daily. ketotifen 0.25 mg/ml ophthalmic solution (3 sources) Histamine-1 Receptor Inhibitor Start: 2022 Ketotifen Fumarate (Zaditor) 0.025 % (0.035 %) drops Active 1 NMA OPHTHALMIC TWICE A DAY October 30, 2022 12:00am administer at least 8 hours apart Start: 10-30-2022 Ketotifen Fuma rate (Zaditor) 0.025 % (0.035 %) drops Active 1 DRP OPHTHALMIC TWICE A DAY October 29, 2022 11:00pm administer at least 8 hours apart latanoprost 0.05 mg/ml ophthalmic solution (17 sources) Prostaglandin Analog Start: 10-30-[address] 0.005 % drops Active 1 NMA OPHTHALMIC DAILY October 30, 2022 1:43pm Start: 12-26-2019 End: 10-30-2022 latanoprost (XALATAN) 0.005 % ophthalmic solution Use in eyes. 0 12/26/2019 Active Start: 12-26-2019 End: 10-30-2022 Latanoprost Active 1 DRP OPH THALMIC DAILY October 30, 2022 12:43pm Comment on above: Use in eyes. levothyroxine sodium 0.088 mg oral tablet (17 sources) l-Thyroxine Start: 06-23-2024 Levothyroxine (Synthroid) 88 mcg tablet Active ug PO DAILY June 23, 2024 12:00am Start: 12-25-2023 End: 06-23-2024 take 1 tablet by mouth once daily Levothyroxine 75 mcg tablet Discontinued 75 ug PO DAILY December 25, 2023 1:31pm June 23, 2024 1:39pm Start: 06-21-2023 End: 12-25-2023 Levothyroxine 75 mcg tablet Discontinued 88 ug PO DAILY June 21, 2023 10:32am December 25, 2023 1:31pm Start: 11-01-2022 End: 06-21-2023 take 1 tablet by mouth once daily Levothyroxine 75 mcg tablet Discontinued 75 ug PO DAILY November 01, 2022 12:00am June 21, 2023 10:33am Start: 10-30-2022 End: 11-01-2022 take 1 tablet by mouth once daily Levothyroxine 50 mcg tablet Discontinued 50 ug PO DAILY October 30, 2022 12:00am November 01, 2022 10:35am Start: 05-23-2022 End: 10-30-2022 take 1 tablet by mouth once daily Levothyroxine (Synthroid) 25 mcg tablet Discontinued 25 ug PO DAILY May 23, 2022 1:00am October 30, 2022 1:44pm take 1 capsule by [facility] once daily before breakfast levothyroxine 25 mcg cap Take 25 mcg by mouth daily before breakfast. 0 Active Comment on above: Take 25 mcg by mouth daily before breakfast. methotrexate 2.5 mg oral tablet (2 sources) Folate Analog Metabolic Inhibitor Start: 06-23-2024 Methotrexate Sodium 2.5 mg tablet Active 15 mg PO June 23, 2024 1:39pm Start: 12-25-2023 End: 06-23-2024 Methotrexate Sodium 2.5 mg t ablet Discontinued 10 mg PO December 25, 2023 12:00am June 23, 2024 1:40pm montelukast 10 mg oral tablet (20 sources) Leukotriene Receptor Antagonist Start: 06-04-2008 End: 02-20-2022 take 1 tablet by mouth once daily Montelukast 10 MG tablet Active 10 mg PO DAILY September 11, 2014 12:00am Comment on above: Take one(1) tablet d aily at bedtime. Multivitamin preparation (2 sources) Start: 10-30-2022 take 1 tablet by mouth once daily Multivitamin Active 1 TABLET PO DAILY October 29, 2022 11:00pm Start: 10-30-2022 take 1 tablet by [facility] once daily Multivitamin Active 1 TABLET PO DAILY October 30, 2022 12:00am Multivitamin tablet (1 source) Start: 10-30-2022 Multivitamin t ablet Active 1 {tbl} PO DAILY October 30, 2022 12:00am polyethylene glycol 3350 522151 mg / potassium chloride 2970 mg / sodium bicarbonate 6740 mg / sodium chloride 5860 mg / sodium sulfate 42509 mg powder for oral solution (1 source) Osmotic Laxative Start: 02-20-2022 End: 02-20-2022 peg 3350-Electrolytes (GOLYTELY) 236-22.74-6.74 -5.86 gram suspension Take 4,000 mL by mouth one time only for 1 dose. 1 Each 0 02/20/2022 02/20/2022 Active Comment on above: Take 4,000 mL by francois th one time only for 1 dose. simvastatin 40 mg oral tablet (20 sources) HMG-CoA Reductase Inhibitor Start: 09-11-2014 take 1 tablet by mouth at bedtime Simvastatin 40 MG tablet Active 40 mg PO AT BEDTIME September 11, 2014 12:00am Comment on above: Take 40 mg by mouth. thioctic acid 600 mg oral capsule (1 source) Start: 06-23-2024 Alpha Lipoic A jerrell 600 mg capsule Active mg PO June 23, 2024 12:00am Completed/Discontinued Medications Medication Drug Class(es) Dates Sig (Normalized) Sig (Original) acetaminophen 325 mg / oxyCODONE hydrochloride 5 mg oral tablet (20 sources) Opioid Agonist Start: 07-09-2019 End: 12-26-2019 take 1-2 tablets by mouth every six hours as needed for pain Oxycodone-Acetamino phen (Percocet) 5-325 mg tablet Discontinued 1 {tbl} PO EVERY 6 HOURS as needed for pain 50 July 09, 2019 December 26, 2019 9:46am 1-2 tabs every 6 hrs prn pain Start: 06-20-2019 End: 06-30-2019 Oxycodone-Acetaminophen 1 TA BLET tablet Discontinued 1 - 2 {tbl} PO EVERY 6 HOURS NEEDED as needed for Pain 10 09June 25, 2019 June 29, 2019 12:00am June 30, 2019 12:08am Start: 06-20-2019 End: 06-30-2019 take 1 tablet by mouth every six hours as needed Oxycodone-Acetaminophen Discontinued 1 - 2 TABLET PO EVERY 6 HOURS NEEDED 28 June 25, 2019 June 29, 2019 11:08pm [id number] actuat albuterol 0.09 mg/actuat metered dose inhaler (20 sources) beta2-Adrenergic Agonist Start: 10-30-2022 End: 11-01-2022 take 2.5 mg by inhalation four times daily as needed for wheezing Albuterol Sulfate 2.5 mg /3 mL (0.083 %) solution for nebulization Discontinued 2.5 mg INHALATION .QID as needed for Sob &/Or Wheezing October 30, 2022 1:40pm November 01, 2022 10:37am Start: 10-30-2022 End: 06-23-2024 Albuterol Sulfate 90 mcg/act uation HFA aerosol inhaler Discontinued 2 NMA INHALATION Q4H as needed for shortness of breath or wheezing August 23, 2023 1:55pm June 23, 2024 1:36pm Start: 10-30-2022 Albuterol Sulf ate Active 2 INH INHALATION Q4H October 29, 2022 11:00pm Start: 04-03-2017 End: 10-30-2022 take 2.5 mg by inhalation every four hours as needed for wheezing Albuterol Sulfate 2.5 mg /3 mL (0.083 %) solution for nebulization Discontinued 2.5 mg INHALATION Q4H as needed for Sob &/Or Wheezing April 03, 2017 1:00am October 30, 2022 1:47pm Start: 11-11-2014 take 2 puff(s) by in halation every four hours as needed PROAIR HFA 108 (90 Base) MCG/ACT AERS 2 puffs inh q4h as needed ALBUTEROL SULFATE [id number] Yesenia Sarabia DATA SCIENCES DIRECTOR Start: 11-11-2014 take 2 puff(s) by in halation every four hours as needed PROAIR HFA 108 (90 Base) MCG/ACT AERS 2 puffs inh q4h as needed ALBUTEROL SULFATE [id number] Yesenia Sarabia DATA SCIENCES DIRECTOR Start: 11-11-2014 take 2 puff(s) by in halation every four hours as needed PROAIR HFA 108 (90 Base) MCG/ACT AERS 2 puffs inh q4h as needed ALBUTEROL SULFATE [id number] Malik Victor Baldomero MA Start: 09-11-2014 End: 08-09-2018 Albuterol Sulfate 1 PUFF inh aler Discontinued 2 NMA INHALATION EVERY 4 HOURS NEEDED as needed for Asthma September 11, 2014 12:00am August 09, 2018 9:03am Start: 09-11-2014 End: 08-09-2018 take 1 puff(s) by inhalation every four hours as needed Albuterol Sulfate Discontinued 2 PUFF INHALATION EVERY 4 HOURS NEEDED September 10, 2014 11:00pm August 09, 2018 8:03am take 2.5 mg by inhal ation every six hours as needed albuterol (PROVENTIL) 2.5 mg /3 mL (0.083 %) nebulizer solution Take 2.5 mg by nebulization every 6 (six) hours as needed for wheezing . 0 Active ALBUTEROL SULFAT E (2.5 MG/3ML) 0.083% NEBU INH 4 x q d prn ALBUTEROL SULFATE [id number] Yesenia Sarabia DATA SCIENCES DIRECTOR aspirin 81 mg oral tablet (20 sources) Platelet Aggregation Inhibitor, Nonsteroidal Anti-inflammatory Drug Start: 11-11-2014 take 1 tablet by mouth once daily ASPIRIN 81 MG ORAL TABS One tablet by mouth daily ASPIRIN [id number] Yesenia Sarabia DATA SCIENCES DIRECTOR Start: 11-11-2014 take 1 tablet by francois th once daily ASPIRIN EC 81 MG TBEC One tablet by mouth daily ASPIRIN [id number] Virginia Dennison RN Start: 09-11-2014 End: 11-01-2022 take 1 tablet by mouth once daily Aspirin 81 MG tablet,chewable Discontinued 81 mg PO DAILY@0800 September 11, 2014 12:00am November 01, 2022 1:08pm Start: 01-23-2005 ASPIRIN 81 MG TAB Take one (1) tablet daily . 0 01/23/2005 Active Comment on above: Take one (1) tablet daily . aspirin 81 mg / calcium carbonate 777 mg oral tablet (1 source) Platelet Aggregation Inhibitor, Nonsteroidal Anti-inflammatory Drug Start: 01-23-2005 End: 06-14-2019 aspirin-calcium carbonate 81 mg-300 mg calcium(777 mg) Tab Take by mouth . 0 01/23/2005 06/14/2019 Discontinued (Error) atorvastatin 20 mg oral tablet (3 sources) HMG-CoA Reductase Inhibitor Start: 01-23-2005 End: 02-20-2022 LIPITOR 20 MG TAB Take one(1) tablet daily. 0 01/23/2005 02/20/2022 Discontinued Comment on above: Take one(1) tablet d aily. azelastine hydrochloride 0.137 mg/actuat metered dose nasal spray (20 sources) Histamine-1 Receptor Antagonist Start: 07-05-2017 End: 10-30-2022 Azelastine 137 mcg (0.1 %) aerosol,spray Discontinued 1 NMA INTRANASAL TWICE A DAY April 07, 2020 3:21pm October 30, 2022 1:46pm administer into each nostril Start: 07-05-2017 End: 10-30-2022 take 1 spray(s) nasal route twice daily Azelastine Discontinued 1 SPRAY INTRANASAL TWICE A DAY April 07, 2020 2:21pm October 30, 2022 12:46pm administer into each nostril azelastine (ASTE EHSAN) 137 mcg (0.1 %) nasal spray 1 spray by Each Nare route 2 (two) times a day . 0 Active azithromycin 250 mg oral tablet (20 sources) Macrolide Antimicrobial Start: 01-18-2015 End: 04-03-2017 take 2 tablets by mouth once daily, then take 1 tablet by mouth once daily Azithromycin 250 MG tablet Discontinued 250 mg PO DIRECTED January 18, 2015 12:00am April 03, 2017 8:29am TAKE 2 TABLETS 1ST DAY THEN 1 TABLET DAILY FOR NEXT 4 DAYS. BECLOMETHASONE DIPROPIONATE (16 sources) Corticosteroid QVAR 80 MCG/ACT AERS 2 puffs q d BECLOMETHASONE DIPROPIONATE [id number] Domingo Fountain End: 12-16-2014 QVAR 80 MCG/ACT AERS 2 puffs q d BECLOMETHASONE DIPROPIONATE [id number] Maricruz Patiño End: 12-16-2014 QVAR 80 MCG/ACT AERS 2 puffs q d BECLOMETHASONE DIPROPIONATE [id number] Domingo Fountain QVAR 80 MCG/ACT AERS 2 puffs q d BECLOMETHASONE DIPROPIONATE [id number] Domingo Fountain End: 12-16-2014 QVAR 80 MCG/ACT AERS 2 puffs q d BECLOMETHASONE DIPROPIONATE [id number] Maricruz Patiño benzonatate 200 mg oral capsule (13 sources) Non-narcotic Antitussive Start: 05-29-2022 End: 10-30-2022 take 1 capsule by mouth three times daily as needed for cough Benzonatate 200 mg capsule Discontinued 200 mg PO THREE TIMES A DAY as needed for cough May 29, 2022 1:00am October 30, 2022 1:46pm Start: 01-18-2015 End: 04-03-2017 take 2 capsules by mouth three times daily as needed for cough Benzonatate 100 MG capsule Discontinued 200 mg PO 3 TIMES DAILY NEEDED as needed for Cough January 18, 2015 12:00am April 03, 2017 8:30am Start: 01-18-2015 End: 04-03-2017 take 200 mg by mouth three times daily as needed Benzonatate Discontinued 200 MG PO 3 TIMES DAILY NEEDED January 17, 2015 11:00pm April 03, 2017 7:30am betamethasone 1 mg/ml topical cream (3 sources) Corticosteroid End: 02-20-2022 betamethasone valerate 0.1 % cream Apply to affected area twice daily. 0 02/20/2022 Discontinued Comment on above: Apply to affected ar ea twice daily. 60 actuat budesonide 0.09 mg/actuat dry powder inhaler (3 sources) Corticosteroid Start: 08-11-2007 End: 02-20-2022 take 1 puff(s) by inhalation once daily in the morning as needed, then take 1 puff(s) by inhalation once daily in the evening as needed BUDESONIDE 90 MCG/INHALATION BREATH ACTIVATED POWDER AEROSOL 1 puff qam (not prn), 1 puff qpm prn 0 08/11/2007 02/20/2022 Discontinued Start: 08-11-2007 End: 06-14-2019 budesonide (PULMICORT) 90 mc g/actuation inhaler Inhale . 0 08/11/2007 06/14/2019 Discontinued (Error) Comment on above: 1 puff qam (not prn) , 1 puff qpm prn 120 actuat budesonide 0.16 mg/actuat / formoterol fumarate 0.0045 mg/actuat metered dose inhaler (20 sources) Corticosteroid, beta2-Adrenergic Agonist Start: 03-29-2021 End: 06-23-2024 Budesonide-Formoterol (Symbicort) 160-4.5 mcg/actuation HFA aerosol inhaler Discontinued 2 NMA INHALATION Q12H 3 May 18, 2023 9:54am June 23, 2024 1:54pm Start: 03-29-2021 End: 05-18-2023 Budesonide-Formoterol (Symbi benigno) 160-4.5 mcg/actuation HFA aerosol inhaler Discontinued 2 INH INHALATION Q12H 3 March 29, 2021 11:21am May 23, 2021 10:31am Start: 01-12-2020 End: 03-29-2021 Budesonide-Formoterol (Symbi benigno) 160-4.5 mcg/actuation HFA aerosol inhaler Discontinued 2 NMA INHALATION Q12H 10.2 January 12, 2020 12:50pm March 29, 2021 12:08pm Start: 01-12-2020 End: 03-29-2021 Budesonide-Formoterol (Symbi benigno) 160-4.5 mcg/actuation HFA aerosol inhaler Discontinued 2 INH INHALATION Q12H 10.2 January 12, 2020 11:50am March 29, 2021 11:08am Start: 01-12-2020 End: 03-29-2021 Budesonide-Formoterol (Symbi benigno) 160-4.5 mcg/actuation HFA aerosol inhaler Discontinued 2 INH INHALATION Q12H 10.2 January 12, 2020 12:50pm March 29, 2021 12:08pm Start: 04-03-2017 End: 01-12-2020 Budesonide-Formoterol (Symbi benigno) 160-4.5 mcg/actuation HFA aerosol inhaler Discontinued 2 NMA INHALATION Q12H 10.2 August 06, 2019 1:13pm January 12, 2020 12:50pm Start: 04-03-2017 End: 01-12-2020 Budesonide-Formoterol (Symbi benigno) 160-4.5 mcg/actuation HFA aerosol inhaler Discontinued 2 INH INHALATION Q12H 10.2 August 06, 2019 12:13pm January 12, 2020 11:50am Start: 08-09-2016 SYMBICORT 160- 4.5 mcg/actuation inhaler Start: 08-09-2016 take 2 puff(s) by in halation twice daily budesonide-formoteroL (Symbicort) 160-4.5 mcg/actuation inhaler Inhale 2 puffs 2 (two) times a day . 0 08/09/2016 Active Start: 03-09-2015 SYMBICORT 160- 4.5 MCG/ACT AERO BUDESONIDE-FORMOTEROL FUMARATE [id number] Yesenia Sarabia DATA SCIENCES DIRECTOR Start: 03-09-2015 SYMBICORT 160- 4.5 MCG/ACT AERO 2 puffs twice daily BUDESONIDE-FORMOTEROL FUMARATE [id number] Domingo Fountain Start: 03-09-2015 SYMBICORT 160- 4.5 MCG/ACT AERO 2 puffs twice daily BUDESONIDE-FORMOTEROL FUMARATE [id number] Domingo Fountain Start: 03-09-2015 SYMBICORT 160- 4.5 MCG/ACT AERO BUDESONIDE-FORMOTEROL FUMARATE [id number] Yesenia Sarabia DATA SCIENCES DIRECTOR Start: 03-09-2015 SYMBICORT 160- 4.5 MCG/ACT AERO 2 puffs twice daily BUDESONIDE-FORMOTEROL FUMARATE [id number] Yesenia Sarabia DATA SCIENCES DIRECTOR Start: 03-09-2015 SYMBICORT 160- 4.5 MCG/ACT AERO BUDESONIDE-FORMOTEROL FUMARATE [id number] Yesenia Sarabia DATA SCIENCES DIRECTOR cetirizine hydrochloride 10 mg oral tablet (14 sources) Histamine-1 Receptor Antagonist Start: 10-19-2017 End: 08-09-2018 take 1 tablet by mouth once daily Cetirizine 10 MG tablet Discontinued 10 mg PO DAILY October 19, 2017 12:00am August 09, 2018 9:05am Comment on above: Take 10 mg by mouth. colchicine 0.6 mg oral tablet (20 sources) Start: 11-11-2014 COLCHICINE 0.6 MG TABS 4 times a day as needed COLCHICINE [id number] Malik Alexandre MA Start: 09-11-2014 End: 11-01-2022 take 1 capsule by mouth four times daily as needed Colchicine 0.6 MG capsule Discontinued 0.6 mg PO 4 TIMES DAILY NEEDED as needed for GOUT September 11, 2014 12:00am November 01, 2022 10:37am take 1 capsule by mo [facility] once daily colchicine 0.6 mg capsule Take 0.6 mg by mouth once daily. 0 Active Comment on above: Take 0.6 mg by mouth once daily. COMPOUNDED PRESCRIPTION (6 sources) Start: 08-11-2007 End: 02-20-2022 COMPOUNDED PRESCRIPTION Indications: Pneumonia, organism unspecified(486) , Wheezing air compressor for nebulized inhaled treatments, use as directed 1 0 08/11/2007 02/20/2022 Discontinued Start: 08-11-2007 End: 02-20-2022 COMPOUNDED PRESCRIPTION Carol cations: Pneumonia, organism unspecified(486) , Wheezing nebulizer, mask, O2 tubing - use as directed 1 12 08/11/2007 02/20/2022 Discontinued Start: 08-11-2007 COMPOUNDED PRE SCRIPTION Indications: Pneumonia, organism unspecified(486) , Wheezing air compressor for nebulized inhaled treatments, use as directed 1 0 08/11/2007 Active Start: 08-11-2007 COMPOUNDED PRE SCRIPTION Indications: Pneumonia, organism unspecified(486) , Wheezing nebulizer, mask, O2 tubing - use as directed 1 12 08/11/2007 Active Start: 11-09-2006 End: 02-20-2022 COMPOUNDED PRESCRIPTION olga y inhaler 0 11/09/2006 02/20/2022 Discontinued Start: 11-09-2006 COMPOUNDED PRE SCRIPTION daily inhaler 0 11/09/2006 Active Comment on above: daily inhaler air compressor for n ebulized inhaled treatments, use as directed nebulizer, mask, O2 tubing - use as directed Cromolyn (2 sources) Mast Cell Stabilizer Start: 9 End: take 2 puff(s) by inhalation four times daily INTAL 200 800 MCG/ACTUATION AEROSOL INHALER 2 puffs qid 15 minutes before activity 3 months supply 3 06/04/2008 02/20/2022 Discontinued Start: 06-04-2008 take 2 puff(s) by in halation four times daily INTAL 200 800 MCG/ACTUATION AEROSOL INHALER 2 puffs qid 15 minutes before activity 3 months supply 3 06/04/2008 Active Comment on above: 2 puffs qid 15 minut es before activity FEXOFENADINE HCL TABS (16 sources) Histamine-1 Receptor Antagonist End: 01-22-2015 MUCINEX ALLERGY TABS FEXOFENADINE HCL TABS [id number] Anay Barraza RN MUCINEX ALLERGY TABS FEXOFENADINE HCL TABS [id number] Domingo Fountain End: 01-22-2015 MUCINEX ALLERGY TABS FEXOFENADINE HCL TABS [id number] Anay Barraza RN 120 actuat formoterol fumarate 0.005 mg/actuat / mometasone furoate 0.2 mg/actuat metered dose inhaler (16 sources) Corticosteroid, beta2-Adrenergic Agonist End: 12-16-2014 DULERA 200-5 MCG/ACT AERO 2 puffs bid MOMETASONE FURO-FORMOTEROL FUM [id number] Domingo Fountain End: 12-16-2014 DULERA 200-5 MCG/ACT AERO 2 puffs bid MOMETASONE FURO-FORMOTEROL FUM [id number] Domingo Fountain DULERA 200-5 MCG /ACT AERO 2 puffs bid MOMETASONE FURO-FORMOTEROL FUM [id number] Shania Aguilar LPN furosemide 20 mg oral tablet (20 sources) Loop Diuretic Start: 06-04-2015 End: 11-01-2022 take 1 tablet by mouth once daily Furosemide 20 mg tablet Discontinued 20 mg PO DAILY March 27, 2022 11:16am November 01, 2022 1:08pm Start: 01-28-2015 End: 02-10-2015 take 1 tablet by mouth once daily FUROSEMIDE 20 MG TABS One tablet by mouth daily FUROSEMIDE [id number] Dom Ross MD Comment on above: Take 20 mg by mouth once daily. guaiFENesin (5 sources) GUAIFENESIN (MUC INEX ORAL) Take by mouth. 0 Active Comment on above: Take by mouth. hydrocortisone 10 mg/ml / neomycin 3.5 mg/ml / polymyxin b 78099 unt/ml otic suspension (8 sources) Aminoglycoside Antibacterial, Polymyxin-class Antibacterial, Corticosteroid Start: 03-17-2020 End: 03-27-2020 Nafzteud-Wcmjxjmxg-Su 3.5-10,000-1 mg/mL-unit/mL-% drops,suspension Discontinued 4 NMA OTIC EVERY 6 HOURS 01 23March 17, 2020 1:00am March 26, 2020 1:00am March 27, 2020 1:03am To right ear Start: 03-17-2020 End: 03-27-2020 Cetkouph-Tmnsznfoq-Bz Discon tinued 4 DRP OTIC EVERY 6 HOURS 01 23March 17, 2020 12:00am March 27, 2020 12:03am To right ear lansoprazole 30 mg delayed release oral capsule (20 sources) Proton Pump Inhibitor Start: 11-11-2014 End: 02-20-2022 take 1 tablet by mouth once daily PREVACID 30 MG CPDR One tablet by mouth daily LANSOPRAZOLE [id number] Malik Alexandre MA Start: 11-11-2014 take 1 tablet by francois th once daily PREVACID 30 MG CPDR One tablet by mouth daily LANSOPRAZOLE [id number] Malik Alexandre MA Comment on above: Take 30 mg by mouth once daily. loratadine 10 mg oral tablet (3 sources) End: 02-21-20 22 take 1 tablet by mouth once daily loratadine (CLARITIN) 10 mg tablet Take 10 mg by mouth once daily. 0 02/20/2022 Discontinued Comment on above: Take 10 mg by mouth once daily. losartan potassium 100 mg oral tablet (20 sources) Angiotensin 2 Receptor Maikel Start: 09-12-19 15 End: 04-03-20 17 take 1 tablet by mouth once daily Losartan 100 MG tablet Discontinued 100 mg PO DAILY September 11, 2014 12:00am April 03, 2017 8:29am 120 actuat mometasone furoate 0.22 mg/actuat dry powder inhaler (16 sources) Corticosteroid End: 11-13-19 15 take 2 puff(s) by inhalation twice daily ASMANEX 120 METERED DOSES 220 MCG/INH AEPB 2 puffs bid MOMETASONE FUROATE [id number] Shania Aguilar LPN take 2 puff(s) by in halation twice daily ASMANEX 120 METERED DOSES 220 MCG/INH AEPB 2 puffs bid MOMETASONE FUROATE [id number] Shania Benoit Aguilar LPN End: 11-12-2014 take 2 puff(s) by inhalation twice daily ASMANEX 120 METERED DOSES 220 MCG/INH AEPB 2 puffs bid MOMETASONE FUROATE [id number] Domingo Fountain MULTIVITAMIN ORAL (4 sources) MULTIVITAMIN ORA L Take by mouth once daily. 0 Active Comment on above: Take by mouth once d aily. pantoprazole 40 mg delayed release oral tablet (8 sources) Proton Pump Inhibitor Start: 8 End: 9 take 1 tablet by mouth twice daily Pantoprazole 40 MG tablet Discontinued 40 mg PO TWICE A DAY 60 October 20, 2017 12:00am August 09, 2018 9:20am 400 actuat pirbuterol acetate 0.2 mg/actuat metered dose inhaler (2 sources) Start: 7 End: 2 pirbuterol (MAXAIR AUTOHALER) 200 mcg/Inhalation INHALATION AerB prn 0 11/09/2006 02/20/2022 Discontinued Comment on above: prn potassium chloride 10 meq extended release oral capsule (20 sources) Start: 7 End: 3 take 2 capsules by mouth once daily Potassium Chloride 10 mEq capsule, extended release Discontinued 20 meq PO DAILY October 30, 2022 1:45pm November 01, 2022 1:08pm Start: 04-03-2017 End: 11-01-2022 take 2 capsules by mouth once daily Potassium Chloride Discontinued 0 .ROUTE .COMPLEX 180 September 19, 2021 7:48am October 30, 2022 12:47pm TAKE 2 CAPSULES BY MOUTH EVERY DAY Start: 06-04-2015 take 1 tablet by francois once daily MICRO-K 10 MEQ CR-CAPS One tablet by mouth daily POTASSIUM CHLORIDE [id number] Dom Ross MD Start: 06-04-2015 End: 06-14-2019 KLOR-CON SPRINKLE 10 mEq CR capsule Start: 06-04-2015 take 2 tablets by mo [facility] once daily MICRO-K 10 MEQ CR-CAPS 2 tablet by mouth daily POTASSIUM CHLORIDE [id number] Dom Ross MD Start: 06-04-2015 take 2 tablets by mo [facility] once daily MICRO-K 10 MEQ CR-CAPS 2 tablet by mouth daily POTASSIUM CHLORIDE [id number] Dom Ross MD Start: 01-28-2015 End: 02-10-2015 take 2 tablets by mouth once daily MICRO-K 10 MEQ CR-CAPS Two tablets by mouth daily POTASSIUM CHLORIDE [id number] Anay Barraza RN Start: 01-28-2015 End: 02-10-2015 take 2 tablets by mouth once daily MICRO-K 10 MEQ CR-CAPS Two tablets by mouth daily POTASSIUM CHLORIDE [id number] Anay Barraza RN take 2 tablets by mo [facility] once daily, then take 1 tablet by mouth potassium chloride (K-DUR) 10 MEQ CR tablet Take 20 mEq by mouth daily . 0 Active predniSONE 20 mg oral tablet (20 sources) Start: 06-23-2024 End: 06-28-2024 take 3 tablets by mouth once daily at mealtime Prednisone 20 mg tablet Discontinued 60 mg PO daily 28 08June 23, 2024 12:00am June 27, 2024 12:00am June 28, 2024 12:26am administer with food or milk Start: 05-23-2022 End: 10-30-2022 take 4 tablets by mouth once daily Prednisone 10 mg tablet Discontinued 10 mg PO DAILY May 23, 2022 1:00am October 30, 2022 1:46pm Take 4 tabs daily for 5 days Start: 06-20-2017 End: 10-04-2017 take 3 tablets by mouth once daily at mealtime Prednisone 20 mg tablet Discontinued 60 mg PO daily June 20, 2017 1:00am October 04, 2017 7:50am administer with food or milk Start: 06-20-2017 End: 10-04-2017 take 60 mg by mouth once daily at mealtime Prednisone Discontinued 60 MG PO daily June 20, 2017 12:00am October 04, 2017 6:50am administer with food or milk Start: 05-07-2015 End: 05-12-2015 take 3 tablets by mouth once daily PREDNISONE 20 MG TABS Take 3 tablets by mouth daily for 5 days. PREDNISONE [id number] Yesenia Sarabia CNP Start: 03-09-2015 End: 03-21-2015 PREDNISONE 10 MG TABS Take 4 tabs by mouth for 3 days, then 3 tabs by mouth for 3 days, then 2 tabs by mourth for 3 days, then 1 tab by mouth for 3 days. PREDNISONE [id number] Yesenia Sarabia CNP Start: 02-05-2015 End: 02-17-2015 PREDNISONE 10 MG TABS Take 4 tabs by mouth for 3 days, then 3 tabs by mouth for 3 days, then 2 tabs by mourth for 3 days, then 1 tab by mouth for 3 days. PREDNISONE [id number] Domingo Fountain Start: 01-18-2015 End: 02-20-2022 take 1 tablet by mouth once daily Prednisone 50 MG tablet Discontinued 50 mg PO DAILY January 18, 2015 12:00am April 03, 2017 8:29am Start: 09-14-2014 End: 04-03-2017 take 2 tablets by mouth twice daily PREDNISONE 20 MG TABS Two tablets by mouth twice daily PREDNISONE [id number] Dom Ross MD Start: 09-14-2014 End: 04-03-2017 take 40 mg by mouth twice daily Prednisone Discontinue d 40 MG PO TWICE A DAY September 13, 2014 11:00pm April 03, 2017 7:29am End: 12-16-2014 PREDNISONE TABS as directed PREDNISONE TABS [id number] Domingo Fountain End: 12-16-2014 PREDNISONE TABS as directed PREDNISONE TABS [id number] Domingo Fountain PREDNISONE TABS as directed PREDNISONE TABS [id number] Domingo Fountain Comment on above: Take 1 tablet by francois th once daily. Take one(1) tablet daily for 5 days, then 1/2 daily for 4 days 1000 ml sodium chloride 9 mg/ml injection (1 source) Start: 06-14-2019 End: 06-14-2019 sodium chloride 0.9% (NS) sulfamethoxazole 800 mg / trimethoprim 160 mg oral tablet (8 sources) Dihydrofolate Reductase Inhibitor Antibacterial, Sulfonamide Antimicrobial Start: 06-27-2019 End: 07-11-2019 Sulfamethoxazole-Trime thoprim 1 TABLET tablet Discontinued 1 {tbl} PO TWICE A DAY June 27, 2019 12:00am July 10, 2019 12:00am July 11, 2019 12:08am Start: 06-27-2019 End: 07-11-2019 take 1 tablet by mouth twice daily Sulfamethoxazole-Trimethoprim Discontinu ed 1 TABLET PO TWICE A DAY June 26, 2019 11:00pm July 10, 2019 11:08pm tiotropium 0.018 mg inhalant powder (20 sources) Anticholinergic Start: 01-22-2015 End: 02-25-2015 SPIRIVA HANDIHALER 18 MCG CAPS 1 puff daily TIOTROPIUM BROMIDE MONOHYDRATE [id number] Anay Barraza RN Start: 01-22-2015 SPIRIVA HANDIH ALER 18 MCG CAPS 1 puff daily TIOTROPIUM BROMIDE MONOHYDRATE [id number] Anay Barraza RN Start: 01-22-2015 End: 02-25-2015 SPIRIVA HANDIHALER 18 MCG CA PS 1 puff daily TIOTROPIUM BROMIDE MONOHYDRATE [id number] Dom Ross MD Start: 09-14-2014 End: 04-03-2017 Tiotropium Linch 1 PUFF in haler Discontinued 1 NMA INHALATION DAILY September 14, 2014 12:00am April 03, 2017 8:29am Start: 09-14-2014 End: 04-03-2017 take 1 puff(s) by inhalation once daily Tiotropium Linch Discontinued 1 PUFF INHALATION DAILY September 13, 2014 11:00pm April 03, 2017 7:29am End: 12-16-2014 SPIRIVA HANDIHALER 18 MCG CA PS 1 puff q d TIOTROPIUM BROMIDE MONOHYDRATE [id number] Maricruz Patiño End: 12-16-2014 SPIRIVA HANDIHALER 18 MCG CA PS 1 puff q d TIOTROPIUM BROMIDE MONOHYDRATE [id number] Maricruz Patiño SPIRIVA HANDIHAL ER 18 MCG CAPS 1 puff q d TIOTROPIUM BROMIDE MONOHYDRATE [id number] Domingo Fountain traMADol hydrochloride 50 mg oral tablet (20 sources) Opioid Agonist Start: 10-30-2022 End: 11-01-2022 take 1 tablet by mouth three times daily as needed for pain Tramadol 50 mg tablet Discontinued 50 mg PO THREE TIMES A DAY as needed for Pain October 30, 2022 1:41pm November 01, 2022 10:37am Start: 08-03-2016 take 1 tablet by francois th once daily as needed for pain Tramadol 50 mg tablet Active 50 mg PO DAILY as needed for Pain November 01, 2022 10:36am Start: 08-03-2016 End: 10-30-2022 take 1 tablet by mouth every eight hours as needed for pain Tramadol 50 mg tablet Discontinued 50 mg PO Q8H as needed for Pain April 03, 2017 1:00am October 30, 2022 1:47pm Start: 04-05-2016 take 1 tablet by francois th three times daily as needed TRAMADOL HCL 50 MG TABS One tablet by mouth three times daily as needed TRAMADOL HCL [id number] Maricruz Squires LPN Problems Active Problems Problem Classification Problem Date Documented Date Episodic/Chronic Asthma (20 sources) Asthma; Translations: [Exacerbation of asthma] Onset: 03-09-2015 03-09-2015 Chronic Chronic obstructive pulmonary disease and bronchiectasis (8 sources) Bronchitis; Translations: [Bronchitis, not specified as acute or chronic] 06-20-2019 Episodic Diabetes mellitus without complication (16 sources) Diabetes mellitus; Translations: [Type 2 diabetes mellitus without complications] Onset: 01-22-2015 01-22-2015 Chronic Disorders of lipid metabolism (20 sources) Hyperlipidemia; Translations: [Hyperlipidemia, unspecified] Onset: 01-22-2015 01-22-2015 Chronic Essential hypertension (17 sources) Hypertensive disorder; Translations: [Essential (primary) hypertension] Onset: 01-22-2015 01-22-2015 Chronic External cause codes: Fall (1 source) Fall; Translations: [Fall, initial encounter] Gout and other crystal arthropathies (8 sources) Gout; Translations: [Gout, unspecified] 10-20-2017 Chronic Immunizations and screening for infectious disease (20 sources) Anti-nuclear factor positive; Translations: [Other specified abnormal immunological findings in serum] Episodic Nonspecific chest pain (8 sources) Chest pain; Translations: [Chest pain, unspecified] 06-20-2019 Episodic Other and ill-defined heart disease (8 sources) Diastolic dysfunction; Translations: [Other ill-defined heart diseases] 10-20-2017 Chronic Other and unspecified benign neoplasm (2 sources) History of polyp of colon; Translations: [Personal history of colonic polyps] Episodic Other and unspecified benign neoplasm (1 source) Personal history of colonic polyps; Translations: [History of colonic polyps] Onset: 05-09-2022 Episodic Other connective tissue disease (1 source) Rupture of quadriceps tendon; Translations: [Rupture of left quadriceps tendon, initial encounter] Episodic Other lower respiratory disease (16 sources) Dyspnea; Translations: [Dyspnea, unspecified] Onset: 11-12-2014 11-12-2014 Episodic Other lower respiratory disease (8 sources) H/O: bronchitis; Translations: [Personal history of other diseases of the respiratory system] 10-20-2017 Episodic Other non-traumatic joint disorders (1 source) Knee pain; Translations: [Acute pain of left knee] Episodic Other nutritional; endocrine; and metabolic disorders (20 sources) Obesity; Translations: [Body mass index (BMI) 35.0-35.9, adult] Onset: 11-12-2014 11-12-2014 Chronic Comment on above: BMI 34.2% Other nutritional; endocrine; and metabolic disorders (4 sources) Body mass index (BMI) 35.0-35.9, adult; Translations: [Body mass index (BMI) 35.0-35.9, adult] Onset: 01-28-2015 08-27-2015 Chronic Other nutritional; endocrine; and metabolic disorders (4 sources) Body mass index (BMI) 33.0-33.9, adult; Translations: [Body mass index (BMI) 33.0-33.9, adult] Onset: 01-28-2015 01-28-2015 Chronic Other upper respiratory infections (8 sources) Posterior rhinorrhea; Translations: [Postnasal drip] 04-27-2020 Episodic Residual codes; unclassified (19 sources) Obstructive sleep apnea syndrome; Translations: [Body mass index (BMI) 33.0-33.9, adult] Onset: 12-16-2014 12-16-2014 Chronic Comment on above: CPAP 12 cm water Residual codes; unclassified (2 sources) Obstructive sleep apnea (adult) (pediatric); Translations: [Obstructive sleep apnea (adult)(pediatric)] 05-23-2022 Chronic Residual codes; unclassified (20 sources) Edema; Translations: [Hypersomnia] Onset: 11-12-2014 Resolved: 12-16-2014 06-04-2015 Episodic Rheumatoid arthritis and related disease (1 source) Inflammatory polyarthropathy; Translations: [Inflammatory polyarthropathy] Onset: 07-14-2024 Chronic Spondylosis; intervertebral disc disorders; other back problems (1 source) Degeneration of cervical intervertebral disc; Translations: [DDD (degenerative disc disease), cervical] Chronic Syncope (16 sources) Near syncope; Translations: [Syncope and collapse] Onset: 01-28-2015 01-28-2015 Episodic Unclassified (8 sources) 8 mm RLL pulmonary nodule 10-20-2017 Past or Other Problems Problem Classification Problem [...] blood chemistry] Onset: 05-07-2015 05-11-2015 Episodic Other screening for suspected conditions (not mental disorders or infectious disease) (7 sources) Patient encounter status; Translations: [Encounter for screening for malignant neoplasm of colon] Onset: 11-09-2006 11-09-2006 Episodic Residual codes; unclassified (8 sources) Hypersomnia; Translations: [Hypersomnia, unspecified] Onset: 11-12-2014 Resolved: 12-16-2014 12-16-2014 Episodic Unclassified (8 sources) history of tendon repair 11-05-2021 Results Test Name Value Interpretation Reference Range Facility Hemoglobin A1con 07-09-2024 HbA1c (Bld) [Mass fraction] 5.3 % Low <=5.6 [facility] Comment on above: Order Comment: ADD O N A1C FROM 07-07 Performed By: #### L 500.4050, L506.0200, L501.9985, L503.0106 ####[facility] [address] [place], [address] Protein Electroph, Son 07-08 Albumin [Mass/Vol] 3.5 g/dL Normal 2.9-4.4 [facility] Comment on above: Order Comment: DR.VE MONTERO ORDERED CBCDALFREDO ORDERED B12,FOL,TRACY,PROEL,CBCDOrder Info: [id number] FOLSOrder Date: 05/26/24Order Info: 0- - PROEL Performed By: #### L 100.0100, L503.6550, L3100.3450 ####[facility] [address] [place], [address] Albumin/Globulin [Mass ratio] 1.4 {ratio} Normal 0.7-1.7 [facility] Comment on above: Order Comment: DR.VE MONTERO ORDERED CBCDALFREDO ORDERED B12,FOL,TRACY,PROEL,CBCDOrder Info: 2283-11rd Date: 05/26/24Order Info: 59- - PROEL Performed By: #### L 100.0100, L503.6550, L3100.3450 ####[facility] [address] [place], [address] ALPHA-1 GLOBUL 0.2 g/dL Normal 0.0-0.4 [facility] Comment on above: Order Comment: DR.VE MONTERO ORDERED CBCDALFREDO ORDERED B12,FOL,TRACY,PROEL,CBCDOrder Info: [id number] Date: 05/26/24Order Info: 0060-1 - PROEL Performed By: #### L 100.0100, L503.6550, L3100.3450 ####[facility] [address] [place], [address] ALPHA-2 GLOBUL 0.7 g/dL Normal 0.4-1.0 [facility] Comment on above: Order Comment: DR.VE MONTERO ORDERED CBCDALFREDO ORDERED B12,FOL,TRACY,PROEL,CBCDOrder Info: [id number] FOLSOrder Date: 05/26/24Order Info: 59-04 - PROEL Performed By: #### L 100.0100, L503.6550, L3100.3450 ####[facility] [address] [place], [address] BETA GLOBULIN 0.9 g/dL Normal 0.7-1.3 [facility] Comment on above: Order Comment: DR.VE MONTERO ORDERED CBCDALFREDO ORDERED B12,FOL,TRACY,PROEL,CBCDOrder Info: 2283-11 FOLSOrder Date: 05/26/24Order Info: 59-04 - PROEL Performed By: #### L 100.0100, L503.6550, L3100.3450 ####[facility] [address] [place], [address] GAMMA GLOBULIN 0.7 g/dL Normal 0.4-1.8 [facility] Comment on above: Order Comment: DR.VE MONTERO ORDERED CBCDALFREDO ORDERED B12,FOL,TRACY,PROEL,CBCDOrder Info: 2283-11rd Date: 05/26/24Order Info: 59-04 - PROEL Performed By: #### L 100.0100, L503.6550, L3100.3450 ####[facility] [address] [place], [address] Globulin (S) [Mass/Vol] 2.5 g/dL Normal 2.2-3.9 [facility] Comment on above: Order Comment: DR.VE MONTERO ORDERED CBCDALFREDO ORDERED B12,FOL,TRACY,PROEL,CBCDOrder Info: 2283-11rd Date: 05/26/24Order Info: 59-04 - PROEL Performed By: #### L 100.0100, L503.6550, L3100.3450 ####[facility] [address] [place], [address] INTERPRETATION Comment Normal . [facility] Comment on above: Order Comment: DR.VE MONTERO ORDERED CBCD,ALFREDO ORDERED B12,FOL,TRACY,PROEL,CBCDOrder Info: 2283-11 FOLSOrder Date: 05/26/24Order Info: 0060-1 - PROEL Result Comment: Prot ein electrophoresis scan will follow via computer, mail, or associate professor of geography delivery. Performed By: #### L 100.0100, L503.6550, L3100.3450 ####[facility] [address] [place], [place], [id number] M-SPIKE Not Observed Normal Not Observed [facility] Comment on above: Order Comment: DR.VE MONTERO ORDERED CBCDALFREDO ORDERED B12,FOL,TRACY,PROEL,CBCDOrder Info: [id number] Date: 05/26/24Order Info: 0 - PROEL Performed By: #### L 100.0100, L503.6550, L3100.3450 ####[facility] [address] [place], [place], [id number] NOTE: Comment Normal . [facility] Comment on above: Order Comment: DR.VE MONTERO ORDERED CBCDALFREDO ORDERED B12,FOL,TRACY,PROEL,CBCDOrder Info: 2283-11 FOLSOrder Date: 05/26/24Order Info: 0-1 - PROEL Result Comment: The SPE pattern appears unremarkable. Evidence of monoclonal protein is not apparent. Performed at: - [address] [id number] Branding Machine Operator: Pawel Huff PhD, Phone: [phone] Performed By: #### L 100.0100, [id number], L3100.3450 ####[facility] [address] [place], [place], [id number] Protein [Mass/Vol] 6.0 g/dL Normal 6.0-8.5 [facility] Comment on above: Order Comment: DR.VE MONTERO ORDERED CBCD,CMPDROMA ORDERED B12,FOL,TRACY,PROEL,CBCDOrder Info: [id number] - FOLSOrder Date: 05/26/24Order Info: 0060-1 - PROEL Performed By: #### L 100.0100, L503.6550, L3100.3450 ####[facility] [address] [place], [place], [address] Absolute neutrophil countOrd ered By: Quinten Ortiz on 07-07-2024 Neutrophils (Bld) [#/Vol] 5.2 10*3/uL 2.0-7.7 [facility] Addendum DocumentOrdered By: Quinten Ortiz on 07-07-2024 Protein Electrophoresis Note Comment . [facility] Comment on above: The SPE pattern appe ars unremarkable. Evidence ofmonoclonal protein is not apparent.Performed at: [facility] [place] [id number] Director: Pawel Huff PhD, Phone: [phone] Albumin Elph [Mass/Vol]Order ed By: Quinten Ortiz on 07-07-2024 Albumin [Mass/Vol] 3.5 g/dL 2.9-4.4 [facility] Albumin/Globulin Elph [Mass ratio]Ordered By: Quinten Ortiz on 07-07-2024 Albumin/Globulin (PEP) 1.4 0.7-1.7 [facility] Fmvof-9-cbrftusy measurement by protein electrophoresisOrdered By: Quinten Ortiz on 07-07-2024 Uvgwa-6-Ineaopylq 0.2 g/dL 0.0-0.4 [facility] Ffnad-6-jnrrehvh measurement by protein electrophoresisOrdered By: Quinten Ortiz on 07-07-2024 Yzrbf-3-Kfkktbttb 0.7 g/dL 0.4-1.0 [facility] Anion gap in Serum or Plasma Ordered By: Quinten Ortiz on 07-07-2024 Anion gap [Moles/Vol] 11 mmol/L 5-15 [facility] BUN/creatinine ratioOrdered By: Quinten Ortiz on 07-07-2024 Urea nitrogen/Creatinine [Mass ratio] 18.5 mg/mg 10-20 [facility] Basophil percentageOrdered B y: Quinten Ortiz on 07-07-2024 Basophils/100 WBC (Bld) 1.2 % High 0-1 [facility] Beta globulin Elph [Mass/Vol ]Ordered By: Quinten Angel on 07-07-2024 Beta Globulins 0.9 g/dL 0.7-1.3 [facility] Bilirubin, totalOrdered By: Quinten Ortiz on 07-07-2024 Bilirubin [Mass/Vol] 0.35 mg/dL 0.00-1.30 [facility] CBC W/Diff, Automatedon 06-15 Absolute Lymph 1.64 X10 3/uL Normal 0.83-4.51 [facility] Comment on above: Order Comment: DR.VE MONTERO ORDERED CBCD,ALFREDO ORDERED B12,FOL,TRACY,PROEL,CBCDOrder Info: [id number] - FOLSOrder Date: 05/26/24Order Info: 0184-1 - CBCD Performed By: #### L 100.0100, L503.6550, L3100.3450 ####[facility] [address] [place], [address] Absolute Neut 5.2 X10 3/uL Normal 2.0-7.7 [facility] Comment on above: Order Comment: DR.VE MONTERO ORDERED CBCD,ALFREDO ORDERED B12,FOL,TRACY,PROEL,CBCDOrder Info: [id number] - FOLSOrder Date: 05/26/24Order Info: 0184-1 - CBCD Performed By: #### L 100.0100, L503.6550, L3100.3450 ####[facility] [address] [place], [address] Basophils/100 WBC (Bld) 1.2 % High 0-1 [facility] Comment on above: Order Comment: DR.VE MNOTERO ORDERED CBCD,ALFREDO ORDERED B12,FOL,TRACY,PROEL,CBCDOrder Info: [id number] - FOLSOrder Date: 05/26/24Order Info: 0184-1 - CBCD Performed By: #### L 100.0100, L503.6550, L3100.3450 ####[facility] [address] [place], [address] Eosinophils/100 WBC (Bld) 4.3 % Normal 0-5 [facility] Comment on above: Order Comment: DR.VE MONTERO ORDERED CBCD,ALFREDO ORDERED B12,FOL,TRACY,PROEL,CBCDOrder Info: [id number] FOLSOrder Date: 05/26/24Order Info: 018-1 - CBCD Performed By: #### L 100.0100, L503.6550, L3100.3450 ####[facility] [address] [place], [address] Erythrocyte distribution width (RBC) [Ratio] 15.3 % High 11.6-14.6 [facility] Comment on above: Order Comment: DR.VE MONTERO ORDERED CBCD,ALFREDO ORDERED B12,FOL,TRACY,PROEL,CBCDOrder Info: [id number] FOLSOrder Date: 05/26/24Order Info: 183- - CBCD Performed By: #### L 100.0100, L503.6550, L3100.3450 ####[facility] [address] [place], [address] Hematocrit (Bld) [Volume fraction] 43.0 % Normal 40-54 [facility] Comment on above: Order Comment: DR.VE MONTERO ORDERED CBCD,ALFREDO ORDERED B12,FOL,TRACY,PROEL,CBCDOrder Info: 2283-11 FOLSOrder Date: 05/26/24Order Info: 018- - CBCD Performed By: #### L 100.0100, L503.6550, L3100.3450 ####[facility] [address] [place], [address] Hemoglobin (Bld) [Mass/Vol] 14.2 g/dL Normal 13.0-16.5 [facility] Comment on above: Order Comment: DR.VE MONTERO ORDERED CBCD,ALFREDO ORDERED B12,FOL,TRACY,PROEL,CBCDOrder Info: 2283-11 Date: 05/26/24Order Info: 018- - CBCD Performed By: #### L 100.0100, L503.6550, L3100.3450 ####[facility] [address] [place], [address] IG% 0.700 Normal 0.0-0.9 [facility] Comment on above: Order Comment: DR.VE MONTERO ORDERED CBCD,ALFREDO ORDERED B12,FOL,TRACY,PROEL,CBCDOrder Info: 2283-11 Date: 05/26/24Order Info: 018- - CBCD Result Comment: IG% - Immature Granulocytes (promyelocytes, myelocytes and metamyelocytes) > 1% indicates that a LEFT SHIFT is Present. Performed By: #### L 100.0100, L503.6550, L3100.3450 ####[facility] [address] [place], [address] Lymphocytes/100 WBC (Bld) 20.2 % Normal 19-41 [facility] Comment on above: Order Comment: DR.VE MONTERO ORDERED CBCD,ALFREDO ORDERED B12,FOL,TRACY,PROEL,CBCDOrder Info: 2283-11 Date: 05/26/24Order Info: 018- - CBCD Performed By: #### L 100.0100, L503.6550, L3100.3450 ####[facility] [address] [place], [address] MCH (RBC) [Entitic mass] 31.6 pg Normal 27.0-32.0 [facility] Comment on above: Order Comment: DR.VE MONTERO ORDERED CBCD,ALFREDO ORDERED B12,FOL,TRACY,PROEL,CBCDOrder Info: 2283-11SOrder Date: 05/26/24Order Info: 018- - CBCD Performed By: #### L 100.0100, L503.6550, L3100.3450 ####[facility] [address] [place], [address] MCHC (RBC) [Mass/Vol] 33.0 g/dL Normal 32-36 [facility] Comment on above: Order Comment: DR.VE MONTERO ORDERED CBCD,ALFREDO ORDERED B12,FOL,TRACY,PROEL,CBCDOrder Info: 2283-11 - FOLSOrder Date: 05/26/24Order Info: 183-04 - CBCD Performed By: #### L 100.0100, L503.6550, L3100.3450 ####[facility] [address] [place], [address] MCV (RBC) [Entitic vol] 95.8 fL High 80-94 [facility] Comment on above: Order Comment: DR.VE MONTERO ORDERED CBCD,ALFREDO ORDERED B12,FOL,TRACY,PROEL,CBCDOrder Info: 2283-11 FOLSOrder Date: 05/26/24Order Info: 183- - CBCD Performed By: #### L 100.0100, L503.6550, L3100.3450 ####[facility] [address] [place], [address] Monocytes/100 WBC (Bld) 10.1 % High 0-10 [facility] Comment on above: Order Comment: DR.VE MONTERO ORDERED CBCDALFREDO ORDERED B12,FOL,TRACY,PROEL,CBCDOrder Info: 2283-11 FOLSOrder Date: 05/26/24Order Info: 018- - CBCD Performed By: #### L 100.0100, L503.6550, L3100.3450 ####[facility] [address] [place], [address] Neutrophils/100 WBC (Bld) 63.5 % Normal 47-70 [facility] Comment on above: Order Comment: DR.VE MONTERO ORDERED CBCD,ALFREDO ORDERED B12,FOL,TRACY,PROEL,CBCDOrder Info: 2283-11 Date: 05/26/24Order Info: 018- - CBCD Performed By: #### L 100.0100, L503.6550, L3100.3450 ####[facility] [address] [place], [address] Nucleated RBC (Bld) [#/Vol] 0 10*3/uL Normal 0-5 [facility] Comment on above: Order Comment: DR.VE MONTERO ORDERED CBCD,ALFREDO ORDERED B12,FOL,TRACY,PROEL,CBCDOrder Info: 2283-11 FOLSOrder Date: 05/26/24Order Info: 018- - CBCD Performed By: #### L 100.0100, L503.6550, L3100.3450 ####[facility] [address] [place], [address] Platelet mean volume (Bld) [Entitic vol] 10.3 fL Normal 6.2-12.0 [facility] Comment on above: Order Comment: DR.VE MONTERO ORDERED CBCD,ALFREDO ORDERED B12,FOL,TRACY,PROEL,CBCDOrder Info: 2283-11 FOLSOrder Date: 05/26/24Order Info: 018- - CBCD Performed By: #### L 100.0100, L503.6550, L3100.3450 ####[facility] [address] [place], [address] Platelets (Bld) [#/Vol] 177 10*3/uL Normal 150-450 [facility] Comment on above: Order Comment: DR.VE MONTERO ORDERED CBCD,ALFREDO ORDERED B12,FOL,TRACY,PROEL,CBCDOrder Info: 2283-11 FOLSOrder Date: 05/26/24Order Info: 0184- - CBCD Performed By: #### L 100.0100, L503.6550, L3100.3450 ####[facility] [address] [place], [address] RBC (Bld) [#/Vol] 4.49 10*6/uL Low 4.6-6.2 [facility] Comment on above: Order Comment: DR.VE MONTERO ORDERED CBCDALFREDO ORDERED B12,FOL,TRACY,PROEL,CBCDOrder Info: 2283-11 FOLSOrder Date: 05/26/24Order Info: 183-04 - CBCD Performed By: #### L 100.0100, L503.6550, L3100.3450 ####[facility] [address] [place], [address] RDW SD 52.9 fl High 35.1-43.9 [facility] Comment on above: Order Comment: DR.VE MONTERO ORDERED CBCDALFREDO ORDERED B12,FOL,TRACY,PROEL,CBCDOrder Info: 2283-11 FOLSOrder Date: 05/26/24Order Info: 183-04 - CBCD Performed By: #### L 100.0100, L503.6550, L3100.3450 ####[facility] [address] [place], [address] WBC (Bld) [#/Vol] 8.1 10*3/uL Normal 4.4-11.0 [facility] Comment on above: Order Comment: DR.VE MONTERO ORDERED CBCDALFREDO ORDERED B12,FOL,TRACY,PROEL,CBCDOrder Info: 2283-11 FOLSOrder Date: 05/26/24Order Info: 183-04 - CBCD Performed By: #### L 100.0100, L503.6550, L3100.3450 ####[facility] [address] [place], [address] Carbon dioxide, total [Moles /volume] in Central venous bloodOrdered By: Quinten Ortiz on 07-07-2024 CO2 [Moles/Vol] 21.1 mmol/L 21.0-32.0 [facility] Chloride assayOrdered By: Meliton Ortiz on 07-07-2024 Chloride [Moles/Vol] 108 mmol/L 98-108 [facility] Comprehensive Metabolic Prof ilon 07-07-2024 Albumin [Mass/Vol] 4.2 g/dL Normal 3.4-4.8 [facility] Comment on above: Order Comment: DR.VE MONTERO ORDERED CBCD,ALFREDO ORDERED B12,FOL,TRACY,PROEL,CBCDOrder Info: 2283-11 - FOLS Performed By: #### L 500.4050, L506.0200, L501.9985, L503.0106 ####[facility] [address] [place], [address] Albumin/Globulin [Mass ratio] 1.8 {ratio} Normal 0.9-2.4 [facility] Comment on above: Order Comment: DR.VE MONTERO ORDERED CBCDALFREDO ORDERED B12,FOL,TRACY,PROEL,CBCDOrder Info: 2283-11 - FOLS Performed By: #### L 500.4050, L506.0200, L501.9985, L503.0106 ####[facility] [address] [place], [address] ALK PHOS 79 U/L Normal 40-129 [facility] Comment on above: Order Comment: DR.VE MONTERO ORDERED CBCDALFREDO ORDERED B12,FOL,TRACY,PROEL,CBCDOrder Info: 2283-11 - FOLS Performed By: #### L 500.4050, L506.0200, L501.9985, L503.0106 ####[facility] [address] [place], [address] ALT [Catalytic activity/Vol] 41 U/L Normal <=46 [facility] Comment on above: Order Comment: DR.VE MONTERO ORDERED CBCD,ALFREDO ORDERED B12,FOL,TRACY,PROEL,CBCDOrder Info: 2283-11 FOLS Performed By: #### L 500.4050, L506.0200, L501.9985, L503.0106 ####[facility] [address] [place], [address] AST [Catalytic activity/Vol] 27 U/L Normal <=37 [facility] Comment on above: Order Comment: DR.VE MONTERO ORDERED CBCD,ALFREDO ORDERED B12,FOL,TRACY,PROEL,CBCDOrder Info: 2283-11 - FOLS Performed By: #### L 500.4050, L506.0200, L501.9985, L503.0106 ####[facility] [address] [place], [address] Bilirubin [Mass/Vol] 0.35 mg/dL Normal 0.00-1.30 [facility] Comment on above: Order Comment: DR.VE MONTERO ORDERED CBCD,ALFREDO ORDERED B12,FOL,TRACY,PROEL,CBCDOrder Info: 2283-11 - FOLS Performed By: #### L 500.4050, L506.0200, L501.9985, L503.0106 ####[facility] [address] [place], [address] BUN/CRE 18.5 RATIO Normal 10-20 [facility] Comment on above: Order Comment: DR.VE MONTERO ORDERED CBCDALFREDO ORDERED B12,FOL,TRACY,PROEL,CBCDOrder Info: 2283-11 FOLS Performed By: #### L 500.4050, L506.0200, L501.9985, L503.0106 ####[facility] [address] [place], [address] Calcium [Mass/Vol] 9.3 mg/dL Normal 7.6-11.0 [facility] Comment on above: Order Comment: DR.VE MONTERO ORDERED CBCD,ALFREDO ORDERED B12,FOL,TRACY,PROEL,CBCDOrder Info: 2283-11 - FOLS Performed By: #### L 500.4050, L506.0200, L501.9985, L503.0106 ####[facility] [address] [place], [address] Chloride [Moles/Vol] 108 mmol/L Normal 98-108 [facility] Comment on above: Order Comment: DR.VE MONTERO ORDERED CBCD,ALFREDO ORDERED B12,FOL,TRACY,PROEL,CBCDOrder Info: 2283-11 - FOLS Performed By: #### L 500.4050, L506.0200, L501.9985, L503.0106 ####[facility] [address] [place], [address] CO2 [Moles/Vol] 21.1 mmol/L Normal 21.0-32.0 [facility] Comment on above: Order Comment: DR.VE MONTERO ORDERED CBCD,ALFREDO ORDERED B12,FOL,TRACY,PROEL,CBCDOrder Info: 2283-11 - FOLS Performed By: #### L 500.4050, L506.0200, L501.9985, L503.0106 ####[facility] [address] [place], [address] Creatinine [Mass/Vol] 1.12 mg/dL Normal 0.70-1.20 [facility] Comment on above: Order Comment: DR.VE MONTERO ORDERED CBCD,ALFREDO ORDERED B12,FOL,TRACY,PROEL,CBCDOrder Info: 2283-11 - FOLS Performed By: #### L 500.4050, L506.0200, L501.9985, L503.0106 ####[facility] [address] [place], [address] GAP 11 Normal 5-15 [facility] Comment on above: Order Comment: DR.VE MONTERO ORDERED ALFREDO SWANSON ORDERED B12,FOL,TRACY,PROEL,CBCDOrder Info: 2283-11 - FOLS Performed By: #### L 500.4050, L506.0200, L501.9985, L503.0106 ####[facility] [address] [place], [address] GFR/1.73 sq M.predicted among non-blacks MDRD (S/P/Bld) [Vol rate/Area] 72 mL/min/{1.73_m2} Normal >60 [facility] Comment on above: Order Comment: DR.VE MONTERO ORDERED ALFREDO SWANSON ORDERED B12,FOL,TRACY,PROEL,CBCDOrder Info: 2283-11 - FOLS Result Comment: mL/m in/1.73m2 CKD-EPI Creatinine Equation (2020) Performed By: #### L 500.4050, L506.0200, L501.9985, L503.0106 ####[facility] [address] [place], [address] Globulin (S) [Mass/Vol] 2.3 g/dL Normal 2.2-4.2 [facility] Comment on above: Order Comment: DR.VE MONTERO ORDERED ALFREDO SWANSON ORDERED B12,FOL,TRACY,PROEL,CBCDOrder Info: 2283-11 - FOLS Performed By: #### L 500.4050, L506.0200, L501.9985, L503.0106 ####[facility] [address] [place], [address] Glucose [Mass/Vol] 100 mg/dL High 70-99 [facility] Comment on above: Order Comment: DR.VE MONTERO ORDERED ALFREDO SWANSON ORDERED B12,FOL,TRACY,PROEL,CBCDOrder Info: 2283-11 - FOLS Performed By: #### L 500.4050, L506.0200, L501.9985, L503.0106 ####[facility] [address] [place], [address] Potassium [Moles/Vol] 4.1 mmol/L Normal 3.3-5.1 [facility] Comment on above: Order Comment: DR.VE MONTERO ORDERED CBCALFREDO Meng ORDERED B12,FOL,TRACY,PROEL,CBCDOrder Info: 2283-11 - FOLS Performed By: #### L 500.4050, L506.0200, L501.9985, L503.0106 ####[facility] [address] [place], [address] Sodium [Moles/Vol] 140 mmol/L Normal 133-145 [facility] Comment on above: Order Comment: DR.VE MONTERO ORDERED CBCALFREDO Meng ORDERED B12,FOL,TRACY,PROEL,CBCDOrder Info: 2283-11 - FOLS Performed By: #### L 500.4050, L506.0200, L501.9985, L503.0106 ####[facility] [address] [place], [address] T PROT 6.5 g/dL Normal 5.9-8.4 [facility] Comment on above: Order Comment: DR.VE MONTERO ORDERED ALFREDO SWANSON ORDERED B12,FOL,TRACY,PROEL,CBCDOrder Info: 2283-11 - FOLS Performed By: #### L 500.4050, L506.0200, L501.9985, L503.0106 ####[facility] [address] [place], [address] Urea nitrogen [Mass/Vol] 21 mg/dL High 4-19 [facility] Comment on above: Order Comment: DR.VE MONTERO ORDERED CBCALFREDO Meng ORDERED B12,FOL,TRACY,PROEL,CBCDOrder Info: 2283-11 - FOLS Performed By: #### L 500.4050, L506.0200, L501.9985, L503.0106 ####[facility] [address] [place], [address] Eosinophil percentageOrdered By: Quinten Ortiz on 07-07-2024 Eosinophils/100 WBC (Bld) 4.3 % 0-5 [facility] Erythrocyte distribution wid th ratioOrdered By: Quinten Ortiz on 07-07-2024 Erythrocyte distribution width (RBC) [Ratio] 15.3 % High 11.6-14.6 [facility] Erythrocyte distribution wid th standard deviationOrdered By: Quinten Ortiz on 07-07-2024 Erythrocyte distribution width (RBC) [Entitic vol] 52.9 fL High 35.1-43.9 [facility] FOLATES,SERUM (FOLIC ACID)on 07-07-2024 FOLATES,SERUM 26.80 ng/mL Normal 4.60-34.80 [facility] Comment on above: Order Comment: DR.VE MONTERO ORDERED CBCD,ALFREDO ORDERED B12,FOL,TRACY,PROEL,CBCDOrder Info: 22807-22 - FOLSN Performed By: #### L 500.4050, L506.0200, L501.9985, L503.0106 ####[facility] [address] [place], [place], [id number] Ferritinon 07-07-2024 Ferritin [Mass/Vol] 173 ng/mL Normal 37-417 [facility] Comment on above: Order Comment: DR.VE MONTERO ORDERED CBCD,ALFREDO ORDERED B12,FOL,TRACY,PROEL,CBCDOrder Info: 2283- - FOLS Performed By: #### L 100.0100, L503.6550, L3100.3450 ####[facility] [address] [facility] [address] [place], [place], [id number] Folate [Mass/Vol]Ordered By: Quinten Ortiz on 07-07-2024 Serum Folate 26.80 ng/mL 4.60-34.80 [facility] GFR/1.73 sq M.predicted anika g non-blacks MDRD (S/P/Bld) [Vol rate/Area]Ordered By: Quinten Ortiz on 07-07-2024 Estimated GFR (MDRD) Non-Af Amer 72 >60 [facility] Comment on above: mL/min/1.73m2 CKD-EP I Creatinine Equation (2020) Gamma globulin measurement b y protein electrophoresisOrdered By: Quinten Ortiz on 07-07-2024 Gamma Globulins 0.7 g/dL 0.4-1.8 [facility] Globulin (S) [Mass/Vol]Order ed By: Quinten Ortiz on 07-07-2024 Globulin (PEP) 2.5 g/dL 2.2-3.9 [facility] Hematocrit Auto (Bld) [Volum e fraction]Ordered By: Quinten Ortiz on 07-07-2024 Hematocrit (Bld) [Volume fraction] 43.0 % 40-54 [facility] Hemoglobin A1c percentageOrd ered By: Quinten Ortiz on 07-07-2024 HbA1c (Bld) [Mass fraction] 5.3 % Low >5.7 [facility] Hemoglobin measurementOrdere d By: Quinten Ortiz on 07-07-2024 Hemoglobin (Bld) [Mass/Vol] 14.2 g/dL 13.0-16.5 [facility] Immature granulocytes/100 WB C Auto (Bld)Ordered By: Quinten Ortiz on 07-07-2024 Immature granulocytes/100 WBC (Bld) 0.700 % 0.0-0.9 [facility] Comment on above: IG% - Immature Granu locytes (promyelocytes, myelocytes and metamyelocytes) > 1% indicates that a LEFT SHIFT is Present. L503.0106on 07-07-2024 Cobalamin (Vitamin B12) [Mass/Vol] 699 pg/mL Normal 180-914 [facility] Comment on above: Order Comment: DR.VE MONTERO ORDERED CBCD,ALFREDO ORDERED B12,FOL,TRACY,PROEL,CBCDOrder Info: 2284-8 - FOLS Performed By: #### L 500.4050, L506.0200, L501.9985, L503.0106 ####[facility] [address] [place], [place], [address] Laboratory - Chemistry and C hemistry - challengeOrdered By: Quinten Ortiz on 07-07-2024 AST [Catalytic activity/Vol] 27 U/L <38 [facility] Lymphocytes Auto (Unsp spec) [#/Vol]Ordered By: Quinten Ortiz on 07-07-2024 Lymphocytes (Bld) [#/Vol] 1.64 10*3/uL 0.83-4.51 [facility] Lymphocytes/100 WBC Auto (Un sp spec)Ordered By: Quinten Ortiz on 07-07-2024 Lymphocytes/100 WBC (Bld) 20.2 % 19-41 [facility] MCV (mean corpuscular volume ) determinationOrdered By: Quinten Ortiz on 07-07-2024 MCV (RBC) [Entitic vol] 95.8 fL High 80-94 [facility] Mean corpuscular hemoglobin (MCH) determinationOrdered By: Quinten Ortiz on 07-07-2024 MCH (RBC) [Entitic mass] 31.6 pg 27.0-32.0 [facility] Mean corpuscular hemoglobin concentration (MCHC) determinationOrdered By: Quinten Ortiz on 07-07-2024 MCHC (RBC) [Mass/Vol] 33.0 g/dL 32-36 [facility] Mean platelet volume determi nationOrdered By: Quinten Ortiz on 07-07-2024 Platelet mean volume (Bld) [Entitic vol] 10.3 fL 6.2-12.0 [facility] Monocyte percentageOrdered B y: Quinten Ortiz on 07-07-2024 Monocytes/100 WBC (Bld) 10.1 % High 0-10 [facility] Neutrophil percentageOrdered By: Quinten Ortiz on 07-07-2024 Neutrophils/100 WBC (Bld) 63.5 % 47-70 [facility] Nucleated red blood cell per centageOrdered By: Quinten Ortiz on 07-07-2024 Nucleated RBC/100 WBC (Bld) [Ratio] 0 % 0-5 [facility] Platelet countOrdered By: Meliton Ortiz on 07-07-2024 Platelets (Bld) [#/Vol] 177 10*3/uL 150-450 [facility] Potassium (Unsp spec) [Mass/ Vol]Ordered By: Quinten Ortiz on 07-07-2024 Potassium [Moles/Vol] 4.1 mmol/L 3.3-5.1 [facility] Protein Fractions Elph [Inte rp]Ordered By: Quinten Ortiz on 07-07-2024 Protein Electrophoresis Interpret Comment . [facility] Comment on above: Protein electrophore sis scan will follow via computer,mail, or associate professor of geography delivery. Protein.monoclonal Elph [Mas s/Vol]Ordered By: Quinten Ortiz on 07-07-2024 Protein Electrophoresis M-Sherif Not Observed g/dL Not Observed [facility] RBC Auto (Bld) [#/Vol]Ordere d By: Quinten Ortiz on 07-07-2024 RBC (Bld) [#/Vol] 4.49 10*6/uL Low 4.6-6.2 [facility] Serum creatinine measurement (mass/volume)Ordered By: Quinten Ortiz on 07-07-2024 Creatinine [Mass/Vol] 1.12 mg/dL 0.70-1.20 [facility] Serum globulin measurementOr dered By: Quinten Ortiz on 07-07-2024 Globulin (S) [Mass/Vol] 2.3 g/dL 2.2-4.2 [facility] Serum glucose measurement (m ass/volume)Ordered By: Quinten Ortiz on 07-07-2024 Glucose [Mass/Vol] 100 mg/dL High 70-99 [facility] Serum or plasma alanine santacruz otransferase (ALT) measurementOrdered By: Quinten Ortiz on 07-07-2024 ALT [Catalytic activity/Vol] 41 U/L <47 [facility] Serum or plasma albumin regino urement (mass/volume)Ordered By: Quinten Ortiz on 07-07-2024 Albumin [Mass/Vol] 4.2 g/dL 3.4-4.8 [facility] Serum or plasma albumin/glob ulin mass ratioOrdered By: Quinten Ortiz on 07-07-2024 Albumin/Globulin [Mass ratio] 1.8 {ratio} 0.9-2.4 [facility] Serum or plasma alkaline yesenia sphatase measurementOrdered By: Quinten Ortiz on 07-07-2024 ALP [Catalytic activity/Vol] 79 U/L 40-129 [facility] Serum or plasma calcium regino urement (mass/volume)Ordered By: Quinten Ortiz on 07-07-2024 Calcium [Mass/Vol] 9.3 mg/dL 7.6-11.0 [facility] Serum or plasma ferritin renard surement (mass/volume)Ordered By: Quinten Ortiz on 07-07-2024 Ferritin [Mass/Vol] 173 ng/mL 37-417 [facility] Serum or plasma protein regino urement (mass/volume)Ordered By: Quinten Ortiz on 07-07-2024 Protein [Mass/Vol] 6.0 g/dL 6.0-8.5 [facility] Serum or plasma urea nitroge n measurement (mass/volume)Ordered By: Quinten Ortiz on 07-07-2024 Urea nitrogen [Mass/Vol] 21 mg/dL High 4-19 [facility] Sodium levelOrdered By: Quinten Ortiz on 07-07-2024 Sodium [Moles/Vol] 140 mmol/L 133-145 [facility] Total proteinOrdered By: Sharmin Ortiz on 07-07-2024 Protein [Mass/Vol] 6.5 g/dL 5.9-8.4 [facility] Vitamin B12 ser/plasOrdered By: Quinten Ortiz on 07-07-2024 Cobalamin (Vitamin B12) [Mass/Vol] 699 pg/mL 180-914 [facility] White blood cell (WBC) count Ordered By: Quinten Ortiz on 07-07-2024 WBC (Bld) [#/Vol] 8.1 10*3/uL 4.4-11.0 [facility] Pulmonary Visit Reporton Pulmonary Visit Report [facility] [address] [place] [address] OFFICE VISIT Date of Service: 06/23/24 MR#: [id number] Acct: [id number] Name: KAREY ANDREWS III Rep #: [id number] : 1955 Provider: RICHA Sarabia Age/Sex: 69/M [place] [facility] [place] Status: Signed Assessment and Plan Assessment and Plan (1) Asthma: Status: Acute Plan: Deteriorated. He appears to be an exacerbation of asthma today. I am treating him with a 10-day course of doxycycline and a 5-day prednisone burst. He is to call the office if symptoms do not improve after 48 hours on the antibiotics. He conveys understanding and is agreeable with this plan. (2) BRENNON (obstructive sleep apnea): Status: Chronic Comment: CPAP 12 cm water Plan: He is using and benefiting from Pap therapy. No indication for titration study at this time. Contact the office for any new or worsening symptoms in the meantime. Follow-up in 1 year. (3) Obesity: Status: Chronic Comment: BMI 34.2% Plan: Complicates exam, plan, care and prognosis. Continue to encourage weight loss. Orders: Orders [facility] Today J45.909 - Unspecified asthma, uncomplicated Medications: New doxycycline hyclate 100 mg PO BID 20 tabs 0RF prednisone administer with food or milk 60 mg (3 x 20 mg) PO QDAY 5 days 15 tabs 0RF Discontinued budesonide-formoterol 160-4.5 mcg/actuation (Symbicort) Discontinued Reason: Order Changed 2 inhalations inhalation Q12H 3 ea 3RF asthma Plan Details Follow Up: 1 Year HPI 1 Y FU Chief Complaint: Routine follow-up HPI Comments Details: This patient presents to the office today for follow-up of his obstructive sleep apnea. He is ambulatory and currently on room air. He has not recently been seen in the ED or urgent care for any respiratory illness. He does report that he developed cold-like symptoms about 1 week ago. He has not been seen by his primary care doctor, has not been prescribed any antibiotics or prednisone for the symptoms. He is compliant with Breztri 2 puffs twice daily. He does report rinsing his mouth out after each use. He denies any medication side effect such as sore throat or thrush. He is using Airsupra a couple times a week. He does have an increase in shortness of breath. He has a cough that is productive but he is unsure of the color. He has chest congestion and wheezing but denies any chest pain or palpitations. He has not had any fever, chills or body aches. He wakes feeling rested refreshed with the use of his PAP device. He finds it comforting to use his PAP machine. He denies any difficulty with dry mouth or morning headaches. He is not requiring naps and is not nodding off to sleep unintentionally. Compliance report for the past 30 days shows 93% compliance and average use of 8 hours and 23 minutes per night. Current setting is CPAP 12 cmH2O with residual AHI 0.4 events per hour. Leaks do not appear to be problematic. Intake Vital Signs 06/21/23 05:46 12/25/23 13:26 06/23/24 08:51 Height 5 ft 9 in 5 ft 9 in 5 ft 9 in Weight: 232 lb BMI 34.2 BP 124/82 H Blood Pressure Location Lt brachial Position Sitting Respiration 18 Pulse 85 Pulse Source Monitor Temp 97.4 F L Temperature Source Temporal Artery Pulse Oximetry (%) 96 Oxygen Delivery Method room air Intake Visit Reasons: 1 Y FU Chief Complaint: Right ear pain [employer]er Skyl[employer] Required: No DME Vendor: Andrez Accompanied by: Self Allergies amoxicillin trihydrate (From Augmentin) Allergy (Intermediate, Verified 06/23/24 13:36) Rash potassium clavulanate (From Augmentin) Allergy (Intermediate, Verified 06/23/24 13:36) Rash losartan Adverse Reaction (Intermediate, Verified 06/23/24 13:36) Other Medications ???Medication ???Instructions ???Recorded ???Confirmed ???Type allopurinol 300 mg tablet 300 mg PO DAILY 09/11/14 06/23/24 History amlodipine 5 mg tablet 5 mg PO DAILY 09/11/14 06/23/24 Hi story montelukast 10 mg tablet 10 mg PO DAILY 09/11/14 06/23/24 H istory simvastatin 40 mg tablet 40 mg PO QHS cholesterol 09/11/14 06/23/24 History hydroxychloroquine 200 mg tablet 200 mg PO BID 04/03/17 06/23/24 Hi story ketotifen fumarate 0.025 % (0.035 1 drp ophthalmic (eye) BID 06/23/24 History %) eye drops (Zaditor) latanoprost 0.005 % eye drops 1 drp ophthalmic (eye) DAILY 10/3006/23/24 History multivitamin 1 tab PO DAILY 10/30/22 06/23/24 H istory ascorbic acid (vitamin C) 250 mg 500 mg PO BID 11/01/22 06/23/24 Hi story tablet chlorpheniramine maleate 4 mg 4 mg PO DAILY 11/01/22 06/23/24 Hi story tablet (Allergy (chlorpheniramine)) famotidine 20 mg tablet 20 mg PO DAILY 11/01/22 06/23/24 H istory tramadol 50 mg tablet 50 mg PO (more content not included)... Normal [facility] Absolute neutrophil countOrd ered By: Erum Hayes on 04-22-2024 Neutrophils (Bld) [#/Vol] 4.5 10*3/uL 2.0-7.7 [facility] Albumin to globulin ratioOrd ered By: Erum Hayes on 04-22-2024 Albumin/Globulin [Mass ratio] 1.2 {ratio} 0.9-2.4 [facility] Basophil percentageOrdered B y: Erum Hayes on 04-22-2024 Basophils/100 WBC (Bld) 1.3 % High 0-1 [facility] Bilirubin, totalOrdered By: Erum Hayes on 04-22-2024 Bilirubin [Mass/Vol] 0.40 mg/dL 0.20-1.00 [facility] Comment on above: For patients on eltr ombopag therapy, use of Dimension [place] TBIL is not recommended. Blood urea nitrogen (BUN)/cr eatinine ratioOrdered By: Erum Hayes on 04-22-2024 Urea nitrogen/Creatinine [Mass ratio] 16.4 mg/mg 10-20 [facility] CBC W/Diff, Automatedon Absolute Lymph 1.82 X10 3/uL Normal 0.83-4.51 [facility] Comment on above: Performed By: #### L 100.0100, L500.4050 ####[facility] [address] [place], [address] Absolute Neut 4.5 X10 3/uL Normal 2.0-7.7 [facility] Comment on above: Performed By: #### L 100.0100, L500.4050 ####[facility] [address] [place], [address] Basophils/100 WBC (Bld) 1.3 % High 0-1 [facility] Comment on above: Performed By: #### L 100.0100, L500.4050 ####[facility] [address] [place], [address] Eosinophils/100 WBC (Bld) 5.9 % High 0-5 [facility] Comment on above: Performed By: #### L 100.0100, L500.4050 ####[facility] [address] [place], [address] Erythrocyte distribution width (RBC) [Ratio] 14.8 % High 11.6-14.6 [facility] Comment on above: Performed By: #### L 100.0100, L500.4050 ####[facility] [address] [place], [address] Hematocrit (Bld) [Volume fraction] 45.4 % Normal 40-54 [facility] Comment on above: Performed By: #### L 100.0100, L500.4050 ####[facility] [address] [place], [address] Hemoglobin (Bld) [Mass/Vol] 15.1 g/dL Normal 13.0-16.5 [facility] Comment on above: Performed By: #### L 100.0100, L500.4050 ####[facility] [address] [place], [address] IG% 0.800 Normal 0.0-0.9 [facility] Comment on above: Result Comment: IG% - Immature Granulocytes (promyelocytes, myelocytes and metamyelocytes) > 1% indicates that a LEFT SHIFT is Present. Performed By: #### L 100.0100, L500.4050 ####[facility] [address] [place], [address] Lymphocytes/100 WBC (Bld) 22.9 % Normal 19-41 [facility] Comment on above: Performed By: #### L 100.0100, L500.4050 ####[facility] [address] [place], [address] MCH (RBC) [Entitic mass] 31.3 pg Normal 27.0-32.0 [facility] Comment on above: Performed By: #### L 100.0100, L500.4050 ####[facility] [address] [place], [address] MCHC (RBC) [Mass/Vol] 33.3 g/dL Normal 32-36 [facility] Comment on above: Performed By: #### L 100.0100, L500.4050 ####[facility] [address] [place], [address] MCV (RBC) [Entitic vol] 94.0 fL Normal 80-94 [facility] Comment on above: Performed By: #### L 100.0100, L500.4050 ####[facility] [address] [place], [address] Monocytes/100 WBC (Bld) 12.7 % High 0-10 [facility] Comment on above: Performed By: #### L 100.0100, L500.4050 ####[facility] [address] [place], [address] Neutrophils/100 WBC (Bld) 56.4 % Normal 47-70 [facility] Comment on above: Performed By: #### L 100.0100, L500.4050 ####[facility] [address] [place], [address] Nucleated RBC (Bld) [#/Vol] 0 10*3/uL Normal 0-5 [facility] Comment on above: Performed By: #### L 100.0100, L500.4050 ####[facility] [address] [place], [address] Platelet mean volume (Bld) [Entitic vol] 9.6 fL Normal 6.2-12.0 [facility] Comment on above: Performed By: #### L 100.0100, L500.4050 ####[facility] [address] [place], [address] Platelets (Bld) [#/Vol] 191 10*3/uL Normal 150-450 [facility] Comment on above: Performed By: #### L 100.0100, L500.4050 ####[facility] [address] [place], [address] RBC (Bld) [#/Vol] 4.83 10*6/uL Normal 4.6-6.2 [facility] Comment on above: Performed By: #### L 100.0100, L500.4050 ####[facility] [address] [place], [address] RDW SD 51.0 fl High 35.1-43.9 [facility] Comment on above: Performed By: #### L 100.0100, L500.4050 ####[facility] [address] [place], [address] WBC (Bld) [#/Vol] 7.9 10*3/uL Normal 4.4-11.0 [facility] Comment on above: Performed By: #### L 100.0100, L500.4050 ####[facility] [address] [place], [address] Carbon dioxide measurementOr dered By: Erum Hayes on 04-22-2024 CO2 [Moles/Vol] 24.0 mmol/L 21.0-32.0 [facility] Chloride measurementOrdered By: Erum Hayes on 04-22-2024 Chloride [Moles/Vol] 110 mmol/L High 98-107 [facility] Comprehensive Metabolic Prof ilon 04-22-2024 Albumin [Mass/Vol] 3.7 g/dL Normal 3.2-5.0 [facility] Comment on above: Performed By: #### L 100.0100, L500.4050 ####[facility] [address] [place], [address] Albumin/Globulin [Mass ratio] 1.2 {ratio} Normal 0.9-2.4 [facility] Comment on above: Performed By: #### L 100.0100, L500.4050 ####[facility] [address] [place], [address] ALK P 85 U/L Normal 45-117 [facility] Comment on above: Performed By: #### L 100.0100, L500.4050 ####[facility] [address] [place], [address] ALT [Catalytic activity/Vol] 48 U/L Normal 16-61 [facility] Comment on above: Performed By: #### L 100.0100, L500.4050 ####[facility] [address] [place], [address] AST [Catalytic activity/Vol] 23 U/L Normal 15-37 [facility] Comment on above: Performed By: #### L 100.0100, L500.4050 ####[facility] [address] [place], [address] Bilirubin [Mass/Vol] 0.40 mg/dL Normal 0.20-1.00 [facility] Comment on above: Result Comment: For patients on eltrombopag therapy, use of Dimension [place] TBIL is not recommended. Performed By: #### L 100.0100, L500.4050 ####[facility] [address] [place], [address] BUN/CRE 16.4 RATIO Normal 10-20 [facility] Comment on above: Performed By: #### L 100.0100, L500.4050 ####[facility] [address] [place], [address] CA,Total 8.8 mg/dL Normal 8.5-10.1 [facility] Comment on above: Performed By: #### L 100.0100, L500.4050 ####[facility] [address] [place], [address] Chloride [Moles/Vol] 110 mmol/L High 98-107 [facility] Comment on above: Performed By: #### L 100.0100, L500.4050 ####[facility] [address] [place], [address] CO2 [Moles/Vol] 24.0 mmol/L Normal 21.0-32.0 [facility] Comment on above: Performed By: #### L 100.0100, L500.4050 ####[facility] [address] [place], [address] Creatinine [Mass/Vol] 1.22 mg/dL Normal 0.70-1.30 [facility] Comment on above: Result Comment: The validity of the calculated GFR GFRAA in patients over 70 years has not been determined. Clinical correlation is essential. Performed By: #### L 100.0100, L500.4050 ####[facility] [address] [place], [address] EST GFR - AA 76 mL/min Normal >60 [facility] Comment on above: Result Comment: Afri can [place] GFR Calc Performed By: #### L 100.0100, L500.4050 ####[facility] [address] [place], [address] GAP 6 Normal 5-15 [facility] Comment on above: Performed By: #### L 100.0100, L500.4050 ####[facility] [address] [place], [address] GFR/1.73 sq M.predicted among non-blacks MDRD (S/P/Bld) [Vol rate/Area] 63 mL/min/{1.73_m2} Normal >60 [facility] Comment on above: Result Comment: Non- GFR Calc Performed By: #### L 100.0100, L500.4050 ####[facility] [address] [place], [address] Globulin (S) [Mass/Vol] 3.1 g/dL Normal 2.2-4.2 [facility] Comment on above: Performed By: #### L 100.0100, L500.4050 ####[facility] [address] [place], [address] Glucose [Mass/Vol] 105 mg/dL Normal 74-106 [facility] Comment on above: Result Comment: Fast ing Glucose result from 100 to 125 mg/dL suggests IMPAIRED HOMEOSTASIS per A.D.A. criteria. Performed By: #### L 100.0100, L500.4050 ####[facility] [address] [place], [address] Potassium [Moles/Vol] 3.8 mmol/L Normal 3.5-5.1 [facility] Comment on above: Performed By: #### L 100.0100, L500.4050 ####[facility] [address] [place], [address] Sodium [Moles/Vol] 140 mmol/L Normal 136-145 [facility] Comment on above: Performed By: #### L 100.0100, L500.4050 ####[facility] [address] [place], [address] T PROT 6.8 g/dL Normal 6.4-8.2 [facility] Comment on above: Performed By: #### L 100.0100, L500.4050 ####[facility] [address] [place], [address] Urea nitrogen [Mass/Vol] 20 mg/dL High 7-18 [facility] Comment on above: Performed By: #### L 100.0100, L500.4050 ####[facility] [address] [place], [address] Eosinophil percentageOrdered By: Erum Hayes on 04-22-2024 Eosinophils/100 WBC (Bld) 5.9 % High 0-5 [facility] Erythrocyte distribution wid th ratioOrdered By: Erum Hayes on 04-22-2024 Erythrocyte distribution width (RBC) [Ratio] 14.8 % High 11.6-14.6 [facility] Erythrocyte distribution wid th standard deviationOrdered By: Erum Hayes on 04-22-2024 Erythrocyte distribution width (RBC) [Entitic vol] 51.0 fL High 35.1-43.9 [facility] Estimated glomerular filtrat ion rate (GFR) AmericanOrdered By: Erum Hayes on 04-22-2024 Estimated GFR (MDRD) Amer 76 mL/min >60 [facility] Comment on above: GFR Calc Glomerular filtration rate ( GFR) estimationOrdered By: Erum Hayes on 04-22-2024 Estimated GFR (MDRD) Non-Af Amer 63 mL/min >60 [facility] Comment on above: Non- GFR Calc Glucose measurementOrdered B y: Erum Hayes on 04-22-2024 Glucose [Mass/Vol] 105 mg/dL 74-106 [facility] Comment on above: Fasting Glucose resu lt from 100 to 125 mg/dL suggests IMPAIRED HOMEOSTASIS per A.D.A. criteria. Hematocrit Auto (Bld) [Volum e fraction]Ordered By: Erum Hayes on 04-22-2024 Hematocrit (Bld) [Volume fraction] 45.4 % 40-54 [facility] Hemoglobin measurementOrdere d By: Erum Hayes on 04-22-2024 Hemoglobin (Bld) [Mass/Vol] 15.1 g/dL 13.0-16.5 [facility] Immature granulocytes/100 WB C Auto (Bld)Ordered By: Erum Hayes on 04-22-2024 Immature granulocytes/100 WBC (Bld) 0.800 % 0.0-0.9 [facility] Comment on above: IG% - Immature Granu locytes (promyelocytes, myelocytes and metamyelocytes) > 1% indicates that a LEFT SHIFT is Present. Laboratory - Chemistry and C hemistry - challengeOrdered By: Erum Hayes on 04-22-2024 AST [Catalytic activity/Vol] 23 U/L 15-37 [facility] Lymphocytes Auto (Unsp spec) [#/Vol]Ordered By: Erum Hayes on 04-22-2024 Lymphocytes (Bld) [#/Vol] 1.82 10*3/uL 0.83-4.51 [facility] Lymphocytes/100 WBC Auto (Un sp spec)Ordered By: Erum Hayes on 04-22-2024 Lymphocytes/100 WBC (Bld) 22.9 % 19-41 [facility] MCV (mean corpuscular volume ) determinationOrdered By: Erum Hayes on 04-22-2024 MCV (RBC) [Entitic vol] 94.0 fL 80-94 [facility] Mean corpuscular hemoglobin (MCH) determinationOrdered By: Erumcelia Hayes on 04-22-2024 MCH (RBC) [Entitic mass] 31.3 pg 27.0-32.0 [facility] Mean corpuscular hemoglobin concentration (MCHC) determinationOrdered By: Erum Hayes on 04-22-2024 MCHC (RBC) [Mass/Vol] 33.3 g/dL 32-36 [facility] Mean platelet volume determi nationOrdered By: Erum Hayes on 04-22-2024 Platelet mean volume (Bld) [Entitic vol] 9.6 fL 6.2-12.0 [facility] Monocyte percentageOrdered B y: Erum Hayes on 04-22-2024 Monocytes/100 WBC (Bld) 12.7 % High 0-10 [facility] Neutrophil percentageOrdered By: Erum Hayes on 04-22-2024 Neutrophils/100 WBC (Bld) 56.4 % 47-70 [facility] Nucleated red blood cell per centageOrdered By: Erum Hayes on 04-22-2024 Nucleated RBC/100 WBC (Bld) [Ratio] 0 % 0-5 [facility] Platelet countOrdered By: Samy Hayes on 04-22-2024 Platelets (Bld) [#/Vol] 191 10*3/uL 150-450 [facility] Potassium measurementOrdered By: Erum Hayes on 04-22-2024 Potassium [Moles/Vol] 3.8 mmol/L 3.5-5.1 [facility] RBC Auto (Bld) [#/Vol]Ordere d By: Erum Hayes on 04-22-2024 RBC (Bld) [#/Vol] 4.83 10*6/uL 4.6-6.2 [facility] Serum anion gap measurementO rdered By: Erum Hayes on 04-22-2024 Anion gap [Moles/Vol] 6 mmol/L 5-15 [facility] Serum globulin measurementOr dered By: Erum Hayes on 04-22-2024 Globulin (S) [Mass/Vol] 3.1 g/dL 2.2-4.2 [facility] Serum or plasma alanine santacruz otransferase (ALT) measurementOrdered By: Erum Hayes on 04-22-2024 ALT [Catalytic activity/Vol] 48 U/L 16-61 [facility] Serum or plasma albumin regino urement (mass/volume)Ordered By: Erum Hayes on 04-22-2024 Albumin [Mass/Vol] 3.7 g/dL 3.2-5.0 [facility] Serum or plasma alkaline yesenia sphatase measurementOrdered By: Erum Hayes on 04-22-2024 ALP [Catalytic activity/Vol] 85 U/L 45-117 [facility] Serum or plasma calcium regino urement (mass/volume)Ordered By: Erum Hayes on 04-22-2024 Calcium [Mass/Vol] 8.8 mg/dL 8.5-10.1 [facility] Serum or plasma creatinine m easurement (mass/volume)Ordered By: Erum Hayes on 04-22-2024 Creatinine [Mass/Vol] 1.22 mg/dL 0.70-1.30 [facility] Comment on above: The validity of the calculated GFR & GFRAA in patients over 70 years has not been determined. Clinical correlation is essential. Serum or plasma urea nitroge n measurement (mass/volume)Ordered By: Erum Hayes on 04-22-2024 Urea nitrogen [Mass/Vol] 20 mg/dL High 7-18 [facility] Sodium levelOrdered By: Melchor Hayes on 04-22-2024 Sodium [Moles/Vol] 140 mmol/L 136-145 [facility] Total proteinOrdered By: Karen Hayes on 04-22-2024 Protein [Mass/Vol] 6.8 g/dL 6.4-8.2 [facility] White blood cell (WBC) count Ordered By: Erum Hayes on 04-22-2024 WBC (Bld) [#/Vol] 7.9 10*3/uL 4.4-11.0 [facility] Protein Electroph, Son 02-28 Albumin [Mass/Vol] 3.7 g/dL Normal 2.9-4.4 [facility] Comment on above: Order Comment: Test( s) 576450-Rne. B1, Whole Bloodwas developed and its performance characteristicsdetermined by [employer]. It has not been cleared or approvedby the Food and Drug Administration. Performed By: #### L 501.9910, L503.0105, L3100.3450, L501.9520, L506.1000, L509.1000, L506.0400 ####[facility] [address] [facility] [place], [place], [id number] Albumin/Globulin [Mass ratio] 1.5 {ratio} Normal 0.7-1.7 [facility] Comment on above: Order Comment: Test( s) 855228-Gub. B1, Whole Bloodwas developed and its performance characteristicsdetermined by [employer]. It has not been cleared or approvedby the Food and Drug Administration. Performed By: #### L 501.9910, L503.0105, L3100.3450, L501.9520, L506.1000, L509.1000, L506.0400 ####[facility] [address] [facility] [place], [address] ALPHA-1 GLOBUL 0.2 g/dL Normal 0.0-0.4 [facility] Comment on above: Order Comment: Test( s) 378088-Giz. B1, Whole Bloodwas developed and its performance characteristicsdetermined by [facility]. It has not been cleared or approvedby the Food and Drug Administration. Performed By: #### L 501.9910, L503.0105, L3100.3450, L501.9520, L506.1000, L509.1000, L506.0400 ####[facility] [address] [place], [address] ALPHA-2 GLOBUL 0.6 g/dL Normal 0.4-1.0 [facility] Comment on above: Order Comment: Test( s) 843668-Aqk. B1, Whole Bloodwas developed and its performance characteristicsdetermined by [facility]. It has not been cleared or approvedby the Food and Drug Administration. Performed By: #### L 501.9910, L503.0105, L3100.3450, L501.9520, L506.1000, L509.1000, L506.0400 ####[facility] [address] [place], [address] BETA GLOBULIN 0.9 g/dL Normal 0.7-1.3 [facility] Comment on above: Order Comment: Test( s) 597717-Dri. B1, Whole Bloodwas developed and its performance characteristicsdetermined by [facility]. It has not been cleared or approvedby the Food and Drug Administration. Performed By: #### L 501.9910, L503.0105, L3100.3450, L501.9520, L506.1000, L509.1000, L506.0400 ####[facility] [address] [place], [address] GAMMA GLOBULIN 0.7 g/dL Normal 0.4-1.8 [facility] Comment on above: Order Comment: Test( s) 539728-Qgr. B1, Whole Bloodwas developed and its performance characteristicsdetermined by [facility]. It has not been cleared or approvedby the Food and Drug Administration. Performed By: #### L 501.9910, L503.0105, L3100.3450, L501.9520, L506.1000, L509.1000, L506.0400 ####[facility] [address] [place], [address] Globulin (S) [Mass/Vol] 2.5 g/dL Normal 2.2-3.9 [facility] Comment on above: Order Comment: Test( s) 915122-Whm. B1, Whole Bloodwas developed and its performance characteristicsdetermined by [facility]. It has not been cleared or approvedby the Food and Drug Administration. Performed By: #### L 501.9910, L503.0105, L3100.3450, L501.9520, L506.1000, L509.1000, L506.0400 ####[facility] [address] [place], [address] INTERPRETATION Comment Normal . [facility] Comment on above: Order Comment: Test( s) 406618-Pkv. B1, Whole Bloodwas developed and its performance characteristicsdetermined by [facility]. It has not been cleared or approvedby the Food and Drug Administration. Result Comment: Prot ein electrophoresis scan will follow via computer, mail, or associate professor of geography delivery. Performed By: #### L 501.9910, L503.0105, L3100.3450, L501.9520, L506.1000, L509.1000, L506.0400 ####[facility] [address] [place], [address] M-SPIKE Not Observed Normal Not Observed [facility] Comment on above: Order Comment: Test( s) 529124-Vzs. B1, Whole Bloodwas developed and its performance characteristicsdetermined by [facility]. It has not been cleared or approvedby the Food and Drug Administration. Performed By: #### L 501.9910, L503.0105, L3100.3450, L501.9520, L506.1000, L509.1000, L506.0400 ####[facility] [address] [place], [address] NOTE: Comment Normal . [facility] Comment on above: Order Comment: Test( s) 570709-Ffm. B1, Whole Bloodwas developed and its performance characteristicsdetermined by [facility]. It has not been cleared or approvedby the Food and Drug Administration. Result Comment: The SPE pattern appears unremarkable. Evidence of monoclonal protein is not apparent. Performed By: #### L 501.9910, L503.0105, L3100.3450, L501.9520, L506.1000, L509.1000, L506.0400 ####[facility] [address] [place], [address] Protein [Mass/Vol] 6.2 g/dL Normal 6.0-8.5 [facility] Comment on above: Order Comment: Test( s) 412536-Wid. B1, Whole Bloodwas developed and its performance characteristicsdetermined by [facility]. It has not been cleared or approvedby the Food and Drug Administration. Performed By: #### L 501.9910, L503.0105, L3100.3450, L501.9520, L506.1000, L509.1000, L506.0400 ####[facility] [address] [place], [address] Vitamin B1, Thiamineon 02-28 VIT B1 THIAMINE 189.8 nmol/L Normal 66.5-200.0 [facility] Comment on above: Order Comment: Test( s) 403339-Jly. B1, Whole Bloodwas developed and its performance characteristicsdetermined by [facility]. It has not been cleared or approvedby the Food and Drug Administration. Result Comment: Perf ormed at: [address] [id number] Branding Machine Operator: Pawel Huff PhD, Phone: [phone] Performed at: [address] [id number] Branding Machine Operator: Desiree Wilson MD, Phone: [phone] Performed By: #### L 3300.8000 ####[facility] [address] [place], [place], [address] PSA,Total - Annual Screenon 02-25-2024 PSA,TOT SCREEN 2.05 ng/mL Normal 0.00-4.00 [facility] Comment on above: Order Comment: Order Date: 02/25/24Order Info: 6-3 - TSHOrder Info: [id number] - PSAOrder Info: 3027 - T4F Result Comment: This test was performed using the TPSA assay method for the [employer] chemistry system. Values obtained with different assay methods cannot be used interchangably. When changing PSA assays in the course of monitoring a patient, additional sequential testing should be carried out to confirm baseline values. Performed By: #### L 501.9910, L503.0105, L3100.3450, L501.9520, L506.1000, L509.1000, L506.0400 ####[facility] [address] [place], [place], [id number] PTHINon 02-25-2024 PTH 43.8 pg/mL Normal 18.4-80.1 [facility] Comment on above: Order Comment: Order Date: 02/25/24 Order Info: 0565-1 - PTHIN Performed By: #### L 501.9910, L503.0105, L3100.3450, L501.9520, L506.1000, L509.1000, L506.0400 #### [facility] [address] [place], [place], [address] T4 Free Directon 02-25-2024 T4 FREE DIRECT 1.01 ng/dL Normal 0.76-1.46 [facility] Comment on above: Order Comment: Order Date: 02/25/24Order Info: 3015-3 - TSHOrder Info: 2851 - PSAOrder Info: 3027 - T4F Performed By: #### L 501.9910, L503.0105, L3100.3450, L501.9520, L506.1000, L509.1000, L506.0400 ####[facility] [address] [place], [place], [phone] Thyroid Stim Hormone (TSH)on 02-25-2024 TSH 2.970 uIU/mL Normal 0.358-3.74 0 [facility] Comment on above: Order Comment: Order Date: 02/25/24 Order Info: 3016-3 - TSH Order Info: 2857-1 - PSA Order Info: 3024-7 - T4F Performed By: #### L 501.9910, L503.0105, L3100.3450, L501.9520, L506.1000, L509.1000, L506.0400 #### [facility] [address] [place], [place], [id number] ([phone]) Vitamin B12on 02-25-2024 Cobalamin (Vitamin B12) [Mass/Vol] 689 pg/mL Normal 211-911 [facility] Comment on above: Order Comment: Order Date: 02/25/24 Order Info: 2132-9 - B12 Order Info: 83760-1 - VITD25 Performed By: #### L 501.9910, L503.0105, L3100.3450, L501.9520, L506.1000, L509.1000, L506.0400 #### [facility] [address] [place], [place], [address] Vitamin D,25 Hydroxyon 02-24 Vitamin D 25-OH 27.6 ng/mL Normal [facility] Comment on above: Order Comment: Order Date: 02/25/24 Order Info: 213-9 - B12 Order Info: [id number] - VITD25 Result Comment: Violeta min D 25(OH) Status Range Deficiency <20 ng/mL (50nmol/L) Insufficiency 20 - 30 ng/mL (50 - 75 nmol/L) Sufficiency 30 - 100 ng/mL (75 - 250 nmol/L) Toxicity >100 ng/mL (>250 nmol/L) Performed By: #### L 501.9910, L503.0105, L3100.3450, L501.9520, L506.1000, L509.1000, L506.0400 #### [facility] [address] [place], [address] CBC W/Diff, Automatedon 11-0 -2023 Absolute Lymph 1.40 X10 3/uL Normal 0.83-4.51 [facility] Comment on above: Performed By: #### L 100.0100, L500.4050 ####[facility] [address] [place], [address] Absolute Neut 4.4 X10 3/uL Normal 2.0-7.7 [facility] Comment on above: Performed By: #### L 100.0100, L500.4050 ####[facility] [address] [place], [address] Basophils/100 WBC (Bld) 1.5 % High 0-1 [facility] Comment on above: Performed By: #### L 100.0100, L500.4050 ####[facility] [address] [place], [address] Eosinophils/100 WBC (Bld) 7.3 % High 0-5 [facility] Comment on above: Performed By: #### L 100.0100, L500.4050 ####[facility] [address] [place], [address] Erythrocyte distribution width (RBC) [Ratio] 15.1 % High 11.6-14.6 [facility] Comment on above: Performed By: #### L 100.0100, L500.4050 ####[facility] [address] [place], [address] Hematocrit (Bld) [Volume fraction] 45.0 % Normal 40-54 [facility] Comment on above: Performed By: #### L 100.0100, L500.4050 ####[facility] [address] [place], [address] Hemoglobin (Bld) [Mass/Vol] 15.1 g/dL Normal 13.0-16.5 [facility] Comment on above: Performed By: #### L 100.0100, L500.4050 ####[facility] [address] [place], [address] IG% 0.300 Normal 0.0-0.9 [facility] Comment on above: Result Comment: IG% - Immature Granulocytes (promyelocytes, myelocytes and metamyelocytes) > 1% indicates that a LEFT SHIFT is Present. Performed By: #### L 100.0100, L500.4050 ####[facility] [address] [place], [address] Lymphocytes/100 WBC (Bld) 19.0 % Normal 19-41 [facility] Comment on above: Performed By: #### L 100.0100, L500.4050 ####[facility] [address] [place], [address] MCH (RBC) [Entitic mass] 31.3 pg Normal 27.0-32.0 [facility] Comment on above: Performed By: #### L 100.0100, L500.4050 ####[facility] [address] [place], [address] MCHC (RBC) [Mass/Vol] 33.6 g/dL Normal 32-36 [facility] Comment on above: Performed By: #### L 100.0100, L500.4050 ####[facility] [address] [place], [address] MCV (RBC) [Entitic vol] 93.2 fL Normal 80-94 [facility] Comment on above: Performed By: #### L 100.0100, L500.4050 ####[facility] [address] [place], [address] Monocytes/100 WBC (Bld) 11.7 % High 0-10 [facility] Comment on above: Performed By: #### L 100.0100, L500.4050 ####[facility] [address] [place], [address] Neutrophils/100 WBC (Bld) 60.2 % Normal 47-70 [facility] Comment on above: Performed By: #### L 100.0100, L500.4050 ####[facility] [address] [place], [address] Nucleated RBC (Bld) [#/Vol] 0 10*3/uL Normal 0-5 [facility] Comment on above: Performed By: #### L 100.0100, L500.4050 ####[facility] [address] [place], [address] Platelet mean volume (Bld) [Entitic vol] 10.6 fL Normal 6.2-12.0 [facility] Comment on above: Performed By: #### L 100.0100, L500.4050 ####[facility] [address] [place], [address] Platelets (Bld) [#/Vol] 174 10*3/uL Normal 150-450 [facility] Comment on above: Performed By: #### L 100.0100, L500.4050 ####[facility] [address] [place], [address] RBC (Bld) [#/Vol] 4.83 10*6/uL Normal 4.6-6.2 [facility] Comment on above: Performed By: #### L 100.0100, L500.4050 ####[facility] [address] [place], [address] RDW SD 51.7 fl High 35.1-43.9 [facility] Comment on above: Performed By: #### L 100.0100, L500.4050 ####[facility] [address] [place], [address] WBC (Bld) [#/Vol] 7.4 10*3/uL Normal 4.4-11.0 [facility] Comment on above: Performed By: #### L 100.0100, L500.4050 ####[facility] [address] [place], [address] Comprehensive Metabolic Prof ilon 02-22-2024 Albumin [Mass/Vol] 3.9 g/dL Normal 3.2-5.0 [facility] Comment on above: Performed By: #### L 100.0100, L500.4050 ####[facility] [address] [place], [address] Albumin/Globulin [Mass ratio] 1.3 {ratio} Normal 0.9-2.4 [facility] Comment on above: Performed By: #### L 100.0100, L500.4050 ####[facility] [address] [place], [address] ALK P 91 U/L Normal 45-117 [facility] Comment on above: Performed By: #### L 100.0100, L500.4050 ####[facility] [address] [place], [address] ALT [Catalytic activity/Vol] 48 U/L Normal 16-61 [facility] Comment on above: Performed By: #### L 100.0100, L500.4050 ####[facility] [address] [place], [address] AST [Catalytic activity/Vol] 26 U/L Normal 15-37 [facility] Comment on above: Performed By: #### L 100.0100, L500.4050 ####[facility] [address] [place], [address] Bilirubin [Mass/Vol] 0.70 mg/dL Normal 0.20-1.00 [facility] Comment on above: Result Comment: For patients on eltrombopag therapy, use of Dimension [place] TBIL is not recommended. Performed By: #### L 100.0100, L500.4050 ####[facility] [address] [place], [address] BUN/CRE 18.3 RATIO Normal 10-20 [facility] Comment on above: Performed By: #### L 100.0100, L500.4050 ####[facility] [address] [place], [address] CA,Total 9.0 mg/dL Normal 8.5-10.1 [facility] Comment on above: Performed By: #### L 100.0100, L500.4050 ####[facility] [address] [place], [address] Chloride [Moles/Vol] 110 mmol/L High 98-107 [facility] Comment on above: Performed By: #### L 100.0100, L500.4050 ####[facility] [address] [place], [address] CO2 [Moles/Vol] 24.0 mmol/L Normal 21.0-32.0 [facility] Comment on above: Performed By: #### L 100.0100, L500.4050 ####[facility] [address] [place], [address] Creatinine [Mass/Vol] 0.93 mg/dL Normal 0.70-1.30 [facility] Comment on above: Result Comment: The validity of the calculated GFR GFRAA in patients over 70 years has not been determined. Clinical correlation is essential. Performed By: #### L 100.0100, L500.4050 ####[facility] [address] [place], [address] EST GFR - AA 104 mL/min Normal >60 [facility] Comment on above: Result Comment: Afri can Russian GFR Calc Performed By: #### L 100.0100, L500.4050 ####[facility] [address] [place], [address] GAP 6 Normal 5-15 [facility] Comment on above: Performed By: #### L 100.0100, L500.4050 ####[facility] [address] [place], [address] GFR/1.73 sq M.predicted among non-blacks MDRD (S/P/Bld) [Vol rate/Area] 86 mL/min/{1.73_m2} Normal >60 [facility] Comment on above: Result Comment: Non- GFR Calc Performed By: #### L 100.0100, L500.4050 ####[facility] [address] [place], [address] Globulin (S) [Mass/Vol] 3.1 g/dL Normal 2.2-4.2 [facility] Comment on above: Performed By: #### L 100.0100, L500.4050 ####[facility] [address] [place], [address] Glucose [Mass/Vol] 91 mg/dL Normal 74-106 [facility] Comment on above: Performed By: #### L 100.0100, L500.4050 ####[facility] [address] [place], [address] Potassium [Moles/Vol] 3.8 mmol/L Normal 3.5-5.1 [facility] Comment on above: Performed By: #### L 100.0100, L500.4050 ####[facility] [address] [place], [address] Sodium [Moles/Vol] 140 mmol/L Normal 136-145 [facility] Comment on above: Performed By: #### L 100.0100, L500.4050 ####[facility] [address] [place], [address] T PROT 7.0 g/dL Normal 6.4-8.2 [facility] Comment on above: Performed By: #### L 100.0100, L500.4050 ####[facility] [address] [place], [address] Urea nitrogen [Mass/Vol] 17 mg/dL Normal 7-18 [facility] Comment on above: Performed By: #### L 100.0100, L500.4050 ####[facility] [address] [place], [address] CBC W/Diff, Automatedon 12-15-2023 Absolute Lymph 1.56 X10 3/uL Normal 0.83-4.51 [facility] Comment on above: Performed By: #### L 100.0100, L500.4050 #### [facility] [address] [place], [address] Absolute Neut 4.9 X10 3/uL Normal 2.0-7.7 [facility] Comment on above: Performed By: #### L 100.0100, L500.4050 #### [facility] [address] [place], [address] Basophils/100 WBC (Bld) 1.1 % High 0-1 [facility] Comment on above: Performed By: #### L 100.0100, L500.4050 #### [facility] [address] [place], [address] Eosinophils/100 WBC (Bld) 6.5 % High 0-5 [facility] Comment on above: Performed By: #### L 100.0100, L500.4050 #### [facility] [address] [place], [address] Erythrocyte distribution width (RBC) [Ratio] 14.9 % High 11.6-14.6 [facility] Comment on above: Performed By: #### L 100.0100, L500.4050 #### [facility] [address] [place], [address] Hematocrit (Bld) [Volume fraction] 43.9 % Normal 40-54 [facility] Comment on above: Performed By: #### L 100.0100, L500.4050 #### [facility] [address] [place], [address] Hemoglobin (Bld) [Mass/Vol] 14.6 g/dL Normal 13.0-16.5 [facility] Comment on above: Performed By: #### L 100.0100, L500.4050 #### [facility] [address] [place], [address] IG% 0.500 Normal 0.0-0.9 [facility] Comment on above: Result Comment: IG% - Immature Granulocytes (promyelocytes, myelocytes and metamyelocytes) > 1% indicates that a LEFT SHIFT is Present. Performed By: #### L 100.0100, L500.4050 #### [facility] [address] [place], [address] Lymphocytes/100 WBC (Bld) 19.5 % Normal 19-41 [facility] Comment on above: Performed By: #### L 100.0100, L500.4050 #### [facility] [address] [place], [address] MCH (RBC) [Entitic mass] 30.3 pg Normal 27.0-32.0 [facility] Comment on above: Performed By: #### L 100.0100, L500.4050 #### [facility] [address] [place], [address] MCHC (RBC) [Mass/Vol] 33.3 g/dL Normal 32-36 [facility] Comment on above: Performed By: #### L 100.0100, L500.4050 #### [facility] [address] [place], [address] MCV (RBC) [Entitic vol] 91.1 fL Normal 80-94 [facility] Comment on above: Performed By: #### L 100.0100, L500.4050 #### [facility] [address] [place], [address] Monocytes/100 WBC (Bld) 11.2 % High 0-10 [facility] Comment on above: Performed By: #### L 100.0100, L500.4050 #### [facility] [address] [place], [address] Neutrophils/100 WBC (Bld) 61.2 % Normal 47-70 [facility] Comment on above: Performed By: #### L 100.0100, L500.4050 #### [facility] [address] [place], [address] Nucleated RBC (Bld) [#/Vol] 0 10*3/uL Normal 0-5 [facility] Comment on above: Performed By: #### L 100.0100, L500.4050 #### [facility] [address] [place], [address] Platelet mean volume (Bld) [Entitic vol] 9.7 fL Normal 6.2-12.0 [facility] Comment on above: Performed By: #### L 100.0100, L500.4050 #### [facility] [address] [place], [address] Platelets (Bld) [#/Vol] 180 10*3/uL Normal 150-450 [facility] Comment on above: Performed By: #### L 100.0100, L500.4050 #### [facility] [address] [place], [address] RBC (Bld) [#/Vol] 4.82 10*6/uL Normal 4.6-6.2 [facility] Comment on above: Performed By: #### L 100.0100, L500.4050 #### [facility] [address] [place], [address] RDW SD 49.1 fl High 35.1-43.9 [facility] Comment on above: Performed By: #### L 100.0100, L500.4050 #### [facility] [address] [place], [address] WBC (Bld) [#/Vol] 8.0 10*3/uL Normal 4.4-11.0 [facility] Comment on above: Performed By: #### L 100.0100, L500.4050 #### [facility] [address] [place], [address] Comprehensive Metabolic Prof [facility] 12-28-2023 Albumin [Mass/Vol] 3.7 g/dL Normal 3.2-5.0 [facility] Comment on above: Performed By: #### L 100.0100, L500.4050 #### [facility] [address] [place], [address] Albumin/Globulin [Mass ratio] 1.2 {ratio} Normal 0.9-2.4 [facility] Comment on above: Performed By: #### L 100.0100, L500.4050 #### [facility] [address] [place], [address] ALK P 93 U/L Normal 45-117 [facility] Comment on above: Performed By: #### L 100.0100, L500.4050 #### [facility] [address] [place], [address] ALT [Catalytic activity/Vol] 51 U/L Normal 16-61 [facility] Comment on above: Performed By: #### L 100.0100, L500.4050 #### [facility] [address] [place], [address] AST [Catalytic activity/Vol] 25 U/L Normal 15-37 [facility] Comment on above: Performed By: #### L 100.0100, L500.4050 #### [facility] [address] [place], [address] Bilirubin [Mass/Vol] 0.50 mg/dL Normal 0.20-1.00 [facility] Comment on above: Result Comment: For patients on eltrombopag therapy, use of Dimension [place] TBIL is not recommended. Performed By: #### L 100.0100, L500.4050 #### [facility] [address] [place], [address] BUN/CRE 16.3 RATIO Normal 10-20 [facility] Comment on above: Performed By: #### L 100.0100, L500.4050 #### [facility] [address] [place], [address] CA,Total 9.1 mg/dL Normal 8.5-10.1 [facility] Comment on above: Performed By: #### L 100.0100, L500.4050 #### [facility] [address] [place], [address] Chloride [Moles/Vol] 111 mmol/L High 98-107 [facility] Comment on above: Performed By: #### L 100.0100, L500.4050 #### [facility] [address] [place], [address] CO2 [Moles/Vol] 22.0 mmol/L Normal 21.0-32.0 [facility] Comment on above: Performed By: #### L 100.0100, L500.4050 #### [facility] [address] [place], [address] Creatinine [Mass/Vol] 1.04 mg/dL Normal 0.70-1.30 [facility] Comment on above: Result Comment: The validity of the calculated GFR GFRAA in patients over 70 years has not been determined. Clinical correlation is essential. Performed By: #### L 100.0100, L500.4050 #### [facility] [address] [place], [address] EST GFR - AA 91 mL/min Normal >60 [facility] Comment on above: Result Comment: Afri can [place] GFR Calc Performed By: #### L 100.0100, L500.4050 #### [facility] [address] [place], [address] GAP 8 Normal 5-15 [facility] Comment on above: Performed By: #### L 100.0100, L500.4050 #### [facility] [address] [place], [address] GFR/1.73 sq M.predicted among non-blacks MDRD (S/P/Bld) [Vol rate/Area] 76 mL/min/{1.73_m2} Normal >60 [facility] Comment on above: Result Comment: Non- GFR Calc Performed By: #### L 100.0100, L500.4050 #### [facility] [address] [place], [address] Globulin (S) [Mass/Vol] 3.2 g/dL Normal 2.2-4.2 [facility] Comment on above: Performed By: #### L 100.0100, L500.4050 #### [facility] [address] [place], [address] Glucose [Mass/Vol] 105 mg/dL Normal 74-106 [facility] Comment on above: Result Comment: Fast ing Glucose result from 100 to 125 mg/dL suggests IMPAIRED HOMEOSTASIS per A.D.A. criteria. Performed By: #### L 100.0100, L500.4050 #### [facility] [address] [place], [address] Potassium [Moles/Vol] 3.9 mmol/L Normal 3.5-5.1 [facility] Comment on above: Performed By: #### L 100.0100, L500.4050 #### [facility] [address] [place], [address] Sodium [Moles/Vol] 141 mmol/L Normal 136-145 [facility] Comment on above: Performed By: #### L 100.0100, L500.4050 #### [facility] [address] [place], [address] T PROT 6.9 g/dL Normal 6.4-8.2 [facility] Comment on above: Performed By: #### L 100.0100, L500.4050 #### [facility] [address] [place], [address] Urea nitrogen [Mass/Vol] 17 mg/dL Normal 7-18 [facility] Comment on above: Performed By: #### L 100.0100, L500.4050 #### [facility] [address] [place], [address] Cardiology Visit Reporton Cardiology Visit Report [facility] [address] [place] [address] OFFICE VISIT Date of Service: 12/25/23 MR#: [id number] Acct: [id number] Name: KAREY ANDREWS III Rep #: [id number] : 1955 Provider: Dr. Yogi Warner MD Age/Sex: 68/M Location: [facility] [place] Status: Signed [facility] History of Present Illness Details: 68-year-old man who is reestablishing care here after over 5 years. He had been seen previously in 2004 in 2016 for shortness of breath and undergone a cardiac catheterization which demonstrated no evidence of ischemia. He says that he has been on antihypertensive therapy and has had some pedal edema. For the pedal edema he was treated with a diuretic and his potassium was low and so he was put on potassium pills as well. He had a stress test in 2016 which demonstrated no obvious ischemia and a CTA of his chest and June 2019 which demonstrated no abnormalities. At this particular time he is reestablishing care and his major complaint has to do with occasional pedal edema. He denies any chest pain no paroxysmal nocturnal dyspnea no dizziness no diaphoresis. His last lipid profile was in January 2022 and is scheduled to see you for a repeat. His physical exam demonstrates clear lung rawls regular rate and rhythm no pedal edema. 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 [employer] Skylights Required: No Accompanied by: Self Is patient in pain?: No Allergies amoxicillin trihydrate (From Augmentin) Allergy (Intermediate, Verified 12/25/23 13:29) Rash potassium clavulanate (From Augmentin) Allergy (Intermediate, Verified 12/25/23 13:29) Rash losartan Adverse Reaction (Intermediate, Verified 12/25/23 13:29) Other Medications ???Medication ???Instructions ???Recorded ???Confirmed ???Type allopurinol 300 mg tablet 300 mg PO DAILY 09/11/14 12/25/23 History amlodipine 5 mg tablet 5 mg PO DAILY 09/11/14 12/25/23 History montelukast 10 mg tablet 10 mg PO DAILY 09/11/14 12/25/23 History simvastatin 40 mg tablet 40 mg PO QHS cholesterol 09/11/14 12/25/23 History hydroxychloroquine 200 mg tablet 200 mg PO BID 04/03/17 12/25/23 History ketotifen fumarate 0.025 % (0.035 1 drp ophthalmic (eye) BID 10/30/22 12/25/23 History %) eye drops (Zaditor) latanoprost 0.005 % eye drops 1 drp ophthalmic (eye) DAILY 10/30/22 12/25/23 History multivitamin 1 tab PO DAILY 10/30/22 12/25/23 History ascorbic acid (vitamin C) 250 mg 500 mg PO BID 11/01/22 12/25/23 History tablet chlorpheniramine maleate 4 mg 4 mg PO DAILY 11/01/22 12/25/23 History tablet (Allergy (chlorpheniramine)) famotidine 20 mg tablet 20 mg PO DAILY 11/01/22 12/25/23 History tramadol 50 mg tablet 50 mg PO DAILY PRN Pain 11/01/22 12/25/23 History budesonide-formoterol HFA 160 2 inh inhalation Q12H asthma #3 ea 05/18/23 12/25/23 Rx mcg-4.5 mcg/actuation aerosol inhaler (Symbicort) albuterol sulfate 90 mcg/actuation 2 inh inhalation Q4H PRN shortness 08/23/23 12/25/23 Rx aerosol inhaler of breath or wheezing #3 ea fluticasone propionate 50 2 spray intranasal DAILY allergies 08/23/23 12/25/23 Rx mcg/actuation nasal #3 ea spray,suspension budesonide 160 mcg-glycopyr 9 2 inh inhalation QAM AND QPM Asthma 12/25/23 12/25/23 History mcg-formot 4.8 mcg/actuation HFA inhaler (Breztri Aerosphere) diclofenac sodium 1 % topical gel topical Knee pain 12/25/23 12/25/23 History folic acid 1 mg tablet 1 mg PO QDAY 12/25/23 12/25/23 History levothyroxine 75 mcg tablet 75 mcg PO DAILY 12/25/23 12/25/23 History methotrexate sodium 2.5 mg tablet 10 mg PO Athritis in Knees 12/25/23 12/25/23 History Have you fallen in the past year?: No PFSH Medical History Hypothyroidism Polyarthritis Asthma Contact with or suspected exposure to other viral communicable disease PND (post-nasal drip) Moderate persistent asthma not dependent on systemic steroids 8 mm RLL pulmonary nodule Diastolic dysfunction Near syncope Diabetes mellitus BRENNON (obstructive sleep apnea) Obesity Dyspnea JACQUE positive Edema HTN (hypertension) Acute asthma exacerbation HLD (hyperlipidemia) Gout History of chronic bronchitis Surgical History Hx of cardiac catheterization History of knee surgery history of tendon repair History of appendectomy Family History Father Heart disease CAD (coronary artery disease) Myocardial (more content not included)... Normal [facility] Knee 4 or More Viewson 11-25 Knee 4 or More Views [facility] [address] [place], [place] [id number] Knee 4 or More Views MR#: [id number] Acct: [id number] Name: KAREY ANDREWS III Rep #: [id number] : 1955 M 68 From: Kirill Meng PCP: Dr. Quinten Ortiz MD Status: REG CLI Study: Knee 4 or More Views Date of Exam: 11/26/23 Exam# [id number] Ordering Dr: Erum Hayes MD [id number] INDICATION: Inflammatory polyarthropathy EXAMINATION/TECHNIQUE: X-RAY - RIGHT XR Knee Complete 4 Views or More 4 VIEWS COMPARISON: Prior study dated: 04/19/2018. FINDINGS: SOFT TISSUES: No soft tissue swelling or gas. No radiopaque foreign body. BONES/JOINTS: No acute fracture or subluxation.. Normal alignment. Mild narrowing of the lateral patellofemoral joint. The remainder of the joint spaces are within normal limits. No sclerotic or destructive changes observed. RAD/Knee 4 or More Views IMPRESSION: Mild narrowing of the patellofemoral joint. Electronically Signed: Kirill Bellamy MD at 14:41 EDT , CC: Dr. Quinten Ortiz MD; Dr. Erum Hayes MD Grades 9 Thru 12 Visiting Teacher: Signed Normal [facility] Knee 4 or More Views [facility] [address] [place], [place] [id number] Knee 4 or More Views MR#: [id number] Acct: [id number] Name: KAREY ANDREWS III Rep #: [id number] : 1955 M 68 From: Juice parker DO PCP: Dr. Quinten Ortzi MD Status: REG CLI Study: Knee 4 or More Views Date of Exam: 11/26/23 Exam# [id number] Ordering Dr: Erum Hayes MD [id number] EXAM: XR LEFT KNEE COMPLETE, 4 OR MORE VIEWS CLINICAL INDICATION: Inflammatory polyarthropathy TECHNIQUE: Four or more views of the left knee. COMPARISON: No relevant prior studies available. FINDINGS: BONES/JOINTS: Articular marginal osteophytes are present particularly at the patellofemoral joint. Patellar enthesophyte. No acute fracture. No subluxation. Normal alignment. No sclerotic or destructive changes observed. SOFT TISSUES: Anterior soft tissue swelling. Calcifications within the distal quadriceps tendon. No radiopaque foreign body. VASCULATURE: Vascular calcifications. RAD/Knee 4 or More Views IMPRESSION: Anterior soft tissue swelling. Degenerative changes. No erosive abnormality. Chronic quadriceps tendinopathy or sequela remote injury. Electronically Signed: Juice Roper DO at 23:58 EDT , CC: Dr. Quinten Ortiz MD; Dr. Erum Hayes MD Gr[employer] 9 Thru 12 Visiting Teacher: Signed Normal [facility] CBC W/Diff, Automatedon 08-0 5-2023 Absolute Lymph 1.65 X10 3/uL Normal 0.83-4.51 [facility] Comment on above: Performed By: #### L 100.0100, L500.4050 ####[facility] [address] [place], [address] Absolute Neut 4.2 X10 3/uL Normal 2.0-7.7 [facility] Comment on above: Performed By: #### L 100.0100, L500.4050 ####[facility] [address] [place], [address] Basophils/100 WBC (Bld) 1.4 % High 0-1 [facility] Comment on above: Performed By: #### L 100.0100, L500.4050 ####[facility] [address] [place], [address] Eosinophils/100 WBC (Bld) 5.9 % High 0-5 [facility] Comment on above: Performed By: #### L 100.0100, L500.4050 ####[facility] [address] [place], [address] Erythrocyte distribution width (RBC) [Ratio] 14.7 % High 11.6-14.6 [facility] Comment on above: Performed By: #### L 100.0100, L500.4050 ####[facility] [address] [place], [address] Hematocrit (Bld) [Volume fraction] 42.7 % Normal 40-54 [facility] Comment on above: Performed By: #### L 100.0100, L500.4050 ####[facility] [address] [place], [address] Hemoglobin (Bld) [Mass/Vol] 13.9 g/dL Normal 13.0-16.5 [facility] Comment on above: Performed By: #### L 100.0100, L500.4050 ####[facility] [address] [place], [address] IG% 0.400 Normal 0.0-0.9 [facility] Comment on above: Result Comment: IG% - Immature Granulocytes (promyelocytes, myelocytes and metamyelocytes) > 1% indicates that a LEFT SHIFT is Present. Performed By: #### L 100.0100, L500.4050 ####[facility] [address] [place], [address] Lymphocytes/100 WBC (Bld) 22.6 % Normal 19-41 [facility] Comment on above: Performed By: #### L 100.0100, L500.4050 ####[facility] [address] [place], [address] MCH (RBC) [Entitic mass] 29.7 pg Normal 27.0-32.0 [facility] Comment on above: Performed By: #### L 100.0100, L500.4050 ####[facility] [address] [place], [address] MCHC (RBC) [Mass/Vol] 32.6 g/dL Normal 32-36 [facility] Comment on above: Performed By: #### L 100.0100, L500.4050 ####[facility] [address] [place], [address] MCV (RBC) [Entitic vol] 91.2 fL Normal 80-94 [facility] Comment on above: Performed By: #### L 100.0100, L500.4050 ####[facility] [address] [place], [address] Monocytes/100 WBC (Bld) 12.6 % High 0-10 [facility] Comment on above: Performed By: #### L 100.0100, L500.4050 ####[facility] [address] [place], [address] Neutrophils/100 WBC (Bld) 57.1 % Normal 47-70 [facility] Comment on above: Performed By: #### L 100.0100, L500.4050 ####[facility] [address] [place], [address] Nucleated RBC (Bld) [#/Vol] 0 10*3/uL Normal 0-5 [facility] Comment on above: Performed By: #### L 100.0100, L500.4050 ####[facility] [address] [place], [address] Platelet mean volume (Bld) [Entitic vol] 10.4 fL Normal 6.2-12.0 [facility] Comment on above: Performed By: #### L 100.0100, L500.4050 ####[facility] [address] [place], [address] Platelets (Bld) [#/Vol] 179 10*3/uL Normal 150-450 [facility] Comment on above: Performed By: #### L 100.0100, L500.4050 ####[facility] [address] [place], [address] RBC (Bld) [#/Vol] 4.68 10*6/uL Normal 4.6-6.2 [facility] Comment on above: Performed By: #### L 100.0100, L500.4050 ####[facility] [address] [place], [address] RDW SD 49.4 fl High 35.1-43.9 [facility] Comment on above: Performed By: #### L 100.0100, L500.4050 ####[facility] [address] [place], [address] WBC (Bld) [#/Vol] 7.3 10*3/uL Normal 4.4-11.0 [facility] Comment on above: Performed By: #### L 100.0100, L500.4050 ####[facility] [address] [place], [address] Comprehensive Metabolic Prof ilon 11-19-2023 Albumin [Mass/Vol] 3.5 g/dL Normal 3.2-5.0 [facility] Comment on above: Performed By: #### L 100.0100, L500.4050 ####[facility] [address] [place], [address] Albumin/Globulin [Mass ratio] 1.1 {ratio} Normal 0.9-2.4 [facility] Comment on above: Performed By: #### L 100.0100, L500.4050 ####[facility] [address] [place], [address] ALK P 86 U/L Normal 45-117 [facility] Comment on above: Performed By: #### L 100.0100, L500.4050 ####[facility] [address] [place], [address] ALT [Catalytic activity/Vol] 51 U/L Normal 16-61 [facility] Comment on above: Performed By: #### L 100.0100, L500.4050 ####[facility] [address] [place], [address] AST [Catalytic activity/Vol] 30 U/L Normal 15-37 [facility] Comment on above: Performed By: #### L 100.0100, L500.4050 ####[facility] [address] [place], [address] Bilirubin [Mass/Vol] 0.40 mg/dL Normal 0.20-1.00 [facility] Comment on above: Result Comment: For patients on eltrombopag therapy, use of Dimension [place] TBIL is not recommended. Performed By: #### L 100.0100, L500.4050 ####[facility] [address] [place], [address] BUN/CRE 21.2 RATIO High 10-20 [facility] Comment on above: Performed By: #### L 100.0100, L500.4050 ####[facility] [address] [place], [address] CA,Total 8.6 mg/dL Normal 8.5-10.1 [facility] Comment on above: Performed By: #### L 100.0100, L500.4050 ####[facility] [address] [place], [address] Chloride [Moles/Vol] 114 mmol/L High 98-107 [facility] Comment on above: Performed By: #### L 100.0100, L500.4050 ####[facility] [address] [place], [address] CO2 [Moles/Vol] 24.0 mmol/L Normal 21.0-32.0 [facility] Comment on above: Performed By: #### L 100.0100, L500.4050 ####[facility] [address] [place], [address] Creatinine [Mass/Vol] 0.99 mg/dL Normal 0.70-1.30 [facility] Comment on above: Result Comment: The validity of the calculated GFR GFRAA in patients over 70 years has not been determined. Clinical correlation is essential. Performed By: #### L 100.0100, L500.4050 ####[facility] [address] [place], [address] EST GFR - AA 97 mL/min Normal >60 [facility] Comment on above: Result Comment: Afri can [place] GFR Calc Performed By: #### L 100.0100, L500.4050 ####[facility] [address] [place], [address] GAP 6 Normal 5-15 [facility] Comment on above: Performed By: #### L 100.0100, L500.4050 ####[facility] [address] [place], [address] GFR/1.73 sq M.predicted among non-blacks MDRD (S/P/Bld) [Vol rate/Area] 80 mL/min/{1.73_m2} Normal >60 [facility] Comment on above: Result Comment: Non- GFR Calc Performed By: #### L 100.0100, L500.4050 ####[facility] [address] [place], [address] Globulin (S) [Mass/Vol] 3.1 g/dL Normal 2.2-4.2 [facility] Comment on above: Performed By: #### L 100.0100, L500.4050 ####[facility] [address] [place], [address] Glucose [Mass/Vol] 105 mg/dL Normal 74-106 [facility] Comment on above: Result Comment: Fast ing Glucose result from 100 to 125 mg/dL suggests IMPAIRED HOMEOSTASIS per A.D.A. criteria. Performed By: #### L 100.0100, L500.4050 ####[facility] [address] [place], [address] Potassium [Moles/Vol] 3.8 mmol/L Normal 3.5-5.1 [facility] Comment on above: Performed By: #### L 100.0100, L500.4050 ####[facility] [address] [place], [address] Sodium [Moles/Vol] 144 mmol/L Normal 136-145 [facility] Comment on above: Performed By: #### L 100.0100, L500.4050 ####[facility] [address] [place], [address] T PROT 6.6 g/dL Normal 6.4-8.2 [facility] Comment on above: Performed By: #### L 100.0100, L500.4050 ####[facility] [address] [place], [address] Urea nitrogen [Mass/Vol] 21 mg/dL High 7-18 [facility] Comment on above: Performed By: #### L 100.0100, L500.4050 ####[facility] [address] [place], [address] Absolute lymphocyte countOrd ered By: Erum Hayes on 05-28-2023 Lymphocytes Auto (Unsp spec) [#/Vol] 1.53 10*3/uL 0.83-4.51 [facility] Automated lymphocyte count a s percentage of total leukocytesOrdered By: Erum Hayes on 05-28-2023 Lymphocytes/100 WBC Auto (Unsp spec) 19.3 % 19-41 [facility] Basophil percentageOrdered B y: Erum Hayes on 05-28-2023 Basophils/100 WBC (Bld) 1.0 % 0-1 [facility] Bilirubin [Mass/Vol] 0.40 mg/dL 0.20-1.00 [facility] Comment on above: For patients on eltr ombopag therapy, use of Dimension [place] TBIL is not recommended. Chloride [Moles/Vol] 115 mmol/L 98-107 [facility] Eosinophils/100 WBC (Bld) 5.3 % 0-5 [facility] Glucose [Mass/Vol] 106 mg/dL 74-106 [facility] Comment on above: Fasting Glucose resu lt from 100 to 125 mg/dL suggests IMPAIRED HOMEOSTASIS per A.D.A. criteria. Hemoglobin (Bld) [Mass/Vol] 14.6 g/dL 13.0-16.5 [facility] Monocytes/100 WBC (Bld) 12.8 % 0-10 [facility] Neutrophils (Bld) [#/Vol] 4.8 10*3/uL 2.0-7.7 [facility] Neutrophils/100 WBC (Bld) 61.1 % 47-70 [facility] Potassium [Moles/Vol] 4.0 mmol/L 3.5-5.1 [facility] Protein [Mass/Vol] 6.7 g/dL 6.4-8.2 [facility] Sodium [Moles/Vol] 143 mmol/L 136-145 [facility] WBC (Bld) [#/Vol] 7.9 10*3/uL 4.4-11.0 [facility] Determination of erythrocyte mean corpuscular volume (MCV)Ordered By: Erum Hayes on 05-28-2023 MCV (RBC) [Entitic vol] 92.9 fL 80-94 [facility] Erythrocyte distribution wid th ratioOrdered By: Erum Hayes on 05-28-2023 Erythrocyte distribution width (RBC) [Ratio] 14.4 % 11.6-14.6 [facility] Erythrocyte distribution wid th standard deviationOrdered By: Erum Hayes on 05-28-2023 Erythrocyte distribution width (RBC) [Entitic vol] 49.4 fL 35.1-43.9 [facility] Hematocrit Auto (Bld) [Volum e fraction]Ordered By: Erum Hayes on 05-28-2023 Hematocrit (Bld) [Volume fraction] 44.2 % 40-54 [facility] Immature granulocytes/100 WB C Auto (Bld)Ordered By: Erum Hayes on 05-28-2023 Immature granulocytes/100 WBC (Bld) 0.500 % 0.0-0.9 [facility] Comment on above: IG% - Immature Granu locytes (promyelocytes, myelocytes and metamyelocytes) > 1% indicates that a LEFT SHIFT is Present. Laboratory - Chemistry and C hemistry - challengeOrdered By: Erum Hayes on 05-28-2023 Albumin/Globulin [Mass ratio] 1.2 {ratio} 0.9-2.4 [facility] ALP [Catalytic activity/Vol] 85 U/L 45-117 [facility] ALT [Catalytic activity/Vol] 48 U/L 16-61 [facility] CO2 [Moles/Vol] 21.0 mmol/L 21.0-32.0 [facility] Globulin (S) [Mass/Vol] 3.0 g/dL 2.2-4.2 [facility] Urea nitrogen/Creatinine [Mass ratio] 18.4 mg/mg 10-20 [facility] Laboratory - Hematology and Cell countsOrdered By: Erum Hayes on 05-28-2023 MCH (RBC) [Entitic mass] 30.7 pg 27.0-32.0 [facility] MCHC (RBC) [Mass/Vol] 33.0 g/dL 32-36 [facility] Nucleated RBC/100 WBC (Bld) [Ratio] 0 % 0-5 [facility] Platelet mean volume (Bld) [Entitic vol] 10.7 fL 6.2-12.0 [facility] Platelets (Bld) [#/Vol] 185 10*3/uL 150-450 [facility] No Panel InformationOrdered By: Erum Hayes on 05-28-2023 Estimated GFR (MDRD) Amer 82 mL/min >60 [facility] Comment on above: GFR Calc Estimated GFR (MDRD) Non-Af Amer 68 mL/min >60 [facility] Comment on above: Non- GFR Calc RBC Auto (Bld) [#/Vol]Ordere d By: Erum Hayes on 05-28-2023 RBC (Bld) [#/Vol] 4.76 10*6/uL 4.6-6.2 [facility] Serum or plasma calcium regino urement (mass/volume)Ordered By: Erum Hayes on 05-28-2023 Calcium [Mass/Vol] 9.0 mg/dL 8.5-10.1 [facility] Serum or plasma creatinine m easurement (mass/volume)Ordered By: Erum Hayes on 05-28-2023 Creatinine [Mass/Vol] 1.14 mg/dL 0.70-1.30 [facility] Comment on above: The validity of the calculated GFR & GFRAA in patients over 70 years has not been determined. Clinical correlation is essential. Serum or plasma urea nitroge n measurement (mass/volume)Ordered By: Erum Hayes on 05-28-2023 Urea nitrogen [Mass/Vol] 21 mg/dL 7-18 [facility] Thin prep Papanicolaou smear with manual screeningOrdered By: Erum Hayes on 05-28-2023 Thin prep Papanicolaou smear with manual screening 3.7 g/dL 3.2-5.0 [facility] Thin prep Papanicolaou smear with manual screening 21 U/L 15-37 [facility] Thin prep Papanicolaou smear with manual screening 7 5-15 [facility] Absolute lymphocyte countOrd ered By: Yogi Warner on 11-13-2022 Lymphocytes Auto (Unsp spec) [#/Vol] 1.29 10*3/uL 0.83-4.51 [facility] Basophil percentageOrdered B y: Yogi Warner on 11-13-2022 Basophils/100 WBC (Bld) 1.0 % 0-1 [facility] Bilirubin [Mass/Vol] 0.50 mg/dL 0.20-1.00 [facility] Comment on above: For patients on eltr ombopag therapy, use of Dimension [place] TBIL is not recommended. Chloride [Moles/Vol] 110 mmol/L 98-107 [facility] Eosinophils/100 WBC (Bld) 4.5 % 0-5 [facility] Glucose [Mass/Vol] 108 mg/dL 74-106 [facility] Comment on above: Fasting Glucose resu lt from 100 to 125 mg/dL suggests IMPAIRED HOMEOSTASIS per A.D.A. criteria. Neutrophils (Bld) [#/Vol] 5.6 10*3/uL 2.0-7.7 [facility] Neutrophils/100 WBC (Bld) 64.9 % 47-70 [facility] Potassium [Moles/Vol] 3.9 mmol/L 3.5-5.1 [facility] Protein [Mass/Vol] 6.7 g/dL 6.4-8.2 [facility] Sodium [Moles/Vol] 140 mmol/L 136-145 [facility] WBC (Bld) [#/Vol] 8.6 10*3/uL 4.4-11.0 [facility] Blood erythrocytes count (nu mber/volume)Ordered By: Yogi Warner on 11-13-2022 RBC (Bld) [#/Vol] 4.95 10*6/uL 4.6-6.2 [facility] Blood hemoglobin measurement (mass/volume)Ordered By: D[place] Timmy on 11-13-2022 Hemoglobin (Bld) [Mass/Vol] 15.0 g/dL 13.0-16.5 [facility] Blood lymphocytes/100 leukoc ytesOrdered By: Yogi Warner on 11-13-2022 Lymphocytes/100 WBC (Bld) 15.0 % 19-41 [facility] Blood monocytes/100 leukocyt esOrdered By: Yogi Warner on 11-13-2022 Monocytes/100 WBC (Bld) 13.7 % 0-10 [facility] Blood platelet mean volumeOr dered By: Yogi Warner on 11-13-2022 Platelet mean volume (Bld) [Entitic vol] 10.3 fL 6.2-12.0 [facility] Determination of erythrocyte mean corpuscular volume (MCV)Ordered By: Yogi Warner on 11-13-2022 MCV (RBC) [Entitic vol] 90.3 fL 80-94 [facility] Hematocrit Auto (Bld) [Volum e fraction]Ordered By: Yogi Warner on 11-13-2022 Hematocrit (Bld) [Volume fraction] 44.7 % 40-54 [facility] Laboratory - Chemistry and C hemistry - challengeOrdered By: Yogi Warner on 11-13-2022 ALP [Catalytic activity/Vol] 94 U/L 45-117 [facility] ALT [Catalytic activity/Vol] 47 U/L 16-61 [facility] CO2 [Moles/Vol] 26.0 mmol/L 21.0-32.0 [facility] Free T4 [Mass/Vol] 1.14 ng/dL 0.76-1.46 [facility] Globulin (S) [Mass/Vol] 3.1 g/dL 2.2-4.2 [facility] Urea nitrogen/Creatinine [Mass ratio] 17.8 mg/mg 10-20 [facility] Laboratory - Hematology and Cell countsOrdered By: Yogi Warner on 11-13-2022 Erythrocyte distribution width (RBC) [Entitic vol] 48.2 fL 35.1-43.9 [facility] Erythrocyte distribution width (RBC) [Ratio] 14.6 % 11.6-14.6 [facility] Immature granulocytes/100 WBC (Bld) 0.900 % 0.0-0.9 [facility] Comment on above: IG% - Immature Granu locytes (promyelocytes, myelocytes and metamyelocytes) > 1% indicates that a LEFT SHIFT is Present. MCH (RBC) [Entitic mass] 30.3 pg 27.0-32.0 [facility] Nucleated RBC/100 WBC (Bld) [Ratio] 0 % 0-5 [facility] MCHC Auto (RBC) [Mass/Vol]Or dered By: Yogi Warner on 11-13-2022 MCHC (RBC) [Mass/Vol] 33.6 g/dL 32-36 [facility] No Panel InformationOrdered By: Yogi Warner on 11-13-2022 Estimated GFR (MDRD) Amer 79 mL/min >60 [facility] Comment on above: GFR Calc Estimated GFR (MDRD) Non-Af Amer 66 mL/min >60 [facility] Comment on above: Non- GFR Calc Free Triiodothyronine (T3) pg/dL 2.5 pg/mL 2.18-3.98 [facility] Platelets bldOrdered By: Armando Warner on 11-13-2022 Platelets (Bld) [#/Vol] 190 10*3/uL 150-450 [facility] Serum or plasma albumin regino urement (mass/volume)Ordered By: Yogi Warner on 11-13-2022 Albumin [Mass/Vol] 3.6 g/dL 3.2-5.0 [facility] Serum or plasma albumin/glob ulin mass ratioOrdered By: Yogi Warner on 11-13-2022 Albumin/Globulin [Mass ratio] 1.2 {ratio} 0.9-2.4 [facility] Serum or plasma calcium regino urement (mass/volume)Ordered By: Yogi Warner on 11-13-2022 Calcium [Mass/Vol] 9.0 mg/dL 8.5-10.1 [facility] Serum or plasma creatinine m easurement (mass/volume)Ordered By: Yogi Warner on 11-13-2022 Creatinine [Mass/Vol] 1.18 mg/dL 0.70-1.30 [facility] Comment on above: The validity of the calculated GFR & GFRAA in patients over 70 years has not been determined. Clinical correlation is essential. Serum or plasma urea nitroge n measurement (mass/volume)Ordered By: Yogi Warner on 11-13-2022 Urea nitrogen [Mass/Vol] 21 mg/dL 7-18 [facility] Thin prep Papanicolaou smear with manual screeningOrdered By: Yogi Warner on 11-13-2022 Thin prep Papanicolaou smear with manual screening 24 U/L 15-37 [facility] Thin prep Papanicolaou smear with manual screening 4 5-15 [facility] Laboratory - Chemistry and C hemistry - challengeOrdered By: Dr. Ortiz on 07-24-2022 Free T4 [Mass/Vol] 1.00 ng/dL 0.76-1.46 [facility] No Panel InformationOrdered By: Dr. Ortiz on 07-24-2022 Thyroid Stimulating Hormone (TSH) 4.55 uIU/mL 0.358-3.74 [facility] Absolute lymphocyte countOrd ered By: Dr. Ortiz on 05-22-2022 Lymphocytes Auto (Unsp spec) [#/Vol] 1.87 10*3/uL 0.83-4.51 [facility] Basophil percentageOrdered B y: Dr. Ortiz on 05-22-2022 Basophils/100 WBC (Bld) 1.5 % 0-1 [facility] Eosinophils/100 WBC (Bld) 7.9 % 0-5 [facility] Neutrophils (Bld) [#/Vol] 3.6 10*3/uL 2.0-7.7 [facility] Neutrophils/100 WBC (Bld) 52.6 % 47-70 [facility] WBC (Bld) [#/Vol] 6.8 10*3/uL 4.4-11.0 [facility] Bilirubin [Mass/Vol] 0.40 mg/dL 0.20-1.00 [facility] Comment on above: For patients on eltr ombopag therapy, use of Dimension [place] TBIL is not recommended. Chloride [Moles/Vol] 109 mmol/L 98-107 [facility] Glucose [Mass/Vol] 110 mg/dL 74-106 [facility] Comment on above: Fasting Glucose resu lt from 100 to 125 mg/dL suggests IMPAIRED HOMEOSTASIS per A.D.A. criteria. Potassium [Moles/Vol] 3.9 mmol/L 3.5-5.1 [facility] Protein [Mass/Vol] 6.6 g/dL 6.4-8.2 [facility] Sodium [Moles/Vol] 140 mmol/L 136-145 [facility] Blood erythrocytes count (nu mber/volume)Ordered By: Dr. Ortiz on 05-22-2022 RBC (Bld) [#/Vol] 4.99 10*6/uL 4.6-6.2 [facility] Blood hemoglobin measurement (mass/volume)Ordered By: Dr. Ortiz on 05-22-2022 Hemoglobin (Bld) [Mass/Vol] 14.7 g/dL 13.0-16.5 [facility] Blood lymphocytes/100 leukoc ytesOrdered By: Dr. Ortiz on 05-22-2022 Lymphocytes/100 WBC (Bld) 27.5 % 19-41 [facility] Blood monocytes/100 leukocyt esOrdered By: Dr. Ortiz on 05-22-2022 Monocytes/100 WBC (Bld) 9.9 % 0-10 [facility] Blood platelet mean volumeOr dered By: Dr. Ortiz on 05-22-2022 Platelet mean volume (Bld) [Entitic vol] 10.0 fL 6.2-12.0 [facility] CNPNon 05-22-2022 CNPN Telephone ([employer]) ----- KAREY DICKERSON ([id number]) 1955 Date Time Provider Department 05/22/22 ZHANE KEE During your visit today, we recorded the following information about you: Nadine Sarmiento RN 05/22/2022 10:51 AM Signed Karey had a colonoscopy with Dr. Kee on 05/09/2022 and biopsies were taken. The patient was scheduled for a follow up visit on 05/16/22, but cancelled and did not reschedule. Could you please review the pathology and advise regarding a necessary follow up? CHANTAL Stevenson PA-C 05/22/2022 10:00 PM Signed Please let patient know pathology demonstrated a tubular adenoma. Recommend repeat colonoscopy in 5 years, please update HM and surg history and generate recall letter Nadine Sarmiento RN 05/23/2022 8:33 AM Signed My Chart message sent to patient. Health maintenance and surgical history updated, recall letter placed. Nadine Sarmiento RN Allergies As of Date: 05/22/2022 Noted Allergy Reaction AUGMENTIN (AMOXICILLIN-POT CLAVUL*08/19/2007 2 - Rash Date Reviewed: 05/09/2022 Reviewed by: Padmini Vera RN - Fully Assessed Reason for Visit: Procedure Follow Up [1139] Cmt: Colonoscopy 05/09/22 Prescriptions as of 05/23/2022 - levothyroxine 25 mcg cap Take 25 mcg by mouth daily before breakfast. - cetirizine (ZYRTEC) 10 mg tablet Take 10 mg by mouth. - chlorpheniramine (CHLORTRIMETON) 4 mg tablet Take 4 mg by mouth. - famotidine (PEPCID) 10 mg tablet Take 10 mg by mouth. - fluticasone (FLONASE) 50 mcg/actuation nasal spray Use 2 Sprays in the nose. - latanoprost (XALATAN) 0.005 % ophthalmic solution Use in eyes. - simvastatin (ZOCOR) 40 mg tablet Take 40 mg by mouth. - MULTIVITAMIN ORAL Take by mouth once daily. - SYMBICORT 160-4.5 mcg/actuation inhaler - furosemide (LASIX) 20 mg tablet Take 20 mg by mouth once daily. - amLODIPine (NORVASC) 5 mg tablet Take 5 mg by mouth once daily. - allopurinol (ZYLOPRIM) 300 mg tablet Take 300 mg by mouth once daily. - colchicine 0.6 mg capsule Take 0.6 mg by mouth once daily. - hydroxychloroquine (PLAQUENIL) 200 mg tablet Take by mouth twice daily. - GUAIFENESIN (MUCINEX ORAL) Take by mouth. - KLOR-CON SPRINKLE 10 mEq CR capsule - traMADol (ULTRAM) 50 mg tablet - ASPIRIN 81 MG TAB Take one (1) tablet daily . 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 Ortiz on 05-22-2022 MCV (RBC) [Entitic vol] 91.4 fL 80-94 [facility] Hematocrit Auto (Bld) [Volum e fraction]Ordered By: Dr. Ortiz on 05-22-2022 Hematocrit (Bld) [Volume fraction] 45.6 % 40-54 [facility] Laboratory - Chemistry and C hemistry - challengeOrdered By: Dr. Ortiz on 05-22-2022 ALP [Catalytic activity/Vol] 74 U/L 45-117 [facility] ALT [Catalytic activity/Vol] 42 U/L 16-61 [facility] CO2 [Moles/Vol] 24.0 mmol/L 21.0-32.0 [facility] Free T4 [Mass/Vol] 0.94 ng/dL 0.76-1.46 [facility] Globulin (S) [Mass/Vol] 3.0 g/dL 2.2-4.2 [facility] Urea nitrogen/Creatinine [Mass ratio] 19.1 mg/mg 10-20 [facility] Laboratory - Hematology and Cell countsOrdered By: Dr. Ortiz on 05-22-2022 Erythrocyte distribution width (RBC) [Entitic vol] 47.6 fL 35.1-43.9 [facility] Erythrocyte distribution width (RBC) [Ratio] 14.3 % 11.6-14.6 [facility] Immature granulocytes/100 WBC (Bld) 0.600 % 0.0-0.9 [facility] Comment on above: IG% - Immature Granu locytes (promyelocytes, myelocytes and metamyelocytes) > 1% indicates that a LEFT SHIFT is Present. MCH (RBC) [Entitic mass] 29.5 pg 27.0-32.0 [facility] Nucleated RBC/100 WBC (Bld) [Ratio] 0 % 0-5 [facility] MCHC Auto (RBC) [Mass/Vol]Or dered By: Dr. Ortiz on 05-22-2022 MCHC (RBC) [Mass/Vol] 32.2 g/dL 32-36 [facility] No Panel InformationOrdered By: Dr. Ortiz on 05-22-2022 Estimated GFR (MDRD) Amer 82 mL/min >60 [facility] Comment on above: GFR Calc Estimated GFR (MDRD) Non-Af Amer 68 mL/min >60 [facility] Comment on above: Non- GFR Calc Thyroid Stimulating Hormone (TSH) 6.29 uIU/mL 0.358-3.74 [facility] Platelets bldOrdered By: Dr. Ortiz on 05-22-2022 Platelets (Bld) [#/Vol] 199 10*3/uL 150-450 [facility] Serum or plasma albumin regino urement (mass/volume)Ordered By: Dr. Ortiz on 05-22-2022 Albumin [Mass/Vol] 3.6 g/dL 3.2-5.0 [facility] Serum or plasma albumin/glob ulin mass ratioOrdered By: Dr. rOtiz on 05-22-2022 Albumin/Globulin [Mass ratio] 1.2 {ratio} 0.9-2.4 [facility] Serum or plasma calcium regino urement (mass/volume)Ordered By: Dr. Ortiz on 05-22-2022 Calcium [Mass/Vol] 8.5 mg/dL 8.5-10.1 [facility] Serum or plasma creatinine m easurement (mass/volume)Ordered By: Dr. Ortiz on 05-22-2022 Creatinine [Mass/Vol] 1.15 mg/dL 0.70-1.30 [facility] Comment on above: The validity of the calculated GFR & GFRAA in patients over 70 years has not been determined. Clinical correlation is essential. Serum or plasma urea nitroge n measurement (mass/volume)Ordered By: Dr. Ortiz on 05-22-2022 Urea nitrogen [Mass/Vol] 22 mg/dL 7-18 [facility] Thin prep Papanicolaou smear with manual screeningOrdered By: Dr. Ortiz on 05-22-2022 Thin prep Papanicolaou smear with manual screening 25 U/L 15-37 [facility] Thin prep Papanicolaou smear with manual screening 7 5-15 [facility] SURGICAL PATHOLOGYon 023 Case Report Surgical Pathology R eport Case: [id number] Authorizing Provider: Zhane Kee MD Collected: 05/09/2022 08:07 AM Ordering Location: Ambulatory Surgery Received: 05/09/2022 01:54 PM Pathologist: Francisco Penaloza MD Specimen: SIGMOID COLON POLYP [facility] FINAL DIAGNOSIS A. Sigmoid colon, po lyp, biopsy: -Fragments of tubular adenoma [facility] Gross Description A. SIGMOID COLON SANDRA YP Received in formalin are two pieces of arita, soft tissue aggregating to 0.3 x 0.2 x 0.2 cm. Totally submitted in one cassette. Gross examination performed at [facility], [address] [place] [address] TTN 05/09/2022 10:54 PM [facility] Performing Lab Diagnostic interpret ation performed at [facility], [address] [facility] [address] CLIA# [id number] Manager Eligibility: Jasper Storey M.D. [facility] COLONOSCOPY SCREENINGon 04-17 [facility] Colonoscopyon 05-09-2022 Colonoscopy [facility] Gastrointestinal Endoscopy Patient Name: Karey Dickerson Procedure Date: 05/09/2022 7:24 AM Date of : 1955 Admit Type: Outpatient Age: 67 Gender: Male Note Status: Finalized Procedure: Colonoscopy Indications: High risk colon cancer surveillance: Personal history of colonic polyps Providers: Zhane Kee MD Patient Profile: This is a 67 year old male. Refer to note in patient chart for documentation of history and physical. Last Colonoscopy: 5 years ago. Referring Physician: Radha Gaspar (pa) (Referring ), Quinten Ortiz (Referring ) Medicines: Midazolam 5 mg IV, Fentanyl 100 micrograms IV Complications: No immediate complications. Requesting Provider: Procedure: Pre-Anesthesia Assessment: - Prior to the procedure, a History and Physical was performed, and patient medications and allergies were reviewed. The patient is competent. The risks and benefits of the procedure and the sedation options and risks were discussed with the patient. All questions were answered and informed consent was obtained. Patient identification and proposed procedure were verified by the physician and the nurse in the procedure room. Mental Status Examination: alert and oriented. Airway Examination: normal oropharyngeal airway and neck mobility. Respiratory Examination: clear to auscultation. CV Examination: normal. Prophylactic Antibiotics: The patient requires prophylactic antibiotics. Prior Anticoagulants: The patient has taken no anticoagulant or antiplatelet agents. ASA Grade Assessment: II - A patient with mild systemic disease. After reviewing the risks and benefits, the patient was deemed in satisfactory condition to undergo the procedure. The anesthesia plan was to use moderate sedation / analgesia (conscious sedation). Immediately prior to administration of medications, the patient was re-assessed for adequacy to receive sedatives. The heart rate, respiratory rate, oxygen saturations, blood pressure, adequacy of pulmonary ventilation, and response to care were monitored throughout the procedure. The physical status of the patient was re-assessed after the procedure. After I obtained informed consent, the scope was passed under direct vision. Throughout the procedure, the patient's blood pressure, pulse, and oxygen saturations were monitored continuously. The Colonoscope was introduced through the anus and advanced to 4 cm into the ileum. The colonoscopy was performed without difficulty. The patient tolerated the procedure well. The quality of the bowel preparation was good. The colonoscopy was performed without difficulty. The patient tolerated the procedure well. The quality of the bowel preparation was good. The terminal ileum, ileocecal valve, appendiceal orifice, and rectum were photographed. Moderate Sedation: Moderate (conscious) sedation was personally administered by the endoscopist. The following parameters were monitored: oxygen saturation, heart rate, blood pressure, and response to care. Total physician intraservice time was 22 minutes. The administration of moderate sedation was initiated at 07:46 AM. Findings: The perianal and digital rectal examinations were normal. The terminal ileum appeared normal. A few small-mouthed diverticula were found in the left colon. A 5 mm polyp was found in the sigmoid colon. The polyp was sessile. The polyp was removed with a cold snare. Resection and retrieval were complete. The exam was otherwise without abnormality on direct and retroflexion views. Impression: - The examined portion of the ileum was normal. - Diverticulosis in the left colon. - One 5 mm polyp in the sigmoid colon, removed with a cold snare. Resected and retrieved. - The examination was otherwise normal on direct and retroflexion views. Recommendation: - Discharge patient to home. - Resume previous diet. - Continue present medications. - Await pathology results. - Telephone my office for pathology results in 1 week. - Resume anticoagulant at prior dose. - Patient has a contact number available for emergencies. The signs and symptoms of potential delayed complications were discussed with the patient. Return to normal activities tomorrow. Written discharge instructions were provided to the patient. - Repeat colonoscopy is recommended for screening purposes. The colonoscopy date will be determined after pathology results from today's exam become available for review. Procedure Code(s): --- Professional --- 20936, Colonoscopy, flexible; with removal of tumor(s), polyp(s), or other lesion(s) by snare technique G0500, Moderate sedation services provided by the same physician or other qualified health home care attendant performing a gastrointestinal endoscopic service that sedation supports, requiring the presence of an independent trained ob (more content not included)... [facility] HISTORY PHYSICALon HISTORY PHYSICAL HNO ID: [id number] Author: Zhane Kee MD Service: General Surgery Author Type: Physician Type: HANDP Filed: 05/09/2022 7:12 AM Note Text: HISTORY AND PHYSICAL Karey Hung Cristophergibbjd 1955 REFERRING PHYSICIAN: Quinten Ortiz MD CHIEF COMPLAINT: Consult (Colonoscopy consult) HPI: The patient is a 66 year old male referred for endoscopy. Karey notes no colon complaints. Patient denies any change in bowel habits, weight changes, blood in stools, black tarry stools or abdominal pain. Denies family history of colon issues. The patient notes no upper GI complaints. Karey has undergone prior endoscopy. Last colonoscopy 11/10/[address] Kee under conscious sedation with removal of adenomatous [...] Problem Relation Age of Onset Heart Father OR REVIEW OF SYMPTOMS: The review of systems data was entered by the nurse and reviewed by me Nursing Notes: Anay Anderson LPN 02/20/2022 9:45 [...] history of bruising, denies bleeding, and denies anemia (more content not included)... [facility] NURSING PROGon 05-09-2022 NURSING PROG HNO ID: [id number] Author: Padmini Vera RN Service: ? Author Type: Registered Nurse Type: Nursing Progress Note Filed: 05/09/2022 8:28 AM Note Text: Arrived in phase II via cart left lateral position, eyes open, skin warm and dry, respirations regular and unlabored, abdomen rounded and softly distended, denies pain or nausea. Resting comfortably on left side. [facility] SURGICAL PATHOLOGYon 023 CASE REPORT [facility] Comment on above: Order Comment: Speci men Type: TISSUE SPECIMEN Ordering Facility: [facility] Address: [address] [place] [address] Result Comment: [facility] Path[facility] Report Case: [id number] Authorizing Provider: Zhane Kee MD Collected: 05/09/2022 08:07 AM Ordering Location: Ambulatory Surgery Received: 05/09/2022 01:54 PM Pathologist: Francisco Penaloza MD Specimen: SIGMOID COLON POLYP Performed By: #### S #### [facility] CLIA [id number] [address] [place] [address] FINAL DIAGNOSIS [facility] Comment on above: Order Comment: Speci men Type: TISSUE SPECIMEN Ordering Facility: [facility] Address: [address] [place], [place] [address] Result Comment: A. S igmoid colon, polyp, biopsy: -Fragments of tubular adenoma Performed By: #### S #### [facility] CLIA [id number] [address] [place] [address] OF [facility] FINAL PERFORMING LAB Normal [facility] Comment on above: Order Comment: Speci men Type: TISSUE SPECIMEN Ordering Facility: [facility] Address: [address] [place], [place] [id number] Result Comment: Diag nostic interpretation performed at [place] [address] CLIA# [id number] Manager Eligibility: Jasper Storey M.D. Performed By: #### S #### [facility] CLIA [id number] [address] STATES OF [facility] GROSS DESCRIPTION Normal [facility] Comment on above: Order Comment: Speci men Type: TISSUE SPECIMEN Ordering Facility: [facility] Address: [facility] [place] [id number] Result Comment: A. S IGMOID COLON POLYP Received in formalin are two pieces of arita, soft tissue aggregating to 0.3 x 0.2 x 0.2 cm. Totally submitted in one cassette. Gross examination performed at [facility], [address] [place] [address] TTN 05/09/2022 10:54 PM Performed By: #### S #### [facility] CLIA [id number] [address] [place] [address] [place] Laboratory - Chemistry and C hemistry - challengeOrdered By: Dr. Ortiz on 04-03-2022 Free T4 [Mass/Vol] 0.83 ng/dL 0.76-1.46 [facility] No Panel InformationOrdered By: Dr. Ortiz on 04-03-2022 Thyroid Stimulating Hormone (TSH) 8.83 uIU/mL 0.358-3.74 [facility] CNOVon 02-20-2022 CNOV Office Visit (REN[place]AS ) ----- KAREY DICKERSON ([id number]) 1955 [place] Date Time Provider Department 02/20/22 8:30 AM RADHA GASPAR During your visit today, we recorded the following information about you: Temperature Pulse Blood pressure Weight 97.4 degrees 70/minute 120/83 106.3 kg Height 1.753 m Radha Gaspar PA-C 02/20/2022 4:34 PM Signed HISTORY AND PHYSICAL Karey Dickerson 1955 REFERRING PHYSICIAN: Quinten Ortiz MD CHIEF COMPLAINT: Consult (Colonoscopy consult) HPI: The patient is a 66 year old male referred for endoscopy. Karey notes no colon complaints. Patient denies any change in bowel habits, weight changes, blood in stools, black tarry stools or abdominal pain. Denies family history of colon issues. The patient notes no upper GI complaints. Karey has undergone prior endoscopy. Last colonoscopy 11/10/[address] Kee under conscious sedation with removal of adenomatous [...] Problem Relation Age of Onset Heart Father OR REVIEW OF SYMPTOMS: The review of systems data was entered by the nurse and reviewed by me Nursing Notes: Anay AndersonMELISSA 02/20/2022 9:45 AM Signed REVIEW OF SYSTEMS: [...] depression, and denies voices, denies substance abuse. Endo (more content not included)... [facility] Basophil percentageOrdered B y: Dr. Ortiz on 02-03-2022 Cholesterol [Mass/Vol] 179 mg/dL <200 [facility] Comment on above: <200 mg/dL Desirable 200-240 mg/dL Borderline >240 mg/dL High Risk Triglyceride [Mass/Vol] 152 mg/dL <199 [facility] Comment on above: The drugs N-Acetylcy steine and Metamizole may falsely depress this assay.Serum Triglycerides Reference Interval Normal <150 mg/dL Borderline high 150 - 199 mg/dL High 200 - 499 mg/dL Very High > or = 500 mg/dL Blood hemoglobin measurement (mass/volume)Ordered By: Dr. Ortiz on 02-03-2022 Hemoglobin (Bld) [Mass/Vol] 15.6 g/dL 13.0-16.5 [facility] CNPNon 02-03-2022 CNPN Telephone (payworks) ----- KAREY DICKERSON ([id number]) 1955 M Date Time Provider Department 02/03/22 ZHANE KEE During your visit today, we recorded the following information about you: Patricia Patel 02/03/2022 1:40 PM Signed Returned patients call to schedule colonoscopy with Dr. Kee Allergies As of Date: 02/03/2022 Noted Allergy Reaction AUGMENTIN (AMOXICILLIN-POT CLAVUL*08/19/2007 2 - Rash Date Reviewed: 02/16/2017 Reviewed by: Joellen Guzmán Ma - Fully Assessed Reason for Visit: Follow Up Phone Call [[phone]] Prescriptions as of 02/03/2022 - predniSONE (DELTASONE) 50 mg tab Take 1 tablet by mouth once daily. Take one(1) tablet daily for 5 days, then 1/2 daily for 4 days - SYMBICORT 160-4.5 mcg/actuation inhaler - furosemide (LASIX) 20 mg tablet - amLODIPine (NORVASC) 5 mg tablet Take 5 mg by mouth once daily. - allopurinol (ZYLOPRIM) 300 mg tablet Take 300 mg by mouth once daily. - betamethasone valerate 0.1 % cream Apply to affected area twice daily. - loratadine (CLARITIN) 10 mg tablet Take 10 mg by mouth once daily. - colchicine 0.6 mg capsule Take 0.6 mg by mouth once daily. - hydroxychloroquine (PLAQUENIL) 200 mg tablet Take by mouth twice daily. - lansoprazole (PREVACID) 30 mg capsule Take 30 mg by mouth once daily. - GUAIFENESIN (MUCINEX ORAL) Take by mouth. - KLOR-CON SPRINKLE 10 mEq CR capsule - traMADol (ULTRAM) 50 mg tablet - SINGULAIR 10 MG TAB Take one(1) tablet daily at bedtime. - INTAL 200 800 MCG/ACTUATION AEROSOL INHALER 2 puffs qid 15 minutes before activity - BUDESONIDE 90 MCG/INHALATION BREATH ACTIVATED POWDER AEROSOL 1 puff qam (not prn), 1 puff qpm prn - COMPOUNDED PRESCRIPTION air compressor for nebulized inhaled treatments, use as directed - COMPOUNDED PRESCRIPTION nebulizer, mask, O2 tubing - use as directed - COMPOUNDED PRESCRIPTION daily inhaler - pirbuterol (MAXAIR AUTOHALER) 200 mcg/Inhalation INHALATION AerB prn - LIPITOR 20 MG TAB Take one(1) tablet daily. - ASPIRIN 81 MG TAB Take one (1) tablet daily . 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 Ortiz on 02-03-2022 Hematocrit (Bld) [Volume fraction] 45.9 % 40-54 [facility] Laboratory - Chemistry and C hemistry - challengeOrdered By: Dr. Ortiz on 02-03-2022 Free T4 [Mass/Vol] 0.82 ng/dL 0.76-1.46 [facility] No Panel InformationOrdered By: Dr. Ortiz on 02-03-2022 Prostate Specific Antigen Screen 0.88 ng/mL 0.00-4.00 [facility] Comment on above: This test was perfor med using the TPSA assay method for the[employer] chemistry system. Values obtained with differentassay methods cannot be used interchangably.When changing PSA assays in the course of monitoring apatient, additional sequential testing should be carriedout to confirm baseline values. Thyroid Stimulating Hormone (TSH) 6.82 uIU/mL 0.358-3.74 [facility] Urine Microalbumin/Creatinine Ratio 16.3 mg/g CRE <30 [facility] Serum or plasma cholesterol in HDL measurement (mass/volume)Ordered By: Dr. Ortiz on 02-03-2022 Cholesterol in HDL [Mass/Vol] 64 mg/dL >40 [facility] Comment on above: The drugs N-Acetylcy steine and Metamizole may falsely depress this assay. Reference Range HDL <40 mg/dL Low HDL Cholesterol HDL >or= 60 mg/dL High HDL Cholesterol Serum or plasma cholesterol in VLDL measurement (mass/volume)Ordered By: Dr. Ortiz on 02-03-2022 Cholesterol in VLDL [Mass/Vol] 30 mg/dL 5-40 [facility] Serum or plasma low density lipoprotein (LDL) cholesterol measurement (mass/volume)Ordered By: Dr. Ortiz on 02-03-2022 Cholesterol in LDL [Mass/Vol] 85 mg/dL 0-130 [facility] Thin prep Papanicolaou smear with manual screeningOrdered By: Dr. Ortiz on 02-03-2022 Thin prep Papanicolaou smear with manual screening 13.3 mg/L NO RANGE EST. [facility] Urine creatinine measurement (mass/volume)Ordered By: Dr. Ortiz on 02-03-2022 Creatinine (U) [Mass/Vol] 81.60 mg/dL NO RANGE EST. [facility] Absolute lymphocyte counton 11-28-2021 Lymphocytes Auto (Unsp spec) [#/Vol] 1.39 10*3/uL 0.83-4.51 [facility] Work Phone: Basophil percentageon 2021 Basophils/100 WBC (Bld) 1.0 % 0-1 [facility] Work Phone: [phone] Bilirubin [Mass/Vol] 0.60 mg/dL 0.20-1.00 [facility] Work Phone: Comment on above: For patients on eltr ombopag therapy, use of Dimension [place] TBIL is not recommended. Chloride [Moles/Vol] 111 mmol/L 98-107 [facility] Work Phone: Eosinophils/100 WBC (Bld) 2.7 % 0-5 [facility] Work Phone: Glucose [Mass/Vol] 105 mg/dL 74-106 [facility] Work Phone: [phone] Comment on above: Fasting Glucose resu lt from 100 to 125 mg/dL suggests IMPAIRED HOMEOSTASIS per A.D.A. criteria. Neutrophils (Bld) [#/Vol] 5.2 10*3/uL 2.0-7.7 [facility] Work Phone: Neutrophils/100 WBC (Bld) 66.3 % 47-70 [facility] Work Phone: [phone] Potassium [Moles/Vol] 4.3 mmol/L 3.5-5.1 [facility] Work Phone: Comment on above: Slight Hemolysis, Re sult may be falsely increased. Protein [Mass/Vol] 6.9 g/dL 6.4-8.2 [facility] Work Phone: Sodium [Moles/Vol] 142 mmol/L 136-145 [facility] Work Phone: WBC (Bld) [#/Vol] 7.8 10*3/uL 4.4-11.0 [facility] Work Phone: [phone] Blood erythrocytes count (nu mber/volume)on 11-28-2021 RBC (Bld) [#/Vol] 4.86 10*6/uL 4.6-6.2 [facility] Work Phone: Blood hemoglobin measurement (mass/volume)on 11-28-2021 Hemoglobin (Bld) [Mass/Vol] 15.3 g/dL 13.0-16.5 [facility] Work Phone: Blood lymphocytes/100 leukoc yteson 11-28-2021 Lymphocytes/100 WBC (Bld) 17.8 % 19-41 [facility] Work Phone: Blood monocytes/100 leukocyt eson 11-28-2021 Monocytes/100 WBC (Bld) 11.4 % 0-10 [facility] Work Phone: Blood platelet mean volumeon 11-28-2021 Platelet mean volume (Bld) [Entitic vol] 10.4 fL 6.2-12.0 [facility] Work Phone: Determination of erythrocyte mean corpuscular volume (MCV)on 11-28-2021 MCV (RBC) [Entitic vol] 94.0 fL 80-94 [facility] Work Phone: Hematocrit Auto (Bld) [Volum e fraction]on 11-28-2021 Hematocrit (Bld) [Volume fraction] 45.7 % 40-54 [facility] Work Phone: Laboratory - Chemistry and C hemistry - challengeon 11-28-2021 ALP [Catalytic activity/Vol] 76 U/L 45-117 [facility] Work Phone: ALT [Catalytic activity/Vol] 53 U/L 16-61 [facility] Work Phone: CO2 [Moles/Vol] 27.0 mmol/L 21.0-32.0 [facility] Work Phone: Globulin (S) [Mass/Vol] 3.3 g/dL 2.2-4.2 [facility] Work Phone: Urea nitrogen/Creatinine [Mass ratio] 20.4 mg/mg 10-20 [facility] Work Phone: Laboratory - Hematology and Cell countson 11-28-2021 Erythrocyte distribution width (RBC) [Entitic vol] 50.6 fL 35.1-43.9 [facility] Work Phone: [phone] Erythrocyte distribution width (RBC) [Ratio] 14.6 % 11.6-14.6 [facility] Work Phone: [phone] Immature granulocytes/100 WBC (Bld) 0.800 % 0.0-0.9 [facility] Work Phone: [phone] Comment on above: IG% - Immature Granu locytes (promyelocytes, myelocytes and metamyelocytes) > 1% indicates that a LEFT SHIFT is Present. MCH (RBC) [Entitic mass] 31.5 pg 27.0-32.0 [facility] Work Phone: [phone] Nucleated RBC/100 WBC (Bld) [Ratio] 0 % 0-5 [facility] Work Phone: [phone] MCHC Auto (RBC) [Mass/Vol]on 11-28-2021 MCHC (RBC) [Mass/Vol] 33.5 g/dL 32-36 [facility] Work Phone: [phone] No Panel Informationon 11-28 Estimated GFR (MDRD) Amer 84 mL/min >60 [facility] Work Phone: [phone] Comment on above: GFR Calc Estimated GFR (MDRD) Non-Af Amer 69 mL/min >60 [facility] Work Phone: [phone] Comment on above: Non- GFR Calc Platelets bldon 11-28-2021 Platelets (Bld) [#/Vol] 180 10*3/uL 150-450 [facility] Work Phone: [phone] Serum or plasma albumin regino urement (mass/volume)on 11-28-2021 Albumin [Mass/Vol] 3.6 g/dL 3.2-5.0 [facility] Work Phone: [phone] Serum or plasma albumin/glob ulin mass ratioon 11-28-2021 Albumin/Globulin [Mass ratio] 1.1 {ratio} 0.9-2.4 [facility] Work Phone: [phone] Serum or plasma calcium regino urement (mass/volume)on 11-28-2021 Calcium [Mass/Vol] 9.1 mg/dL 8.5-10.1 [facility] Work Phone: Serum or plasma creatinine m easurement (mass/volume)on 11-28-2021 Creatinine [Mass/Vol] 1.13 mg/dL 0.70-1.30 [facility] Work Phone: Comment on above: The validity of the calculated GFR & GFRAA in patients over 70 years has not been determined. Clinical correlation is essential. Serum or plasma urea nitroge n measurement (mass/volume)on 11-28-2021 Urea nitrogen [Mass/Vol] 23 mg/dL 7-18 [facility] Work Phone: Thin prep Papanicolaou smear with manual screeningon 11-28-2021 Thin prep Papanicolaou smear with manual screening 30 U/L 15- [facility] Work Phone: Comment on above: Slight Hemolysis, Re sult may be falsely increased. Thin prep Papanicolaou smear with manual screening 4 5-15 [facility] Work Phone: Laboratory - Microbiology an d Antimicrobial susceptibilityon 09-13-2021 SARS-CoV-2 (COVID-19) RNA BLANCA+probe Ql (Unsp spec) Not detected [facility] Work Phone: No Panel Informationon 09-13 Influenza Types A,B Rapid (Clinic) Not detected [facility] Work Phone: Alcohol, Medicalon 0 Ethanol [Mass/Vol] mg/dL <10.00 mg/dL [facility] Comment on above: Alcohol cutoff: <10. 00 mg/dL = None Detected Interpretation and review of laboratory results Normal [facility] CBC WITH AUTO DIFFERENTIALon 06-14-2019 Basophils (Bld) [#/Vol] 0.10 10*3/uL [facility] Basophils/100 WBC (Bld) 1.1 % [facility] Eosinophils (Bld) [#/Vol] 0.29 10*3/uL [facility] Eosinophils/100 WBC (Bld) 3.2 % [facility] Erythrocyte distribution width (RBC) [Entitic vol] 14.6 % 11.6 - 14.8 % [facility] Hematocrit (Bld) [Volume fraction] 46.3 % 41 - 53 % [facility] Hemoglobin (Bld) [Mass/Vol] 15.5 g/dL 13.5 - 17.5 g/dL [facility] Immature granulocytes (Bld) [#/Vol] 0.04 10*3/uL [facility] Immature granulocytes/100 WBC (Bld) 0.40 % [facility] Comment on above: The IG parameter is the percentage of metamyelocytes, myelocytes, and promyelocytes. Lymphocytes (Bld) [#/Vol] 0.97 10*3/uL [facility] Lymphocytes/100 WBC (Bld) 10.8 % [facility] MCH (RBC) [Entitic mass] 30.2 pg 26 - 34 pg [facility] MCHC (RBC) [Mass/Vol] 33.5 g/dL 31 - 3 7 g/dL [facility] MCV (RBC) [Entitic vol] 90.1 fL 80 - 100 fL [facility] Monocytes (Bld) [#/Vol] 0.88 10*3/uL [facility] Monocytes/100 WBC (Bld) 9.8 % [facility] Neutrophils (Bld) [#/Vol] 6.71 10*3/uL [facility] [facility] Neutrophils/100 WBC (Bld) 74.7 % [facility] Nucleated RBC (Bld) [#/Vol] 0.00 10*3/uL [facility] Nucleated RBC/100 WBC (Bld) [Ratio] 0.0 % [facility] Platelet mean volume (Bld) [Entitic vol] 10.2 fL 9 - 15.5 fL [facility] Platelets (Bld) [#/Vol] 159 10*3/uL [facility] RBC (Bld) [#/Vol] 5.14 10*6/uL [facility] eah WBC (Bld) [#/Vol] 8.99 10*3/uL [facility] ealth CT CERVICAL SPINE WITHOUT CO NTRASTon 06-14-2019 Interface, Rad In Ever ji Bradleyq - 06/14/2019 5:59 PM EST EXAMINATION: CT SCAN CERVICAL SPINE 06/14/2019 HISTORY: ORDERING SYSTEM PROVIDED HISTORY: Neck pain, initial exam; Cervical radiculopathy, TECHNOLOGIST PROVIDED HISTORY: Injury/Trauma Reason for exam: fall, hit back of head, bump on back of head Encounter Type: Initial Mechanism of injury: fall ORDERING SYSTEM PROVIDED DIAGNOSIS CODES: COMPARISON STUDY: None. TECHNIQUE: Multiple contiguous axial CT images of the cervical spine were obtained without contrast. Sagittal and coronal reformatted images were made. Dose reduction techniques were achieved by using automated exposure control and/or adjustment of mA and/or kV according to patient size and/or use of iterative reconstruction technique. FINDINGS: A small, 5 mm, ovoid lucency within the right side of the C4 vertebral body is most compatible with a small hemangioma. There is mild anterolisthesis of C3 on C4 of 1 mm, which appears to be secondary to severe facet joint arthropathy on the left at this level. There is ankylosis of the left C2-3 facet joint. There is severe multilevel facet joint arthropathy on the right at the C4-5 and C5-6 levels. There is ankylosis of the right C2-3 facet joint. No compression fracture is seen. There is discogenic disease at the C3-4 through C5-6 levels. No significant spinal canal stenosis is seen. There is a linear lucency involving the lateral aspect of the left C7 transverse process. There appears to be slight sclerosis adjacent to this lucency. Uncovertebral and facet joint arthropathy on the left at the C3-4 level appear to cause mild left foraminal narrowing. Right facet joint hypertrophy at the C4-5 level appears to cause moderate right foraminal narrowing. There appears to be mild right foraminal narrowing at the C5-6 level secondary to uncovertebral arthropathy. IMPRESSION: 1. There is a linear lucency with [...] secondary to uncovertebral and/or facet joint arthropathy. [employer] Workstation ID: [id number] [facility] 1. There is a linear lucency with [...] secondary to uncovertebral and/or facet joint arthropathy. [employer] Workstation ID: [id number] [facility] EXAMINATION: CT SCAN CERVICAL SPINE 06/14/2019 HISTORY: ORDERING SYSTEM PROVIDED HISTORY: Neck pain, initial exam; Cervical radiculopathy, TECHNOLOGIST PROVIDED HISTORY: Injury/Trauma Reason for exam: fall, hit back of head, bump on back of head Encounter Type: Initial Mechanism of injury: fall ORDERING SYSTEM PROVIDED DIAGNOSIS CODES: COMPARISON STUDY: None. TECHNIQUE: Multiple contiguous axial CT images of the cervical spine were obtained without contrast. Sagittal and coronal reformatted images were made. Dose reduction techniques were achieved by using automated exposure control and/or adjustment of mA and/or kV according to patient size and/or use of iterative reconstruction technique. FINDINGS: A small, 5 mm, ovoid lucency within the right side of the C4 vertebral body is most compatible with a small hemangioma. There is mild anterolisthesis of C3 on C4 of 1 mm, which appears to be secondary to severe facet joint arthropathy on the left at this level. There is ankylosis of the left C2-3 facet joint. There is severe multilevel facet joint arthropathy on the right at the C4-5 and C5-6 levels. There is ankylosis of the right C2-3 facet joint. No compression fracture is seen. There is discogenic disease at the C3-4 through C5-6 levels. No significant spinal canal stenosis is seen. There is a linear lucency involving the lateral aspect of the left C7 transverse process. There appears to be slight sclerosis adjacent to this lucency. Uncovertebral and facet joint arthropathy on the left at the C3-4 level appear to cause mild left foraminal narrowing. Right facet joint hypertrophy at the C4-5 level appears to cause moderate right foraminal narrowing. There appears to be mild right foraminal narrowing at the C5-6 level secondary to uncovertebral arthropathy. [facility] CT CERVICAL SPINE WITHOUT CONTRAST EXAMINATION: CT SCAN CERVICAL SPINE 06/14/2019 HISTORY: ORDERING SYSTEM PROVIDED HISTORY: Neck pain, initial exam; Cervical radiculopathy, TECHNOLOGIST PROVIDED HISTORY: Injury/Trauma Reason for exam: fall, hit back of head, bump on back of head Encounter Type: Initial Mechanism of injury: fall ORDERING SYSTEM PROVIDED DIAGNOSIS CODES: COMPARISON STUDY: None. TECHNIQUE: Multiple contiguous axial CT images of the cervical spine were obtained without contrast. Sagittal and coronal reformatted images were made. Dose reduction techniques were achieved by using automated exposure control and/or adjustment of mA and/or kV according to patient size and/or use of iterative reconstruction technique. FINDINGS: A small, 5 mm, ovoid lucency within the right side of the C4 vertebral body is most compatible with a small hemangioma. There is mild anterolisthesis of C3 on C4 of 1 mm, which appears to be secondary to severe facet joint arthropathy on the left at this level. There is ankylosis of the left C2-3 facet joint. There is severe multilevel facet joint arthropathy on the right at the C4-5 and C5-6 levels. There is ankylosis of the right C2-3 facet joint. No compression fracture is seen. There is discogenic disease at the C3-4 through C5-6 levels. No significant spinal canal stenosis is seen. There is a linear lucency involving the lateral aspect of the left C7 transverse process. There appears to be slight sclerosis adjacent to this lucency. Uncovertebral and facet joint arthropathy on the left at the C3-4 level appear to cause mild left foraminal narrowing. Right facet joint hypertrophy at the C4-5 level appears to cause moderate right foraminal narrowing. There appears to be mild right foraminal narrowing at the C5-6 level secondary to uncovertebral arthropathy. IMPRESSION: 1. There is a linear lucency with [...] secondary to uncovertebral and/or facet joint arthropathy. [employer]/ads Workstation ID: [id number] Dictated by: CONSTANCE RIVER on Sat Jun 14, 2019 1:36:58 PM EST Transcribed by: BON JIMENEZ IN [employer]ECH[employer] on Sat Jun 14, 2019 1:52:20 PM EST Finalized by: CONSTANCE RIVER on [facility] Jun 14, 2019 5:57:10 PM EST [facility] Comment on above: Order Comment: Injur y/Trauma or Illness?:Injury/Trauma How long have you had these symptoms (acute/chronic)?:Acute Reason for exam?:fall, hit back of head, bump on back of head Type of Exam?:Initial Mechanism of injury?:fall CT HEAD OR BRAIN WITHOUT CON TRASTon 06-14-2019 CT HEAD OR BRAIN WITHOUT CONTRAST EXAMINATION: CT HEAD OR BRAIN WITHOUT CONTRAST HISTORY: ORDERING SYSTEM PROVIDED HISTORY: Dizziness, non-specific, TECHNOLOGIST PROVIDED HISTORY: Injury/Trauma Reason for exam: fall, hit back of head, bump on back of head Encounter Type: Initial Mechanism of injury: n ORDERING SYSTEM PROVIDED DIAGNOSIS CODES: COMPARISON: None. TECHNIQUE: CT examination of the head without IV contrast. Dose reduction techniques were achieved by using automated exposure control and/or adjustment of mA and/or kV according to patient size and/or use of iterative reconstruction technique. FINDINGS: Midline structures are normally positioned. There is no evidence of hemorrhage, mass, mass effect, or midline shift. Ventricular system is small and symmetric. There is no subdural blood. Patient does have considerable symmetrical cerebral cortical atrophy. White matter differentiation is satisfactory. Bone windows show no fracture. Visualized sinuses are satisfactory. IMPRESSION: 1. No posttraumatic or acute intracranial abnormality is seen. 2. Moderately advanced symmetrical cerebral cortical atrophy. [facility] Workstation ID: [id number] Dictated by: ERIKA MA on [facility] Jun 14, 2019 1:43:22 PM EST Transcribed by: BON JIMENEZ IN [employer] on [facility] Jun 14, 2019 2:06:45 PM EST Finalized by: ERIKA MA on [facility] Jun 14, 2019 2:08:16 PM EST [facility] Comment on above: Order Comment: Injur y/Trauma or Illness?:Injury/Trauma How long have you had these symptoms (acute/chronic)?:Acute Reason for exam?:fall, hit back of head, bump on back of head Type of Exam?:Initial Mechanism of injury?:n Bon Jimenez In [facility] Scripted - 06/14/2019 2:10 PM EST EXAMINATION: CT HEAD OR BRAIN WITHOUT CONTRAST HISTORY: ORDERING SYSTEM PROVIDED HISTORY: Dizziness, non-specific, TECHNOLOGIST PROVIDED HISTORY: Injury/Trauma Reason for exam: fall, hit back of head, bump on back of head Encounter Type: Initial Mechanism of injury: n ORDERING SYSTEM PROVIDED DIAGNOSIS CODES: COMPARISON: None. TECHNIQUE: CT examination of the head without IV contrast. Dose reduction techniques were achieved by using automated exposure control and/or adjustment of mA and/or kV according to patient size and/or use of iterative reconstruction technique. FINDINGS: Midline structures are normally positioned. There is no evidence of hemorrhage, mass, mass effect, or midline shift. Ventricular system is small and symmetric. There is no subdural blood. Patient does have considerable symmetrical cerebral cortical atrophy. White matter differentiation is satisfactory. Bone windows show no fracture. Visualized sinuses are satisfactory. IMPRESSION: 1. No posttraumatic or acute intracranial abnormality is seen. 2. Moderately advanced symmetrical cerebral cortical atrophy. [facility] Workstation ID: [id number] [facility] 1. No posttraumatic or acute intracranial abnormality is seen. 2. Moderately advanced symmetrical cerebral cortical atrophy. [facility]/[employer] Workstation ID: [id number] [facility] EXAMINATION: CT HEAD OR BRAIN WITHOUT CONTRAST HISTORY: ORDERING SYSTEM PROVIDED HISTORY: Dizziness, non-specific, TECHNOLOGIST PROVIDED HISTORY: Injury/Trauma Reason for exam: fall, hit back of head, bump on back of head Encounter Type: Initial Mechanism of injury: n ORDERING SYSTEM PROVIDED DIAGNOSIS CODES: COMPARISON: None. TECHNIQUE: CT examination of the head without IV contrast. Dose reduction techniques were achieved by using automated exposure control and/or adjustment of mA and/or kV according to patient size and/or use of iterative reconstruction technique. FINDINGS: Midline structures are normally positioned. There is no evidence of hemorrhage, mass, mass effect, or midline shift. Ventricular system is small and symmetric. There is no subdural blood. Patient does have considerable symmetrical cerebral cortical atrophy. White matter differentiation is satisfactory. Bone windows show no fracture. Visualized sinuses are satisfactory. [facility] Chem 706-14-2019 Anion gap [Moles/Vol] 12 mmol/L 10 - 2 0 mmol/L [facility] Chloride [Moles/Vol] 110 mmol/L High 98 - 10 8 mmol/L [facility] Creatinine [Mass/Vol] 1.24 mg/dL 0.80 - 1.30 [facility] GFR/1.73 sq M predicted among non-blacks MDRD (S/P/Bld) [Vol rate/Area] The eGFR should be used for monitoring renal function only and not for medication dosing. [facility] GFR/1.73 sq M.predicted CKD-EPI (S/P/Bld) [Vol rate/Area] 61 >=60 mL/min/1.7 3 m2 [facility] Glucose [Mass/Vol] 109 mg/dL High 65 - 99 mg/dL [facility] HCO3 [Moles/Vol] 22 mmol/L 21 - 32 mmol/L [facility] Interpretation and review of laboratory results Abnormal [facility] Potassium [Moles/Vol] 4.1 mmol/L 3.5 - 5.1 mmol/L [facility] Sodium [Moles/Vol] 140 mmol/L 135 - 145 mmol/L [facility] Urea nitrogen [Mass/Vol] 26 mg/dL High 8 - 25 mg/dL [facility] Urea nitrogen/Creatinine [Mass ratio] 21.0 mg/mg High [facility] D-DIMER, QUANTITATIVEon 05-18 Fibrin D-dimer FEU (PPP) [Mass/Vol] 0.35 0.27 - 0.49 mcg/mL FEU [facility] A D-dimer concentrat ion of <0.5 micrograms per milliliter FEU is considered a low probability for pulmonary embolus (PE) and deep venous thrombosis (DVT). Results of this test should always be interpreted in conjunction with the patient's medical history,clinical presentation, and other findings. Clinical diagnosis should not be based on the results of the D-dimer alone. [facility] DRUGS OF ABUSE SCREEN, URINE on 06-14-2019 Amphetamines Ql (U) None Detected None Detected [facility] Comment on above: Urine Amphetamine Cu toff: < 1000 ng/mL = None Detected Barbiturates Screen Ql (U) None Detected None Detected [facility] Comment on above: Urine Barbiturates C utoff: < 200 ng/mL = None Detected Benzodiazepines Ql (U) None Detected None Detected [facility] Comment on above: Urine Benzodiazepine Cutoff: < 200 ng/mL = None Detected Cannabinoids Screen Ql (U) None Detected None Detected [facility] Comment on above: Urine Cannabinoids C utoff: < 50 ng/mL = None Detected Cocaine Ql (U) None Detected None Detected [facility] Comment on above: Urine Cocaine Cutoff : < 300 ng/mL = None Detected Interpretation and review of laboratory results Normal [facility] Methadone Screen Ql (U) None Detected Non e Detected [facility] Comment on above: Urine Methadone Cuto ff: < 300 ng/mL = None Detected Opiates Screen Ql (U) None Detected None Detected [facility] Comment on above: Urine Opiates Cutoff : < 300 ng/mL = None Detected Oxycodone Ql (U) None Detected None Detected [facility] Comment on above: Urine Oxycodone Cuto ff: < 100 ng/mL = None Detected Screen results shoul d be used for treatment purposes only. [facility] Gold Topon 06-14-2019 Extra Tube Hold for add-ons. [facility] Comment on above: Auto resulted. Hepatic Function Panel (LFT) on 06-14-2019 Albumin [Mass/Vol] 4.1 g/dL 3.2 - 5.2 g/dL [facility] ALP [Catalytic activity/Vol] 86 U/L 40 - 150 U/L [facility] ALT [Catalytic activity/Vol] 38 U/L 14 - 65 U/L [facility] AST [Catalytic activity/Vol] 21 U/L 0 - 45 U/L [facility] Bilirubin [Mass/Vol] 0.4 mg/dL 0 - 1.3 mg/dL [facility] Bilirubin.conjugated [Mass/Vol] 0.1 mg/dL 0 - 0.4 mg/dL [facility] Protein [Mass/Vol] 7.0 g/dL 6 - 8 g/dL [facility] alth Lipaseon 06-14-2019 Lipase [Catalytic activity/Vol] 156 U/L 73 - 393 U/L [facility] MR CERVICAL SPINE WITHOUT CO NTRASTon 06-14-2019 EXAMINATION: MR CERV ICAL SPINE WITHOUT CONTRAST HISTORY: ORDERING SYSTEM PROVIDED HISTORY: Neck pain, initial exam, TECHNOLOGIST PROVIDED HISTORY: Injury/Trauma Reason for exam: Pt fell on ice when his Lt leg gave out, striking head. Upon arrival to ED, pt fell again. Encounter Type: Initial Mechanism of injury: fell on ice ORDERING SYSTEM PROVIDED DIAGNOSIS CODES: COMPARISON: CT cervical spine, 06/14/2019. TECHNIQUE: Sagittal T1, T2, STIR, axial T2 and T2 gradient images were obtained. FINDINGS: Cervical spine alignment is normal. There is no subluxation. The signal in the bone marrow spaces is appropriate. No bone marrow edema. No suspicious osseous lesions. The visualized posterior fossa contents are unremarkable. C2-3, there is osseous fusion across the facet joints. Disc space is normal in height. No spinal stenosis. No foraminal narrowing. C3-4, mild degenerative disc disease with disc desiccation. There is severe facet arthropathy on the left. Mild facet arthropathy on the right. No spinal stenosis. Facet hypertrophy on the left results in moderate left foraminal narrowing. No foraminal narrowing on the right. C4-5, mild degenerative disc disease. Severe facet arthropathy on the right. No spinal stenosis. Facet hypertrophy results in moderate right foraminal narrowing. No left foraminal narrowing. C5-6, mild degenerative disc disease. Moderate facet arthropathy on the right. No spinal stenosis. Mild right foraminal narrowing. C6-7, no spinal stenosis. No foraminal narrowing. C7-T1, no spinal stenosis. No foraminal narrowing. No spinal cord compression. No abnormal signal in the cervical spinal cord. There is no paraspinal soft tissue swelling. [facility] Interface, Rad In Fu ji Speechq - 06/14/2019 7:32 PM EST EXAMINATION: MR CERVICAL SPINE WITHOUT CONTRAST HISTORY: ORDERING SYSTEM PROVIDED HISTORY: Neck pain, initial exam, TECHNOLOGIST PROVIDED HISTORY: Injury/Trauma Reason for exam: Pt fell on ice when his Lt leg gave out, striking head. Upon arrival to ED, pt fell again. Encounter Type: Initial Mechanism of injury: fell on ice ORDERING SYSTEM PROVIDED DIAGNOSIS CODES: COMPARISON: CT cervical spine, 06/14/2019. TECHNIQUE: Sagittal T1, T2, STIR, axial T2 and T2 gradient images were obtained. FINDINGS: Cervical spine alignment is normal. There is no subluxation. The signal in the bone marrow spaces is appropriate. No bone marrow edema. No suspicious osseous lesions. The visualized posterior fossa contents are unremarkable. C2-3, there is osseous fusion across the facet joints. Disc space is normal in height. No spinal stenosis. No foraminal narrowing. C3-4, mild degenerative disc disease with disc desiccation. There is severe facet arthropathy on the left. Mild facet arthropathy on the right. No spinal stenosis. Facet hypertrophy on the left results in moderate left foraminal narrowing. No foraminal narrowing on the right. C4-5, mild degenerative disc disease. Severe facet arthropathy on the right. No spinal stenosis. Facet hypertrophy results in moderate right foraminal narrowing. No left foraminal narrowing. C5-6, mild degenerative disc disease. Moderate facet arthropathy on the right. No spinal stenosis. Mild right foraminal narrowing. C6-7, no spinal stenosis. No foraminal narrowing. C7-T1, no spinal stenosis. No foraminal narrowing. No spinal cord compression. No abnormal signal in the cervical spinal cord. There is no paraspinal soft tissue swelling. IMPRESSION: 1. Normal alignment. No subluxation. No evidence [...] abnormal signal in the cervical spinal cord. [employer] Workstation ID: [id number] [facility] 1. Normal alignment. No subluxation. No evidence [...] abnormal signal in the cervical spinal cord. [employer] Workstation ID: [id number] [facility] MR CERVICAL SPINE WITHOUT CONTRAST EXAMINATION: MR CERVICAL SPINE WITHOUT CONTRAST HISTORY: ORDERING SYSTEM PROVIDED HISTORY: Neck pain, initial exam, TECHNOLOGIST PROVIDED HISTORY: Injury/Trauma Reason for exam: Pt fell on ice when his Lt leg gave out, striking head. Upon arrival to ED, pt fell again. Encounter Type: Initial Mechanism of injury: fell on ice ORDERING SYSTEM PROVIDED DIAGNOSIS CODES: COMPARISON: CT cervical spine, 06/14/2019. TECHNIQUE: Sagittal T1, T2, STIR, axial T2 and T2 gradient images were obtained. FINDINGS: Cervical spine alignment is normal. There is no subluxation. The signal in the bone marrow spaces is appropriate. No bone marrow edema. No suspicious osseous lesions. The visualized posterior fossa contents are unremarkable. C2-3, there is osseous fusion across the facet joints. Disc space is normal in height. No spinal stenosis. No foraminal narrowing. C3-4, mild degenerative disc disease with disc desiccation. There is severe facet arthropathy on the left. Mild facet arthropathy on the right. No spinal stenosis. Facet hypertrophy on the left results in moderate left foraminal narrowing. No foraminal narrowing on the right. C4-5, mild degenerative disc disease. Severe facet arthropathy on the right. No spinal stenosis. Facet hypertrophy results in moderate right foraminal narrowing. No left foraminal narrowing. C5-6, mild degenerative disc disease. Moderate facet arthropathy on the right. No spinal stenosis. Mild right foraminal narrowing. C6-7, no spinal stenosis. No foraminal narrowing. C7-T1, no spinal stenosis. No foraminal narrowing. No spinal cord compression. No abnormal signal in the cervical spinal cord. There is no paraspinal soft tissue swelling. IMPRESSION: 1. Normal alignment. No subluxation. No evidence [...] abnormal signal in the cervical spinal cord. [employer] Workstation ID: [id number] Dictated by: RHYS PATEL on [facility] Jun 14, 2019 6:15:13 PM EST Transcribed by: TEN NASH on [facility] Jun 14, 2019 6:21:40 PM EST Finalized by: RHYS PATEL on [facility] Jun 14, 2019 7:29:21 PM EST Normal [facility] Comment on above: Order Comment: Injur y/Trauma or Illness?:Injury/Trauma How long have you had these symptoms (acute/chronic)?:Acute Reason for exam?:Pt fell on ice when his Lt leg gave out, striking head. Upon arrival to ED, pt fell again. Poss fx on CT scan Type of Exam?:Initial Mechanism of injury?:fell on ice MR KNEE LEFT WITHOUT CONTRAS Ton 06-14-2019 MR KNEE LEFT WITHOUT CONTRAST EXAMINATION: MR KNEE LEFT WITHOUT CONTRAST HISTORY: ORDERING SYSTEM PROVIDED HISTORY: fall with severe left knee pain with abnormal x-ray findings., TECHNOLOGIST PROVIDED HISTORY: Injury/Trauma Reason for exam: Pt slipped and fell on ice when Lt leg gave out. Upon arrival to ED pt fell again when leg gave out a second time.Pt c/o Lt knee pain and difficulty bearing weight. Xray noted soft tissue abnormality and MRI recommended Encounter Type: Initial Mechanism of injury: fell on ice ORDERING SYSTEM PROVIDED DIAGNOSIS CODES: COMPARISON: Left knee radiographs from the same date. TECHNIQUE: Multiplanar, multisequential MR images were performed of the left knee without intravenous contrast. FINDINGS: Menisci: There is a complex tear of the posterior horn of the medial meniscus. There is degeneration of the posterior horn of the lateral meniscus without definite surfacing tear. Cruciate ligaments: Intact cruciate and collateral ligaments. Collateral ligaments: Intact medial and lateral collateral ligament complexes. Extensor mechanism: There is a complete, essentially full-thickness acute tear of the distal quadriceps tendon with mild retraction of approximately 1.5 cm. Minimal fibers are noted abutting the superior pole of the patella however these do not appear intact or contiguous as normal inserting distal quadriceps tendon fibers. The patella tendon is intact. Extensive edema/fluid is noted about the torn distal quadriceps tendon and prepatellar region. Joint: There is a small joint effusion and trace popliteal cyst. Cartilage: There is partial-thickness articular cartilage loss involving the median ridge of the patella as well as focal full-thickness articular cartilage defects with underlying subchondral cystic change involving the lateral and central trochlea. There are mild partial-thickness articular cartilage defects involving the medial and lateral compartments. Marrow/muscle: No acute fracture. No suspicious marrow lesion. Edema is noted at the visualized distal vastus medialis and lateralis. IMPRESSION: Complete, essentially full-thickness acute tear of the distal quadriceps tendon. Several other findings as detailed in the body of the report. [facility]/ Workstation ID: [id number] Dictated by: SELINA SIFUENTES on Sat Jun 14, 2019 7:03:45 PM EST Transcribed by: FRAN SANDERS on Sat Jun 14, 2019 7:17:20 PM EST Finalized by: SELINA SIFUENTES on Sat Jun 14, 2019 11:43:27 PM EST Normal [facility] Comment on above: Order Comment: Injur y/Trauma or Illness?:Injury/Trauma How long have you had these symptoms (acute/chronic)?:Acute Reason for exam?:Pt slipped and fell on ice when Lt leg gave out. Upon arrival to ED pt fell again when leg gave out a second time.Pt c/o Lt knee pain and difficulty bearing weight. Xray noted soft tissue abnormality and MRI recommended Type of Exam?:Initial Mechanism of injury?:fell on ice Otheron 06-14-2019 Interpretation and review of laboratory results Normal [facility] Interpretation and review of laboratory results Normal [facility] PT/INRon 06-14-2019 INR Coag (PPP) [Relative time] 1.0 {INR} [facility] PT Coag (PPP) [Time] 13.0 s [facility] During the induction phase of oral anticoagulation, the INR may not reflect the anticoagulation status of the patient. Therapeutic ranges for INR's are: Most clinical situations: INR 2.0-3.0 Mechanical Prosthetic Valve: INR 2.5-3.5 Critical: INR >5.0 [facility] TROPONINon 06-14-2019 Troponin I.cardiac [Mass/Vol] No biomarker evidence of cardiac injury. [facility] Troponin I.cardiac [Mass/Vol] ng/mL <=45 ng/L [facility] Troponin I.cardiac [Mass/Vol] ng/mL <=45 ng/L [facility] Troponin I.cardiac [Mass/Vol] Normal [facility] XR CHEST PA/APon 06-14-2019 XR CHEST PA/AP EXAMINATION: XR CHEST PA/AP 06/14/2019 1:22 pm HISTORY: ORDERING SYSTEM PROVIDED HISTORY: falls, TECHNOLOGIST PROVIDED HISTORY: Illness/Other Reason for exam: fall today, hypertensive Cancer History: u Surgery, RadiationHistory: u Encounter Type: Initial Additional signs and symptoms: n ORDERING SYSTEM PROVIDED DIAGNOSIS CODES: COMPARISON: None. FINDINGS: The heart appears within normal limits in size. No focal consolidation, pleural effusion, pneumothorax or evidence of congestive heart failure is seen. There is mild elevation of the right hemidiaphragm. IMPRESSION: No radiographic evidence of active cardiopulmonary disease is seen. DWR/ads Workstation ID: [id number] Dictated by: CONSTANCE RIVER on Sat Jun 14, 2019 1:50:44 PM EST Transcribed by: BON JIMENEZ IN [employer] on Sat Jun 14, 2019 2:07:15 PM EST Finalized by: CONSTANCE RIVER on Sat Jun 14, 2019 5:57:37 PM EST Normal [facility] Comment on above: Order Comment: Injur y/Trauma or Illness?:Illness/Other How long have you had these symptoms (acute/chronic)?:Acute Reason for exam?:fall today, hypertensive History of cancer?:u Surgeries, chemotherapy, or radiation?:u Type of Exam?:Initial Additional signs and symptoms?:n XR Chest 1 Viewon 06-14-2019 Interface, Rad In Fu ji Speechq - 06/14/2019 6:00 PM EST EXAMINATION: XR CHEST PA/AP 06/14/2019 1:22 pm HISTORY: ORDERING SYSTEM PROVIDED HISTORY: falls, TECHNOLOGIST PROVIDED HISTORY: Illness/Other Reason for exam: fall today, hypertensive Cancer History: u Surgery, RadiationHistory: u Encounter Type: Initial Additional signs and symptoms: n ORDERING SYSTEM PROVIDED DIAGNOSIS CODES: COMPARISON: None. FINDINGS: The heart appears within normal limits in size. No focal consolidation, pleural effusion, pneumothorax or evidence of congestive heart failure is seen. There is mild elevation of the right hemidiaphragm. IMPRESSION: No radiographic evidence of active cardiopulmonary disease is seen. DWR/ads Workstation ID: [id number] [facility] No radiographic evid ence of active cardiopulmonary disease is seen. DWR/ads Workstation ID: [id number] [facility] EXAMINATION: XR CHES T PA/AP 06/14/2019 1:22 pm HISTORY: ORDERING SYSTEM PROVIDED HISTORY: falls, TECHNOLOGIST PROVIDED HISTORY: Illness/Other Reason for exam: fall today, hypertensive Cancer History: u Surgery, RadiationHistory: u Encounter Type: Initial Additional signs and symptoms: n ORDERING SYSTEM PROVIDED DIAGNOSIS CODES: COMPARISON: None. FINDINGS: The heart appears within normal limits in size. No focal consolidation, pleural effusion, pneumothorax or evidence of congestive heart failure is seen. There is mild elevation of the right hemidiaphragm. [facility] XR KNEE LEFT 2 VIEWS ([address] RD)on 06-14-2019 1. The soft tissues in the region [...] a soft tissue contusion or prepatellar bursitis. [facility]WR[employer] Workstation ID: [id number] [facility] EXAMINATION: XR KNEE LEFT 2 VIEWS (STANDARD) 06/14/2019 1:29 pm HISTORY: ORDERING SYSTEM PROVIDED HISTORY: pain to left knee, TECHNOLOGIST PROVIDED HISTORY: Injury/Trauma Reason for exam: left knee pain s/p fall today Cancer History: u Surgery, RadiationHistory: u Encounter Type: Initial Mechanism of injury: Pt states that he is unable to bear weight ORDERING SYSTEM PROVIDED DIAGNOSIS CODES: COMPARISON: None. FINDINGS: No fracture, dislocation or significant joint effusion is seen. There is a large amount of soft tissue swelling along the anterior aspect of the knee and there appears to be an enthesophyte along the anterior aspect of the patella. The soft tissues in the expected location of the distal quadriceps tendon appears thickened. There is no joint space narrowing. [facility] Marilyn, Bon In Fu ji Speechq - 06/14/2019 6:00 PM EST EXAMINATION: XR KNEE LEFT 2 VIEWS (STANDARD) 06/14/2019 1:29 pm HISTORY: ORDERING SYSTEM PROVIDED HISTORY: pain to left knee, TECHNOLOGIST PROVIDED HISTORY: Injury/Trauma Reason for exam: left knee pain s/p fall today Cancer History: u Surgery, RadiationHistory: u Encounter Type: Initial Mechanism of injury: Pt states that he is unable to bear weight ORDERING SYSTEM PROVIDED DIAGNOSIS CODES: COMPARISON: None. FINDINGS: No fracture, dislocation or significant joint effusion is seen. There is a large amount of soft tissue swelling along the anterior aspect of the knee and there appears to be an enthesophyte along the anterior aspect of the patella. The soft tissues in the expected location of the distal quadriceps tendon appears thickened. There is no joint space narrowing. IMPRESSION: 1. The soft tissues in the region [...] a soft tissue contusion or prepatellar bursitis. DWR/jkendallw Workstation ID: [id number] [facility] XR KNEE LEFT 2 VIEWS (STANDARD) EXAMINATION: XR KNEE LEFT 2 VIEWS (STANDARD) 06/14/2019 1:29 pm HISTORY: ORDERING SYSTEM PROVIDED HISTORY: pain to left knee, TECHNOLOGIST PROVIDED HISTORY: Injury/Trauma Reason for exam: left knee pain s/p fall today Cancer History: u Surgery, RadiationHistory: u Encounter Type: Initial Mechanism of injury: Pt states that he is unable to bear weight ORDERING SYSTEM PROVIDED DIAGNOSIS CODES: COMPARISON: None. FINDINGS: No fracture, dislocation or significant joint effusion is seen. There is a large amount of soft tissue swelling along the anterior aspect of the knee and there appears to be an enthesophyte along the anterior aspect of the patella. The soft tissues in the expected location of the distal quadriceps tendon appears thickened. There is no joint space narrowing. IMPRESSION: 1. The soft tissues in the region [...] a soft tissue contusion or prepatellar bursitis. DWR/louise Workstation ID: [id number] Dictated by: CONSTANCE RIVER on [facility] Jun 14, 2019 1:53:22 PM EST Transcribed by: ELIN ACKERMAN on [facility] Jun 14, 2019 2:12:23 PM EST Finalized by: CONSTANCE RIVER on [facility] Jun 14, 2019 5:57:51 PM EST Normal [facility] Comment on above: Order Comment: Injur y/Trauma or Illness?:Injury/Trauma How long have you had these symptoms (acute/chronic)?:Acute Reason for exam?:left knee pain s/p fall today History of cancer?:u Surgeries, chemotherapy, or radiation?:u Type of Exam?:Initial Mechanism of injury?:Pt states that he is unable to bear weight Office Visiton 02-02-2017 Documentation of current medications (procedure) Done Invalid Interpretation Code [employer] Work Phone: [phone] Fall risk assessment No Invalid Interpretation Code [facility] Work Phone: [phone] Protein mass conc Done Invalid Interpretation Code [employer] Work Phone: [phone] Office Visit: asthma & COPDo n 10-02-2016 Dietary management education, guidance, and counseling (procedure) yes Invalid Interpretation Code [facility] Work Phone: Documentation of current medications (procedure) Done Invalid Interpretation Code [facility] Work Phone: Fall risk assessment No Invalid Interpretation Code [facility] Work Phone: [phone] Protein mass conc Done [facility] Work Phone: [phone] Tobacco smoking status NHIS Never Invalid Interpretation Code [facility] Work Phone: [phone] Tobacco smoking status NHIS Never smoker Invalid Interpretation Code [facility] Work Phone: [phone] Tobacco use [facility] Never smoker Invalid Interpretation Code [facility] Work Phone: Rx Refill: eRx Request for S YMBICORT 160-4.5 MCG/ACT AEROon 08-09-2016 e-scripts messenger refill request [id number]`SYMBICORT 160-4.5 MCG/ACT AERO```1 Unspecified``2 puffs twice daily```0`01/06/2016`No date sent`Dyllan [place]*`[id number]`[phone]`SYMBICORT 160-4.5MCG HFA AER AD Quantity: 10.2 Gram Instructions: Inhale 2 puffs twice daily [facility] Work Phone: [facility]_RR [id number]`SYMBICORT 160-4.5 MCG/ACT AERO```1 Unspecified``2 puffs twice daily```0`01/06/2016`No date sent`Dyllan [place]*`[id number]`[id number]`SYMBICORT 160-4.5MCG HFA AER AD Quantity: 10.2 Gram Instructions: Inhale 2 puffs twice daily [facility] Work Phone: Chart Maintenanceon 08-04-19 17 HbA1c 5.1 % Invalid Interpretation Code [facility] Work Phone: Clinical Lists Update: 05-05-2016 Left ventricular Ejection fraction 60 % Invalid Interpretation Code [facility] Work Phone: [phone] Clinical Lists Update: 03-15-2016 Alkaline phosphatase (ALP) 95 U/L Invalid Interpretation Code [facility] Work Phone: [phone] ALP enzyme act/vol (Bld) 95 U/L Invalid Interpretation Code [facility] Work Phone: [phone] ALT enzyme act/vol 46 U/L Invalid Interpretation Code [facility] Work Phone: [phone] AST enzyme act/vol 22 U/L Invalid Interpretation Code [facility] Work Phone: [phone] Bilirubin mass conc 0.40 mg/dL Invalid Interpretation Code [facility] Work Phone: [phone] Chloride molar conc 110 mmol/L Invalid Interpretation Code [facility] Work Phone: [phone] CO2 23.0 mmol/L Invalid Interpretation Code [facility] Work Phone: CO2 ppres (BldV) 23.0 mmol/L Invalid Interpretation Code [facility] Work Phone: [phone] Creatinine mass conc 1.32 mg/dL [facility] Work Phone: [phone] Hematocrit (HCT) 46.0 % Invalid Interpretation Code [facility] Work Phone: Hematocrit Volume Fraction (Bld) 46.0 % [facility] Work Phone: [phone] Hemoglobin mass conc (Bld) 15.4 g/dL Invalid Interpretation Code [facility] Work Phone: [phone] Platelets 175 10*3/mm3 Invalid Interpretation Code [facility] Work Phone: [phone] Platelets #/vol (Bld) 175 10*3/mm3 [facility] Work Phone: [phone] Potassium molar conc 3.7 mmol/L Invalid Interpretation Code [facility] Work Phone: [phone] Sodium molar conc 143 mmol/L Invalid Interpretation Code [facility] Work Phone: Urea nitrogen mass conc 18 mg/dL Invalid Interpretation Code [facility] Work Phone: [phone] WBC #/vol (Bld) 7.1 10*3/uL [facility] Work Phone: [phone] WBC (Leukocytes) 7.1 10*3/uL Invalid Interpretation Code [facility] Work Phone: Clinical Lists Update: 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 oceanographic meteorologist 10-09-2015 Cholesterol in HDL mass conc 54 mg/dL Invalid Interpretation Code [facility] Work Phone: [phone] Cholesterol in LDL mass conc 81 mg/dL Invalid Interpretation Code [facility] Work Phone: [phone] Cholesterol mass conc 164 mg/dL Invalid Interpretation Code [facility] Work Phone: [phone] Lipoprotein.pre-beta mass conc 29 mg/dL Invalid Interpretation Code [facility] Work Phone: [phone] Triglyceride mass conc 145 mg/dL Invalid Interpretation Code [facility] Work Phone: [phone] Clinical Lists Update: Pre oceanographic meteorologist 06-30-2015 Urea nitrogen/Creatinine mass ratio 16.1 mg/mg Invalid Interpretation Code [facility] Work Phone: [phone] Lab Report: Basic Metabolic Profile (BMP)on 06-14-2015 Anion gap 7 mmol/L Invalid Interpretation Code 5-15 [facility] Work Phone: Anion gap 4 molar conc 7 Invalid Interpretation Code 5-15 [facility] Work Phone: [phone] Anion gap molar conc 7 mmol/L 5-[address] [facility] Work Phone: [phone] Calcium mass conc 8.6 mg/dL Invalid Interpretation Code 8.5-10.1 [facility] Work Phone: [phone] eGFR (non-black) 89 mL/min/{1.73_m2} Invalid Interpretation Code >60 [facility] Work Phone: [phone] EST GFR - AA 89 mL/min Invalid Interpretation Code >60 [facility] Work Phone: [phone] GFR/1.73 sq M predicted among non-blacks MDRD vol rate/area (S/P/Bld) 74 mL/min/{1.73_m2} Invalid Interpretation Code >60 [facility] Work Phone: [phone] Glucose 99 mg/dL Invalid Interpretation Code 70-110 [facility] Work Phone: Glucose mass conc 99 mg/dL Invalid Interpretation Code 70-110 [facility] Work Phone: [phone] Office Visiton 06-04-2015 General cardiovascular disease 10Y risk [#] [place]D'[place] 7 % Invalid Interpretation Code [facility] Work Phone: [phone] Lab Report: ANCAon 5 Atypical pANCA <1:20 titer Invalid Interpretation Code Neg:<1:20 [facility] Work Phone: [phone] CYTOPLASMIC Ab <1:20 Invalid Interpretation Code Neg:<1:20 [facility] Work Phone: [phone] Neutrophils <1:20 Invalid Interpretation Code Neg:<1:20 [facility] Work Phone: Neutrophils 1:80 High Neg:<1:20 [facility] Work Phone: PERINUCLEAR Ab 1:80 High Neg:<1:20 [facility] Work Phone: [phone] Lab Report: ANTINUCLEAR ANTI BODIES DIRECTon 03-26-2015 JACQUE Titer Positive High Negative [facility] Work Phone: Nuclear Ab IA Qn (S) Positive High Negative [facility] Work Phone: [phone] Lab Report: CRPon 03-24-2015 CRP mass conc mg/L Invalid Interpretation Code 0.0-3.0 [facility] Work Phone: [phone] Lab Report: Erythrocyte Sed Rateon 03-24-2015 ESR Velocity (Bld) 7 mm/h Invalid Interpretation Code 0-20 [facility] Work Phone: [phone] Office Visiton 01-28-2015 cardiac risk group C Invalid Interpretation Code [facility] Work Phone: [phone] Replaced Document: [facility] E CG Observationson 01-28-2015 EKG QRS axis 35 deg Invalid Interpretation Code [facility] Work Phone: electrocardiogram interpretation Sinus Rhythm -Short CT syndrome Omar = 112-Left atrial enlargement. BORDERLINE Invalid Interpretation Code [facility] Phone: [phone] GE use only - for [employer] import when terms are not otherwise specified 423 ms Invalid Interpretation Code [facility] Phone: [phone] Interpretation Sinus Rhythm -Short CT syndrome Omar = 112-Left atrial enlargement. BORDERLINE Invalid Interpretation Code [employer] Phone: [phone] P [place] 46 deg Invalid Interpretation Code [facility] Work Phone: [phone] P wave axis, electrocardiogram 46 deg Invalid Interpretation Code [facility] Phone: [phone] CT Interval 112 ms Invalid Interpretation Code [employer] Phone: [phone] interval, electrocardiogram 112 ms Invalid Interpretation Code [facility] Phone: Pulse (Heart Rate) 95 /min Invalid Interpretation Code [facility] Phone: [phone] QRS axis, electrocardiogram 35 deg Invalid Interpretation Code [facility] Phone: [phone] QRS Duration 106 ms Invalid Interpretation Code [employer] Phone: [phone] QRS duration, electrocardiogram 106 ms Invalid Interpretation Code [facility] Phone: [phone] QT Interval new path ms Invalid Interpretation Code [employer] Phone: [phone] QT interval, electrocardiogram new path ms Invalid Interpretation Code [facility] Phone: [phone] QTc Moore 423 ms Invalid Interpretation Code [employer] Phone: [phone] T [place] 50 deg Invalid Interpretation Code [employer] Phone: [phone] T wave axis, electrocardiogram 50 deg Invalid Interpretation Code [facility] Phone: Diagnostic Report Other: Mid dea ROSITA Observationson 01-21-2015 expiration time for FVC test, pre-bronchodilator 2.000 s Invalid Interpretation Code [facility] [employer] Phone: [phone] extrapolated volume, pre-bronchodilator 2.695 L Invalid Interpretation Code [facility] Phone: FEV1/FVC percent (pre-intervention) new path % Invalid Interpretation Code [facility] Phone: forced expiratory volume at 1 second (pre-intervention) 2.750 L Invalid Interpretation Code [facility] Phone: forced expiratory volume, 1 second, pre-intervention, personal best 2.750 L Invalid Interpretation Code [facility] Phone: forced vital capacity (FVC), personal best 3.007 L Invalid Interpretation Code [facility] Phone: forced vital capacity, pre-intervention 3.007 L Invalid Interpretation Code [facility] Phone: peak expiratory flow, pre-intervention 3.861 L/s Invalid Interpretation Code [facility] Phone: Pre Best FEV1 2.750 L Invalid Interpretation Code [employer] Phone: [phone] Pre Best FVC 3.007 L Invalid Interpretation Code [employer] Phone: [phone] Pre ExpTime 2.000 s Invalid Interpretation Code [employer] Phone: [phone] Pre FEV1 2.750 L Invalid Interpretation Code [employer] Phone: [phone] Pre FEV1/FVC new path % Invalid Interpretation Code [employer] Phone: [phone] Pre FVC 3.007 L Invalid Interpretation Code [employer] Phone: [phone] Pre PEF 3.861 L/s Invalid Interpretation Code [employer] Phone: [phone] Pre V Ext 2.695 L Invalid Interpretation Code [employer] Phone: [phone] spirometry interpretation Unable to perform automatic interpretation because: Predicted FEV1/FVC is not available or valid. Invalid Interpretation Code [facility] [employer] Phone: Spirom[employer]p Unable to perform automatic interpretation because: Predicted FEV1/FVC is not available or valid. 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 Quinten Ortiz MD Work Phone: [facility] 06-23-2024 08:51-0400 Body temperature 97.4 [degF] Dr. Quinten Ortiz MD Work Phone: [facility] 06-23-2024 08:51-0400 Body weight 105.[address] Quinten Ortiz MD Work Phone: [facility] 06-23-2024 08:51-0400 Diastolic blood pressure 82 mm[Hg] Dr. Quinten Ortiz MD Work Phone: [facility] 06-23-2024 08:51-0400 Heart rate 85 /min Dr. Quinten Ortiz MD Work Phone: [facility] 06-23-2024 08:51-0400 Respiratory rate 18 /min Dr. Quinten Ortiz MD Work Phone: [facility] 06-23-2024 08:51-0400 SaO2% (BldA) [Mass fraction] 96 % Dr. Quinten Ortiz MD Work Phone: [facility] 06-23-2024 08:51-0400 Systolic blood pressure 124 mm[Hg] Dr. Quinten Ortiz MD Work Phone: [facility] 11-01-2022 10:27-0400 Body height 175.[address] Quinten Ortiz Work Phone: [facility] 11-01-2022 10:27-0400 Body mass index (BMI) [Ratio] 34.4 kg/m2 Dr. Quinten Ortiz Work Phone: [facility] 11-01-2022 10:27-0400 Body weight 105.[address] Quinten Ortiz Work Phone: [facility] 11-01-2022 10:27-0400 Diastolic blood pressure 70 mm[Hg] Dr. Quinten Ortiz Work Phone: [facility] 11-01-2022 10:27-0400 Heart rate 66 /min Dr. Quinten Ortiz Work Phone: [facility] 11-01-2022 10:27-0400 Respiratory rate 18 /min Dr. Quinten Ortiz Work Phone: [facility] 11-01-2022 10:27-0400 Systolic blood pressure 111 mm[Hg] Dr. Quinten Ortiz Work Phone: [facility] 05-23-2022 05:55-0500 Body height 175.[address] Quinten Ortiz Work Phone: [facility] 05-23-2022 05:55-0500 Body mass index (BMI) [Ratio] 34.8 kg/m2 Dr. Quinten Ortiz Work Phone: [facility] 05-23-2022 05:55-0500 Body temperature 97.5 [degF] Dr. Quinten Ortiz Work Phone: [facility] 05-23-2022 05:55-0500 Body weight 107.[address] Quinten Ortiz Work Phone: [facility] 05-23-2022 05:55-0500 Diastolic blood pressure 77 mm[Hg] Dr. Quinten Ortiz Work Phone: [facility] 05-23-2022 05:55-0500 Heart rate 84 /min Dr. Quinten Ortiz Work Phone: [facility] 05-23-2022 05:55-0500 Respiratory rate 16 /min Dr. Quinten Ortiz Work Phone: [facility] 05-23-2022 05:55-0500 SaO2% (BldA) [Mass fraction] 95 % Dr. Quinten Ortiz Work Phone: [facility] 05-23-2022 05:55-0500 Systolic blood pressure 113 mm[Hg] Dr. Quinten Ortiz Work Phone: [facility] 05-09-2022 08:48-0500 Diastolic blood pressure 78 mm[Hg] Zhane Kee MD Work Phone: [facility] 05-09-2022 08:48-0500 Heart rate 74 /min Zhane Kee MD Work Phone: [facility] 05-09-2022 08:48-0500 Respiratory rate 16 /min Zhane Kee MD Work Phone: [facility] 05-09-2022 08:48-0500 SaO2% (BldA) [Mass fraction] 94 % Zhane Kee MD Work Phone: [facility] 05-09-2022 08:48-0500 Systolic blood pressure 127 mm[Hg] Zhane Kee MD Work Phone: [facility] 05-09-2022 07:09-0500 Body temperature 97.59 [degF] Zhane Kee MD Work Phone: [facility] 05-09-2022 07:09-0500 Body weight 106.3 kg Zhane Kee MD Work Phone: [facility] 02-20-2022 08:36-0500 Body height 175.3 cm Radha Gaspar PA-C Work Phone: [facility] 02-20-2022 08:36-0500 Body temperature 97.39 [degF] Radha Torresf PA-C Work Phone: [facility] 02-20-2022 08:36-0500 Body weight 106.32 kg Radha Lee Mont PA-C Work Phone: [facility] 02-20-2022 08:36-0500 Diastolic blood pressure 83 mm[Hg] Radha Torresf PA-C Work Phone: [facility] 02-20-2022 08:36-0500 Heart rate 70 /min Radha Abdiel PA-C Work Phone: [facility] 02-20-2022 08:36-0500 SaO2% (BldA) [Mass fraction] 100 % Rdaha Torresf PA-C Work Phone: [facility] 02-20-2022 08:36-0500 Systolic blood pressure 120 mm[Hg] Radha Torresf PA-C Work Phone: [facility] 09-13-2021 09:32-0400 Body temperature 97.5 [degF] Dr. Quinten Ortiz Work Phone: [facility] Work Phone: 09-13-2021 09:32-0400 Diastolic blood pressure 84 mm[Hg] Dr. Quinten Ortiz Work Phone: [facility] Work Phone: 09-13-2021 09:32-0400 Heart rate 102 /min Dr. Quinten Ortiz Work Phone: [facility] Work Phone: 09-13-2021 09:32-0400 Respiratory rate 16 /min Dr. Quinten Ortiz Work Phone: [facility] Work Phone: 09-13-2021 09:32-0400 SaO2% (BldA) [Mass fraction] 98 % Dr. Quinten Ortiz Work Phone: [facility] Work Phone: 09-13-2021 09:32-0400 Systolic blood pressure 130 mm[Hg] Dr. Quinten Ortiz Work Phone: [facility] Work Phone: 06-14-2019 19:30-0500 BP Diastolic 84 mm[Hg] [facility] 06-14-2019 19:30-0500 BP Systolic 136 mm[Hg] [facility] 06-14-2019 19:30-0500 Pulse (Heart Rate) 70 /min [facility] 06-14-2019 19:30-0500 Pulse Oximetry 97 % [facility] 06-14-2019 19:30-0500 Respiratory Rate 16 /min [facility] 06-14-2019 12:42-0500 Body Temperature 98.71 [degF] [facility] 06-14-2019 12:32-0500 BMI (Body Mass Index) 35 kg/m2 [facility] 06-14-2019 12:32-0500 Body weight 107.5 kg [facility] 06-14-2019 12:32-0500 Height 175.3 cm [facility] 02-02-2017 15:03-0400 BMI (Body Mass Index) 35.59 kg/m2 Erinartie Roger [facility] Work Phone: 02-02-2017 15:03-0400 BP Diastolic 90 mm[Hg] [facility] Work Phone: 02-02-2017 15:03-0400 BP Systolic 124 mm[Hg] Yovana Duran [facility] Work Phone: 02-02-2017 15:03-0400 Height 175.26 cm Erinartie Roger [facility] Work Phone: 02-02-2017 15:03-0400 Pulse (Heart Rate) 68 /min Yovana Duran [facility] Work Phone: 02-02-2017 15:03-0400 Respiratory Rate 20 /min [facility]ana Duran [facility] Work Phone: 02-02-2017 15:03-0400 Weight 109.32 kg Yovana Duran [facility] Work Phone: 10-02-2016 07:34-0400 BMI (Body Mass Index) 34.26 kg/m2 Dom Ross MD [facility] Work Phone: 10-02-2016 07:34-0400 Body Temperature 97.3 [degF] Dom Ross MD [facility] Work Phone: 10-02-2016 07:34-0400 BP Diastolic 82 mm[Hg] Dom Ross MD [facility] Work Phone: 10-02-2016 07:34-0400 BP Systolic 119 mm[Hg] Dom Ross MD [facility] Work Phone: 10-02-2016 07:34-0400 Height 175.26 cm Dom Ross MD [facility] Work Phone: 10-02-2016 07:34-0400 Pulse (Heart Rate) 69 /min Dom Ross MD [facility] Work Phone: 10-02-2016 07:34-0400 Pulse Oximetry 98 % Dom Ross MD [facility] Work Phone: 10-02-2016 07:34-0400 Respiratory Rate 18 /min Dom Ross MD [facility] Work Phone: 10-02-2016 07:34-0400 Weight 105.24 kg Dom Ross MD [facility] Work Phone: 05-10-2016 13:46-0500 BSA (Body Surface Area) 2.21 m2 Dom Ross MD [facility] Work Phone: 04-05-2016 06:53-0500 Body Temperature 97.34 [degF] Dom Ross MD [facility] Work Phone: 04-05-2016 06:53-0500 Height 175.26 cm Dom Ross MD [facility] Work Phone: 04-05-2016 06:53-0500 Weight 105.45 kg Dom Ross MD [facility] Work Phone: 01-28-2015 15:10-0400 Heart rate 95 /min Dom Ross MD [facility] Work Phone: 01-28-2015 14:49-0400 Pulse Oximetry 95 % Dom Ross MD [facility] Work Phone: Encounters Encounter Date Encounter Type Care Provider Facility Start: 07-07-2024 End: 07-07-[address] Quinten Ortiz MD Work Phone: [facility] Work Phone: Start: 07-07-2024 End: 07-07-[address] Quinten Ortiz MD -Laboratory Work Phone: Start: 07-07-2024 End: 07-07-2024 ambulatory Quinten Ortiz Facility:[facility] Start: 06-23-2024 End: 06-23-2024 Patient encounter procedure Yesenia Sarabia PRUNE WASHER-C [facility] Work Phone: Start: 06-23-2024 End: 06-23-2024 ambulatory Yesenia Sarabia NP [facility] Start: 04-22-2024 End: 04-22-[address] Erum Hayes MD -Laboratory Work Phone: Start: 04-22-2024 End: 04-22-2024 ambulatory [facility] Facility:[facility] Start: 02-25-2024 End: 02-25-2024 ambulatory Quinten Ortiz Facility:[facility] Start: 02-22-2024 End: 02-22-2024 [facility] Facility:[facility] Start: 12-28-2023 End: 12-28-2023 ambulatory [facility] Facility:[facility] Start: 12-25-2023 End: 12-25-2023 ambulatory Yogi Warner Facility:[facility] Start: 11-26-2023 End: 11-26-2023 ambulatory [facility] Facility:[facility] Start: 11-19-2023 End: 11-19-2023 ambulatory [facility] Facility:[facility] Start: 05-28-2023 End: 05-28-2023 ambulatory [facility] Work Phone: Start: 05-28-2023 End: 05-28-2023 Patient encounter procedure [facility] Work Phone: Start: 11-13-2022 Non-patient / Non-visit Dr. Meliton Ortiz Work Phone: [facility] Start: 11-13-2022 End: 11-13-[address] Quinten Ortiz Work Phone: [facility] Work Phone: Start: 11-13-2022 End: 11-13-[address] Quinten Ortiz Work Phone: [facility] Work Phone: Start: 11-10-2022 Non-patient / Non-visit Dr. Meliton Ortiz Work Phone: [facility] Start: 11-10-[address] Quinten calix Work Phone: [facility] Work Phone: Start: 11-01-2022 End: 11-01-[address] Quinten Ortiz Work Phone: [facility] Work Phone: Start: 07-24-2022 End: 07-24-[address] Quinten Ortiz Work Phone: [facility] Work Phone: Start: 07-24-2022 End: 07-24-[address] Quinten Ortiz Work Phone: [facility] Start: 05-23-2022 ambulatory Zhane campbell MD Work Phone: General Surgery Comment on above: Colonoscopy results Start: 05-23-2022 E-mail encounter fro m caregiver Zhane Kee MD Work Phone: [facility] Start: 05-23-2022 End: 05-23-[address] Quinten Ortiz Work Phone: [facility] Start: 05-22-2022 Telephone encounter Zhane Kee MD Work Phone: General Surgery Comment on above: Procedure Follow Up (Colonoscopy 05/09/22) Start: 05-22-2022 End: 05-22-[address] Quinten Ortiz Work Phone: [facility] Work Phone: Start: 05-22-2022 End: 05-22-[address] Quinten Ortiz Work Phone: [facility] Start: 05-09-2022 End: 05-09-2022 ambulatory ZHANE KEE Facility:[facility] Start: 05-09-2022 End: 05-09-2022 Subsequent hospital visit by physician Zhane Kee MD Work Phone: Ambulatory Surgery Comment on above: History of colonic p olyps [Z86.010] Start: 04-03-2022 End: 04-03-2022 ambulatory [facility] Work Phone: Start: 04-03-2022 End: 04-03-[address] [facility] Start: 02-20-2022 End: 02-20-2022 ambulatory Radha Gaspar Facility:[facility] Start: 02-20-2022 End: 02-20-2022 Patient encounter procedure Radha PABLO-C Work Phone: General Surgery Comment on above: Encounter for screen ing for malignant neoplasm of colon (Primary Dx); History of colonic polyps Start: 02-03-2022 Telephone encounter Zhane Kee MD Work Phone: General Surgery Comment on above: Follow Up Phone Call Start: 02-03-2022 End: 02-03-2022 ambulatory [facility] Work Phone: Start: 02-03-2022 End: 02-03-2022 Patient encounter procedure [facility] Start: 11-28-2021 End: 11-28-[address] Quinten Ortiz Work Phone: [facility] Start: 09-13-2021 End: 09-13-[address] Quinten Ortiz Work Phone: [facility] Start: 06-17-2020 End: 06-17-2020 Orders Only Maisha Nagycindy Verma Work Phone: [facility] Start: 06-14-2019 End: 06-14-2019 [facility] Start: 06-14-2019 End: 06-14-2019 Emergency department patient visit Ean Pate Luis Carlos Work Phone: [facility] Emergency Department Comment on above: Acute pain of left k nee (Primary Dx); Fall, initial encounter; DDD (degenerative disc disease), cervical; Rupture of left quadriceps tendon, initial encounter Procedures Date Procedure Procedure Detail Performing Clinician Start: 05-09-2022 Level iv surg pathology gross&microscopic exam Zhane Kee MD Work Phone: Start: 05-09-2022 Colonoscopy flx dx w/collj spec when pfrmd Radha Gaspar PA-C Work Phone: Start: 05-09-2022 Colonoscopy Zhane Kee MD Work Phone: Start: 06-14-2019 Mri any jt lower extrem w/o contrast matrl Jeannine Maynard Work Phone: Start: 06-14-2019 MRI of cervical spine without contrast Jeannine Maynard Work Phone: Start: 06-14-2019 Troponin measurement Jeannine Maynard Work Phone: Start: 06-14-2019 Drugs of abuse urine screening test Jeannine Maynard Work Phone: Start: 06-14-2019 Ethanol [Mass/volume] in Serum or Plasma Jeannine Maynard Work Phone: Start: 06-14-2019 X-ray of left knee Jeannine Maynard Work Phone: Start: 06-14-2019 Radiologic exam chest single view Jeannine Maynard Work Phone: Start: 06-14-2019 CT cervical spine without contrast Jeannine Maynard Work Phone: Start: 06-14-2019 CT of head without contrast Jeannine Maynard Work Phone: Start: 06-14-2019 LIGHT GREEN TOP Jeannine Maynard Work Phone: Start: 06-14-2019 RAINBOW DRAW Jeannine [...] Maynard Work Phone: Start: 06-14-2019 Hepatic function 2000 panel - Serum or Plasma Jeannine Maynard Work Phone: Start: 06-14-2019 INR in Platelet poor plasma by Coagulation assay Jeannine Maynard Work Phone: Start: 06-14-2019 Lipase [Enzymatic activity/volume] in Serum or Plasma Jeannine Maynard Work Phone: Start: 06-14-2019 Troponin measurement Jeannine Maynard Work Phone: Start: 02-02-2017 End: 02-02-2017 Follow Up Appt 9 months Dom Ross MD Start: 02-02-2017 End: 02-02-2017 PFM Dom Ross MD Start: 11-10-2016 Colonoscopy Maisha Verma Start: 10-02-2016 End: 10-02-2016 Dietary management education, [...] Pulmonary Function Test - complete Yesenia Sarabia [employer] Work Phone: Start: 02-28-2016 End: 03-01-2016 Pulmonary Function Test - complete Yesenia Sarabia [employer] SCI[employer] DIRECT[employer] Work Phone: Start: 01-06-2016 End: 03-01-2016 BWA Yesenia Sarabia DATA SCIENC[employer] DIRECT[employer] Work Phone: Start: 01-06-2016 End: 03-01-2016 Follow Up Appt 3 months Yesenia coelho DATA SCIENCES DIRECTOR Work Phone: Start: 01-06-2016 End: 03-01-2016 LOS Sarabia DATA SCIENCES DIRECTOR Work Phone: Start: 01-06-2016 End: 03-01-2016 Follow Up Appt 3 months Yesenia S Graham er DATA SCIENCES DIRECTOR Work Phone: Start: 10-26-2015 End: 10-26-2015 SNOMED-CT: 528101982 Report of clinical encounter Maricruz Patiño Start: 10-26-2015 End: 10-26-2015 SNOMED-CT: [id number] Report of clinical encounter Maricruz Patiño Start: 09-16-2015 End: 03-01-2016 Follow Up Appt 3 months Yesenia Stevenson er DATA SCIENCES DIRECTOR Work Phone: Start: 09-16-2015 End: 03-01-2016 Follow Up Appt 3 months Yesenia Stevenson er DATA SCIENCES DIRECTOR Work Phone: Start: 08-27-2015 End: 08-27-2015 Follow Up Appt 6 months Dom Ross MD Start: 08-27-2015 End: 08-27-2015 PF Dom Ross MD Start: 08-27-2015 End: 08-27-2015 Follow Up Appt 6 months Dom Ross MD Start: 08-27-2015 End: 08-27-2015 [facility] Dom Ross MD Start: 06-22-2015 End: 04-05-2016 [facility] Domingo Fountain Work Phone: Start: 06-22-2015 End: 01-03-2016 Follow Up Appt 3 months Domingo Fountain Work Phone: Start: 06-22-2015 End: 04-05-2016 [facility] Domingo Fountain Work Phone: Start: 06-22-2015 End: 01-03-2016 Follow Up Appt 3 months Domingo Fountain Work Phone: Start: 06-04-2015 End: 06-14-2015 *BMP [...] Start: 05-12-2015 End: 10-26-2015 Rheumatology Referral Domingo Fountain Work Phone: Start: 05-12-2015 End: 10-26-2015 Rheumatology Referral Domingo Fountain Work Phone: Start: 03-24-2015 End: [...] End: 03-24-2015 C reactive protein (hsCRP) Domingo Fountain Work Phone: Start: 03-24-2015 End: 01-03-2016 ENT referral Domingo Fountain Work Phone: Start: 03-24-2015 End: 03-24-2015 Erythrocyte sedimentation rate Domingo Fountain Work Phone: Start: 03-24-2015 End: 01-03-2016 Follow Up Appt 3 months Domingo Fountain Work Phone: Start: 03-22-2015 End: 01-03-2016 *ASPAB Aspergillus Anti Bodies [id number] Yesenia Sarabia DATA SCIENCES DIRECTOR Work Phone: Start: 03-22-2015 End: 01-03-2016 IgE [Mass/volume] in Serum Yesenia Sarabia DATA SCIENCES DIRECTOR Work Phone: Start: 03-22-2015 End: 01-03-2016 *ASPAB Aspergillus Anti Bodies [id number] Yesenia Sarabia DATA SCIENCES DIRECTOR Work Phone: Start: 03-22-2015 End: 01-03-2016 IgE [Mass/volume] in Serum Yesenia Sarabia DATA SCIENCES DIRECTOR Work Phone: Start: 03-16-2015 End: 01-03-2016 Pulmonary [...] End: 01-28-2015 Follow Up Appt 1 month Dmo Ross MD Start: 01-28-2015 End: 01-28-2015 PFM Dom Ross MD Start: 01-28-2015 End: 02-05-2015 *BMP Dom oRss MD Start: 01-28-2015 End: 02-05-2015 Electrocardiogram, complete Dom Ross MD Start: 01-28-2015 End: 01-28-2015 [...] up (pt not on cpap) Domingo Fountain Work Phone: Start: 12-16-2014 End: 12-16-2014 Documentation of current medications Domingo Fountain Work Phone: Start: 12-16-2014 End: 01-03-2016 Follow Up Appt 3 months Domingo Fountain Work Phone: Start: 12-16-2014 End: 01-03-2016 Titration with Follow up (pt not on cpap) Domingo Fountain Work Phone: Start: 11-12-2014 End: 11-17-2014 *MISC - Miscellaneous Lab Test #1 Domingo Fountain Work Phone: Start: 11-12-2014 End: 01-03-2016 Complete sleep workup (PSG,CPAP as indicated) & Follow up Domingo Fountain Work Phone: Start: 11-12-2014 End: 11-13-2014 Documentation of current medications Domingo Fountain Work Phone: Start: 11-12-2014 End: 01-03-2016 Echo tthrc r-t 2d w/wom-mode compl spec&colr d Domingo Fountain Work Phone: Start: 11-12-2014 End: 01-03-2016 Follow Up Appt 1 month Domingo Fountain Work Phone: Start: 11-12-2014 End: 11-17-2014 *MISC - Miscellaneous Lab Test #1 Domingo Fountain Work Phone: Start: 11-12-2014 End: 01-03-2016 Complete sleep workup (PSG,CPAP as indicated) & Follow up Domingo Fountain Work Phone: Start: 11-12-2014 End: 11-13-2014 Documentation of current medications Domingo Fountain Work Phone: Start: 11-12-2014 End: 01-03-2016 Follow Up Appt 1 month Domingo Fountain Work Phone: Start: 11-12-2014 End: 01-03-2016 Tte w/doppler, complete Domingo Fountain Work Phone: History of appendectomy History of append ectomy Dr. Quinten Ortiz Work Phone: Plan of Treatment Date Care Activity Detail Author Start: 09-14-2027 Urine microalbumin profile DTaP,Tdap,Td Vaccine (2 - Td or Tdap) [facility] Start: 05-09-2027 Colonoscopy COLONOSCOPY [facility] Start: 05-09-2027 COLORECTAL CANCER SCREENING COLORECTAL CANCER SCREENING [facility] Start: 11-10-2026 Screening for malignant neoplasm of colon [facility] Start: 12-15-2022 Covid-19 Vaccine ( season) Covid-19 Vaccine ( season) [facility] Start: 12-15-2022 Influenza vaccination Influenza Vaccine (#1) [facility] Start: 04-16-2022 ADVANCE DIRECTIVE DISCUSSION ADVANCE DIRECTIVE DISCUSSION [facility] Start: 04-16-2022 DEPRESSION ASSESSMENT DEPRESSION ASSESSMENT [facility] Start: 12-15-2021 Influenza vaccination INFLUENZA (#1) [facility] Start: 11-10-2021 Colonoscopy COLONOSCOPY [facility] Start: 11-10-2021 COLORECTAL CANCER SCREENING COLORECTAL CANCER SCREENING [facility] Start: 04-16-2021 ADVANCE DIRECTIVE DISCUSSION ADVANCE DIRECTIVE DISCUSSION [facility] Start: 04-16-2021 DEPRESSION ASSESSMENT DEPRESSION ASSESSMENT [facility] Start: 2021 Pneumococcal Vaccine: 65+ (2 - PCV) Pneumococcal Vaccine: 65+ (2 - PCV) [facility] Start: 2021 PNEUMOCOCCAL: 65+ (1 - PCV) PNEUMOCOCCAL: 65+ (1 - PCV) [facility] Start: 12-16-2019 Influenza vaccination given Sequential Influenza Vaccine (#1) [facility] Start: 12-15-2018 Influenza vaccination given SEQUENTIAL INFLUENZA VACCINE (#1) [facility] Start: 11-05-2017 End: 11-05-2017 Appointment Appointment [facility] Work Phone: Start: 04-03-2017 End: 04-03-2017 Appointment Appointment [facility] Work Phone: Start: 03-16-2017 End: 02-02-2017 Pulmonary Function Test - complete Pulmonary Function Test - complete [facility] Work Phone: Start: 03-16-2017 End: 10-02-2016 Pulmonary Function Test - complete Pulmonary Function Test - complete [facility] Work Phone: Start: 02-02-2017 End: 02-02-2017 Appointment Appointment [facility] Work Phone: Start: 02-02-2017 End: 02-02-2017 Follow Up Appt 9 months Follow Up Appt 9 months [facility] Work Phone: Start: 02-02-2017 End: 02-02-2017 Nuclear stress test -exercise Nuclear stress test -exercise [facility] Work Phone: Start: 02-02-2017 End: 02-02-2017 PFM PFM [facility] Work Phone: Start: 10-02-2016 End: 10-02-2016 Follow Up Appt 6 months Follow Up Appt 6 months [facility] Work Phone: Start: 10-02-2016 End: 10-02-2016 Appointment Appointment [facility] Work Phone: Start: 10-02-2016 End: 10-02-2016 Follow Up Appt 6 months Follow Up Appt 6 months [facility] Work Phone: Start: 05-10-2016 End: 05-10-2016 Follow Up Appt 9 months Follow Up Appt 9 months [facility] Work Phone: Start: 05-10-2016 End: 05-10-2016 PFM PFM [facility] Work Phone: Start: 05-10-2016 End: 05-10-2016 Follow Up Appt 9 months Follow Up Appt 9 months [facility] Work Phone: Start: 05-10-2016 End: 05-10-2016 PFM PF [facility] Work Phone: Start: 04-05-2016 End: 04-05-2016 Follow Up Appt 6 months Follow Up Appt 6 months [facility] Work Phone: Start: 04-05-2016 End: 04-05-2016 Follow Up Appt 6 months Follow Up Appt 6 months [facility] Work Phone: Start: 2016 RSV Vaccine (1 - 1-dose 60+ series) RSV Vaccine (1 - 1-dose 60+ series) [facility] Start: 02-28-2016 End: 03-01-2016 Pulmonary Function Test - complete Pulmonary Function Test - complete [facility] Work Phone: Start: 02-28-2016 End: 03-01-2016 Pulmonary Function Test - complete Pulmonary Function Test - complete [facility] Work Phone: Start: 01-06-2016 End: 03-01-2016 BWA BWA [facility] Work Phone: Start: 01-06-2016 End: 03-01-2016 Follow Up Appt 3 months Follow Up Appt 3 months [facility] Work Phone: Start: 01-06-2016 End: 03-01-2016 BWA BWA [facility] Work Phone: Start: 01-06-2016 End: 03-01-2016 Follow Up Appt 3 months Follow Up Appt 3 months [facility] Work Phone: Start: 09-16-2015 End: 03-01-2016 Follow Up Appt 3 months Follow Up Appt 3 months [facility] Work Phone: Start: 09-16-2015 End: 03-01-2016 Follow Up Appt 3 months Follow Up Appt 3 months [facility] Work Phone: Start: 08-27-2015 End: 08-27-2015 Follow Up Appt 6 months Follow Up Appt 6 months [facility] Work Phone: Start: 08-27-2015 End: 08-27-2015 PFM PFM [facility] Work Phone: Start: 08-27-2015 End: 08-27-2015 Follow Up Appt 6 months Follow Up Appt 6 months [facility] Work Phone: Start: 08-27-2015 End: 08-27-2015 PFM PFM [facility] Work Phone: Start: 06-22-2015 End: 04-05-2016 [facility] Work Phone: Start: 06-22-2015 End: 01-03-2016 Follow Up Appt 3 months Follow Up Appt 3 months [facility] Work Phone: Start: 06-22-2015 End: 04-05-2016 [facility] Work Phone: Start: 06-22-2015 End: 01-03-2016 Follow Up Appt 3 months Follow Up Appt 3 months [facility] Work Phone: Start: 06-04-2015 End: 06-14-2015 *BMP *BMP [facility] Work Phone: Start: 06-04-2015 End: 06-04-2015 Follow Up Appt 3 months Follow Up Appt 3 months [facility] Work Phone: Start: 06-04-2015 End: 06-04-2015 PFM PFM [facility] Work Phone: Start: 06-04-2015 End: 06-14-2015 *BMP *BMP [facility] Work Phone: Start: 06-04-2015 End: 06-04-2015 Follow Up Appt 3 months Follow Up Appt 3 months [facility] Work Phone: Start: 06-04-2015 End: 06-04-2015 PFM PFM [facility] Work Phone: Start: 05-12-2015 End: 05-12-2015 Rheumatology Referral Rheumatology Referral Erum Hayes MD, [address], [address], [place], [address] [facility] Work Phone: Start: 05-12-2015 End: 05-12-2015 Rheumatology Referral Rheumatology Referral Erum Hayes MD, [address], [address], [place], [address] [facility] Work Phone: Start: 03-24-2015 End: 04-23-2015 *JACQUE *JACQUE [facility] Work Phone: Start: 03-24-2015 End: 04-23-2015 *ANCA *ANCA [facility] Work Phone: Start: 03-24-2015 End: 03-24-2015 C reactive protein (hsCRP) *CRP - C-Reative Protein [facility] Work Phone: Start: 03-24-2015 End: 03-24-2015 ENT referral ENT referral Ambrose Shahzad, [address] [place], [address] [facility] Work Phone: Start: 03-24-2015 End: 03-24-2015 Erythrocyte sedimentation rate *Sedimentation Rate (ESR) [facility] Work Phone: Start: 03-24-2015 End: 01-03-2016 Follow Up Appt 3 months Follow Up Appt 3 months [facility] [employer] [facility] Work Phone: Start: 03-24-2015 End: 04-23-2015 *JACQUE *JACQUE [facility] Work Phone: Start: 03-24-2015 End: 04-23-2015 *ANCA *ANCA [facility] Work Phone: Start: 03-24-2015 End: 03-24-2015 C reactive protein (hsCRP) *CRP - C-Reative Protein [facility] Work Phone: Start: 03-24-2015 End: 03-24-2015 ENT referral ENT referral Ambrose Shahzad, [address] [place], [address] [facility] Work Phone: Start: 03-24-2015 End: 03-24-2015 Erythrocyte sedimentation rate *Sedimentation Rate (ESR) [facility] Work Phone: Start: 03-24-2015 End: 01-03-2016 Follow Up Appt 3 months Follow Up Appt 3 months [facility] Work Phone: Start: 03-22-2015 End: 01-03-2016 *ASPAB Aspergillus Anti Bodies [id number] *ASPAB Aspergillus Anti Bodies [id number] [facility] Work Phone: Start: 03-22-2015 End: 01-03-2016 Globulin *EMMETT Immunoglobulin E (IgE) [facility] Work Phone: Start: 03-22-2015 End: 01-03-2016 IgE mass conc (S) *EMMETT Immunoglobulin E (IgE) [facility] Work Phone: Start: 03-22-2015 End: 01-03-2016 *ASPAB Aspergillus Anti Bodies [id number] *ASPAB Aspergillus Anti Bodies [id number] [facility] Work Phone: Start: 03-22-2015 End: 01-03-2016 Globulin *EMMETT Immunoglobulin E (IgE) [facility] Work Phone: Start: 03-22-2015 End: 01-03-2016 IgE mass conc (S) *EMMETT Immunoglobulin E (IgE) [facility] Work Phone: Start: 03-16-2015 End: 01-03-2016 Pulmonary Function Test - complete Pulmonary Function Test - complete [facility] Work Phone: Start: 03-16-2015 End: 01-03-2016 Pulmonary Function Test - complete Pulmonary Function Test - complete [facility] Work Phone: Start: 02-25-2015 End: 02-25-2015 Follow Up Appt 3 months Follow Up Appt 3 months [facility] Work Phone: Start: 02-25-2015 End: 02-25-2015 PFM PFM [facility] Work Phone: Start: 02-25-2015 End: 02-25-2015 Follow Up Appt 3 months Follow Up Appt 3 months [facility] Work Phone: Start: 02-25-2015 End: 02-25-2015 PFM PFM [facility] Work Phone: Start: 01-28-2015 End: 02-05-2015 *BMP *BMP [facility] Work Phone: Start: 01-28-2015 End: 01-28-2015 Ct thorax w/contrast material CT Chest with Contrast [facility] Work Phone: Start: 01-28-2015 End: 01-28-2015 Ecg routine ecg w/least 12 lds w/i&r EKG (In office) [facility] Work Phone: Start: 01-28-2015 End: 01-28-2015 Echocardiography Echocardiogram (limited) [facility] Work Phone: Start: 01-28-2015 End: 01-28-2015 Follow Up Appt 1 month Follow Up Appt 1 month [facility] Work Phone: Start: 01-28-2015 End: 01-28-2015 PFM PFM [facility] Work Phone: Start: 01-28-2015 End: 02-05-2015 *BMP *BMP [facility] Work Phone: Start: 01-28-2015 End: 01-28-2015 Ct thorax w/dye CT Chest with Contrast [facility] Work Phone: Start: 01-28-2015 End: 01-28-2015 Echocardiography Echocardiogram (limited) [facility] Work Phone: Start: 01-28-2015 End: 01-28-2015 Electrocardiogram, complete EKG (In office) [facility] Work Phone: Start: 01-28-2015 End: 01-28-2015 Follow Up Appt 1 month Follow Up Appt 1 month [facility] Work Phone: Start: 01-28-2015 End: 01-28-2015 PFM PFM [facility] Work Phone: Start: 01-21-2015 End: 01-21-2015 BNP *Brain Natriuretic Peptide BNP [facility] Work Phone: Start: 01-21-2015 End: 01-21-2015 BNP *Brain Natriuretic Peptide BNP [facility] Work Phone: Start: 12-16-2014 End: 01-03-2016 Follow Up Appt 3 months Follow Up Appt 3 months [facility] Work Phone: Start: 12-16-2014 End: 01-03-2016 Titration with Follow up (pt not on cpap) Titration with Follow up (pt not on cpap) [facility] Work Phone: Start: 12-16-2014 End: 01-03-2016 Follow Up Appt 3 months Follow Up Appt 3 months [facility] Work Phone: Start: 12-16-2014 End: 01-03-2016 Titration with Follow up (pt not on cpap) Titration with Follow up (pt not on cpap) [facility] Work Phone: Start: 11-12-2014 End: 11-17-2014 *MISC - Miscellaneous Lab Test #1 *MISC - Miscellaneous Lab Test #1 [facility] Work Phone: Start: 11-12-2014 End: 01-03-2016 Complete sleep workup (PSG,CPAP as indicated) & Follow up Complete sleep workup (PSG,CPAP as indicated) & Follow up [facility] Work Phone: Start: 11-12-2014 End: 01-03-2016 Documentation of current medications SNOMED-CT: [id number] Current Medications Documented [facility] Work Phone: Start: 11-12-2014 End: 01-03-2016 Echo tthrc r-t 2d w/wom-mode compl spec&colr d Echo Complete with Color Flow [facility] Work Phone: Start: 11-12-2014 End: 01-03-2016 Follow Up Appt 1 month Follow Up Appt 1 month [facility] Work Phone: Start: 11-12-2014 End: 11-17-2014 *MISC - Miscellaneous Lab Test #1 *MISC - Miscellaneous Lab Test #1 [facility] Work Phone: Start: 11-12-2014 End: 01-03-2016 Complete sleep workup (PSG,CPAP as indicated) & Follow up Complete sleep workup (PSG,CPAP as indicated) & Follow up [facility] Work Phone: Start: 11-12-2014 End: 01-03-2016 Documentation of current medications [facility]: [id number] Current Medications Documented [facility] Work Phone: Start: 11-12-2014 End: 01-03-2016 Follow Up Appt 1 month Follow Up Appt 1 month [facility] Work Phone: Start: 11-12-2014 End: 01-03-2016 Tte w/doppler, complete Echo Complete with Color Flow [facility] Work Phone: Start: 2011 PROSTATE CANCER SCREENING DISCUSSION PROSTATE CANCER SCREENING DISCUSSION [facility] Start: 2006 Administration of herpes zoster vaccine Zoster Vaccines (1 of 2) [facility] Start: 2006 Screening for malignant neoplasm of colon [facility] Start: 2006 SHINGRIX VACCINE (1 of 2) SHINGRIX VACCINE (1 of 2) [facility] Start: 2001 COLOGUARD (FIT-DNA) COLOGUARD (FIT-DNA) [facility] Start: [address] COLONOGRAPHY [facility] Start: 2001 DIABETES SCREEN DIABETES SCREEN [facility] Start: 2001 Diabetes Screening Diabetes Screening [facility] Start: 2001 FECAL OCCULT BLOOD FECAL OCCULT BLOOD [facility] Start: 2001 SIGMOIDOSCOPY SIGMOIDOSCOPY [facility] Start: 1991 Lipid 1996 panel - Serum or Plasma Lipid Screening [facility] Start: 1991 LIPID SCREEN LIPID SCREEN [facility] Start: 1975 SHINGRIX VACCINE (1 of 2) SHINGRIX VACCINE (1 of 2) [facility] Start: 1975 Urine microalbumin profile DTAP,TDAP,TD (1 - Tdap) [facility] Start: 1974 Hepatitis C antibody, confirmatory test Hepatitis C Screening [facility] Start: 1974 HEPATITIS C SCREENING HEPATITIS C SCREENING [facility] Start: 1974 HIV SCREENING HIV SCREENING [facility] Start: 1972 COVID-19 Vaccine (1 of 2) COVID-19 Vaccine (1 of 2) [facility] Start: 1971 HIV screening HIV Screening [facility] Start: 1968 Adolescent depression screening assessment Depression Screening (PHQ9) [facility] Start: 1962 PNEUMOCOCCAL: 65+ (1 - PCV) PNEUMOCOCCAL: 65+ (1 - PCV) [facility] Start: 1959 History and physical examination, annual for health maintenance Wellness Visit [facility] Start: 1956 COVID-19 VACCINE (#1) COVID-19 VACCINE (#1) [facility] Start: 1956 Hepatitis C antibody, confirmatory test HEPATITIS C SCREENING [facility] Start: 1956 Prostate specific antigen measurement PSA Level [facility] Start: 1956 Screening for malignant neoplasm of colon Colorectal Cancer Screening: Colonoscopy [facility] Start: 1956 Tetanus vaccination [facility] MR Knee Left Without Contrast MR Knee Left Without Contrast Imaging STAT 06/14/2019 6:24 PM EST [facility] Immunizations Immunization Date Immunization Notes Care Provider Fa [facility] 01-06-2022 influenza virus vaccine, unspecified formulation Zhane Kee MD Work Phone: [facility] 12-30-[address] Quinten Ortiz Work Phone: [facility] 01-14-[address] Quinten Ortiz Work Phone: [facility] 03-16-[address] Sharmin Ortiz Work Phone: [facility] Work Phone: 03-16-2013 pneumococcal vaccine , unspecified formulation [facility] Payers Date Payer Category Payer Self-pay [id number] 2021 Unknown [id number] 2021 Unknown ANNALISA FRIEDMAN PPO [id number] 2021-Present [phone] [id number] [place] [address] PPO [id number] 2020 Private Health Insurance CIG[employer] C IGNA OAP [id number] 2020-Present [phone] [facility] [id number] [place] [address] Open Access [id number] 2011 Private Health Insurance [id number] 2011 Private Health Insurance [employer] [place] IGNA HMO/NTWK/OACCESS/OA+/POS [id number] 2011-Present [id number] 2011 Private Health Insurance [employer] [place] IGNA HMO/NTWK/OACCESS/OA+/POS [id number] 2011-Present [id number] 1956 Unknown [id number] Unknown [id number] Unknown [id number] Unknown [id number] Unknown [id number] Unknown [id number] Unknown [id number] Unknown [id number] Unknown [id number] Unknown [id number] Unknown [id number] Social History Date Type Detail Facility Start: 06-14-2019 End: 11-01-2022 Tobacco smoking status WYIS Unknown if ever smoked [facility] Start: 1955 Sex Assigned At Not on file [facility] Start: 10-20-2017 None [facility] Start: 09-11-2014 Spouse/ Signif icant Other [facility] Start: 06-26-2019 Non-smoker [facility] Start: 1955 Sex Assigned At Male [facility] Start: 02-09-2017 End: 06-21-2023 Tobacco smoking status NHIS Never smoked tobacco [facility] Start: 02-09-2017 End: 02-20-2022 Tobacco use and exposure Smokeless tobacco non-user [facility] Start: 11-30-2021 End: 05-22-2022 Alcohol intake Current drinker of alcohol (finding) [facility] Start: 02-10-2022 End: 02-20-2022 Exposure to SARS-CoV-2 (event) Not sure [facility] Start: 05-01-2022 End: 05-09-2022 History of Social function [facility] Start: 05-01-2022 End: 05-09-2022 Tobacco use panel [facility] National Score (1-100), lower number is lower risk 50 [facility] Start: 07-14-2024 Sex Male (finding) [facility] Medical Equipment Procedure Code Equipment Code Equipment Origin al Text Equipment Identifier Dates Incision and drainage, abscess ALICIA 3GRM HEMOSTAT ABS FDA Start: 06-26-2019 Incision and drainage, abscess ALICIA 3GRM HEMOSTAT ABS FDA Start: 06-26-2019 Incision and drainage, abscess ALICIA 3GRM HEMOSTAT ABS FDA Start: 06-26-2019 Incision and drainage, abscess ALICIA 3GRM HEMOSTAT ABS FDA Start: 06-26-2019 Incision and drainage, abscess ALICIA 3GRM HEMOSTAT ABS FDA Start: 06-26-2019 Incision and drainage, abscess ALICIA 3GRM HEMOSTAT ABS FDA Start: 06-26-2019 Incision and drainage, abscess ALICIA 3GRM HEMOSTAT ABS FDA Start: 06-26-2019 Incision and drainage, abscess ALICIA 3GRM HEMOSTAT ABS FDA Start: 06-26-2019 FIBERTAPE FDA Start: 06-20-2019 FIBERTAPE FDA Start: 06-20-2019 SWIVELOCK,4.75 D OUBLE LOCK FDA Start: 06-20-2019 achilles midsubs tance speedbri FDA Start: 06-20-2019 FIBERTAPE FDA Start: 06-20-2019 FIBERTAPE FDA Start: 06-20-2019 SWIVELOCK,4.75 D OUBLE LOCK FDA Start: 06-20-2019 achilles midsubs tance speedbri FDA Start: 06-20-2019 FIBERTAPE FDA Start: 06-20-2019 FIBERTAPE FDA Start: 06-20-2019 SWIVELOCK,4.75 D OUBLE LOCK FDA Start: 06-20-2019 achilles midsubs tance speedbri FDA Start: 06-20-2019 FIBERTAPE FDA Start: 06-20-2019 FIBERTAPE FDA Start: 06-20-2019 SWIVELOCK,4.75 D OUBLE LOCK FDA Start: 06-20-2019 achilles midsubs tance speedbri FDA Start: 06-20-2019 FIBERTAPE FDA Start: 06-20-2019 FIBERTAPE FDA Start: 06-20-2019 SWIVELOCK,4.75 D OUBLE LOCK FDA Start: 06-20-2019 achilles midsubs tance speedbri FDA Start: 06-20-2019 FIBERTAPE FDA Start: 06-20-2019 FIBERTAPE FDA Start: 06-20-2019 SWIVELOCK,4.75 D OUBLE LOCK FDA Start: 06-20-2019 achilles midsubs tance speedbri FDA Start: 06-20-2019 FIBERTAPE FDA Start: 06-20-2019 FIBERTAPE FDA Start: 06-20-2019 SWIVELOCK,4.75 D OUBLE LOCK FDA Start: 06-20-2019 achilles midsubs tance speedbri FDA Start: 06-20-2019 FIBERTAPE FDA Start: 06-20-2019 FIBERTAPE FDA Start: 06-20-2019 SWIVELOCK,4.75 D OUBLE LOCK FDA Start: 06-20-2019 achilles midsubs tance speedbri FDA Start: 06-20-2019 Clinical Notes 02-03-2022 to 06-23-2024 Note Date & Type Note Facility 06-23-2024 Evaluation note Diagnosis Onset Date Resolution Asthma acute June 23 1:27pm Obesity chronic June 23 1:27pm BRENNON (obstructive sleep apnea) chronic June 23, 2024 1:27pm [facility] Work Phone: 1(599) 814-129002-07-2023 Miscellaneous Notes* Telephone Encounter - Nadine Sarmiento RN - 05/23/2022 8:32 AM EST My Chart message sent to patient. Health maintenance and surgical history updated, recall letter placed. Nadine Sarmiento RN * Telephone Encounter - Radha Gaspar PA-C - 05/22/2022 9:59 PM EST Please let patient know pathology demonstrated a tubular adenoma. Recommend repeat colonoscopy in 5years, please update HM and surg history and generate recall letter * Telephone Encounter - Nadine Sarmiento RN - 05/22/2022 10:50 AM EST Karey had a colonoscopy with Dr. Kee on 05/09/2022 and biopsies were taken. The patient was scheduled for a follow up visit on 05/16/22, but cancelled and did not reschedule. Could you please review the pathology and advise regarding a necessary follow up? Nadine Sarmiento RN documented in this encounterCity [facility]-24-[facility]23 Nurse Note* Padmini Vera RN - 05/09/2022 8:18 AM EST Arrived in phase II via cart left lateral position, eyes open, skin warm and dry, respirations regular and unlabored, abdomen rounded and softly distended, denies pain or nausea. Resting comfortably on left side. documented in this encounterCity [facility]01-24-2023 History and physical note * Zhane Kee MD - 05/09/2022 7:30 AM EST UPDATED PROCEDURAL SEDATION HISTORY AND PHYSICAL EXAMINATION SERVICE DATE: 05/09/2022 SERVICE TIME: 7:41 AM PHYSICAL EXAM MUST BE COMPLETED ON ADMISSION PROCEDURE: Procedure Indications: The History and Physical (completed in the past 30 days) has been reviewed and the patient has beenexamined. The contents accurately reflect the patient's condition [...] can be found in the attached. SIGNATURE: Zhane Kee MD PATIENT NAME: Karey Dickerson DATE: May 09, 2022 TIME: 7:40 AM Source Note - Zhane Kee MD - 05/09/2022 7:30 AM EST Images from the original note were not included. HISTORY AND PHYSICAL Karey Dickerson 1955 REFERRING PHYSICIAN: Quinten Ortiz MD CHIEF COMPLAINT: Consult (Colonoscopy consult) HPI: The patient is a 66 year old male referred for endoscopy. Karey notes no colon complaints. Patient denies any change in bowel habits, weight changes, blood in stools, black tarry stools or abdominal pain. Denies family history of colon issues. The patient notes no upper GI complaints. Karey has undergone prior endoscopy. Last colonoscopy 11/10/[address] Kee under conscious sedation with removal of adenomatous [...] Problem Relation Age of Onset Heart Father OR REVIEW OF SYMPTOMS: The review of systems data was entered by the nurse and reviewed by dc Nursing Notes: Anay Anderson LPN 02/20/2022 9:45 [...] failure, other cardiac issues, denies claudication, denies coldfeet, denies peripheral arterial stent. Respiratory: The patient [...] back pain/injury, denies back problems, denies sciatica, deniesknee/foot trouble, denies arthritis, or denies gout. When was patient's last Mammogram screening? N/A Last Colonoscopy: 2016 Anay Anderson LPN I have confirmed and edited as necessary, the PFSH and ROS obtained by others. Radha Gaspar PA-C PHYSICAL EXAMINATION: General: The patient is 66 year old male, well nourished, well hydrated in no acute distress. The patient is oriented to time, place, and person. VITALS: Blood pressure 120/83, pulse 70, temperature 36.3 C (97.4 F), height 175.3 cm (5' 9), weight 106.3 kg (234 lb 6.4 oz), SpO2 100 %. Body mass index is 34.61 kg/m . HEENT: Normal cephalic, ataumatic, pupils are equally round, sclera are anicteric, mucous membranesare moist, oropharynx is clear. Neck has no [...] Will plan for lower endoscopy. We discussed therisks and benefits of the planned endoscopy. I have informed the patient that complications can occur including failure to complete the endoscopy and perforation. The patient had the opportunity to ask questions concerning the planned endoscopy. My staff has also explained the procedure to the patient in understandable terms and has given the patient printed material concerning the procedure. Thepatient freely consents to surgery. The patient was offered a surgery/procedure at a [facility]. I have counseled the patient regarding the [...] wishes. I have explained that with IV conscioussedation there is no anesthesia provider available and therefore there is a limitation of the amount of IV medications that can be given and that the patient may wake up in the middle of the procedure and/or experience pain/discomfort during the procedure. Further discussion was done and the patient was given the opportunity to ask questions and all questions were answered. The patient chooses IVconscious sedation, tolerated well previously Diagnoses: (Z12.11) Encounter for screening for malignant neoplasm of colon (primary encounter diagnosis) (Z86.010) History of colonic polyps Consultation requested by Dr. Quinten Ortiz for an opinion regarding screening colonoscopy. My final recommendations will be communicated back to the requesting physician by way of shared Medical recordor letter to requesting physician via [place] mail. Radha Gaspar PA-C * Zhane Kee MD - 05/09/2022 7:30 AM EST Images from the original note were not included. HISTORY AND PHYSICAL Karey Hung Jayla 1955 REFERRING PHYSICIAN: Quinten Ortiz MD CHIEF COMPLAINT: Consult (Colonoscopy consult) HPI: The patient is a 66 year old male referred for endoscopy. Karey notes no colon complaints. Patient denies any change in bowel habits, weight changes, blood in stools, black tarry stools or abdominal pain. Denies family history of colon issues. The patient notes no upper GI complaints. Karey has undergone prior endoscopy. Last colonoscopy 11/10/[address] Kee under conscious sedation with removal of adenomatous [...] Problem Relation Age of Onset Heart Father OR REVIEW OF SYMPTOMS: The review of systems data was entered by the nurse and reviewed by dc Nursing Notes: Anay Anderson LPN 02/20/2022 9:45 [...] failure, other cardiac issues, denies claudication, denies coldfeet, denies peripheral arterial stent. Respiratory: The patient [...] back pain/injury, denies back problems, denies sciatica, deniesknee/foot trouble, denies arthritis, or denies gout. When was patient's last Mammogram screening? N/A Last Colonoscopy: 2017 Anay Anderson LPN I have confirmed and edited as necessary, the PFSH and ROS obtained by others. Radha Gaspar PA-C PHYSICAL EXAMINATION: General: The patient is 66 year old male, well nourished, well hydrated in no acute distress. The patient is oriented to time, place, and person. VITALS: Blood pressure 120/83, pulse 70, temperature 36.3 C (97.4 F), height 175.3 cm (5' 9), weight 106.3 kg (234 lb 6.4 oz), SpO2 100 %. Body mass index is 34.61 kg/m . HEENT: Normal cephalic, ataumatic, pupils are equally round, sclera are anicteric, mucous membranesare moist, oropharynx is clear. Neck has no [...] Will plan for lower endoscopy. We discussed therisks and benefits of the planned endoscopy. I have informed the patient that complications can occur including failure to complete the endoscopy and perforation. The patient had the opportunity to ask questions concerning the planned endoscopy. My staff has also explained the procedure to the patient in understandable terms and has given the patient printed material concerning the procedure. Thepatient freely consents to surgery. The patient was [facility]. I have counseled the patient regarding [...] wishes. I have explained that with IV conscioussedation there is no anesthesia provider available and therefore there is a limitation of the amount of IV medications that can be given and that the patient may wake up in the middle of the procedure and/or experience pain/discomfort during the procedure. Further discussion was done and the patient was given the opportunity to ask questions and all questions were answered. The patient chooses IVconscious sedation, tolerated well previously Diagnoses: (Z12.11) Encounter for screening for malignant neoplasm of colon (primary encounter diagnosis) (Z86.010) History of colonic polyps Consultation requested by Dr. Quinten Ortiz for an opinion regarding screening colonoscopy. My final recommendations will be communicated back to the requesting physician by way of shared Medical recordor letter to requesting physician via [place] mail. Radha Gaspar PA-C documented in this encounterCity Hospital11-07-2022 NoteHNO ID: [id number] Author: Radha Gaspar PA-C Service: ? Author Type: Physician Shipping Helper Type: Progress Notes Filed: 02/20/2022 4:34 PM Note Text: HISTORY AND PHYSICAL Karey Hung Jayla 1955 REFERRING PHYSICIAN: Quinten Ortiz MD CHIEF COMPLAINT: Consult (Colonoscopy consult) HPI: The patient is a 66 year old male referred for endoscopy. Karey notes no colon complaints. Patient denies any change in bowel habits, weight changes, blood in stools, black tarry stools or abdominal pain. Denies family history of colon issues. The patient notes no upper GI complaints. Karey has undergone prior endoscopy. Last colonoscopy 11/10/[address] Kee under conscious sedation with removal of adenomatous [...] Problem Relation Age of Onset Heart Father OR REVIEW OF SYMPTOMS: The review of systems data was entered by the nurse and reviewed by dc Nursing Notes: Anay Anderson LPN 02/20/2022 9:45 [...] and mumps, denies rheuma (more content not included)...[facility]11-07-2022 Nurse Note* Anay Anderson, MELISSA - 02/20/2022 9:43 AM EST REVIEW OF SYSTEMS: General: The patient denies [...] failure, other cardiac issues, denies claudication, denies coldfeet, denies peripheral arterial stent. Respiratory: The patient [...] back pain/injury, denies back problems, denies sciatica, deniesknee/foot trouble, denies arthritis, or denies gout. When was patient's last Mammogram screening? N/A Last Colonoscopy: 2016 Anay Anderson LPN documented in this encounterCity Hospital11-07-2022 History of Present illness Narrative* Radha Gaspar PA-C - 02/20/2022 8:45 AM EST HISTORY AND PHYSICAL Karey Dickerson 1955 REFERRING PHYSICIAN: Quinten Ortiz MD CHIEF COMPLAINT: Consult (Colonoscopy consult) HPI: The patient is a 66 year old male referred for endoscopy. Karey notes no colon complaints. Patient denies any change in bowel habits, weight changes, blood in stools, black tarry stools or abdominal pain. Denies family history of colon issues. The patient notes no upper GI complaints. Karey has undergone prior endoscopy. Last colonoscopy 11/10/[address] Kee under conscious sedation with removal of adenomatous [...] Problem Relation Age of Onset Heart Father OR REVIEW OF SYMPTOMS: The review of systems data was entered by the nurse and reviewed by me Nursing Notes: Anay AndersonMELISSA 02/20/2022 9:45 AM Signed REVIEW OF SYSTEMS: [...] failure, other cardiac issues, denies claudication, denies coldfeet, denies peripheral arterial stent. Respiratory: The patient [...] back pain/injury, denies back problems, denies sciatica, deniesknee/foot trouble, denies arthritis, or denies gout. When was patient's last Mammogram screening? N/A Last Colonoscopy: 2016 Anay Anderson LPN I have confirmed and edited as necessary, the PFSH and ROS obtained by others. Radha Gaspar PA-C PHYSICAL EXAMINATION: General: The patient is 66 year old male, well nourished, well hydrated in no acute distress. The patient is oriented to time, place, and person. VITALS: Blood pressure 120/83, pulse 70, temperature 36.3 C (97.4 F), height 175.3 cm (5' 9), weight 106.3 kg (234 lb 6.4 oz), SpO2 100 %. Body mass index is 34.61 kg/m . HEENT: Normal cephalic, ataumatic, pupils are equally round, sclera are anicteric, mucous membranesare moist, oropharynx is clear. Neck has no [...] Will plan for lower endoscopy. We discussed therisks and benefits of the planned endoscopy. I have informed the patient that complications can occur including failure to complete the endoscopy and perforation. The patient had the opportunity to ask questions concerning the planned endoscopy. My staff has also explained the procedure to the patient in understandable terms and has given the patient printed material concerning the procedure. Thepatient freely consents to surgery. The patient was offered a [facility]. I have counseled the patient regarding [...] wishes. I have explained that with IV conscioussedation there is no anesthesia provider available and therefore there is a limitation of the amount of IV medications that can be given and that the patient may wake up in the middle of the procedure and/or experience pain/discomfort during the procedure. Further discussion was done and the patient was given the opportunity to ask questions and all questions were answered. The patient chooses IVconscious sedation, tolerated well previously Diagnoses: (Z12.11) Encounter for screening for malignant neoplasm of colon (primary encounter diagnosis) (Z86.010) History of colonic polyps Consultation requested by Dr. Quinten Ortiz for an opinion regarding screening colonoscopy. My final recommendations will be communicated back to the requesting physician by way of shared Medical recordor letter to requesting physician via [place] mail. Radha Gaspar PA-C documented in this encounterCity Hospital10-21-2022 Miscellaneous Notes* Telephone Encounter - Patricia Patel - 02/03/2022 1:39 PM EDT Returned patients call to schedule colonoscopy with Dr. Kee documented in this encounterCity HospitalEvaluation note* Diagnosis Onset Date Resolution Status Contact with or suspected ex posure to other viral communicable disease acute [facility] Work Phone: Evaluation noteNo assessment information available [facility] Work Phone: Evaluation note* Diagnosis Encounter for screening for malignant neoplasm of colon- Primary Special screening for malignant neoplasms, colon History of colonic polyps Personal history of colonic polyps [facility] Onset Date Resolution Status Moderate persistent asthma n ot dependent on systemic steroids chronic BRENNON (obstructive sleep apnea) [facility] Work Phone: Evaluation note* Diagnosis Onset Date Resolution Status HTN (hypertension) [facility] Work Phone: Evaluation note* Diagnosis History of colonic polyps Personal history of colonic polyps documented in this encounter [facility] for referral (narrative)* Outpatient Procedure (Routine) - Closed Specialty Diagnoses / Procedures Referred By Contmalcolm t Referred To Contact [facility] Diagnoses History of colonic polyps Procedures COLONOSCOPY SCREENING COLONOSCOPY FLX DX W/COLLJ SPEC WHEN PFRadha Agrawal PA-C [address] [place] [address] [facility] [address] [place] [address] Referral ID Status Reason Start Date Expiration Date V isits Requested Visits Authorized [id number] Closed Auto-Generate d Referral 02/20/2022 02/20/2023 1 1 [facility] for referral (narrative)No reason for [facility] Reason for visit Narrative* Outpatient Procedure (Routine) - Closed Specialty Diagnoses / Procedures Referred By Terrance munguia Referred To Contact [facility] Diagnoses History of colonic polyps Procedures COLONOSCOPY SCREENING COLONOSCOPY FLX DX W/COLLJ SPEC WHEN PFRadha Agrawal PA-C [address] [place] [address] [facility] [place] [address] [place] [address] Referral ID Status Reason Start Date Expiration Date V isits Requested Visits Authorized [id number] Closed Auto-Generate d Referral 02/20/2022 02/20/2023 1 1 [facility] Purpose Family History No Family History Records Found Relationship Condition Age at Onset Recorded Date/T emmett father Cardiac disease Unknown sister Unknown Relationship Condition Age at Onset Recorded Date/T emmett father Cardiac disease Unknown Coronary artery disease Unknown Myocardial infarction Unknown sister Unknown son Migraine headache Unknown Advance Directives No Advanced Directives Records FoundDocuments on File Type Date Recorded 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 Yes June 26, 2019 5:40pm Advance Directives Yes June 25 1:00pm Discharge Instructions * Instructions* Jeannine Maynard MD - 06/14/2019 All the above neurosurgeon to follow-up for your degenerative disc disease here for the evaluation.Also please call the orthopedics in follow-up for your knee pain * Attachments The following attachments cannot be sent through Care Everywhere. * Knee Pain or Injury (Niuean) * Fall Prevention (Niuean) documented in this encounter Assessments Diagnosis Acute pain of left knee Fall, initial encounter DDD (degenerative disc disease), cervical Degeneration of cervical intervertebral disc Rupture of left quadriceps tendon, initial encounter Chief Complaint and Reason for Visit Chief Complaint PCR COVID/TRAVEL Reason for Visit Contact with or susp ected exposure to other viral communicable disease Chief Complaint INT LABS Chief Complaint INT LABS 2 ORDERING BRAYDON - ORDER FROM DR ORTIZ 1 Y FU Reason for Visit Moderate persistent asthma not dependent on systemic steroids BRENNON (obstructive sleep apnea) Chief Complaint 2 ORDERING BRAYDON - OR GLORIA FROM DR ORTIZ 1 Y FU INT LABS Reason for Visit Moderate persistent asthma not dependent on systemic steroids BRENNON (obstructive sleep apnea) Chief Complaint INT LABS RE-EST HYPERTENSION HYPERTENSION Reason for Visit HTN (hypertension) Chief Complaint Admit Date 1 Y FU June 23, 2024 1:2 7pm 2 ORDERING DOCTORS July 07, 2024 7:5 8am Reason for Visit Admit Date Asthma June 23, 2024 1:2 7pm Obesity June 23, 2024 1:2 7pm BRENNON (obstructive sleep apnea) June 1:27pm Medications Administered Section Inactive Administered Medications - up to 3 most recent administrations Medication Order MAR Action Action Date Dose Rate Site fentaNYL 50 mcg/mL 25-100 mcg injection (SUBLIMAZE) 25-100 mcg, INTRAVENOUS, DIRECTED, Starting on Sun05/09/22 at 0800, Until Sun05/09/22 at 1159, DOSING DIRECTED BY PHYSICIAN FOR PROCEDURAL SEDATION ONLY, Intraprocedure Given by LIP 05/09/2022 7:49 AM EST 50 mcg Given by LIP 05/09/2022 7:46 AM EST 50 mcg lactated ringers iv infusion 30 mL/hr, INTRAVENOUS, CONTINUOUS, Starting on Sun05/09/22 at 0730, Until Sun05/09/22 at 0819, Preprocedure New Bag/Syringe/Rai le 05/09/2022 7:12 AM EST 30 mL/hr 30 mL/hr Wrist, Right midazolam 1-5 mg injection (VERSED) 1-5 mg, INTRAVENOUS, DIRECTED, Starting on Sun05/09/22 at 0800, Until Sun05/09/22 at 1159, DOSING DIRECTED BY PHYSICIAN FOR PROCEDURAL SEDATION ONLY, Intraprocedure Given by [facility] 05/09/2022 7:49 AM EST 2 mg Given [address] [facility] 05/09/2022 7:46 AM EST 3 mg Additional Source Comments (unrecognized sect ion and content) No Status Records FoundNo Status Records FoundNo Status Records Found INFORMATION SOURCE (unrecogn ized section and content) DATE CREATED AUTHOR 06/14/2019 [facility] DATE CREATED AUTHOR AUTHOR'S ORGANIZ ATION 05/24/2022 [facility] DATE CREATED AUTHOR AUTHOR'S ORGANIZ ATION 07/14/2024 [facility] Reason for Visit (unrecogniz ed section and content) Reason Comments Fall Reason Comments Follow Up Phone Call Reason Comments Consult Colonoscopy consult Reason Comments Procedure Follow Up Colonoscopy 05/09/22 Aidee Vela RN - 06/14/2019 6:11 PM Aidee Johnson RN - 06/14/2019 3:12 PM Jignesh Romeo LPN - 06/14/2019 3:02 PM Jeannine Schroeder MD - 06/14/2019 12:46 PM EST ED Notes (unrecognized secti on and content) In to check on pt, pt is still in mri, denies needs at this time LAB CARTSIDE Due to multiple unsuccessful attempts at drawing labs, phlebotomy contacted for collection. CHANTAL Sexton notified. ED PROVIDER NOTE [facility] EM[facility]GENCY [facility]MENT NAME: Karey Bowen AGE: 64 y.o. : 1955 VISIT DATE: 06/14/2019 CSN: [id number] PCP: Quinten Ortiz MD Chief Complaint Patient [...] difficulty denies any previous history of strokes OR PE pneumothorax. Patient is not on anticoagulants [...] file Gets together: Not on file Attends restorationist service: Not on file Active member of [...] abnormal signal in the cervical spinal cord. [facility]/[employer] Workstation ID: [id number] XR Knee Left 2 Views (Standard) Final [...] a soft tissue contusion or prepatellar bursitis. [facility] Workstation ID: [id number] XR Chest 1 View [...] secondary to uncovertebral and/or facet joint arthropathy. [facility]/ads Workstation ID: [id number] CT Head Or Brain Without Contrast Final Result 1. No posttraumatic or acute intracranial abnormality is seen. 2. Moderately advanced symmetrical cerebral cortical atrophy. [facility]/ads Workstation ID: [id number] MR Knee Left Without [...] BEING HELD BY DR MAYNARD AND FRANCIA RN AND JANICE CORNEJO STANDING OVER PT ASSISTING [...] ON BUTTOCKS. DENIES HITTING HEAD. DR MAYNARD, AIDEE, JANICE KELLY, AND FRANCIA INTO ROOM. C COLLAR IN PLACE. PT ALERT AND ORIENTED. NO NEW COMPLAINTS OF INJURIES. FRANCIA MARLOW, AND AURELIA CORNEJO ASSISTED PT BACK TO BED AFTER DR MAYNARD ASSESSED PT. HE THEN NOTIFIED MD HIS LEFT LEG HAS BEEN GIVING OUT AND THIS IS WHAT CAUSED HIM TO FALL EARLIER TODAY. WITH THIS NEW INFORMATION YELLOW NON SLIP SOCKS APPLIED, SR UP X2, FALL RISK ARM BAND PLACED. CALL LIGHT GIVEN. PT EDUCATED ON ASKING FOR HELP IF HE NEEDS UP. VERBALLY UNDERSTANDS. documented in this encounter Goals (unrecognized section and content) Goals may be documented in a n alternate sectionGoals may be documented in an alternate sectionGoals may be documented in an alternate sectionGoals may be documented in an alternate sectionGoals may be documented in an alternate sectionGoals may be documented in an alternate sectionGoals may be documented in an alternate sectionGoals may be documented in an alternate section Source Comments (unrecognize d section and content) In the event this informatio n is protected by the Federal Confidentiality of Alcohol and Drug Abuse Patient Records regulations: The Federal rules restrict any use of the information to criminally investigate or prosecute any alcohol or drug abuse patient.[facility] Hospital[facility] the event this information is protected by the Federal Confidentiality of Alcohol and Drug Abuse Patient Records regulations: The Federal rules restrict any use of the information to criminally investigate or prosecute any alcohol or drug abuse patient.[facility] HospitalIn the event this information is protected by the Federal Confidentiality of Alcohol and Drug Abuse Patient Records regulations: The Federal rules restrict any use of the information to criminally investigate or prosecute any alcohol or drug abuse patient.[facility] HospitalIn the event this information is protected by the Federal Confidentiality of Alcohol and Drug Abuse Patient Records regulations: The Federal rules restrict any use of the information to criminally investigate or prosecute any alcohol or drug abuse patient.[facility] HospitalIn the event this information is protected by the Federal Confidentiality of Alcohol and Drug Abuse Patient Records regulations: The Federal rules restrict any use of the information to criminally investigate or prosecute any alcohol or drug abuse patient.[facility] Care Teams (unrecognized sec tion and content) Commercial Estimator Relationship Specialty Start Date End Date Ambrose Jim PCP - General 10/24/04 Commercial Estimator Relationship Specialty Start Date End Date Quinten Ortiz MD [address] [place], [place] [id number] PCP - General Family Medicine 02/06/22 Commercial Estimator Relationship Specialty Start Date End Date Quinten Ortiz MD [address], [place] [id number] PCP - General Family Medicine 02/06/22 Commercial Estimator Relationship Specialty Start Date End Date Quinten Ortiz MD [address] [facility], [place] [id number] PCP - General Family Medicine 02/06/22 Team Status: Active Member Role Status Dates Dr. Quinten Ortiz MD Family Provider Active Dr. Quinten Ortiz MD Primary Care Provider Active Team Status: Inactive Member Role Status Dates Dr. Quinten Ortiz MD Primary Care Provider, Suresh stovall Active Dr. Domingo Fountain MD Attending Provider Active Team Status: Inactive Member Role Status Dates Dr. Quinten Ortiz MD Primary Care Provide r, Attending Provider, Referring Provider Active Team Status: Inactive Member Role Status Dates Dr. Quinten Ortiz MD Primary Care Provider Active Dr. Erum Hayes MD Attending Provider, Referring Provider Active Team Status: Inactive Member Role Status Dates Dr. Quinten Ortiz MD Primary Care Provider Active Dr. Domingo Fountain MD Attending Provider, Referring Pr ovider Active Team Status: Inactive Member Role Status Dates Dr. Quinten Ortiz MD Primary Care Provider, Referring P rovider Active Dr. Yogi Warner MD Attending Provider Active Team Status: Active Member Role Status Dates Dr. Quinten Ortiz MD Primary Care Provider Active Dr. Nnamdi Rosen MD Attending Provider Active Team Status: Active Member Role Status Dates Dr. Quinten Ortiz MD Primary Care Provider Active Dr. Yogi Warner MD Attending Provider Active Team Status: Inactive Member Role Status Dates Dr. Quinten Ortiz MD Primary Care Provider Active Dr. Yogi Warner MD Attending Provider, Referring Pro vider Active Dr. Erum Hayes MD Other Provider Active Team Status: Active Member Role Status Dates Dr. Quinten Ortiz MD Primary Care Provider Active Self Referred Attending Provider Active Commercial Estimator Relationship Specialty Start Date End Date Quinten Ortiz MD [address] [place] [id number] PCP - General Family Medicine 02/06/22 Team Status: Active Member Role Status Dates Dr. Quinten Ortiz MD Primary Care Provider Active Team Status: Inactive Member Role Status Dates Dr. Quinten Ortiz MD Primary Care Provider Active Start: April 22, 2024 End: April 22, 2024 Dr. Erum Hayes MD Attending Provider Active Start: April 22, 2024 End: April 22, 2024 Dr. Erum Hayes MD Referring Provider Active Start: April 22, 2024 End: April 22, 2024 Team Status: Inactive Member Role Status Dates Dr. Quinten Ortiz MD Referring Provider Active St art: June 23, 2024 End: June 23, 2024 Yesenia Sarabia PRUNE WASHER, PRUNE WASHER-C Attending Provider Active Start: June 23, 2024 End: June 23, 2024 Team Status: Inactive Member Role Status Dates Dr. Quinten Ortiz MD Primary Care Provider Active Start: July 07, 2024 End: July 07, 2024 Dr. Quinten Ortiz MD Attending Provider Active St art: July 07, 2024 End: July 07, 2024 Dr. Quinten Ortiz MD Referring Provider Active St art: July 07, 2024 End: July 07, 2024 Dr. Erum Hayes MD Other Provider Active St art: July 07, 2024 End: July 07, 2024 FOR RECORDS PERTAINING TO PATIENTS WHO ARE [...] BE BASED ON THE PRIMARY CLINICAL RECORDS. [employer] provides no warranty or guarantee of the accuracy or completeness of information in this document.
[2024-10-01 08:47] LABS: Absolute Lymphocyte Count 1.65 X10^3/uL (0.83-4.51); Absolute Neutrophil Count 4.7 X10^3/uL (2.0-7.7); Basophil# 0.12 X10^3/uL; Basophil% 1.5 % (0-1); Eosinophil# 0.37 X10^3/uL; Eosinophils% 4.7 % (0-5); Hematocrit 43.3 % (40-54); Hemoglobin 14.2 g/dL (13.0-16.5); Lymphocyte # 1.65 X10^3/ul (0.83-4.51); Mean Corp Hgb Conc 32.8 g/dL (32-36); Mean Corpuscular Hgb 31.8 pg (27.0-32.0); Mean Corpuscular Volume 97.1 fL (80-94); Mean Platelet Vol. 10.5 fl (6.2-12.0); Monocyte# 0.98 X10^3/uL; Monocyte% 12.5 % (0-10); NRBC Flagged by Analyzer 0 % (0-5); Neutrophil # 4.66 X10^3/uL (2.7-7.7); Neutrophil % 59.3 % (47-70); Platelet Count 209 K/mm3 (150-450); RBC Distribution Width CV 15.4 % (11.6-14.6); RBC Distribution Width SD 54.9 fl (35.1-43.9); Red Blood Count 4.46 M/mm3 (4.6-6.2); White Blood Count 7.9 K/mm3 (4.4-11.0)
[2024-10-01 09:52] LABS: ALB/GLOB Ratio 1.9 RATIO (0.9-2.4); AST(SGOT) 26 U/L (<=37); Alanine Aminotransfer ALT/SGPT 37 U/L (<=46); Albumin, Serum 4.2 g/dL (3.4-4.8); Alkaline Phosphatase 83 U/L (40-129); Anion Gap 11 (5-15); BUN 17 mg/dL (4-19); BUN/Creat Ratio 17.1 RATIO (10-20); Carbon Dioxide 22.7 mmol/L (21.0-32.0); Chloride 107 mmol/L (98-108); Creatinine, Serum 0.99 mg/dL (0.70-1.20); EST Glomerular Filtration Rate 83 (>60); Globulin 2.2 g/dL (2.2-4.2); Glucose 97 mg/dL (70-99); Potassium 4.1 mmol/L (3.3-5.1); Protein, Total 6.4 g/dL (5.9-8.4); Sodium Level 141 mmol/L (133-145); Total Bilirubin 0.34 mg/dL (0.00-1.30)
== END | disposition home or self-care (01) ==
LOC: LAB 07:44
PROVIDERS: PCP Family Medicine; Referring Provider Internal Medicine Rheumatology; Visit Provider Internal Medicine Rheumatology
DX: M06.4 Inflammatory polyarthropathy (principal); M35.00 Sjogren syndrome, unspecified; M10.00 Idiopathic gout, unspecified site; Z79.899 Other long term (current) drug therapy
CPT/HCPCS: 36415; 80053; 85025

== ENCOUNTER → 2024-11-13 | Outpatient (CLI) | payer BC, SELFPAY ==
[2024-11-13 09:33] LABS: Hematocrit 43.7 % (40-54); Hemoglobin 14.8 g/dL (13.0-16.5); Immature Granulocytes Count 0.030 X10^3/uL (0.0-0.0); Mean Corp Hgb Conc 33.9 g/dL (32-36); Mean Corpuscular Volume 94.4 fL (80-94); Mean Platelet Vol. 10.6 fl (6.2-12.0); NRBC Flagged by Analyzer 0 % (0-5); Platelet Count 184 K/mm3 (150-450); RBC Distribution Width CV 15.0 % (11.6-14.6); RBC Distribution Width SD 51.9 fl (35.1-43.9); Red Blood Count 4.63 M/mm3 (4.6-6.2); White Blood Count 6.3 K/mm3 (4.4-11.0)
[2024-11-18 18:08] LABS: Bluegrass, Kentucky <0.10 kU/L (Class 0); Cat Hair/Dander, Standard <0.10 kU/L (Class 0); Dog Epithelia <0.10 kU/L (Class 0); Elm, American White <0.10 kU/L (Class 0); Oak, White <0.10 kU/L (Class 0); Plantain, English <0.10 kU/L (Class 0); Ragweed, Short/Common <0.10 kU/L (Class 0)
[2024-11-18 22:07] LABS: Aspirgillus flavus Negative (Neg:<1:1); Aspirgillus fumigatus Negative (Neg:<1:1); Aspirgillus niger Negative (Neg:<1:1)
== END | disposition home or self-care (01) ==
LOC: LAB 08:35
PROVIDERS: PCP Family Medicine; Referring Provider Nurse Practitioner Acute Care; Visit Provider Nurse Practitioner Acute Care
DX: J45.909 Unspecified asthma, uncomplicated (principal)
CPT/HCPCS: 36415; 82785; 85025; 86003; 86606

== ENCOUNTER → 2024-12-16 | Outpatient (CLI) | payer BC, SELFPAY ==
[2024-12-16 10:07] LABS: Hematocrit 41.3 % (40-54); Hemoglobin 13.9 g/dL (13.0-16.5); Immature Granulocytes Count 0.030 X10^3/uL (0.0-0.0); Mean Corp Hgb Conc 33.7 g/dL (32-36); Mean Corpuscular Volume 94.9 fL (80-94); Mean Platelet Vol. 10.3 fl (6.2-12.0); NRBC Flagged by Analyzer 0 % (0-5); Platelet Count 170 K/mm3 (150-450); RBC Distribution Width CV 15.0 % (11.6-14.6); RBC Distribution Width SD 51.8 fl (35.1-43.9); Red Blood Count 4.35 M/mm3 (4.6-6.2); White Blood Count 6.4 K/mm3 (4.4-11.0)
[2024-12-16 11:39] LABS: AST(SGOT) 29 U/L (<=37); Alanine Aminotransfer ALT/SGPT 42 U/L (<=46); Albumin, Serum 4.2 g/dL (3.4-4.8); Alkaline Phosphatase 79 U/L (40-129); Anion Gap 12 (5-15); BUN 21 mg/dL (4-19); BUN/Creat Ratio 20.0 RATIO (10-20); Calcium,Total 9.2 mg/dL (7.6-11.0); Carbon Dioxide 20.2 mmol/L (21.0-32.0); Chloride 110 mmol/L (98-108); Globulin 2.1 g/dL (2.2-4.2); Glucose 118 mg/dL (70-99); Potassium 3.9 mmol/L (3.3-5.1); Uric Acid 5.2 mg/dL (3.5-7.2)
== END | disposition home or self-care (01) ==
LOC: LAB 09:33
PROVIDERS: PCP Family Medicine; Referring Provider Internal Medicine Rheumatology; Visit Provider Internal Medicine Rheumatology
DX: M06.4 Inflammatory polyarthropathy (principal); Z79.899 Other long term (current) drug therapy
CPT/HCPCS: 36415; 80053; 84550; 85025

== ENCOUNTER → 2025-03-16 | Outpatient (CLI) | payer BC, SELFPAY ==
[2025-03-16 08:43] LABS: Hematocrit 42.1 % (40-54); Hemoglobin 14.3 g/dL (13.0-16.5); Immature Granulocytes Count 0.070 X10^3/uL (0.0-0.0); Mean Corp Hgb Conc 34.0 g/dL (32-36); Mean Corpuscular Volume 94.4 fL (80-94); Mean Platelet Vol. 10.6 fl (6.2-12.0); NRBC Flagged by Analyzer 0 % (0-5); Platelet Count 167 K/mm3 (150-450); RBC Distribution Width CV 14.7 % (11.6-14.6); RBC Distribution Width SD 50.6 fl (35.1-43.9); Red Blood Count 4.46 M/mm3 (4.6-6.2); White Blood Count 7.0 K/mm3 (4.4-11.0)
[2025-03-16 09:16] LABS: AST(SGOT) 31 U/L (<=37); Alanine Aminotransfer ALT/SGPT 46 U/L (<=46); Albumin, Serum 4.2 g/dL (3.4-4.8); Alkaline Phosphatase 74 U/L (40-129); Anion Gap 12 (5-15); BUN 19 mg/dL (4-19); BUN/Creat Ratio 17.5 RATIO (10-20); Calcium,Total 9.0 mg/dL (7.6-11.0); Carbon Dioxide 21.3 mmol/L (21.0-32.0); Chloride 107 mmol/L (98-108); Free T3 2.8 pg/mL (2.18-3.98); Globulin 2.1 g/dL (2.2-4.2); Glucose 106 mg/dL (70-99); Magnesium 2.2 mg/dL (1.5-2.2); PSA,Total - Annual Screen 1.58 ng/mL (0.02-4.00); Potassium 4.0 mmol/L (3.3-5.1)
== END | disposition home or self-care (01) ==
PROVIDERS: PCP Family Medicine; Visit Provider Internal Medicine Rheumatology
DX: M06.4 Inflammatory polyarthropathy (principal); J45.50 Severe persistent asthma, uncomplicated; M35.00 Sjogren syndrome, unspecified; Z79.899 Other long term (current) drug therapy; E03.9 Hypothyroidism, unspecified
CPT/HCPCS: 36415; 80053; 83735; 84153; 84439; 84443; 84481; 85025; G0103